=== PATIENT | female | born 1980 | race Caucasian/White ===

== ENCOUNTER 2020-06-26 | Outpatient (REF) | payer OTHER, SELFPAY ==
[2020-06-26 11:42] LABS: MANUAL DIFF FLAG NO
[2020-06-26 11:48] LABS: Basophils Absolute Auto 0.1 X10*3/uL (0.0-0.2); Basophils Percent Auto 0.9 % (0-2); Eosinophils Absolute Auto 0.2 X10*3/uL (0.0-0.4); Hematocrit 38.4 % (37-47); Hemoglobin 11.8 g/dl (12.0-16.0); Imm Gran Abs Auto 0.01 X10*3/uL (0.00-0.03); Imm Gran Pct Auto 0.1 % (0.0-0.4); Lymphocytes Absolute Auto 2.9 X10*3/uL (1.2-4.9); Lymphocytes Percent Auto 37.5 % (20-40); Mean Corpuscular HGB Conc 30.7 g/dl (31.0-35.0); Mean Corpuscular Hemoglobin 25.4 pg (27.0-33.0); Mean Corpuscular Volume 82.8 fL (80-98); Monocytes Absolute Auto 0.4 X10*3/uL (0.1-1.2); Monocytes Percent Auto 5.7 % (2-11); Neutrophils Absolute Auto 4.1 X10*3/uL (2.0-8.3); Neutrophils Percent Auto 52.8 % (45-73); Platelet Count 316 X10*3/uL (160-400); Red Blood Count 4.64 X10*6/uL (4.20-5.50); Red Cell Distribution Width 19.6 % (11.0-16.0); White Blood Count 7.8 X10*3/uL (4.8-10.8)
[2020-06-26 14:37] LABS: Ferritin 87 ng/mL (10-122)
== END 2020-06-26 00:01 | disposition home or self-care (01) ==
LOC: HO.MDS
PROVIDERS: PCP Internal Medicine; Visit Provider Internal Medicine Medical Oncology
DX: D50.9 Iron deficiency anemia, unspecified (principal)
CPT/HCPCS: 36415; 82728; 85025; J2916

== ENCOUNTER 2020-07-03 | Outpatient (REF) | payer OTHER, SELFPAY | END 2020-07-03 00:01 | disposition home or self-care (01) | LOC: HO.MDS | PROVIDERS: PCP Internal Medicine; Visit Provider Internal Medicine Medical Oncology | DX: D50.9 Iron deficiency anemia, unspecified (principal) | CPT/HCPCS: J2916 ==

== ENCOUNTER 2020-07-09 11:05 | Emergency (ER) | payer OTHER, SELFPAY ==
[2020-07-09 11:10] VITALS: BP 140/79; PULSE 92; RESP 16; TEMP 36.9; O2SAT 98; BMI 42.5
--- NOTE | 2020-07-09 11:12 | ED.FEMALEGU ---
HPI - Female Genitourinary General Chief complaint: Vaginal Bleeding Stated complaint: dizzy,vaginal bleeding Time Seen by Provider: 07/09/20 11:12 Source: patient Mode of arrival: ambulatory Limitations: no limitations History of Present Illness HPI Narrative: 39 y/o female with history of iron deficiency anemia with chronic PICC for IV iron infusions (last 6 days ago), history of dysfunctional uterine bleeding presenting with heavy vaginal bleeding associated with dizziness and lightheadedness. She was seen by [facility] in April and had PAP smear and biopsy per patient. She was told she needed to go on oral contraceptives but her doctor never called them in. In early May she was seen here for vaginal bleeding and cramping as well. She had a pelvic U/S showing a 1.9 cm right sided likely hemorrhagic ovarian cyst. She reports having 3 weeks of heavy bleeding starting Jun 14. It stopped for a few days last week but restarted again. She is now lightheaded and dizzy with mild lower abdominal cramping. She is sexually active but denies possibility of being due to active bleeding. Related Data Previous Rx's Medication Instructions Recorded medroxyprogesterone [Provera] 10 mg PO DAILY #10 tab 07/09/20 Allergies Allergy/AdvReac Type Severity Reaction Status Date / Time prednisone [PREDNISONE] Allergy Unknown HIVES Verified 07/09/20 11:18 Sulfa (Sulfonamide Allergy Unknown HIVES Verified 07/09/20 11:18 Antibiotics) [SULFA (SULFONAMIDE ANTIBIOTICS)] Review of Systems Review of Systems: Constitutional: No Fever, No Chills ENT/Mouth: No sore throat, No Rhinorrhea, No Swallowing Difficulty Eyes: No Eye Pain, No Swelling, No Redness Cardiovascular: No Chest Pain, No SOB, No Orthopnea, No Edema Respiratory: No Cough, No Sputum, No Wheezing, No dyspnea Gastrointestinal: No Nausea, No Vomiting, No Diarrhea, + lower abdominal Pain - cramping, No Hematochezia, No Melena Genitourinary: No Dysuria, No Urinary Frequency, No Hematuria, +vaginal bleeding, No vaginal discharge Musculoskeletal: No joint pain, No Myalgias Skin: No Skin Lesions, No rash Neuro: No Weakness, No Numbness, + Dizziness, No Headache Psych: + Anxiety, No Depression Heme/Lymph: No Bruising, No Lymphadenopathy Endocrine: No Polyuria, No Polydipsia PMFSH Past Medical History Attestation statement: The following information was validated with the patient. Medical History Anemia Asthma Gestational diabetes mellitus Preeclampsia Social History Social History Smoking Status: Never smoker Use of substances other than those prescribed or required for medical reasons: No Advance Directives: No Advance Directives Information Provided: Yes Physical Exam Vital Signs: Vital Signs: Vital Signs Temp Pulse Resp BP Pulse Ox 07/09/20 12:09 98.6 F 88 119/83 99 07/09/20 11:32 89 131/80 07/09/20 11:31 86 130/74 07/09/20 11:13 80 132/66 07/09/20 11:10 98.5 F 92 16 140/79 H 98 Body Mass Index 42.5 Appearance: Alert. Oriented X3. No acute distress. Eyes: Pupils equal, round and reactive to light. ENT: Pharynx normal. Neck: Normal inspection. Neck supple. CVS: Normal heart rate and rhythm. Pulses normal. Respiratory: No respiratory distress. Breath sounds normal. Abdomen: Obese, Soft with mild tenderness to deep palpation of suprapubic area. +BS x4 Skin: Skin warm and dry. Normal skin color. Normal skin turgor. No rashes. Extremities: No lower extremity edema. Neuro: Oriented X 3. No motor deficit. No sensory deficit. Course Course Course Narrative: 39 yo with DUB, anemia requiring IV iron and infusion in the past presenting with heavy vaginal bleeding and lightheadedness. She has had significant workup for the bleeding in the recent past. No need for further imaging at this time. HCG quant pending as well as H/H and type and screen - will transfuse if needed. Reevaluation(s) Reevaluation #1: H/H shows mild anemia, with hemoglobin of 11.2 from 11.8 about 2 weeks ago. No major bleeding while in the ER. Pelvic exam deferred per patient request. She is in the middle of changing her [facility] doctor but would like to get started on a OCP like her doctor previously discussed with her. Will give 1 month supply until she can f/u with a new [facility] provider. MDM - Female Genitourinary Lab Data Result diagrams: 07/09/20 11:39 07/09/20 11:39 Labs: Lab Results 07/09/20 07/09/20 07/09/20 Range/Units 11:39 11:39 11:58 WBC 7.8 (4.8-10.8) X10*3/uL RBC 4.33 (4.20-5.50) X10*6/uL Hgb 11.2 L (12.0-16.0) g/dl Hct 35.2 L (37-47) % MCV 81.3 (80-98) fL MCH 25.9 L (27.0-33.0) pg MCHC 31.8 (31.0-35.0) g/dl RDW 18.3 H (11.0-16.0) % Plt Count 334 (160-400) X10*3/uL MPV 10.8 (9.4-12.3) fL Immature Gran % (Auto) 0.5 H (0.0-0.4) % Neut % (Auto) 55.9 (45-73) % Lymph % (Auto) 35.2 (20-40) % Faulkner % (Auto) 5.0 (2-11) % Eos % (Auto) 2.6 (0-4) % Baso % (Auto) 0.8 (0-2) % Lymph # (Auto) 2.8 (1.2-4.9) X10*3/uL Faulkner # (Auto) 0.4 (0.1-1.2) X10*3/uL Eos # (Auto) 0.2 (0.0-0.4) X10*3/uL Baso # (Auto) 0.1 (0.0-0.2) X10*3/uL Abs Immat Gran (auto) 0.04 H (0.00-0.03) X10*3/uL Absolute Neuts (auto) 4.4 (2.0-8.3) X10*3/uL Absolute Nucleated RBC 0.000 (0.0-0.012) X10*3/uL Nucleated RBC % (auto) 0.0 (0.0-0.2) /100WBC Sodium 138 (135-145) mmol/L Potassium 4.2 (3.3-5.1) mmol/l Chloride 102 (96-108) mmol/L Carbon Dioxide 29 (22-29) mmol/L Anion Gap 11 L (12-20) BUN 9 (9-16) mg/dL Creatinine 0.63 (0.5-1.4) mg/dL Estim Creat Clear Calc 134.1 Estimated GFR > 60 Random Glucose 106 (60-115) mg/dL Calcium 9.4 (8.4-10.2) mg/dL Beta HCG, Quant < 2 mIU/mL Urine Color Urine Appearance Urine pH (5.0-8.0) Ur Specific [place] (1.005-1.025) Urine Protein (NEG-TRACE) MG/DL Urine Glucose (UA) (NEG) MG/DL Urine Ketones (NEG) MG/DL Urine Blood (NEG) Urine Nitrite (NEG) Ur Leukocyte Esterase (NEG) Urine RBC (0) /HPF Urine WBC (0-4) /HPF Ur Squamous Epith Cells /LPF Urine Bacteria /LPF Blood Type O Positive Antibody Screen NEGATIVE 07/09/20 Range/Units 13:18 WBC (4.8-10.8) X10*3/uL RBC (4.20-5.50) X10*6/uL Hgb (12.0-16.0) g/dl Hct (37-47) % MCV (80-98) fL MCH (27.0-33.0) pg MCHC (31.0-35.0) g/dl RDW (11.0-16.0) % Plt Count (160-400) X10*3/uL MPV (9.4-12.3) fL Immature Gran % (Auto) (0.0-0.4) % Neut % (Auto) (45-73) % Lymph % (Auto) (20-40) % Faulkner % (Auto) (2-11) % Eos % (Auto) (0-4) % Baso % (Auto) (0-2) % Lymph # (Auto) (1.2-4.9) X10*3/uL Faulkner # (Auto) (0.1-1.2) X10*3/uL Eos # (Auto) (0.0-0.4) X10*3/uL Baso # (Auto) (0.0-0.2) X10*3/uL Abs Immat Gran (auto) (0.00-0.03) X10*3/uL Absolute Neuts (auto) (2.0-8.3) X10*3/uL Absolute Nucleated RBC (0.0-0.012) X10*3/uL Nucleated RBC % (auto) (0.0-0.2) /100WBC Sodium (135-145) mmol/L Potassium (3.3-5.1) mmol/l Chloride (96-108) mmol/L Carbon Dioxide (22-29) mmol/L Anion Gap (12-20) BUN (9-16) mg/dL Creatinine (0.5-1.4) mg/dL Estim Creat Clear Calc Estimated GFR Random Glucose (60-115) mg/dL Calcium (8.4-10.2) mg/dL Beta HCG, Quant mIU/mL Urine Color RED Urine Appearance HAZY Urine pH 8.0 (5.0-8.0) Ur Specific [place] 1.025 (1.005-1.025) Urine Protein TRACE (NEG-TRACE) MG/DL Urine Glucose (UA) NEG (NEG) MG/DL Urine Ketones NEG (NEG) MG/DL Urine Blood 3+ H (NEG) Urine Nitrite NEG (NEG) Ur Leukocyte Esterase NEG (NEG) Urine RBC TNTC H (0) /HPF Urine WBC 0 (0-4) /HPF Ur Squamous Epith Cells TRACE /LPF Urine Bacteria NONE /LPF Blood Type Antibody Screen Discharge Plan Discharge Clinical Impression: Dysfunctional uterine bleeding Patient Disposition: Home, Self-Care Instructions: Dysfunctional Uterine Bleeding (ED) Additional Instructions: Follow up with your new [facility] as scheduled. If you have persistent lightheadness, dizziness or if you develop shortness of breath, chest pain or worsening bleeding come back to the ER for further evaluation. Prescriptions: New medroxyprogesterone [Provera] 10 mg tablet 10 mg PO DAILY Qty: 10 RF: 0
[2020-07-09 11:13] VITALS: BP 132/66; PULSE 80
[2020-07-09 11:31] VITALS: BP 130/74; PULSE 86
[2020-07-09 11:32] VITALS: BP 131/80; PULSE 89
[2020-07-09] MEDS: 0.9 % Sodium Chloride 1,000 ML 999 ML IVCONT (11:40)
[2020-07-09 12:07] LABS: MANUAL DIFF FLAG NO
[2020-07-09 12:09] VITALS: BP 119/83; PULSE 88; TEMP 37; O2SAT 99
[2020-07-09 12:11] LABS: Basophils Absolute Auto 0.1 X10*3/uL (0.0-0.2); Basophils Percent Auto 0.8 % (0-2); Eosinophils Absolute Auto 0.2 X10*3/uL (0.0-0.4); Eosinophils Percent Auto 2.6 % (0-4); Hematocrit 35.2 % (37-47); Hemoglobin 11.2 g/dl (12.0-16.0); Imm Gran Abs Auto 0.04 X10*3/uL (0.00-0.03); Imm Gran Pct Auto 0.5 % (0.0-0.4); Lymphocytes Absolute Auto 2.8 X10*3/uL (1.2-4.9); Lymphocytes Percent Auto 35.2 % (20-40); Mean Corpuscular HGB Conc 31.8 g/dl (31.0-35.0); Mean Corpuscular Hemoglobin 25.9 pg (27.0-33.0); Mean Corpuscular Volume 81.3 fL (80-98); Mean Platelet Volume 10.8 fL (9.4-12.3); Monocytes Absolute Auto 0.4 X10*3/uL (0.1-1.2); Neutrophils Absolute Auto 4.4 X10*3/uL (2.0-8.3); Neutrophils Percent Auto 55.9 % (45-73); Platelet Count 334 X10*3/uL (160-400); Red Blood Count 4.33 X10*6/uL (4.20-5.50); Red Cell Distribution Width 18.3 % (11.0-16.0); White Blood Count 7.8 X10*3/uL (4.8-10.8)
[2020-07-09 12:30] LABS: Anion Gap 11 (12-20); Blood Urea Nitrogen 9 mg/dL (9-16); Calcium 9.4 mg/dL (8.4-10.2); Carbon Dioxide 29 mmol/L (22-29); Chloride 102 mmol/L (96-108); Creatinine Clr Calc Pharmacy 134.1; Estimated Glomerular Filt Rate > 60; Glucose Random 106 mg/dL (60-115); Potassium 4.2 mmol/l (3.3-5.1); Sodium 138 mmol/L (135-145)
--- NOTE | 2020-07-09 12:36 | PC.NURSE ---
Pt has a Picc line to right antecub for iron infusions, last accessed Thursday. Flushed well, +blood return.
[2020-07-09 12:39] LABS: HCG Quantitative < 2 mIU/mL
[2020-07-09 13:34] LABS: Glucose Urine UA NEG (NEG); Leukocyte Esterase Urine NEG (NEG); Nitrite Urine NEG (NEG); Specific Gravity - Urine 1.025 (1.005-1.025); Urine Blood 3+ (NEG); Urine Ketones NEG (NEG); Urine Protein TRACE MG/DL (NEG-TRACE)
[2020-07-09 13:45] LABS: Appearance Urine HAZY; Color Urine RED
[2020-07-09 13:48] LABS: RBC Urine TNTC /HPF (0); Squamous Epithelial Cell Urine TRACE /LPF; WBC Urine 0 /HPF (0-4)
== END 2020-07-09 14:55 | disposition home or self-care (01) ==
PROVIDERS: Physician Assistant; Emergency Provider Emergency Medicine; PCP Internal Medicine
DX: N93.8 Other specified abnormal uterine and vaginal bleeding (principal); Z79.899 Other long term (current) drug therapy
CPT/HCPCS: 36415; 80048; 81001; 84702; 85025; 86850; 86900; 86901; 96360; 99284

== ENCOUNTER 2020-07-10 11:23 | Outpatient (REF) | payer OTHER, SELFPAY | END 2020-07-10 11:24 | disposition home or self-care (01) | LOC: HO.MDS 11:23 | PROVIDERS: PCP Internal Medicine; Visit Provider Internal Medicine Medical Oncology | DX: D50.9 Iron deficiency anemia, unspecified (principal) | CPT/HCPCS: 96365; J2916 ==

== ENCOUNTER 2020-07-17 11:28 | Outpatient (REF) | payer OTHER, SELFPAY | END 2020-07-17 11:29 | disposition home or self-care (01) | LOC: HO.MDS 11:28 | PROVIDERS: PCP Internal Medicine; Visit Provider Internal Medicine Medical Oncology | DX: D50.9 Iron deficiency anemia, unspecified (principal) | CPT/HCPCS: 96365; J2916 ==

== ENCOUNTER 2020-07-24 12:15 | Outpatient (REF) | payer OTHER, SELFPAY ==
[2020-07-24 12:38] LABS: MANUAL DIFF FLAG NO
[2020-07-24 12:46] LABS: Basophils Absolute Auto 0.1 X10*3/uL (0.0-0.2); Basophils Percent Auto 0.7 % (0-2); Eosinophils Absolute Auto 0.2 X10*3/uL (0.0-0.4); Eosinophils Percent Auto 2.2 % (0-4); Hematocrit 37.1 % (37-47); Hemoglobin 11.8 g/dl (12.0-16.0); Imm Gran Abs Auto 0.03 X10*3/uL (0.00-0.03); Imm Gran Pct Auto 0.4 % (0.0-0.4); Lymphocytes Absolute Auto 2.7 X10*3/uL (1.2-4.9); Lymphocytes Percent Auto 31.3 % (20-40); Mean Corpuscular HGB Conc 31.8 g/dl (31.0-35.0); Mean Corpuscular Hemoglobin 26.3 pg (27.0-33.0); Mean Corpuscular Volume 82.6 fL (80-98); Mean Platelet Volume 10.9 fL (9.4-12.3); Monocytes Absolute Auto 0.4 X10*3/uL (0.1-1.2); Monocytes Percent Auto 4.6 % (2-11); Neutrophils Absolute Auto 5.2 X10*3/uL (2.0-8.3); Neutrophils Percent Auto 60.8 % (45-73); Platelet Count 297 X10*3/uL (160-400); Red Blood Count 4.49 X10*6/uL (4.20-5.50); Red Cell Distribution Width 17.2 % (11.0-16.0); White Blood Count 8.5 X10*3/uL (4.8-10.8)
[2020-07-24 13:31] LABS: Ferritin 101 ng/mL (10-122)
== END 2020-07-24 12:16 | disposition home or self-care (01) ==
LOC: HO.MDS 12:15
PROVIDERS: PCP Internal Medicine; Visit Provider Internal Medicine Medical Oncology
DX: D50.9 Iron deficiency anemia, unspecified (principal)
CPT/HCPCS: 36415; 82728; 85025; 96365; J2916

== ENCOUNTER 2020-08-02 14:04 | Outpatient (REF) | payer OTHER, SELFPAY ==
--- NOTE | 2020-08-02 14:30 | HO.PICC ---
PICC Line Insertion REMOVAL OF PICC LINE 1. DATE: 08/02/2020 2. REASON REMOVED: PER REQUEST, NO LONGER NEEDED 3. INSERTED LENGTH: 47 CM SINGLE LUMEN PICC 4. REMOVED LENGTH: 47 CM INTACT SINGLE LUMEN PICC 5. A DRESSING WAS PLACED OVER THE SITE UPON REMOVAL. NO NOTED SKIN IRRITATION/SWELLING/BLEEDING NOTED. FULL ROM OF RUE INTACT. PT DENIES ANY CONCERNS. PICC FLUSHED EASILY AND BLOOD RETURN WAS VISUALIZED PRIOR TO REMOVING PICC.
== END 2020-08-02 14:05 | disposition home or self-care (01) ==
LOC: HO.RADIR 14:04
PROVIDERS: PCP Internal Medicine; Visit Provider Internal Medicine Medical Oncology
DX: Z13.89 Encounter for screening for other disorder (principal)

== ENCOUNTER → 2020-08-15 13:25 | Outpatient (REF) | payer OTHER, SELFPAY ==
--- NOTE | 2020-08-15 13:30 | ECG_ITS ---
Hook-up date: 2020-08-15 13:45:00 Duration: 47:59:00 Test Indications: PALPITATIONS, DIZZINESS Medications: [id number] QRS complexes 1 Ventricular ectopics which represent <1 % of total QRS comp. 3 Supraventricular ectopics which represent <1 % of total QRS comp. * Paced QRS complexs which represent % of total QRS comp. VENTRICULAR ECTOPY 1 Isolated 0 Bigeminal Cycles 0 Couplets 0 Runs 0 Beats in Runs * Beats LONGEST at * BPM at :: -- * Beats FASTEST at * BPM at :: -- SUPRAVENTRICULAR ECTOPY 3 Isolated 0 Couplets 0 Runs 0 Beats in Runs * Beats LONGEST at * BPM at :: -- * Beats FASTEST at * BPM at :: -- HEART RATES 53 MIN at 05:17:15 2020-08-16 80 AVG 118 MAX at 20:31:02 2020-08-15 LONGEST RR 1.2640 secs at 05:17:15 2020-08-16 S-T LEVELS Channel 1 - 128 mm at 13:45:00 2020-08-15 - 128 mm at 13:45:00 2020-08-15 Channel 2 - 128 mm at 13:45:00 2020-08-15 - 128 mm at 13:45:00 2020-08-15 Channel 3 - 128 mm at 03:30:41 -- - 128 mm at 03:30:41 Basic rhythm Normal sinus rhythm No long pause or profound bradycardia No dangerous dysrhythm periods Patient did not report any symptoms in the diary Referred By: Rama Cui Overread By: ALAN SMITH MD
== END ==
LOC: HO.CARD 13:25
PROVIDERS: PCP Internal Medicine; Visit Provider Internal Medicine
DX: R00.2 Palpitations (principal); R42 Dizziness and giddiness
CPT/HCPCS: 93225; 93226

== ENCOUNTER 2020-12-10 14:20 | Emergency (ER) | payer OTHER, SELFPAY ==
[2020-12-10 14:42] VITALS: BP 154/74; PULSE 91; RESP 16; TEMP 36.8; O2SAT 97; BMI 43.4
[2020-12-10 15:49] VITALS: BP 147/95; PULSE 79; RESP 16; TEMP 36.8; O2SAT 98
--- NOTE | 2020-12-10 16:10 | ED.ANXIETY ---
HPI - Anxiety General Chief Complaint: Anxiety Stated Complaint: anxiety attack Time Seen by Provider: 12/10/20 15:52 Source: patient Mode of arrival: ambulatory Limitations: no limitations History of Present Illness HPI narrative: 39-year-old female with a past history of anxiety, asthma, depression here after having an anxiety attack. Patient also she started a new job 3 weeks ago which has been causing her lot of stress. Today she started to have feelings of chest tightness and shortness of breath and palpitations which is very similar to her previous panic attacks. Symptoms lingered and she brought herself to the emergency department. On my assessment she is feeling much improved and all symptoms are resolved. She tells me that she has a therapist that she last saw 3 weeks ago. She is not currently taking any medications for anxiety or depression. She had been taking Celexa in the past and had been seen by psychiatrist at that time but that was more than 8 years ago. She denies SI or HI. No depression. Denies substance use. Related Data Home Medications Medication Instructions Recorded Confirmed ferrous sulfate 325 mg (65 mg mg PO 08/06/20 09/03/20 iron) tablet Previous Rx's Medication Instructions Recorded meclizine 25 mg tablet 25 mg PO TID #14 tab 08/06/20 lorazepam [Ativan] 0.5 mg PO BID PRN #5 tab 12/10/20 Allergies Allergy/AdvReac Type Severity Reaction Status Date / Time prednisone [PREDNISONE] Allergy Unknown HIVES Verified 12/10/20 14:42 Sulfa (Sulfonamide Allergy Unknown HIVES Verified 12/10/20 14:42 Antibiotics) [SULFA (SULFONAMIDE ANTIBIOTICS)] Review of Systems Review of Systems: Yes all other systems are reviewed and are negative Constitutional: Constitutional: Reports no additional constitutional complaints, Denies body ache(s), Denies chills, Denies fever(s), Denies headache(s) and Denies weakness Eyes: Eyes: Reports no additional eye complaints and Denies change in vision ENT: Reports system reviewed and no additional complaints, except as documented, Denies dizziness, Denies headache(s), Denies nasal congestion, Denies nasal discharge and Denies neck pain Cardiovascular: Cardiovascular: Reports no additional cardiovascular complaints, Denies chest pain, Denies leg edema and Denies dyspnea Respiratory: Respiratory: Reports no additional respiratory complaints, Denies cough and Denies dyspnea Gastrointestinal: Gastrointestinal: Reports no additional gastrointestinal complaints, Denies abdominal pain, Denies diarrhea, Denies nausea and Denies vomiting Genitourinary: Genitourinary: Reports no additional female genitourinary complaints and Denies urinary incontinence Musculoskeletal: Musculoskeletal: Reports no additional musculoskeletal complaints, Denies back pain, Denies arthralgias, Denies joint swelling, Denies neck pain, Denies numbness and Denies tingling Integumentary/Breasts: Skin/Breast: Reports system reviewed and no additional complaints, except as docu and Denies rash Neurologic: Reports system reviewed and no additional complaints, except as documented, Denies Abnormal speech present, Denies dizziness, Denies headache(s), Denies numbness, Denies tingling and Denies weakness Psychiatric: Psychiatric: Reports anxiety, Denies depression, Denies hallucinations, Denies tactile hallucinations, Denies homicidal ideation and Denies suicidal ideation PMFSH Past Medical History Attestation statement: The following information was validated with the patient. Source: old records reviewed and nursing notes reviewed Medical History Anemia Anxiety Asthma Gestational diabetes mellitus Menorrhagia Palpitations Preeclampsia Vertigo Family History Family History Father HTN (hypertension) Mother Bipolar disorder Ovarian cancer Maternal Grandfather Diabetes mellitus Maternal Grandmother HTN (hypertension) Breast cancer Paternal Grandfather No problems noted. Paternal Grandmother No problems noted. Social History Social History Smoking Status: Never smoker Advance Directives: No Advance Directives Information Provided: Yes Physical Exam Vital Signs: Vital Signs: Last Vital Signs Temp 98.2 F 12/10/20 15:49 Pulse 79 12/10/20 15:49 Resp 16 12/10/20 15:49 BP 147/95 H 12/10/20 15:49 Pulse Ox 98 12/10/20 15:49 Body Mass Index 43.4 Const: General: cooperative, healthy appearing, comfortable and no acute distress Orientation/consciousness: patient oriented x3 Limitations: no limitations HENMT: Head: Yes normal to inspection Ears: hearing grossly normal bilaterally General nose exam: Normal external nose present Face and sinus: Yes normal facial exam Mouth: Normal oral and palatal mucosa present Throat: Yes posterior oropharynx normal Eyes: General: appearance normal, both eyes and all related structures Pupils: Equal, round and reactive pupils present Neck: Neck: Yes normal visual inspection Chest: Chest palpation & inspection: normal inspection of the chest Resp: Effort & Inspection: normal respiratory effort Auscultation: clear to auscultation bilaterally Cardio: Rate: regular rate Rhythm: regular rhythm Peripheral pulses: Peripheral pulses 2+ throughout GI: Inspection: Yes normal to inspection Palpation (GI): Soft to palpation and nontender Auscultation: normal bowel sounds Back/Spine/Pelvis: Thoracic/Lumbar Spine: thoracic and lumbar spine normal to inspection Skin: General skin exam: no rashes or lesions noted Neuro: General: patient oriented x3, no focal motor deficits and normal sensation to monofilament Cranial nerves: Yes Equal, round and reactive pupils present Cognition (Neuro): normal cognition Speech: No Abnormal speech present Gait exam (Neuro): Normal gait present Motor exam (neuro): 5/5 motor strength present throughout Extrem: General: Yes normal to inspection Course Course Course Narrative: 39-year-old female here after having a panic attack at home. Feeling much improved on arrival. No SI or HI. Patient tells me she has had multiple stressors at home including starting a new job. Feeling much improved here. Does not want to speak to SW or crisis. Offered several tabs of ativan for prn. Recommend she follow up with her therapist for psychiatry appointment. Reviewed worrisome signs and symptoms and when to return to the emergency department. Comfortable discharge home. MDM - Anxiety Medical Records Attestation: I reviewed the patient's medical records. Lab Data Attestation: I reviewed the patient's lab results. Discharge Plan Discharge Clinical Impression: Anxiety Patient Disposition: Home, Self-Care Instructions: Anxiety (ED) Additional Instructions: Speak to your therapist about getting a psychiatrist Prescriptions: New lorazepam [Ativan] 0.5 mg tablet 0.5 mg PO BID PRN (Reason: anxiety) Qty: 5 RF: 0 No Action ferrous sulfate 325 mg (65 mg iron) tablet PO RF: 0 meclizine 25 mg tablet 25 mg PO TID Qty: 14 RF: 0 Stand Alone Forms: Work/School Release Interventions: ED Discharge Assessment Last Done: 12/10/20 16:58 Discharge Date/Time: 12/10/20 16:59
== END 2020-12-10 16:59 | disposition home or self-care (01) ==
PROVIDERS: Emergency Provider Emergency Medicine; PCP Internal Medicine
DX: F41.9 Anxiety disorder, unspecified (principal)
CPT/HCPCS: 99283

== ENCOUNTER 2021-02-05 | Outpatient (REF) | payer OTHER, SELFPAY | END 2021-02-05 00:01 | disposition home or self-care (01) | LOC: HO.LNP | PROVIDERS: Visit Provider Nurse Practitioner Family | DX: R10.9 Unspecified abdominal pain (principal); R31.0 Gross hematuria; M54.9 Dorsalgia, unspecified | CPT/HCPCS: 87086; 87088; 87186 ==

== ENCOUNTER 2021-02-05 11:50 | Emergency (ER) | payer OTHER, SELFPAY ==
[2021-02-05 12:41] VITALS: BP 140/88; PULSE 85; RESP 18; TEMP 36.3; O2SAT 96; BMI 43.4
[2021-02-05 13:55] LABS: MANUAL DIFF FLAG NO
[2021-02-05 13:59] LABS: Basophils Percent Auto 0.3 % (0-2); Eosinophils Absolute Auto 0.2 X10*3/uL (0.0-0.4); Hematocrit 34.8 % (37-47); Hemoglobin 11.2 g/dl (12.0-16.0); Imm Gran Abs Auto 0.05 X10*3/uL (0.00-0.03); Imm Gran Pct Auto 0.4 % (0.0-0.4); Lymphocytes Absolute Auto 2.3 X10*3/uL (1.2-4.9); Lymphocytes Percent Auto 19.9 % (20-40); Mean Corpuscular HGB Conc 32.2 g/dl (31.0-35.0); Mean Corpuscular Hemoglobin 25.5 pg (27.0-33.0); Mean Corpuscular Volume 79.3 fL (80-98); Mean Platelet Volume 10.7 fL (9.4-12.3); Monocytes Absolute Auto 0.5 X10*3/uL (0.1-1.2); Monocytes Percent Auto 4.1 % (2-11); Neutrophils Absolute Auto 8.5 X10*3/uL (2.0-8.3); Neutrophils Percent Auto 73.3 % (45-73); Platelet Count 313 X10*3/uL (160-400); Red Blood Count 4.39 X10*6/uL (4.20-5.50); Red Cell Distribution Width 16.2 % (11.0-16.0); White Blood Count 11.6 X10*3/uL (4.8-10.8)
[2021-02-05 14:01] LABS: Glucose Urine UA NEG (NEG); Leukocyte Esterase Urine 1+ (NEG); Nitrite Urine NEG (NEG); UACC Culture Trigger YES; Urine Blood 3+ (NEG); Urine Ketones NEG (NEG); Urine Protein 2+ MG/DL (NEG-TRACE)
[2021-02-05 14:03] LABS: UPreg QC Valid YES; Urine Pregnancy NEGATIVE (NEGATIVE)
[2021-02-05 14:04] LABS: Appearance Urine CLOUDY; Color Urine YELLOW
[2021-02-05 14:08] LABS: Bacteria Urine TRACE /LPF; Mucus Urine TRACE /LPF; RBC Urine TNTC /HPF (0); Squamous Epithelial Cell Urine TRACE /LPF
[2021-02-05 14:22] LABS: Alanine Aminotransferase 21 U/L (0-31); Albumin Level 3.9 g/dL (3.5-5.0); Alkaline Phosphatase 104 U/L (39-117); Anion Gap 13 (12-20); Aspartate Amino Transferase 25 U/L (5-31); Bilirubin Total 0.5 mg/dL (0.0-1.0); Blood Urea Nitrogen 8 mg/dL (9-16); Calcium 9.4 mg/dL (8.4-10.2); Carbon Dioxide 26 mmol/L (22-29); Chloride 103 mmol/L (96-108); Creatinine Clr Calc Pharmacy 134.6; Estimated Glomerular Filt Rate > 60; Glucose Random 98 mg/dL (60-115); Potassium 3.8 mmol/L (3.3-5.1); Sodium 138 mmol/L (135-145); Total Protein 7.1 g/dL (6.5-8.0)
[2021-02-05 16:00] VITALS: BP 138/84; PULSE 72; RESP 16; TEMP 36.9; O2SAT 99
--- NOTE | 2021-02-05 16:34 | ED_ITS ---
HPI - Abdominal Pain General Chief Complaint: Abdominal Pain Stated Complaint: LOWER BACK AND ABD PAIN Time Seen by Provider: 02/05/21 16:30 Source: patient Mode of arrival: ambulatory Limitations: no limitations History of Present Illness HPI narrative: 32-year-old female here with low back pain with suprapubic pre ssure and discomfort and hematuria x3 days. No flank pain, fevers, chills, nausea, vomiting. No vaginal discharge. Seen at Urgent Care and sent in for further evaluation Related Data Home Medications Medication Instructions Recorded Confirmed ferrous sulfate 325 mg (65 mg mg PO 08/06/20 09/03/20 iron) tablet Previous Rx's Medication Instructions Recorded meclizine 25 mg tablet 25 mg PO TID #14 tab 08/06/20 lorazepam [Ativan] 0.5 mg PO BID PRN #5 tab 12/10/20 nitrofurantoin monohyd/m-cryst 100 mg PO Q12H 7 Days #14 cap 02/05/21 [Macrobid] phenazopyridine [Pyridium] 100 mg PO TID PRN #6 tab 02/05/21 Allergies Allergy/AdvReac Type Severity Reaction Status Date / Time prednisone [PREDNISONE] Allergy Unknown HIVES Verified 02/05/21 12:41 Sulfa (Sulfonamide Allergy Unknown HIVES Verified 02/05/21 12:41 Antibiotics) [SULFA (SULFONAMIDE ANTIBIOTICS)] Review of Systems Review of Systems Yes all other systems are reviewed and are negative Constitutional: Reports no additional constitutional complaints, Denies body ache(s), Denies chills, Denies fever(s), Denies headache(s) and Denies weakness Eyes: Reports no additional eye complaints and Denies change in vision Reports system reviewed and no additional complaints, except as documented, Denies dizziness, Denies headache(s), Denies nasal congestion, Denies nasal discharge and Denies neck pain Cardiovascular: Reports no additional cardiovascular complaints, Denies chest pain, Denies leg edema and Denies dyspnea Respiratory: Reports no additional respiratory complaints, Denies cough and Denies dyspnea Gastrointestinal: Reports no additional gastrointestinal complaints, Denies abdominal pain, Denies diarrhea, Denies nausea and Denies vomiting Genitourinary: Reports no additional female genitourinary complaints, Reports hematuria and Denies urinary incontinence Musculoskeletal: Reports no additional musculoskeletal complaints, Reports back pain, Denies arthralgias, Denies joint swelling, Denies neck pain, Denies numbness and Denies tingling Skin/Breast: Reports system reviewed and no additional complaints, except as docu and Denies rash Reports system reviewed and no additional complaints, except as documented, Denies Abnormal speech present, Denies dizziness, Denies headache(s), Denies numbness, Denies tingling and Denies weakness Physical Exam Vital Signs: Vital Signs: Last Vital Signs Temp 97.3 F 02/05/21 12:41 Pulse 85 02/05/21 12:41 Resp 18 02/05/21 12:41 BP 140/88 H 02/05/21 12:41 Pulse Ox 96 02/05/21 12:41 Body Mass Index 43.4 Const: General: cooperative, healthy appearing, comfortable and no acute distress Orientation/consciousness: patient oriented x3 Limitations: no limitations HENMT: Head: Yes normal to inspection Ears: hearing grossly normal bilaterally General nose exam: Normal external nose present Face and sinus: Yes normal facial exam Mouth: Normal oral and palatal mucosa present Throat: Yes posterior oropharynx normal Eyes: General: appearance normal, both eyes and all related structures Pupils: Equal, round and reactive pupils present Neck: Neck: Yes normal visual inspection Chest: Chest palpation & inspection: normal inspection of the chest Resp: Effort & Inspection: normal respiratory effort Auscultation: clear to auscultation bilaterally Cardio: Rate: regular rate Rhythm: regular rhythm Peripheral pulses: Peripheral pulses 2+ throughout GI: Inspection: Yes normal to inspection Palpation (GI): Soft to palpation and Tenderness to palpation present (GI) suprapubicly (Mild. No rebound or guarding) Auscultation: normal bowel sounds : General: Yes no CVA tenderness Back/Spine/Pelvis: Back: no CVA tenderness Thoracic/Lumbar Spine: thoracic and lumbar spine normal to inspection Skin: General skin exam: no rashes or lesions noted Neuro: General: patient oriented x3, no focal motor deficits and normal sensation to monofilament Cranial nerves: Yes Equal, round and reactive pupils present Cognition (Neuro): normal cognition Speech: No Abnormal speech present Gait exam (Neuro): Normal gait present Motor exam (neuro): 5/5 motor strength present throughout Extrem: General: Yes normal to inspection Course Course Course Narrative: 40-year-old female here with lower back pain with suprapubic discomfort and pressure times several days with intermittent hematuria. No flank pain. UA is consistent with a UTI. Renal function normal. Very mild leukocytosis with no shift. Will treat with course of antibiotics and Pyridium for comfort. Reviewed worrisome signs and symptoms of when to return to the emergency department. Comfortable discharge home. MDM - Abdominal Pain Medical Records Attestation: I reviewed the patient's medical records. Lab Data Attestation: I reviewed the patient's lab results. Result diagrams: 02/05/21 13:49 02/05/21 13:49 Labs: Lab Results 02/05/21 02/05/21 02/05/21 Range/Units 13:38 13:49 13:49 WBC 11.6 H (4.8-10.8) X10*3/uL RBC 4.39 (4.20-5.50) X10*6/uL Hgb 11.2 L (12.0-16.0) g/dl Hct 34.8 L (37-47) % MCV 79.3 L (80-98) fL MCH 25.5 L (27.0-33.0) pg MCHC 32.2 (31.0-35.0) g/dl RDW 16.2 H (11.0-16.0) % Plt Count 313 (160-400) X10*3/uL MPV 10.7 (9.4-12.3) fL Immature Gran % (Auto) 0.4 (0.0-0.4) % Neut % (Auto) 73.3 H (45-73) % Lymph % (Auto) 19.9 L (20-40) % [place] % (Auto) 4.1 (2-11) % Eos % (Auto) 2.0 (0-4) % Baso % (Auto) 0.3 (0-2) % Lymph # (Auto) 2.3 (1.2-4.9) X10*3/uL [place] # (Auto) 0.5 (0.1-1.2) X10*3/uL Eos # (Auto) 0.2 (0.0-0.4) X10*3/uL Baso # (Auto) 0.0 (0.0-0.2) X10*3/uL Abs Immat Gran (auto) 0.05 H (0.00-0.03) X10*3/uL Absolute Neuts (auto) 8.5 H (2.0-8.3) X10*3/uL Absolute Nucleated RBC 0.000 (0.0-0.012) X10*3/uL Nucleated RBC % (auto) 0.0 (0.0-0.2) /100WBC Hold Blue Top Sodium (135-145) mmol/L Potassium (3.3-5.1) mmol/L Chloride (96-108) mmol/L Carbon Dioxide (22-29) mmol/L Anion Gap (12-20) BUN (9-16) mg/dL Creatinine (0.5-1.4) mg/dL Estim Creat Clear Calc Estimated GFR Random Glucose (60-115) mg/dL Calcium (8.4-10.2) mg/dL Total Bilirubin (0.0-1.0) mg/dL AST (5-31) U/L ALT (0-31) U/L Alkaline Phosphatase (39-117) U/L Total Protein (6.5-8.0) g/dL Albumin (3.5-5.0) g/dL Urine Color YELLOW Urine Appearance CLOUDY Urine pH 6.0 (5.0-8.0) Ur Specific [place] 1.020 (1.005-1.025) Urine Protein 2+ H (NEG-TRACE) MG/DL Urine Glucose (UA) NEG (NEG) MG/DL Urine Ketones NEG (NEG) MG/DL Urine Blood 3+ H (NEG) Urine Nitrite NEG (NEG) Ur Leukocyte Esterase 1+ H (NEG) Urine RBC TNTC H (0) /HPF Urine WBC 76-150 H (0-4) /HPF Ur Squamous Epith Cells TRACE /LPF Urine Bacteria TRACE /LPF Urine Mucus TRACE /LPF Urine Test NEGATIVE (NEGATIVE) 02/05/21 02/05/21 Range/Units 13:49 13:49 WBC (4.8-10.8) X10*3/uL RBC (4.20-5.50) X10*6/uL Hgb (12.0-16.0) g/dl Hct (37-47) % MCV (80-98) fL MCH (27.0-33.0) pg MCHC (31.0-35.0) g/dl RDW (11.0-16.0) % Plt Count (160-400) X10*3/uL MPV (9.4-12.3) fL Immature Gran % (Auto) (0.0-0.4) % Neut % (Auto) (45-73) % Lymph % (Auto) (20-40) % [place] % (Auto) (2-11) % Eos % (Auto) (0-4) % Baso % (Auto) (0-2) % Lymph # (Auto) (1.2-4.9) X10*3/uL [place] # (Auto) (0.1-1.2) X10*3/uL Eos # (Auto) (0.0-0.4) X10*3/uL Baso # (Auto) (0.0-0.2) X10*3/uL Abs Immat Gran (auto) (0.00-0.03) X10*3/uL Absolute Neuts (auto) (2.0-8.3) X10*3/uL Absolute Nucleated RBC (0.0-0.012) X10*3/uL Nucleated RBC % (auto) (0.0-0.2) /100WBC Hold Blue Top SEE NOTE Sodium 138 (135-145) mmol/L Potassium 3.8 (3.3-5.1) mmol/L Chloride 103 (96-108) mmol/L Carbon Dioxide 26 (22-29) mmol/L Anion Gap 13 (12-20) BUN 8 L (9-16) mg/dL Creatinine 0.63 (0.5-1.4) mg/dL Estim Creat Clear Calc 134.6 Estimated GFR > 60 Random Glucose 98 (60-115) mg/dL Calcium 9.4 (8.4-10.2) mg/dL Total Bilirubin 0.5 (0.0-1.0) mg/dL AST 25 (5-31) U/L ALT 21 (0-31) U/L Alkaline Phosphatase 104 (39-117) U/L Total Protein 7.1 (6.5-8.0) g/dL Albumin 3.9 (3.5-5.0) g/dL Urine Color Urine Appearance Urine pH (5.0-8.0) Ur Specific [place] (1.005-1.025) Urine Protein (NEG-TRACE) MG/DL Urine Glucose (UA) (NEG) MG/DL Urine Ketones (NEG) MG/DL Urine Blood (NEG) Urine Nitrite (NEG) Ur Leukocyte Esterase (NEG) Urine RBC (0) /HPF Urine WBC (0-4) /HPF Ur Squamous Epith Cells /LPF Urine Bacteria /LPF Urine Mucus /LPF Urine Test (NEGATIVE) Discharge Plan Discharge Clinical Impression: UTI (urinary tract infection) Qualifiers: Urinary tract infection type: acute cystitis Hematuria presence: with hematuria Qualified Code(s): N30.01 - Acute cystitis with hematuria Patient Disposition: Home, Self-Care Instructions: Urinary Tract Infection in Women (ED) Additional Instructions: Increase fluids, rest Prescriptions: New nitrofurantoin monohyd/m-cryst [Macrobid] 100 mg capsule 100 mg PO Q12H 7 Days Qty: 14 RF: 0 phenazopyridine [Pyridium] 100 mg tablet 100 mg PO TID PRN (Reason: pain) Qty: 6 RF: 0 No Action lorazepam [Ativan] 0.5 mg tablet 0.5 mg PO BID PRN (Reason: anxiety) Qty: 5 RF: 0 ferrous sulfate 325 mg (65 mg iron) tablet PO RF: 0 meclizine 25 mg tablet 25 mg PO TID Qty: 14 RF: 0 Referrals: Rama Cui MD [Primary Care Provider] - 2 days [facility] Past Medical History Medical History Anemia Anxiety Asthma Gestational diabetes mellitus Menorrhagia Palpitations Preeclampsia Vertigo Family History Family History Father HTN (hypertension) Mother Bipolar disorder Ovarian cancer Maternal Grandfather Diabetes mellitus Maternal Grandmother HTN (hypertension) Breast cancer Paternal Grandfather No problems noted. Paternal Grandmother No problems noted. Social History Social History Smoking Status: Never smoker Advance Directives: Yes Advance Directives Information Provided: Yes Advance Directives on File: No Patient : No
== END 2021-02-05 16:47 | disposition home or self-care (01) ==
PROVIDERS: Emergency Provider Emergency Medicine; PCP Internal Medicine
DX: N30.01 Acute cystitis with hematuria (principal); M54.5 Low back pain
CPT/HCPCS: 36415; 80053; 81001; 81003; 81025; 85025; 87086; 87088; 87186; 99283

== ENCOUNTER 2021-02-26 23:13 | Emergency (ER) | payer OTHER, SELFPAY ==
--- NOTE | ~2021-02-26 | CT_ITS ---
EXAMINATION: CT ABDOMEN AND PELVIS WITH CONTRAST CLINICAL INFORMATION: Right lower quadrant pain COMPARISON: 08/05/2018 TECHNIQUE: Multidetector volumetric images were obtained from the superior aspect of the liver through the pubic symphysis following administration 85 mL of Omnipaque 350 intravenous contrast. Sagittal and coronal reformatted images were obtained on the technologist's workstation. Oral contrast: No This CT examination was performed using dose optimization techniques as appropriate, variously including the following: *Automated exposure control *Adjustment of mA and/or kV according to patient size (this includes techniques or standardized protocols for targeted exams where dose is matched to indication/reason for exam; i.e. extremities or head) *Use of iterative reconstruction technique DLP: 875 mGy-cm FINDINGS: LUNG BASES: The visualized lung bases are unremarkable. LIVER, GALLBLADDER, AND BILIARY TREE: The liver is enlarged and demonstrates hypoattenuation suspicious for steatosis. No focal hepatic lesion or biliary ductal dilatation is present. The gallbladder is unremarkable with no evidence of radiopaque gallstones, gallbladder wall thickening, or obvious pericholecystic inflammatory changes. PANCREAS: Unremarkable. SPLEEN: Enlarged, measuring approximately 16 cm in the axial plane. ADRENAL GLANDS: Unremarkable. KIDNEYS AND URETERS: The kidneys are normal in size, shape, and attenuation. No hydronephrosis, hydroureter, or obstructing calculi seen. No perinephric stranding. BLADDER: Partially distended with mild diffuse mural prominence. GASTROINTESTINAL TRACT: Assessment for wall thickening in some segments of the colon is limited due to luminal collapse, though no significant pericolonic stranding is seen to strongly suggest acute colitis. There is prominent submucosal fat in the ascending colon, a finding which can be seen as sequelae of prior inflammation. Scattered diverticula are noted in the descending and sigmoid colon. The appendix is unremarkable. No free fluid or free air is seen. ABDOMINAL WALL: No significant hernia is appreciated. LYMPH NODES: Normal. VASCULAR: Unremarkable. PELVIC VISCERA: Unremarkable. OSSEOUS STRUCTURES: Unremarkable. CT/CT abdomen pelvis w con IMPRESSION: 1. Mild diffuse mural prominence of the urinary bladder, which could reflect cystitis in the proper clinical setting. 2. No acute bowel abnormality identified. Normal appendix. 3. Hepatomegaly with steatosis. 4. Splenomegaly.
--- NOTE | ~2021-02-26 | US_ITS ---
EXAMINATION: ULTRASOUND PELVIS CLINICAL INFORMATION: Pain, rule out ovarian torsion COMPARISON: 05/23/2020 TECHNIQUE: Sonographic evaluation of the pelvis was performed transabdominally and transvaginally. Color Doppler and spectral analysis was performed. FINDINGS: The uterus measures 13.9 cm in length and 5.9 x 7.6 cm in AP and transverse dimensions. The endometrial stripe measures 1.8 cm in thickness. Trace fluid is noted in the cervix. Nabothian cyst is noted. The right ovary is suboptimally seen due to bowel gas, measuring 4.9 x 3.2 x 3.5 cm. There is a 2.2 x 1.3 x 1.5 cm right ovarian cyst which may represent a dominant follicle. The left ovary measures 4.4 x 2.4 x 2.5 cm and appears unremarkable. Doppler evaluation demonstrates arterial and venous waveforms in the bilateral ovaries. Trace free fluid is identified. US/US pelvic and transvaginal IMPRESSION: 1. No findings to suggest ovarian torsion. 2. Trace nonspecific specific pelvic free fluid, which may be physiologic. 3. Trace fluid in the cervix.
--- NOTE | ~2021-02-26 | US_ITS ---
EXAMINATION: ULTRASOUND PELVIS CLINICAL INFORMATION: Pain, rule out ovarian torsion COMPARISON: 05/23/2020 TECHNIQUE: Sonographic evaluation of the pelvis was performed transabdominally and transvaginally. Color Doppler and spectral analysis was performed. FINDINGS: The uterus measures 13.9 cm in length and 5.9 x 7.6 cm in AP and transverse dimensions. The endometrial stripe measures 1.8 cm in thickness. Trace fluid is noted in the cervix. Nabothian cyst is noted. The right ovary is suboptimally seen due to bowel gas, measuring 4.9 x 3.2 x 3.5 cm. There is a 2.2 x 1.3 x 1.5 cm right ovarian cyst which may represent a dominant follicle. The left ovary measures 4.4 x 2.4 x 2.5 cm and appears unremarkable. Doppler evaluation demonstrates arterial and venous waveforms in the bilateral ovaries. Trace free fluid is identified. US/US pelvic ovarian doppler IMPRESSION: 1. No findings to suggest ovarian torsion. 2. Trace nonspecific specific pelvic free fluid, which may be physiologic. 3. Trace fluid in the cervix.
[2021-02-26 23:55] VITALS: PULSE 99; RESP 18; TEMP 37.1; O2SAT 98; BMI 43.4
[2021-02-27 00:06] LABS: MANUAL DIFF FLAG NO
[2021-02-27 00:08] LABS: Glucose Urine UA NEG (NEG); Leukocyte Esterase Urine NEG (NEG); Nitrite Urine NEG (NEG); Specific Gravity - Urine 1.025 (1.005-1.025); Urine Blood TRACE (NEG); Urine Ketones NEG (NEG); Urine Protein TRACE MG/DL (NEG-TRACE)
[2021-02-27 00:09] LABS: Appearance Urine CLEAR; Color Urine YELLOW
[2021-02-27 00:11] LABS: Basophils Percent Auto 0.2 % (0-2); Eosinophils Absolute Auto 0.1 X10*3/uL (0.0-0.4); Eosinophils Percent Auto 0.7 % (0-4); Hemoglobin 11.5 g/dl (12.0-16.0); Imm Gran Abs Auto 0.09 X10*3/uL (0.00-0.03); Imm Gran Pct Auto 0.5 % (0.0-0.4); Lymphocytes Absolute Auto 1.9 X10*3/uL (1.2-4.9); Lymphocytes Percent Auto 9.9 % (20-40); Mean Corpuscular HGB Conc 31.9 g/dl (31.0-35.0); Mean Corpuscular Hemoglobin 25.1 pg (27.0-33.0); Mean Corpuscular Volume 78.4 fL (80-98); Mean Platelet Volume 10.9 fL (9.4-12.3); Monocytes Absolute Auto 0.6 X10*3/uL (0.1-1.2); Neutrophils Absolute Auto 16.6 X10*3/uL (2.0-8.3); Neutrophils Percent Auto 85.7 % (45-73); Platelet Count 350 X10*3/uL (160-400); Red Blood Count 4.59 X10*6/uL (4.20-5.50); Red Cell Distribution Width 16.3 % (11.0-16.0); White Blood Count 19.4 X10*3/uL (4.8-10.8)
[2021-02-27 00:12] LABS: UPreg QC Valid YES; Urine Pregnancy NEGATIVE (NEGATIVE)
--- NOTE | 2021-02-27 00:34 | ED.ABDPAIN ---
HPI - Abdominal Pain General Chief Complaint: Abdominal Pain Stated Complaint: Abd pain Time Seen by Provider: 02/27/21 00:24 Source: patient Mode of arrival: ambulatory History of Present Illness HPI narrative: 40-year-old female presents with acute onset of right lower quadrant/epigastric pain this started approximately 5:00 p.m. associated with nausea but no vomiting, chills but no fever and denies any urinary pain/burning/frequency as well as denying any diarrhea. Related Data Home Medications Medication Instructions Recorded Confirmed ferrous sulfate 325 mg (65 mg mg PO 08/06/20 09/03/20 iron) tablet Previous Rx's Medication Instructions Recorded meclizine 25 mg tablet 25 mg PO TID #14 tab 08/06/20 lorazepam [Ativan] 0.5 mg PO BID PRN #5 tab 12/10/20 nitrofurantoin monohyd/m-cryst 100 mg PO Q12H 7 Days #14 cap 02/05/21 [Macrobid] phenazopyridine [Pyridium] 100 mg PO TID PRN #6 tab 02/05/21 Allergies Allergy/AdvReac Type Severity Reaction Status Date / Time prednisone [PREDNISONE] Allergy Unknown HIVES Verified 02/05/21 12:41 Sulfa (Sulfonamide Allergy Unknown HIVES Verified 02/05/21 12:41 Antibiotics) [SULFA (SULFONAMIDE ANTIBIOTICS)] Review of Systems Review of Systems Pertinent positives and negatives as stated in HPI 10 point review of systems is otherwise negative. Physical Exam Vital Signs: Vital Signs: Last Vital Signs Temp 98.8 F 02/26/21 23:55 Pulse 99 02/26/21 23:55 Resp 18 02/26/21 23:55 Pulse Ox 98 02/26/21 23:55 Body Mass Index 43.4 VITAL SIGNS: Reviewed. GENERAL: Well developed, well nourished, in no acute distress. HEAD: Normocephalic/atraumatic EYES: PERRLA, EOMI OROPHARYNX: no oral lesions noted, posterior pharynx clear NECK: Supple, no adenopathy LUNGS: Normal breath sounds. No adventitious sounds or accessory muscle use. SpO2<98> CARDIOVASCULAR: Regular rate and rhythm without noted murmurs, ABDOMEN: Soft, tenderness on palpation at the right lower quadrant and suprapubic area without rebound, non-distended with bowel sounds. NEUROLOGIC: Alert and oriented x 4. Course Course Course Narrative: This is a 40-year-old female with history and clinical presentation suggests of appendicitis, ovarian torsion, ectopic, UTI, renal colic. Review of all investigations without acute findings other than commencement of her menstrual period. Presumptively being treated for menstrual pain. All results and findings were discussed with the patient bedside and she was discharged in stable condition. MDM - Abdominal Pain Lab Data Result diagrams: 02/26/21 23:57 02/26/21 23:57 Labs: Lab Results 02/26/21 02/26/21 02/26/21 Range/Units 23:52 23:52 23:57 WBC 19.4 H (4.8-10.8) X10*3/uL RBC 4.59 (4.20-5.50) X10*6/uL Hgb 11.5 L (12.0-16.0) g/dl Hct 36.0 L (37-47) % MCV 78.4 L (80-98) fL MCH 25.1 L (27.0-33.0) pg MCHC 31.9 (31.0-35.0) g/dl RDW 16.3 H (11.0-16.0) % Plt Count 350 (160-400) X10*3/uL MPV 10.9 (9.4-12.3) fL Immature Gran % (Auto) 0.5 H (0.0-0.4) % Neut % (Auto) 85.7 H (45-73) % Lymph % (Auto) 9.9 L (20-40) % [place] % (Auto) 3.0 (2-11) % Eos % (Auto) 0.7 (0-4) % Baso % (Auto) 0.2 (0-2) % Lymph # (Auto) 1.9 (1.2-4.9) X10*3/uL [place] # (Auto) 0.6 (0.1-1.2) X10*3/uL Eos # (Auto) 0.1 (0.0-0.4) X10*3/uL Baso # (Auto) 0.0 (0.0-0.2) X10*3/uL Abs Immat Gran (auto) 0.09 H (0.00-0.03) X10*3/uL Absolute Neuts (auto) 16.6 H (2.0-8.3) X10*3/uL Absolute Nucleated RBC 0.000 (0.0-0.012) X10*3/uL Nucleated RBC % (auto) 0.0 (0.0-0.2) /100WBC Hold Blue Top Sodium (135-145) mmol/L Potassium (3.3-5.1) mmol/L Chloride (96-108) mmol/L Carbon Dioxide (22-29) mmol/L Anion Gap (12-20) BUN (9-16) mg/dL Creatinine (0.5-1.4) mg/dL Estim Creat Clear Calc Estimated GFR Random Glucose (60-115) mg/dL Calcium (8.4-10.2) mg/dL Total Bilirubin (0.0-1.0) mg/dL AST (5-31) U/L ALT (0-31) U/L Alkaline Phosphatase (39-117) U/L Total Protein (6.5-8.0) g/dL Albumin (3.5-5.0) g/dL Urine Color YELLOW Urine Appearance CLEAR Urine pH 6.0 (5.0-8.0) Ur Specific [place] 1.025 (1.005-1.025) Urine Protein TRACE (NEG-TRACE) MG/DL Urine Glucose (UA) NEG (NEG) MG/DL Urine Ketones NEG (NEG) MG/DL Urine Blood TRACE (NEG) Urine Nitrite NEG (NEG) Ur Leukocyte Esterase NEG (NEG) Urine RBC 5-9 H (0) /HPF Urine WBC 0-2 (0-4) /HPF Ur Squamous Epith Cells 2+ /LPF Urine Bacteria TRACE /LPF Urine Mucus TRACE /LPF Urine Test NEGATIVE (NEGATIVE) 02/26/21 02/27/21 Range/Units 23:57 01:00 WBC (4.8-10.8) X10*3/uL RBC (4.20-5.50) X10*6/uL Hgb (12.0-16.0) g/dl Hct (37-47) % MCV (80-98) fL MCH (27.0-33.0) pg MCHC (31.0-35.0) g/dl RDW (11.0-16.0) % Plt Count (160-400) X10*3/uL MPV (9.4-12.3) fL Immature Gran % (Auto) (0.0-0.4) % Neut % (Auto) (45-73) % Lymph % (Auto) (20-40) % [place] % (Auto) (2-11) % Eos % (Auto) (0-4) % Baso % (Auto) (0-2) % Lymph # (Auto) (1.2-4.9) X10*3/uL [place] # (Auto) (0.1-1.2) X10*3/uL Eos # (Auto) (0.0-0.4) X10*3/uL Baso # (Auto) (0.0-0.2) X10*3/uL Abs Immat Gran (auto) (0.00-0.03) X10*3/uL Absolute Neuts (auto) (2.0-8.3) X10*3/uL Absolute Nucleated RBC (0.0-0.012) X10*3/uL Nucleated RBC % (auto) (0.0-0.2) /100WBC Hold Blue Top SEE NOTE Sodium 135 (135-145) mmol/L Potassium 4.0 (3.3-5.1) mmol/L Chloride 101 (96-108) mmol/L Carbon Dioxide 25 (22-29) mmol/L Anion Gap 13 (12-20) BUN 10 (9-16) mg/dL Creatinine 0.78 (0.5-1.4) mg/dL Estim Creat Clear Calc 108.6 Estimated GFR > 60 Random Glucose 177 H D (60-115) mg/dL Calcium 9.6 (8.4-10.2) mg/dL Total Bilirubin 0.5 (0.0-1.0) mg/dL AST 13 D (5-31) U/L ALT 15 (0-31) U/L Alkaline Phosphatase 107 (39-117) U/L Total Protein 7.0 (6.5-8.0) g/dL Albumin 3.9 (3.5-5.0) g/dL Urine Color Urine Appearance Urine pH (5.0-8.0) Ur Specific [place] (1.005-1.025) Urine Protein (NEG-TRACE) MG/DL Urine Glucose (UA) (NEG) MG/DL Urine Ketones (NEG) MG/DL Urine Blood (NEG) Urine Nitrite (NEG) Ur Leukocyte Esterase (NEG) Urine RBC (0) /HPF Urine WBC (0-4) /HPF Ur Squamous Epith Cells /LPF Urine Bacteria /LPF Urine Mucus /LPF Urine Test (NEGATIVE) Discharge Plan Discharge Clinical Impression: Menstrual cramp Patient Disposition: Home, Self-Care Prescriptions: No Action lorazepam [Ativan] 0.5 mg tablet 0.5 mg PO BID PRN (Reason: anxiety) Qty: 5 RF: 0 nitrofurantoin monohyd/m-cryst [Macrobid] 100 mg capsule 100 mg PO Q12H 7 Days Qty: 14 RF: 0 phenazopyridine [Pyridium] 100 mg tablet 100 mg PO TID PRN (Reason: pain) Qty: 6 RF: 0 ferrous sulfate 325 mg (65 mg iron) tablet PO RF: 0 meclizine 25 mg tablet 25 mg PO TID Qty: 14 RF: 0 Interventions: ED Discharge Assessment Last Done: 02/27/21 07:01 Discharge Date/Time: 02/27/21 04:10 [facility] Past Medical History Source: nursing notes reviewed Medical History Anemia Anxiety Asthma Gestational diabetes mellitus Menorrhagia Palpitations Polycystic disease, ovaries Preeclampsia Vertigo Family History Family History Father HTN (hypertension) Mother Bipolar disorder Ovarian cancer Maternal Grandfather Diabetes mellitus Maternal Grandmother HTN (hypertension) Breast cancer Paternal Grandfather No problems noted. Paternal Grandmother No problems noted. Social History Social History Advance Directives: No Patient : No
[2021-02-27 00:35] LABS: Bacteria Urine TRACE /LPF; Mucus Urine TRACE /LPF; Squamous Epithelial Cell Urine 2+ /LPF; WBC Urine 0-2 /HPF (0-4)
[2021-02-27 00:47] LABS: Alanine Aminotransferase 15 U/L (0-31); Albumin Level 3.9 g/dL (3.5-5.0); Alkaline Phosphatase 107 U/L (39-117); Anion Gap 13 (12-20); Aspartate Amino Transferase 13 U/L (5-31); Bilirubin Total 0.5 mg/dL (0.0-1.0); Blood Urea Nitrogen 10 mg/dL (9-16); Calcium 9.6 mg/dL (8.4-10.2); Carbon Dioxide 25 mmol/L (22-29); Chloride 101 mmol/L (96-108); Creatinine Clr Calc Pharmacy 108.6; Estimated Glomerular Filt Rate > 60; Glucose Random 177 mg/dL (60-115); Sodium 135 mmol/L (135-145)
[2021-02-27] MEDS: Ketorolac Tromethamine 15 MG/ML VIAL 10 MG IVPUSH (02:15)
[2021-02-27] MEDS: iohexoL 350 MG/ML 100 ML INFUS..BTL 85 ML IV (05:47)
== END 2021-02-27 04:10 | disposition home or self-care (01) ==
PROVIDERS: Emergency Provider Student in an Organized Health Care Education/Training Program; PCP Internal Medicine
DX: N94.6 Dysmenorrhea, unspecified (principal); R11.0 Nausea
CPT/HCPCS: 36415; 74177; 76830; 76856; 80053; 81001; 81025; 85025; 93975; 96374; 99283; 99284; J1885; Q9967

== ENCOUNTER 2021-11-18 19:26 | Emergency (ER) | payer OTHER, SELFPAY ==
--- NOTE | 2021-11-18 | ECG_ITS ---
Test Reason : SOB Blood Pressure : / mmHG Vent. Rate : 083 BPM Atrial Rate : 083 BPM P-R Int : 128 ms QRS Dur : 076 ms QT Int : 378 ms P-R-T Axes : 031 064 041 degrees QTc Int : 444 ms Normal sinus rhythm with sinus arrhythmia Normal ECG When compared with ECG of 23-MAY-2020 14:55, No significant change was found Referred By: Generic ED Physician Electronically Signed By:Trell Solomon
--- NOTE | ~2021-11-18 | XR_ITS ---
EXAMINATION: XR CHEST CLINICAL INFORMATION: Shortness of breath. COMPARISON: Comparison is made to 11/22/2019 chest radiographs. TECHNIQUE: Frontal view of the chest was obtained. FINDINGS: No significant abnormality is noted involving the heart, lungs, mediastinum, bony thorax or soft tissues. XR/XR chest 1V IMPRESSION: No acute cardiopulmonary process.
[2021-11-18 19:34] VITALS: BP 160/86; PULSE 94; RESP 18; TEMP 36.7; O2SAT 98; BMI 41.5
[2021-11-18 20:31] LABS: Blood Urea Nitrogen 9 mg/dL (9-16); Calcium 9.3 mg/dL (8.4-10.2); Creatinine Clr Calc Pharmacy 116.3; Estimated Glomerular Filt Rate > 60; Glucose Random 258 mg/dL (60-115)
[2021-11-18 20:41] LABS: Anion Gap 16 (12-20); Carbon Dioxide 23 mmol/L (22-29); Chloride 100 mmol/L (96-108); Potassium 4.7 mmol/L (3.3-5.1); Sodium 134 mmol/L (135-145)
[2021-11-18 20:49] LABS: D Dimer High Sensitivity < 150 NG/ML
[2021-11-18 22:17] VITALS: BP 145/73; BP 145/79; PULSE 98; RESP 15; O2SAT 97
[2021-11-18 22:19] VITALS: BP 152/81; PULSE 97
[2021-11-18 22:20] VITALS: BP 143/87; PULSE 111
[2021-11-18 23:13] LABS: Basophils Absolute Auto 0.1 X10*3/uL (0.0-0.2); Basophils Percent Auto 0.6 % (0-2); Eosinophils Absolute Auto 0.3 X10*3/uL (0.0-0.4); Eosinophils Percent Auto 2.7 % (0-4); Hematocrit 37.4 % (37.0-47.0); Hemoglobin 12.1 g/dl (12.0-16.0); Imm Gran Abs Auto 0.06 X10*3/uL (0.00-0.03); Imm Gran Pct Auto 0.6 % (0.0-0.4); Lymphocytes Absolute Auto 3.7 X10*3/uL (1.2-4.9); Lymphocytes Percent Auto 34.3 % (20-40); Mean Corpuscular HGB Conc 32.4 g/dl (31.0-35.0); Mean Corpuscular Hemoglobin 25.5 pg (27.0-33.0); Mean Corpuscular Volume 78.9 fL (80.0-98.0); Monocytes Absolute Auto 0.5 X10*3/uL (0.1-1.2); Monocytes Percent Auto 4.2 % (2-11); Neutrophils Absolute Auto 6.3 x10*3/uL (2.0-8.3); Neutrophils Percent Auto 57.6 % (45-73); Platelet Count 348 X10*3/uL (160-400); Red Blood Count 4.74 X10*6/uL (4.20-5.50); Red Cell Distribution Width 15.9 % (11.0-16.0); White Blood Count 10.9 X10*3/uL (4.8-10.8)
[2021-11-18 23:19] LABS: MANUAL DIFF FLAG NO
--- NOTE | 2021-11-18 23:26 | ED_ITS ---
HPI - Dizziness General Chief Complaint: Dizziness Stated Complaint: sob, lightheaded Time Seen by Provider: 11/18/21 21:44 Source: patient Mode of arrival: ambulatory Limitations: no limitations History of Present Illness HPI Narrative: Patient comes to the emergency room complaining 2-3 days of intermittent light headedness, shortness of breath with exertion, rib pain, intermittent chest pain. Patient denies fever chills, no URI symptoms. At this time, no chest pain. Patient states that in the last few days she has had occasional episodes chest pain lasting a few minutes. Patient states that she has history of anemia, has had multiple blood transfusions in the past. Patient states it feels like his hemoglobin is low again. Patient denies heavy menstrual periods Related Data Home Medications Medication Instructions Recorded Confirmed ferrous sulfate 325 mg (65 mg mg PO 08/06/20 09/03/20 iron) tablet Previous Rx's Medication Instructions Recorded meclizine 25 mg tablet 25 mg PO TID #14 tab 08/06/20 lorazepam 0.5 mg tablet (Ativan) 0.5 mg PO BID PRN #5 tab 12/10/20 nitrofurantoin 100 mg PO Q12H 7 Days #14 cap 02/05/21 monohydrate/macrocrystals 100 mg capsule (Macrobid) phenazopyridine 100 mg tablet 100 mg PO TID PRN #6 tab 02/05/21 (Pyridium) Allergies Allergy/AdvReac Type Severity Reaction Status Date / Time oxytocin [From Pitocin] Allergy Intermediate Palpitation Verified 11/18/21 19:34 s prednisone [PREDNISONE] Allergy Unknown HIVES Verified 11/18/21 19:34 Sulfa (Sulfonamide Allergy Unknown HIVES Verified 11/18/21 19:34 Antibiotics) [SULFA (SULFONAMIDE ANTIBIOTICS)] Review of Systems Review of Systems: Constitutional : No Weight loss, No Fever, No Chills, No Night Sweats, No Fatigue, No Malaise ENT/Mouth : No Hearing loss, No Ear Pain, No Nasal Congestion, No Sinus Pain, No Hoarseness, No sore throat, No Rhinorrhea, No Swallowing Difficulty Eyes: No Eye Pain, No Swelling, No Redness, No Foreign Body, No Discharge, No Vision Changes Cardiovascular : Complaining of intermittent chest pain, shortness of breath with exertion, no orthopnea Respiratory : No Cough, No Sputum, No Wheezing, No Smoke Exposure, No Dyspnea Gastrointestinal : No Nausea, No Vomiting, No Diarrhea, No Constipation, No abdominal Pain, No Hematochezia, No Melena Genitourinary : no irregular bleeding, No Dysuria, No Urinary Frequency, No Hematuria, No Urinary Incontinence, No Urgency, No Flank Pain, No Urinary Flow Changes, No Hesitancy Musculoskeletal : No joint pain, No Myalgias, No Joint Swelling Skin : No Skin Lesions, No rash Neuro : No Weakness, No Numbness, No Paresthesias, no loss of consciousness, complaining of lightheadedness Psych : No Anxiety/Panic, No Depression, No SI/HI/AH/VH, No Social Issues, Heme/Lymph: No Bruising, No Bleeding,No Lymphadenopathy Endocrine : No Polyuria, No Polydipsia, No Temperature Intolerance [facility] Past Medical History Medical History Anemia Anxiety Asthma Gestational diabetes mellitus Menorrhagia Palpitations Polycystic disease, ovaries Preeclampsia Vertigo Family History Family History Father HTN (hypertension) Mother Bipolar disorder Ovarian cancer Maternal Grandfather Diabetes mellitus Maternal Grandmother HTN (hypertension) Breast cancer Paternal Grandfather No problems noted. Paternal Grandmother No problems noted. Social History Social History Advance Directives: No Advance Directives Information Provided: No Patient : No Physical Exam Vital Signs: Vital Signs: Last Vital Signs Temp 98.1 F 11/18/21 19:34 Pulse 93 11/19/21 00:23 Resp 17 11/19/21 00:23 BP 137/75 11/19/21 00:23 Pulse Ox 97 11/19/21 00:23 BMI result Body Mass Index 41.5 Const: Other: Appearance: Alert. Oriented X3. No acute distress. Well-appearing Eyes: Pupils equal, round and reactive to light. ENT: Pharynx normal. Neck: Normal inspection. Neck supple. No lymph nodes noted. No crepitus CVS: Normal heart rate and rhythm. Pulses normal. Normal S1 and S2 Respiratory: No respiratory distress. Breath sounds normal. No Wheezing. No rales Abdomen: Soft and nontender. No rigidity. No distention. Skin: Skin warm and dry. Normal skin color. Normal skin turgor. Extremities: No lower extremity edema. No Lacerations. No Rash Neuro: Oriented X 3. No motor deficit. No sensory deficit. Moving all extermities. No slurred speech. Course Course Course Narrative: Patient's cardiac enzymes within normal limits. EKG normal, labs at baseline, patient was ambulated, oxygen saturation 96% on room air, orthostatics negative. Chest x-ray negative. D-dimer negative Overall patient well-appearing, clear lung sounds. No shortness of breath/dizziness in the emergency room . Patient instructed to follow-up with her primary care physician [facility] - Dizziness Lab Data Result diagrams: 11/18/21 23:08 11/18/21 19:53 Labs: Lab Results 11/18/21 11/18/21 11/18/21 Range/Units 19:53 19:53 19:53 WBC (4.8-10.8) X10*3/uL RBC (4.20-5.50) X10*6/uL Hgb (12.0-16.0) g/dl Hct (37.0-47.0) % MCV (80.0-98.0) fL MCH (27.0-33.0) pg MCHC (31.0-35.0) g/dl RDW (11.0-16.0) % Plt Count (160-400) X10*3/uL MPV (9.4-12.3) fL Immature Gran % (Auto) (0.0-0.4) % Neut % (Auto) (45-73) % Lymph % (Auto) (20-40) % [place] % (Auto) (2-11) % Eos % (Auto) (0-4) % Baso % (Auto) (0-2) % Lymph # (Auto) (1.2-4.9) X10*3/uL [place] # (Auto) (0.1-1.2) X10*3/uL Eos # (Auto) (0.0-0.4) X10*3/uL Baso # (Auto) (0.0-0.2) X10*3/uL Abs Immat Gran (auto) (0.00-0.03) X10*3/uL Absolute Neuts (auto) (2.0-8.3) x10*3/uL Absolute Nucleated RBC (0.0-0.012) X10*3/uL Nucleated RBC % (auto) (0.0-0.2) /100WBC D-Dimer High Sensitivty < 150 NG/ML Sodium 134 L (135-145) mmol/L Potassium 4.7 (3.3-5.1) mmol/L Chloride 100 (96-108) mmol/L Carbon Dioxide 23 (22-29) mmol/L Anion Gap 16 (12-20) BUN 9 (9-16) mg/dL Creatinine 0.71 (0.5-1.4) mg/dL Estim Creat Clear Calc 116.3 Estimated GFR > 60 Random Glucose 258 H (60-115) mg/dL Calcium 9.3 (8.4-10.2) mg/dL Troponin I High Sens Cancelled B-Natriuretic Peptide (<100) pg/mL 11/18/21 11/18/21 11/19/21 Range/Units 23:08 23:08 01:00 WBC 10.9 H (4.8-10.8) X10*3/uL RBC 4.74 (4.20-5.50) X10*6/uL Hgb 12.1 (12.0-16.0) g/dl Hct 37.4 (37.0-47.0) % MCV 78.9 L (80.0-98.0) fL MCH 25.5 L (27.0-33.0) pg MCHC 32.4 (31.0-35.0) g/dl RDW 15.9 (11.0-16.0) % Plt Count 348 (160-400) X10*3/uL MPV 11.0 (9.4-12.3) fL Immature Gran % (Auto) 0.6 H (0.0-0.4) % Neut % (Auto) 57.6 (45-73) % Lymph % (Auto) 34.3 (20-40) % [place] % (Auto) 4.2 (2-11) % Eos % (Auto) 2.7 (0-4) % Baso % (Auto) 0.6 (0-2) % Lymph # (Auto) 3.7 (1.2-4.9) X10*3/uL [place] # (Auto) 0.5 (0.1-1.2) X10*3/uL Eos # (Auto) 0.3 (0.0-0.4) X10*3/uL Baso # (Auto) 0.1 (0.0-0.2) X10*3/uL Abs Immat Gran (auto) 0.06 H (0.00-0.03) X10*3/uL Absolute Neuts (auto) 6.3 (2.0-8.3) x10*3/uL Absolute Nucleated RBC 0.000 (0.0-0.012) X10*3/uL Nucleated RBC % (auto) 0.0 (0.0-0.2) /100WBC D-Dimer High Sensitivty NG/ML Sodium (135-145) mmol/L Potassium (3.3-5.1) mmol/L Chloride (96-108) mmol/L Carbon Dioxide (22-29) mmol/L Anion Gap (12-20) BUN (9-16) mg/dL Creatinine (0.5-1.4) mg/dL Estim Creat Clear Calc Estimated GFR Random Glucose (60-115) mg/dL Calcium (8.4-10.2) mg/dL Troponin I High Sens 11.0 11.4 B-Natriuretic Peptide < 10 (<100) pg/mL Discharge Plan Discharge Clinical Impression: Dizziness, Atypical chest pain Patient Disposition: Home, Self-Care Instructions: Dizziness (ED) Additional Instructions: Your hemoglobin is 12.1 which is within normal limits. Please follow-up with your primary care physician tomorrow. If you have any worsening or new symptoms, please return to the emergency room or call 911 Prescriptions: No Action lorazepam [Ativan] 0.5 mg tablet 0.5 mg PO BID PRN (Reason: anxiety) Qty: 5 0RF nitrofurantoin monohyd/m-cryst [Macrobid] 100 mg capsule 100 mg PO Q12H 7 Days Qty: 14 0RF Rx Instructions: must administer with a meal/food phenazopyridine [Pyridium] 100 mg tablet 100 mg PO TID PRN (Reason: pain) Qty: 6 0RF ferrous sulfate 325 mg (65 mg iron) tablet PO 0RF meclizine 25 mg tablet 25 mg PO TID Qty: 14 0RF
[2021-11-19 00:23] VITALS: BP 137/75; PULSE 93; RESP 17; O2SAT 97
[2021-11-19 01:25] LABS: B Type Natriuretic Peptide < 10 pg/mL (<100); Troponin-I High Sensitivity 11.4 ng/L (<3.5-17.0)
== END 2021-11-19 01:47 | disposition home or self-care (01) ==
PROVIDERS: Emergency Provider Emergency Medicine; PCP Internal Medicine
DX: R42 Dizziness and giddiness (principal); R07.89 Other chest pain; R06.02 Shortness of breath
CPT/HCPCS: 36415; 71045; 80048; 83880; 84484; 85025; 85379; 93005; 99283; 99285

== ENCOUNTER 2022-01-28 20:14 | Emergency (ER) | payer OTHER, SELFPAY ==
--- NOTE | 2022-01-28 | ECG_ITS ---
Test Reason : HEAVY BLEEDING Blood Pressure : / mmHG Vent. Rate : 090 BPM Atrial Rate : 090 BPM P-R Int : 144 ms QRS Dur : 080 ms QT Int : 368 ms P-R-T Axes : 022 056 024 degrees QTc Int : 450 ms Normal sinus rhythm Normal ECG When compared with ECG of 18-NOV-2021 19:39, No significant change was found Referred By: Generic ED Physician Electronically Signed By:ALAN SMITH MD
[2022-01-28 20:58] VITALS: BP 156/66; PULSE 92; RESP 18; TEMP 36.2; O2SAT 99; BMI 45.1
[2022-01-28 21:46] LABS: MANUAL DIFF FLAG NO
[2022-01-28 21:48] LABS: Basophils Percent Auto 0.4 % (0-2); Eosinophils Absolute Auto 0.3 X10*3/uL (0.0-0.4); Eosinophils Percent Auto 2.7 % (0-4); Hematocrit 36.5 % (37.0-47.0); Imm Gran Abs Auto 0.04 X10*3/uL (0.00-0.03); Imm Gran Pct Auto 0.4 % (0.0-0.4); Lymphocytes Absolute Auto 3.2 X10*3/uL (1.2-4.9); Lymphocytes Percent Auto 31.6 % (20-40); Mean Corpuscular HGB Conc 32.9 g/dl (31.0-35.0); Mean Corpuscular Hemoglobin 26.2 pg (27.0-33.0); Mean Corpuscular Volume 79.7 fL (80.0-98.0); Mean Platelet Volume 11.1 fL (9.4-12.3); Monocytes Absolute Auto 0.4 X10*3/uL (0.1-1.2); Monocytes Percent Auto 4.3 % (2-11); Neutrophils Absolute Auto 6.1 x10*3/uL (2.0-8.3); Neutrophils Percent Auto 60.6 % (45-73); Platelet Count 340 X10*3/uL (160-400); Red Blood Count 4.58 X10*6/uL (4.20-5.50); Red Cell Distribution Width 15.9 % (11.0-16.0); White Blood Count 10.1 X10*3/uL (4.8-10.8)
[2022-01-28 22:06] LABS: Alanine Aminotransferase 16 U/L (0-31); Albumin Level 3.7 g/dL (3.5-5.0); Alkaline Phosphatase 97 U/L (39-117); Anion Gap 13 (12-20); Aspartate Amino Transferase 25 U/L (5-31); Bilirubin Total 0.2 mg/dL (0.0-1.0); Blood Urea Nitrogen 6 mg/dL (9-16); Calcium 9.8 mg/dL (8.4-10.2); Carbon Dioxide 24 mmol/L (22-29); Chloride 104 mmol/L (96-108); Creatinine Clr Calc Pharmacy 136.3; Estimated Glomerular Filt Rate > 60; Glucose Random 149 mg/dL (60-115); Potassium 4.2 mmol/L (3.3-5.1); Sodium 137 mmol/L (135-145); Total Protein 7.3 g/dL (6.5-8.0)
[2022-01-28 22:13] LABS: HCG Quantitative < 2 mIU/mL
[2022-01-28 22:14] LABS: COVID-19 Test Negative (Negative); IDNOW Serial# 55D5AD1C
[2022-01-28 22:19] LABS: Influenza A Negative (Negative); Influenza B2 Negative (Negative)
[2022-01-28 22:28] LABS: Appearance Urine CLOUDY; Color Urine YELLOW; Glucose Urine UA NEG (NEG); Leukocyte Esterase Urine NEG (NEG); Nitrite Urine NEG (NEG); Specific Gravity - Urine 1.025 (1.005-1.025); UACC Culture Trigger NO; Urine Blood 3+ (NEG); Urine Ketones NEG (NEG); Urine Protein NEG (NEG-TRACE)
[2022-01-28 22:46] VITALS: BP 138/68; PULSE 87; RESP 18; TEMP 36.6; O2SAT 97
--- NOTE | 2022-01-28 22:54 | ED.FEMALEGU ---
HPI - Female Genitourinary General Chief complaint: Vaginal Bleeding Stated complaint: vaginal bleeding,back and abd pain,hurts to breath Time Seen by Provider: 01/28/22 22:52 Source: patient Mode of arrival: ambulatory Limitations: no limitations History of Present Illness HPI Narrative: Patient's history of dysfunctional uterine bleed off and on history of any men 2019 received blood transfusion 2 para 1 comes here for heavy menstrual bleeding started today morning changing 2-3 pads per hour with some time blood clot sometimes stops bleeding in between with suprapubic cramping mild dizziness no chest pain, no palpitation. The patient pelvic ultrasound in 02/2021 showed only ovarian cyst no uterine fibroid Related Data Home Medications Medication Instructions Recorded Confirmed ferrous sulfate 325 mg (65 mg mg PO 08/06/20 09/03/20 iron) tablet Previous Rx's Medication Instructions Recorded meclizine 25 mg tablet 25 mg PO TID #14 tab 08/06/20 lorazepam 0.5 mg tablet (Ativan) 0.5 mg PO BID PRN #5 tab 12/10/20 nitrofurantoin 100 mg PO Q12H 7 Days #14 cap 02/05/21 monohydrate/macrocrystals 100 mg capsule (Macrobid) phenazopyridine 100 mg tablet 100 mg PO TID PRN #6 tab 02/05/21 (Pyridium) desogestrel 0.15 mg-ethinyl 1 tab PO DAILY #84 tab 01/28/22 estradiol 0.03 mg tablet (Apri) Allergies Allergy/AdvReac Type Severity Reaction Status Date / Time oxytocin [From Pitocin] Allergy Intermediate Palpitation Verified 11/18/21 19:34 s prednisone [PREDNISONE] Allergy Unknown HIVES Verified 11/18/21 19:34 Sulfa (Sulfonamide Allergy Unknown HIVES Verified 11/18/21 19:34 Antibiotics) [SULFA (SULFONAMIDE ANTIBIOTICS)] Review of Systems Review of Systems: Yes all other systems are reviewed and are negative [facility] Past Medical History Medical History Anemia Anxiety Asthma Gestational diabetes mellitus Menorrhagia Palpitations Polycystic disease, ovaries Preeclampsia Vertigo Family History Family History Father HTN (hypertension) Mother Bipolar disorder Ovarian cancer Maternal Grandfather Diabetes mellitus Maternal Grandmother HTN (hypertension) Breast cancer Paternal Grandfather No problems noted. Paternal Grandmother No problems noted. Social History Social History Alcohol intake: never Patient Tobacco Use Status: Never used Tobacco Advance Directives: No Physical Exam Vital Signs: Vital Signs: Last Vital Signs Temp 98 F 01/28/22 22:46 Pulse 94 01/28/22 23:12 Resp 18 01/28/22 22:46 BP 147/91 H 01/28/22 23:12 Pulse Ox 97 01/28/22 22:46 BMI result Body Mass Index 45.1 Appearance: Alert. Oriented X3. No acute distress. Eyes: no pallor ENT: Pharynx normal. Oral Mucosa moist Neck: Normal inspection. Neck supple. CVS: Normal heart rate and rhythm. Pulses normal. Respiratory: No respiratory distress. Equal air entry bilateral, no wheezing/rales/rhonchi Abdomen: Soft and nontender. Bowel sounds are present, no mass palpable, no CVA tenderness Skin: Skin warm and dry. Normal skin color. Normal skin turgor. Extremities: No lower extremity edema. No calf tenderness Neuro: Oriented X 3. MDM - Female Genitourinary MDM Narrative Medical decision making narrative: Patient dysfunctional uterine bleed no orthostatic hypertension H&H stable patient advised to start taking a APRI control pills and follow-up with accounts executive Lab Data Result diagrams: 01/28/22 21:37 01/28/22 21:37 Labs: Lab Results 01/28/22 01/28/22 01/28/22 Range/Units 21:37 21:37 21:37 WBC 10.1 (4.8-10.8) X10*3/uL RBC 4.58 (4.20-5.50) X10*6/uL Hgb 12.0 (12.0-16.0) g/dl Hct 36.5 L (37.0-47.0) % MCV 79.7 L (80.0-98.0) fL MCH 26.2 L (27.0-33.0) pg MCHC 32.9 (31.0-35.0) g/dl RDW 15.9 (11.0-16.0) % Plt Count 340 (160-400) X10*3/uL MPV 11.1 (9.4-12.3) fL Immature Gran % (Auto) 0.4 (0.0-0.4) % Neut % (Auto) 60.6 (45-73) % Lymph % (Auto) 31.6 (20-40) % [place] % (Auto) 4.3 (2-11) % Eos % (Auto) 2.7 (0-4) % Baso % (Auto) 0.4 (0-2) % Lymph # (Auto) 3.2 (1.2-4.9) X10*3/uL [place] # (Auto) 0.4 (0.1-1.2) X10*3/uL Eos # (Auto) 0.3 (0.0-0.4) X10*3/uL Baso # (Auto) 0.0 (0.0-0.2) X10*3/uL Abs Immat Gran (auto) 0.04 H (0.00-0.03) X10*3/uL Absolute Neuts (auto) 6.1 (2.0-8.3) x10*3/uL Absolute Nucleated RBC 0.000 (0.0-0.012) X10*3/uL Nucleated RBC % (auto) 0.0 (0.0-0.2) /100WBC Sodium 137 (135-145) mmol/L Potassium 4.2 (3.3-5.1) mmol/L Chloride 104 (96-108) mmol/L Carbon Dioxide 24 (22-29) mmol/L Anion Gap 13 (12-20) BUN 6 L (9-16) mg/dL Creatinine 0.63 (0.5-1.4) mg/dL Estim Creat Clear Calc 136.3 Estimated GFR > 60 Random Glucose 149 H (60-115) mg/dL Calcium 9.8 (8.4-10.2) mg/dL Total Bilirubin 0.2 (0.0-1.0) mg/dL AST 25 D (5-31) U/L ALT 16 (0-31) U/L Alkaline Phosphatase 97 (39-117) U/L Total Protein 7.3 (6.5-8.0) g/dL Albumin 3.7 (3.5-5.0) g/dL Beta HCG, Quant < 2 mIU/mL Urine Color Urine Appearance Urine pH (5.0-8.0) Ur Specific [place] (1.005-1.025) Urine Protein (NEG-TRACE) MG/DL Urine Glucose (UA) (NEG) MG/DL Urine Ketones (NEG) MG/DL Urine Blood (NEG) Urine Nitrite (NEG) Ur Leukocyte Esterase (NEG) Urine RBC (0) /HPF Urine WBC (0-4) /HPF Ur Squamous Epith Cells /LPF Urine Bacteria /LPF Urine Mucus /LPF COVID-19 (LUIS) (Negative) COVID-19 Clin Com Influenza Type A (SRIRAM) Negative (Negative) Influenza Type B (SRIRAM) Negative (Negative) Influenza A & B Note See Note Blood Type 01/28/22 01/28/22 01/28/22 Range/Units 21:37 21:44 22:19 WBC (4.8-10.8) X10*3/uL RBC (4.20-5.50) X10*6/uL Hgb (12.0-16.0) g/dl Hct (37.0-47.0) % MCV (80.0-98.0) fL MCH (27.0-33.0) pg MCHC (31.0-35.0) g/dl RDW (11.0-16.0) % Plt Count (160-400) X10*3/uL MPV (9.4-12.3) fL Immature Gran % (Auto) (0.0-0.4) % Neut % (Auto) (45-73) % Lymph % (Auto) (20-40) % [place] % (Auto) (2-11) % Eos % (Auto) (0-4) % Baso % (Auto) (0-2) % Lymph # (Auto) (1.2-4.9) X10*3/uL [place] # (Auto) (0.1-1.2) X10*3/uL Eos # (Auto) (0.0-0.4) X10*3/uL Baso # (Auto) (0.0-0.2) X10*3/uL Abs Immat Gran (auto) (0.00-0.03) X10*3/uL Absolute Neuts (auto) (2.0-8.3) x10*3/uL Absolute Nucleated RBC (0.0-0.012) X10*3/uL Nucleated RBC % (auto) (0.0-0.2) /100WBC Sodium (135-145) mmol/L Potassium (3.3-5.1) mmol/L Chloride (96-108) mmol/L Carbon Dioxide (22-29) mmol/L Anion Gap (12-20) BUN (9-16) mg/dL Creatinine (0.5-1.4) mg/dL Estim Creat Clear Calc Estimated GFR Random Glucose (60-115) mg/dL Calcium (8.4-10.2) mg/dL Total Bilirubin (0.0-1.0) mg/dL AST (5-31) U/L ALT (0-31) U/L Alkaline Phosphatase (39-117) U/L Total Protein (6.5-8.0) g/dL Albumin (3.5-5.0) g/dL Beta HCG, Quant mIU/mL Urine Color YELLOW Urine Appearance CLOUDY Urine pH 6.0 (5.0-8.0) Ur Specific [place] 1.025 (1.005-1.025) Urine Protein NEG (NEG-TRACE) MG/DL Urine Glucose (UA) NEG (NEG) MG/DL Urine Ketones NEG (NEG) MG/DL Urine Blood 3+ H (NEG) Urine Nitrite NEG (NEG) Ur Leukocyte Esterase NEG (NEG) Urine RBC 76-150 H (0) /HPF Urine WBC 0 (0-4) /HPF Ur Squamous Epith Cells 1+ /LPF Urine Bacteria NONE /LPF Urine Mucus TRACE /LPF COVID-19 (LUIS) Negative (Negative) COVID-19 Clin Com See Note Influenza Type A (SRIRAM) (Negative) Influenza Type B (SRIRAM) (Negative) Influenza A & B Note Blood Type O Positive Discharge Plan Discharge Clinical Impression: Dysfunctional uterine bleeding Patient Disposition: Home, Self-Care Instructions: Dysfunctional Uterine Bleeding (ED) Additional Instructions: Take control pills as prescribed Follow-up with accounts executive Continue iron pill Report to ER if bleeding continues or gets worse Prescriptions: New desogestrel-ethinyl estradiol [Apri] 0.15-0.03 mg tablet 1 tab PO DAILY Qty: 84 0RF No Action lorazepam [Ativan] 0.5 mg tablet 0.5 mg PO BID PRN (Reason: anxiety) Qty: 5 0RF nitrofurantoin monohyd/m-cryst [Macrobid] 100 mg capsule 100 mg PO Q12H 7 Days Qty: 14 0RF Rx Instructions: must administer with a meal/food phenazopyridine [Pyridium] 100 mg tablet 100 mg PO TID PRN (Reason: pain) Qty: 6 0RF ferrous sulfate 325 mg (65 mg iron) tablet PO 0RF meclizine 25 mg tablet 25 mg PO TID Qty: 14 0RF Referrals: Maximiliano Bravo MD [Physician] - 1 week Stand Alone Forms: Work/School Release
[2022-01-28 23:08] LABS: Mucus Urine TRACE /LPF; Squamous Epithelial Cell Urine 1+ /LPF; WBC Urine 0 /HPF (0-4)
[2022-01-28 23:10] VITALS: BP 155/82; PULSE 89
[2022-01-28 23:11] VITALS: BP 158/71; PULSE 86
[2022-01-28 23:12] VITALS: BP 147/91; PULSE 94
--- NOTE | 2022-01-28 23:13 | PC.NURSE ---
pt states she had a little bit of dizzyness upon standing during otho bp
== END 2022-01-28 23:32 | disposition home or self-care (01) ==
PROVIDERS: Emergency Provider Internal Medicine; PCP Internal Medicine
DX: N93.8 Other specified abnormal uterine and vaginal bleeding (principal); M54.50 Low back pain, unspecified; Z20.822 Contact with and (suspected) exposure to COVID-19; Z79.899 Other long term (current) drug therapy
CPT/HCPCS: 80053; 81001; 84702; 85025; 86900; 86901; 87502; 87635; 93005; 99283; 99284

== ENCOUNTER 2022-02-23 14:08 | Emergency (ER) | payer OTHER, SELFPAY ==
[2022-02-23] VITALS (12 sets, daily range): BP systolic 124–158; BP diastolic 54–86; PULSE 84–98; RESP 8–21; TEMP 36.7–37.2; O2SAT 98; BMI 43.4
--- NOTE | 2022-02-23 | ECG_ITS ---
Test Reason : CP Blood Pressure : / mmHG Vent. Rate : 091 BPM Atrial Rate : 091 BPM P-R Int : 130 ms QRS Dur : 078 ms QT Int : 368 ms P-R-T Axes : 023 049 033 degrees QTc Int : 452 ms Normal sinus rhythm Normal ECG When compared with ECG of 28-JAN-2022 21:05, No significant change was found Referred By: Generic ED Physician Electronically Signed By:MARLEN LEAL
--- NOTE | ~2022-02-23 | XR_ITS ---
EXAMINATION: XR CHEST CLINICAL INFORMATION: Chest pain. COMPARISON: 11/10/2021 chest radiograph. TECHNIQUE: Frontal view of the chest was obtained. FINDINGS: No significant abnormality is noted involving the heart, lungs, mediastinum, bony thorax or soft tissues. XR/XR chest 1V IMPRESSION: No acute cardiopulmonary process.
--- NOTE | 2022-02-23 07:58 | ECG_ITS ---
Test Reason : CHEST BROWN Blood Pressure : / mmHG Vent. Rate : 094 BPM Atrial Rate : 094 BPM P-R Int : 134 ms QRS Dur : 076 ms QT Int : 370 ms P-R-T Axes : 023 053 016 degrees QTc Int : 462 ms Normal sinus rhythm Normal ECG When compared with ECG of 23-FEB-2022 14:18, No significant change was found Referred By: Milo Luna Electronically Signed By:MARLEN LEAL
--- NOTE | 2022-02-23 14:38 | ED.CHESTPAIN ---
HPI - Chest Pain General Chief Complaint: Chest Pain Stated Complaint: Chest pain/SOB/Dizzy Time Seen by Provider: 02/23/22 14:37 Source: patient Mode of arrival: ambulatory Limitations: no limitations History of Present Illness HPI narrative: 41-year-old female past medical history significant for dysfunctional uterine bleeding, vertigo, menorrhagia, anxiety, flank pain to the emergency department with complaints of dizziness, fatigue, chest discomfort, shortness of breath times few weeks. Patient tells me that she thinks this is all going on since she had a very heavy period, she tells me that this has happened to her before, last time this happened she tells me she was anemic requiring a blood transfusion. She does have a diagnosis of menorrhagia and dysfunctional uterine bleeding. Patient tells me that she was bleeding the entire month of January in to early February, until she was started on an OCP to stop the bleeding. Patient reports that the chest pain is substernal in nature, nonradiating she rates it a 6/10 on the scale, tells me it is constantly there, describes it as a pressure/discomfort. She also reports shortness of breath both at rest and on exertion. Patient does not smoke cigarettes. She was recently started on contraceptive pills to help stop her period. Patient tells me she does not think she is . Denies any fevers, chills, shortness of breath, nausea, vomiting, abdominal pain. Patient is not currently bleeding vaginally at this time. MD complaint: chest discomfort Prior episodes: Yes Pain radiation: none Exacerbating factors: nothing Risk Factors Thoracic aortic dissection risk factors: none Related Data Home Medications Medication Instructions Recorded Confirmed ferrous sulfate 325 mg (65 mg mg PO 08/06/20 09/03/20 iron) tablet Previous Rx's Medication Instructions Recorded meclizine 25 mg tablet 25 mg PO TID #14 tab 08/06/20 lorazepam 0.5 mg tablet (Ativan) 0.5 mg PO BID PRN #5 tab 12/10/20 nitrofurantoin 100 mg PO Q12H 7 Days #14 cap 02/05/21 monohydrate/macrocrystals 100 mg capsule (Macrobid) phenazopyridine 100 mg tablet 100 mg PO TID PRN #6 tab 02/05/21 (Pyridium) desogestrel 0.15 mg-ethinyl 1 tab PO DAILY #84 tab 01/28/22 estradiol 0.03 mg tablet (Apri) Allergies Allergy/AdvReac Type Severity Reaction Status Date / Time oxytocin [From Pitocin] Allergy Intermediate Palpitation Verified 02/23/22 14:19 s prednisone [PREDNISONE] Allergy Unknown HIVES Verified 02/23/22 14:19 Sulfa (Sulfonamide Allergy Unknown HIVES Verified 02/23/22 14:19 Antibiotics) [SULFA (SULFONAMIDE ANTIBIOTICS)] Review of Systems Review of Systems: Constitutional : No Weight loss, No Fever, No Chills, No Fatigue, No Malaise ENT/Mouth : No sore throat, No Rhinorrhea Eyes: No Eye Pain, No Swelling, No Redness Cardiovascular : No Chest Pain, No SOB, No Dyspnea on Exertion, No Orthopnea, No Edema, No Palpitations Respiratory : No Cough, No Sputum, No Wheezing Gastrointestinal : No Nausea, No Vomiting, No Diarrhea, No Constipation, No abdominal Pain, No Hematochezia, No Melena Genitourinary : No Dysuria, No Urinary Frequency, No Hematuria, Musculoskeletal : No joint pain, No Myalgias, No Joint Swelling Skin : No Skin Lesions, No rash, + palor Neuro : No Weakness, No Numbness, No Dizziness, No Headache Psych : No Anxiety/Panic, No Depression All other systems reviewed and are negative Yes all other systems are reviewed and are negative [facility] Past Medical History Attestation statement: The following information was validated with the patient. Source: old records reviewed and nursing notes reviewed Medical History Anemia Anxiety Asthma Gestational diabetes mellitus Menorrhagia Palpitations Polycystic disease, ovaries Preeclampsia Vertigo Family History Family History Father HTN (hypertension) Mother Bipolar disorder Ovarian cancer Maternal Grandfather Diabetes mellitus Maternal Grandmother HTN (hypertension) Breast cancer Paternal Grandfather No problems noted. Paternal Grandmother No problems noted. Social History Social History Alcohol intake: current Alcohol intake frequency: holidays/special occasions only Patient Tobacco Use Status: Never used Tobacco Use of substances other than those prescribed or required for medical reasons: No Advance Directives: No Advance Directives Information Provided: No Patient : No Physical Exam Vital Signs: Vital Signs: Last Vital Signs Temp 98.6 F 02/23/22 21:03 Pulse 98 02/23/22 21:03 Resp 20 02/23/22 21:03 BP 134/70 02/23/22 21:03 Pulse Ox 98 02/23/22 21:04 BMI result Body Mass Index 43.4 Vital signs stable Appearance: Alert.? Oriented X3.? No acute distress.? Head: Normocephalic, atraumatic, no step-offs or deformities Eyes: Pupils equal, round and reactive to light.? Pale conjunctiva. ENT: Pharynx normal.? Dry mucous membranes Neck: Normal inspection.? Neck supple.? CVS: Normal heart rate and rhythm.? Pulses normal.? Respiratory: No respiratory distress.? Breath sounds normal.? Abdomen: Soft and nontender.? Skin: Skin warm and dry.? + pale skin appreciated throughout.? Normal skin turgor.? Extremities: No lower extremity edema.? No calf ttp. 5/5 strength to bilateral upper and lower extremities Back: No midline tenderness, no C-spine tenderness, full range of motion, no CVA tenderness bilaterally Neuro: Oriented X 3.? No motor deficit.? No sensory deficit. CN 2-12 intact Course Reevaluation(s) Reevaluation #1: Patient's laboratory studies significant for a microcytic anemia likely secondary to acute blood loss from menorrhagia. Since patient is symptomatic and she has had a significant drop in her hemoglobin and hematocrit at this time 1 unit of packed red blood cells will be ordered as well as a type and screen. Verbal consent obtained from patient. I will also obtain written consent and it will be placed in patient's chart for medical records. Patient's chemistry with no acute electrolyte abnormalities requiring intervention. Patient's troponin slightly elevated, will obtain a 2nd troponin 3 hours after initial. EKG is nonischemic however. D-dimer pending. Chest x-ray with no acute cardiopulmonary processes. Time: 15:09 Reevaluation #2: Negative dimer unlikley PE. Time: 21:00 Reevaluation #3: Patient is still not feeling well, complaining of dizziness with movement likely orthostasis she tells me if she gets up she feels dizzy. At this time H&H has improved slightly however I feel as though patient will benefit from a 2nd unit of packed red blood cells. Time: 21:01 Additional Reevaluation(s): Sign out given to En BELLO disposition pending 2nd unit of packed red blood cells and improvement. MDM - Chest Pain MDM Narrative Medical decision making narrative: 1442 41-year-old female presents with pallor, fatigue, dizziness, weakness and chest discomfort and shortness of breath x2 weeks status post heavy menstrual bleeding. Patient reports she was recently started on OCPs. Denies rectal bleeding. Physical examination significant for pallor throughout, pale conjunctiva, regular rate and rhythm. Lungs clear. Abdomen soft nontender nondistended. Neuro exam nonfocal. Cerebellar function intact. History and physical examination not consistent with posterior infarct. Likely anemia secondary to blood loss.At this time very low suspicion for stroke, ICH. No focal neuro deficits on exam. NIH score of 0. Plan at this time is labs, EKG, troponin, urine. Medical Records Data Attestation: I reviewed the patient's medical records. Lab Data Attestation: I reviewed the patient's lab results. Result diagrams: 02/23/22 20:38 02/23/22 20:38 Labs: Lab Results 02/23/22 02/23/22 02/23/22 Range/Units 14:34 14:34 14:34 WBC 10.5 (4.8-10.8) X10*3/uL RBC 3.08 L D (4.20-5.50) X10*6/uL Hgb 7.8 L D (12.0-16.0) g/dl Hct 24.5 L D (37.0-47.0) % MCV 79.5 L (80.0-98.0) fL MCH 25.3 L (27.0-33.0) pg MCHC 31.8 (31.0-35.0) g/dl RDW 16.1 H (11.0-16.0) % Plt Count 371 (160-400) X10*3/uL MPV 10.8 (9.4-12.3) fL Immature Gran % (Auto) 1.1 H (0.0-0.4) % Neut % (Auto) 63.8 (45-73) % Lymph % (Auto) 27.9 (20-40) % [place] % (Auto) 4.4 (2-11) % Eos % (Auto) 2.1 (0-4) % Baso % (Auto) 0.7 (0-2) % Lymph # (Auto) 2.9 (1.2-4.9) X10*3/uL [place] # (Auto) 0.5 (0.1-1.2) X10*3/uL Eos # (Auto) 0.2 (0.0-0.4) X10*3/uL Baso # (Auto) 0.1 (0.0-0.2) X10*3/uL Abs Immat Gran (auto) 0.12 H (0.00-0.03) X10*3/uL Absolute Neuts (auto) 6.7 (2.0-8.3) x10*3/uL Absolute Nucleated RBC 0.020 H (0.0-0.012) X10*3/uL Nucleated RBC % (auto) 0.2 (0.0-0.2) /100WBC D-Dimer High Sensitivty NG/ML Sodium 134 L (135-145) mmol/L Potassium 4.1 (3.3-5.1) mmol/L Chloride 103 (96-108) mmol/L Carbon Dioxide 21 L (22-29) mmol/L Anion Gap 14 (12-20) BUN 9 (9-16) mg/dL Creatinine 0.76 (0.5-1.4) mg/dL Estim Creat Clear Calc 110.4 Estimated GFR > 60 Random Glucose 241 H (60-115) mg/dL Calcium 8.4 D (8.4-10.2) mg/dL Total Bilirubin (0.0-1.0) mg/dL AST (5-31) U/L ALT (0-31) U/L Alkaline Phosphatase (39-117) U/L Troponin I High Sens 11.5 (<3.5-17.0) ng/L Total Protein (6.5-8.0) g/dL Albumin (3.5-5.0) g/dL Beta HCG, Quant < 2 mIU/mL Blood Type Antibody Screen Crossmatch 02/23/22 02/23/22 02/23/22 Range/Units 14:59 16:11 20:38 WBC (4.8-10.8) X10*3/uL RBC (4.20-5.50) X10*6/uL Hgb (12.0-16.0) g/dl Hct (37.0-47.0) % MCV (80.0-98.0) fL MCH (27.0-33.0) pg MCHC (31.0-35.0) g/dl RDW (11.0-16.0) % Plt Count (160-400) X10*3/uL MPV (9.4-12.3) fL Immature Gran % (Auto) (0.0-0.4) % Neut % (Auto) (45-73) % Lymph % (Auto) (20-40) % [place] % (Auto) (2-11) % Eos % (Auto) (0-4) % Baso % (Auto) (0-2) % Lymph # (Auto) (1.2-4.9) X10*3/uL [place] # (Auto) (0.1-1.2) X10*3/uL Eos # (Auto) (0.0-0.4) X10*3/uL Baso # (Auto) (0.0-0.2) X10*3/uL Abs Immat Gran (auto) (0.00-0.03) X10*3/uL Absolute Neuts (auto) (2.0-8.3) x10*3/uL Absolute Nucleated RBC (0.0-0.012) X10*3/uL Nucleated RBC % (auto) (0.0-0.2) /100WBC D-Dimer High Sensitivty 157 NG/ML Sodium (135-145) mmol/L Potassium (3.3-5.1) mmol/L Chloride (96-108) mmol/L Carbon Dioxide (22-29) mmol/L Anion Gap (12-20) BUN (9-16) mg/dL Creatinine (0.5-1.4) mg/dL Estim Creat Clear Calc Estimated GFR Random Glucose (60-115) mg/dL Calcium (8.4-10.2) mg/dL Total Bilirubin (0.0-1.0) mg/dL AST (5-31) U/L ALT (0-31) U/L Alkaline Phosphatase (39-117) U/L Troponin I High Sens 8.3 (<3.5-17.0) ng/L Total Protein (6.5-8.0) g/dL Albumin (3.5-5.0) g/dL Beta HCG, Quant mIU/mL Blood Type O Positive Antibody Screen NEGATIVE Crossmatch See Detail 02/23/22 02/23/22 Range/Units 20:38 20:38 WBC 10.5 (4.8-10.8) X10*3/uL RBC 3.19 L (4.20-5.50) X10*6/uL Hgb 8.1 L (12.0-16.0) g/dl Hct 26.0 L (37.0-47.0) % MCV 81.5 (80.0-98.0) fL MCH 25.4 L (27.0-33.0) pg MCHC 31.2 (31.0-35.0) g/dl RDW 16.4 H (11.0-16.0) % Plt Count 323 (160-400) X10*3/uL MPV 11.0 (9.4-12.3) fL Immature Gran % (Auto) 1.4 H (0.0-0.4) % Neut % (Auto) 60.5 (45-73) % Lymph % (Auto) 30.6 (20-40) % [place] % (Auto) 4.0 (2-11) % Eos % (Auto) 2.8 (0-4) % Baso % (Auto) 0.7 (0-2) % Lymph # (Auto) 3.2 (1.2-4.9) X10*3/uL [place] # (Auto) 0.4 (0.1-1.2) X10*3/uL Eos # (Auto) 0.3 (0.0-0.4) X10*3/uL Baso # (Auto) 0.1 (0.0-0.2) X10*3/uL Abs Immat Gran (auto) 0.15 H (0.00-0.03) X10*3/uL Absolute Neuts (auto) 6.3 (2.0-8.3) x10*3/uL Absolute Nucleated RBC 0.030 H (0.0-0.012) X10*3/uL Nucleated RBC % (auto) 0.3 H (0.0-0.2) /100WBC D-Dimer High Sensitivty NG/ML Sodium 135 (135-145) mmol/L Potassium 4.1 (3.3-5.1) mmol/L Chloride 105 (96-108) mmol/L Carbon Dioxide 20 L (22-29) mmol/L Anion Gap 14 (12-20) BUN 7 L (9-16) mg/dL Creatinine 0.70 (0.5-1.4) mg/dL Estim Creat Clear Calc 119.9 Estimated GFR > 60 Random Glucose 257 H (60-115) mg/dL Calcium 8.3 L (8.4-10.2) mg/dL Total Bilirubin 1.5 H (0.0-1.0) mg/dL AST 13 D (5-31) U/L ALT 17 (0-31) U/L Alkaline Phosphatase 90 (39-117) U/L Troponin I High Sens (<3.5-17.0) ng/L Total Protein 6.3 L (6.5-8.0) g/dL Albumin 3.5 (3.5-5.0) g/dL Beta HCG, Quant mIU/mL Blood Type Antibody Screen Crossmatch ECG Data ECG #1: Attestation: I personally reviewed and interpreted this ECG as follows: ECG interpretation date: 02/23/22 ECG interpretation time: 15:09 Prior ECG tracings: available for review Interpretation: Ventricular rate of 91, PA normal, QRS normal, QT/QTC normal. EKG shows normal sinus rhythm no ST elevations or inversions concerning for ischemia. No significant changes when compared to EKG from January 2022 Critical Care Time Critical Care Time Critical Care Time: Yes Total Critical Care Time: 35 Attestation: I attest to this time spent taking care of the patient, obtaining history, physical, reviewing labs, imaging, speaking to my attending. Discharge Plan Discharge Clinical Impression: Anemia, Chest pain not due to acute coronary syndrome, Shortness of breath, Dizziness Patient Disposition: Still a Patient Instructions: Shortness of Breath (ED), Dizziness (ED), Chest Wall Pain (ED), Anemia (ED) Additional Instructions: Take your medications as prescribed. If you were prescribed antibiotics today, it is important that you take your medication to their entirety, do not skip any doses, do not finish them early. Follow-up with your primary care provider this week. Follow-up with a OBGYN Return to the emergency department with new or worsening symptoms. Such as fevers, chills, chest pain, shortness of breath, nausea, vomiting, dizziness, headache, vision changes, lethargy, leading to more than 2 pads an hour, heavy vaginal bleeding, rectal bleeding. In case of emergency call 911 Prescriptions: No Action lorazepam [Ativan] 0.5 mg tablet 0.5 mg PO BID PRN (Reason: anxiety) Qty: 5 0RF nitrofurantoin monohyd/m-cryst [Macrobid] 100 mg capsule 100 mg PO Q12H 7 Days Qty: 14 0RF Rx Instructions: must administer with a meal/food phenazopyridine [Pyridium] 100 mg tablet 100 mg PO TID PRN (Reason: pain) Qty: 6 0RF desogestrel-ethinyl estradiol [Apri] 0.15-0.03 mg tablet 1 tab PO DAILY Qty: 84 0RF ferrous sulfate 325 mg (65 mg iron) tablet PO 0RF meclizine 25 mg tablet 25 mg PO TID Qty: 14 0RF Referrals: Rama Cui MD [Primary Care Provider] - 2 days Maximiliano Bravo MD [Physician] - 2 days Stand Alone Forms: Work/School Release
[2022-02-23 14:40] LABS: MANUAL DIFF FLAG NO
[2022-02-23 14:51] LABS: Basophils Absolute Auto 0.1 X10*3/uL (0.0-0.2); Basophils Percent Auto 0.7 % (0-2); Eosinophils Absolute Auto 0.2 X10*3/uL (0.0-0.4); Eosinophils Percent Auto 2.1 % (0-4); Hematocrit 24.5 % (37.0-47.0); Hemoglobin 7.8 g/dl (12.0-16.0); Imm Gran Abs Auto 0.12 X10*3/uL (0.00-0.03); Imm Gran Pct Auto 1.1 % (0.0-0.4); Lymphocytes Absolute Auto 2.9 X10*3/uL (1.2-4.9); Lymphocytes Percent Auto 27.9 % (20-40); Mean Corpuscular HGB Conc 31.8 g/dl (31.0-35.0); Mean Corpuscular Hemoglobin 25.3 pg (27.0-33.0); Mean Corpuscular Volume 79.5 fL (80.0-98.0); Mean Platelet Volume 10.8 fL (9.4-12.3); Monocytes Absolute Auto 0.5 X10*3/uL (0.1-1.2); Monocytes Percent Auto 4.4 % (2-11); NRBC Pct Auto 0.2 /100WBC (0.0-0.2); Neutrophils Absolute Auto 6.7 x10*3/uL (2.0-8.3); Neutrophils Percent Auto 63.8 % (45-73); Platelet Count 371 X10*3/uL (160-400); Red Blood Count 3.08 X10*6/uL (4.20-5.50); Red Cell Distribution Width 16.1 % (11.0-16.0); White Blood Count 10.5 X10*3/uL (4.8-10.8)
[2022-02-23 14:54] LABS: Anion Gap 14 (12-20); Blood Urea Nitrogen 9 mg/dL (9-16); Calcium 8.4 mg/dL (8.4-10.2); Carbon Dioxide 21 mmol/L (22-29); Chloride 103 mmol/L (96-108); Creatinine Clr Calc Pharmacy 110.4; Estimated Glomerular Filt Rate > 60; Glucose Random 241 mg/dL (60-115); Potassium 4.1 mmol/L (3.3-5.1); Sodium 134 mmol/L (135-145)
[2022-02-23 15:01] LABS: Troponin-I High Sensitivity 11.5 ng/L (<3.5-17.0)
[2022-02-23 15:12] LABS: D Dimer High Sensitivity 157 NG/ML
--- NOTE | 2022-02-23 15:33 | PC.NURSE ---
pt a&ox3, vss - hypertensive, pt c/o 7/10 headache starting ~10 mins ago, pt endorsing dizziness. Type and screen pending.
[2022-02-23] MEDS: 0.9 % Sodium Chloride 1,000 ML 999 ML IV (15:35)
[2022-02-23 15:39] LABS: HCG Quantitative < 2 mIU/mL
--- NOTE | 2022-02-23 16:05 | PC.NURSE ---
phlebotomy called for type and screen.
[2022-02-23] MEDS: Ketorolac Tromethamine 15 MG/ML VIAL IVPUSH (17:40)
--- NOTE | 2022-02-23 17:44 | PC.NURSE ---
medicated per provider order. blood bank paperwork completed.
[2022-02-23 20:44] LABS: MANUAL DIFF FLAG NO
[2022-02-23 20:49] LABS: Basophils Absolute Auto 0.1 X10*3/uL (0.0-0.2); Basophils Percent Auto 0.7 % (0-2); Eosinophils Absolute Auto 0.3 X10*3/uL (0.0-0.4); Eosinophils Percent Auto 2.8 % (0-4); Hemoglobin 8.1 g/dl (12.0-16.0); Imm Gran Abs Auto 0.15 X10*3/uL (0.00-0.03); Imm Gran Pct Auto 1.4 % (0.0-0.4); Lymphocytes Absolute Auto 3.2 X10*3/uL (1.2-4.9); Lymphocytes Percent Auto 30.6 % (20-40); Mean Corpuscular HGB Conc 31.2 g/dl (31.0-35.0); Mean Corpuscular Hemoglobin 25.4 pg (27.0-33.0); Mean Corpuscular Volume 81.5 fL (80.0-98.0); Monocytes Absolute Auto 0.4 X10*3/uL (0.1-1.2); NRBC Pct Auto 0.3 /100WBC (0.0-0.2); Neutrophils Absolute Auto 6.3 x10*3/uL (2.0-8.3); Neutrophils Percent Auto 60.5 % (45-73); Platelet Count 323 X10*3/uL (160-400); Red Blood Count 3.19 X10*6/uL (4.20-5.50); Red Cell Distribution Width 16.4 % (11.0-16.0); White Blood Count 10.5 X10*3/uL (4.8-10.8)
[2022-02-23 21:07] LABS: Alanine Aminotransferase 17 U/L (0-31); Albumin Level 3.5 g/dL (3.5-5.0); Alkaline Phosphatase 90 U/L (39-117); Anion Gap 14 (12-20); Aspartate Amino Transferase 13 U/L (5-31); Bilirubin Total 1.5 mg/dL (0.0-1.0); Blood Urea Nitrogen 7 mg/dL (9-16); Calcium 8.3 mg/dL (8.4-10.2); Carbon Dioxide 20 mmol/L (22-29); Chloride 105 mmol/L (96-108); Creatinine Clr Calc Pharmacy 119.9; Estimated Glomerular Filt Rate > 60; Glucose Random 257 mg/dL (60-115); Potassium 4.1 mmol/L (3.3-5.1); Sodium 135 mmol/L (135-145); Total Protein 6.3 g/dL (6.5-8.0)
[2022-02-23 21:14] LABS: Troponin-I High Sensitivity 8.3 ng/L (<3.5-17.0)
--- NOTE | 2022-02-23 23:19 | PC.NURSE ---
1st unit of RBCs transfused, 2nd unit transfusing. pt tolerating well, vss. pt continues to report dizziness and pressure in chest, provider aware.
[2022-02-24 01:10] VITALS: BP 151/91; PULSE 86; RESP 20; TEMP 36.8; O2SAT 98
[2022-02-24 01:46] VITALS: BP 143/66; PULSE 90; RESP 22; TEMP 36.9
== END 2022-02-24 02:29 | disposition home or self-care (01) ==
PROVIDERS: Physician Assistant; Emergency Provider Internal Medicine; PCP Internal Medicine
DX: D64.9 Anemia, unspecified (principal); R07.89 Other chest pain; R06.02 Shortness of breath; R42 Dizziness and giddiness; N92.0 Excessive and frequent menstruation with regular cycle
CPT/HCPCS: 36415; 36430; 71045; 80048; 80053; 84484; 84702; 85025; 85379; 86850; 86900; 86901; 86923; 93005; 96361; 96374; 99285; 99291; J1885; P9016

== ENCOUNTER → 2022-02-25 15:34 | Outpatient (BNV) | payer OTHER, SELFPAY | PROVIDERS: Visit Provider Internal Medicine Medical Oncology | DX: D64.9 Anemia, unspecified (principal); N92.0 Excessive and frequent menstruation with regular cycle; I82.611 Acute embolism and thrombosis of superficial veins of right upper extremity; Z80.9 Family history of malignant neoplasm, unspecified | CPT/HCPCS: 99213; 99214 ==

== ENCOUNTER 2022-03-05 11:44 | Outpatient (REF) | payer OTHER, SELFPAY | END 2022-03-05 11:45 | disposition home or self-care (01) | LOC: HO.MDS 11:44 | PROVIDERS: Visit Provider Internal Medicine Medical Oncology | DX: D50.9 Iron deficiency anemia, unspecified (principal) | CPT/HCPCS: J2916 ==

== ENCOUNTER 2022-03-06 21:49 | Emergency (ER) | payer OTHER, SELFPAY ==
--- NOTE | ~2022-03-06 | XR_ITS ---
EXAMINATION: XR CHEST CLINICAL INFORMATION: Shortness of breath COMPARISON: Chest x-ray 02/23/2022 TECHNIQUE: 2 views of the chest were obtained. FINDINGS: The lungs are clear. No airspace consolidation, pleural effusion, or pneumothorax. The cardiomediastinal silhouette is within normal limits. No acute osseous injury. XR/XR chest 2V IMPRESSION: No acute pulmonary process.
[2022-03-06 21:52] VITALS: BP 144/65; PULSE 103; RESP 22; TEMP 37; O2SAT 99; BMI 43.4
--- NOTE | 2022-03-06 21:55 | ECG_ITS ---
Test Reason : sob Blood Pressure : / mmHG Vent. Rate : 102 BPM Atrial Rate : 102 BPM P-R Int : 124 ms QRS Dur : 076 ms QT Int : 368 ms P-R-T Axes : 017 047 034 degrees QTc Int : 479 ms Sinus tachycardia Otherwise normal ECG When compared with ECG of 23-FEB-2022 20:24, No significant change was found Referred By: Generic ED Physician Electronically Signed By:Trell Solomon
--- NOTE | 2022-03-06 22:23 | ED_ITS ---
HPI - General Adult General Chief complaint: Dyspnea Stated complaint: chest pain,sob and dizziness Time Seen by Provider: 03/06/22 22:02 Source: patient Mode of arrival: ambulatory Limitations: no limitations History of Present Illness HPI narrative: 41 years old female history of dysfunctional uterine bleed with menorrhagia, patient was bleeding the entire month of January then she stopped for a week patient started to rebleed again and stopped yesterday, patient with history of anemia and blood transfusion as a result of heavy menses, patient presented today with chest pain, exertional shortness of breath, and lightheadedness. Patient scheduled to see OBGYN at [facility] and pelvic ultrasound scheduled for next week. Patient declined chance of being . Related Data Previous Rx's Medication Instructions Recorded desogestrel 0.15 mg-ethinyl 1 tab PO DAILY #84 tabs 01/28/22 estradiol 0.03 mg tablet (Apri) Allergies Allergy/AdvReac Type Severity Reaction Status Date / Time oxytocin [From Pitocin] Allergy Intermediate Palpitation Verified 03/06/22 21:52 s prednisone [PREDNISONE] Allergy Unknown HIVES Verified 03/06/22 21:52 Sulfa (Sulfonamide Allergy Unknown HIVES Verified 03/06/22 21:52 Antibiotics) [SULFA (SULFONAMIDE ANTIBIOTICS)] Review of Systems Review of Systems: All other systems are reviewed and are negative Constitutional: Reports as per HPI and Reports no additional constitutional complaints Eyes: Reports as per HPI and Reports no additional eye complaints Reports system reviewed and no additional complaints, except as documented Cardiovascular: Reports as per HPI and Reports no additional cardiovascular complaints Respiratory: Reports as per HPI and Reports no additional respiratory complaints Gastrointestinal: Reports as per HPI and Reports no additional gastrointestinal complaints Genitourinary: Reports no additional female genitourinary complaints Musculoskeletal: Reports no additional musculoskeletal complaints Skin/Breast: Reports system reviewed and no additional complaints, except as docu Psychiatric: Reports no additional psychiatric complaints Endocrine: Reports no additional endocrine complaints Hematologic/Lymphatic: Reports no additional hematologic/lymphatic complaints Allergic/Immunologic: Reports no additional allergic/immunologic complaints Reports system reviewed and no additional complaints, except as documented and Reports Abnormal speech present [facility] Past Medical History Medical History Asthma Gestational diabetes mellitus Polycystic disease, ovaries Preeclampsia Family History Family History Father HTN (hypertension) Mother Ovarian cancer Bipolar disorder Maternal Grandfather Diabetes mellitus Maternal Grandmother Breast cancer HTN (hypertension) Paternal Grandfather No problems noted. Paternal Grandmother No problems noted. Family/Other Leukemia Social History Social History Household Members: Spouse and Children Housing: Apartment Are you a primary youth career specialist to a significant other at home: No Do you presently have visiting nurse or other home services: No Alcohol intake: current Alcohol intake frequency: holidays/special occasions only Patient Tobacco Use Status: Never used Tobacco Advance Directives: No service: No Current occupational status: unemployed Physical Exam ED Vital Signs: Vital Signs - 24 hr 03/06/22 21:52 Temperature 98.6 F Pulse Rate 103 H Respiratory Rate 22 H Blood Pressure 144/65 H Pulse Oximetry 99 Oxygen Delivery Method Room Air BMI result Body Mass Index 43.4 vital signs have been reviewed as appeared to be correct. Blood pressure normal. Heart rate elevated. Respiration rate normal. Temperature normal. Oxygen saturation normal. Appearance: Alert. Oriented X3. No acute distress. Head: Normal external exam. Normocephalic. Atraumatic. No Gonzalez signs noted. No raccoon eyes noted Eyes: PERRLA. EOMI. Conjunctiva and sclera normal. Eyelids normal. ENT: TM's Normal. Pharynx normal. Uvula midline. Moist mucous membranes. No trismus noted. No drooling noted. No muffled voice noted. Neck: Normal inspection. Neck supple. FROM. No adenopathy. Thyroid Normal. No meningeal signs. No neck mass noted. CVS: Normal heart rate and rhythm. Heart sound normal. No murmurs noted. Pulses normal throughout. Respiratory: No respiratory distress. Painless inspiration. Breath sounds normal. No wheezes/rales/rhonchi noted. Chest nontender. No accessory muscle usage noted or decreased air movement noted. Abdomen: Soft and nontender. Bowel sounds normal in all 4 quadrants. No distention noted. No organomegaly noted. No visible injury noted. Back: No CVA tenderness. Full range of motion noted. Skin: Skin warm and dry. pale skin color. Normal skin turgor. No rashes/lesions/lacerations noted. Extremities: No lower extremity edema. Extremities exhibit normal range of motion. Extremities nontender. Neuro: Oriented X 3. Cranial nerve exam: II-XII are grossly intact No motor deficit. No sensory deficit. Reflexes normal. Course Course Course Narrative: assessment and plan. [age] year female with dysfunctional uterine bleeding and menorrhagia causing symptomatic anemia, patient currently not bleeding and has an appointment with her OBGYN /pelvic ultrasound next week, we will transfuse 2 units of blood in the emergency department and discharged. Medical Decision Making Lab Data Lab results reviewed: Yes I reviewed the patient's lab results. Result diagrams: 03/06/22 22:26 03/06/22 22:26 Labs: Lab Results 03/06/22 03/06/22 03/06/22 Range/Units 22:26 22:26 22:26 WBC 9.3 (4.8-10.8) X10*3/uL RBC 3.02 L D (4.20-5.50) X10*6/uL Hgb 7.2 L D (12.0-16.0) g/dl Hct 23.9 L D (37.0-47.0) % MCV 79.1 L (80.0-98.0) fL MCH 23.8 L (27.0-33.0) pg MCHC 30.1 L (31.0-35.0) g/dl RDW 16.8 H (11.0-16.0) % Plt Count 341 (160-400) X10*3/uL MPV 10.8 (9.4-12.3) fL Immature Gran % (Auto) 1.3 H (0.0-0.4) % Neut % (Auto) 56.9 (45-73) % Lymph % (Auto) 34.2 (20-40) % Carolina % (Auto) 4.7 (2-11) % Eos % (Auto) 2.5 (0-4) % Baso % (Auto) 0.4 (0-2) % Lymph # (Auto) 3.2 (1.2-4.9) X10*3/uL Carolina # (Auto) 0.4 (0.1-1.2) X10*3/uL Eos # (Auto) 0.2 (0.0-0.4) X10*3/uL Baso # (Auto) 0.0 (0.0-0.2) X10*3/uL Abs Immat Gran (auto) 0.12 H (0.00-0.03) X10*3/uL Absolute Neuts (auto) 5.3 (2.0-8.3) x10*3/uL Absolute Nucleated RBC 0.030 H (0.0-0.012) X10*3/uL Nucleated RBC % (auto) 0.3 H (0.0-0.2) /100WBC Sodium 137 (135-145) mmol/L Potassium 4.5 (3.3-5.1) mmol/L Chloride 105 (96-108) mmol/L Carbon Dioxide 24 (22-29) mmol/L Anion Gap 13 (12-20) BUN 7 L (9-16) mg/dL Creatinine 0.73 (0.5-1.4) mg/dL Estim Creat Clear Calc 115.0 Estimated GFR > 60 Random Glucose 287 H (60-115) mg/dL Calcium 8.9 (8.4-10.2) mg/dL Total Bilirubin 0.4 (0.0-1.0) mg/dL AST 8 D (5-31) U/L ALT 10 (0-31) U/L Alkaline Phosphatase 90 (39-117) U/L Troponin I High Sens 10.1 (<3.5-17.0) ng/L Total Protein 6.5 (6.5-8.0) g/dL Albumin 3.5 (3.5-5.0) g/dL COVID-19 (LUIS) (Negative) COVID-19 Clin Com Influenza Type A (SRIRAM) (Negative) Influenza Type B (SRIRAM) (Negative) Influenza A & B Note Blood Type Antibody Screen Crossmatch 03/06/22 03/06/22 03/06/22 Range/Units 22:26 22:26 23:07 WBC (4.8-10.8) X10*3/uL RBC (4.20-5.50) X10*6/uL Hgb (12.0-16.0) g/dl Hct (37.0-47.0) % MCV (80.0-98.0) fL MCH (27.0-33.0) pg MCHC (31.0-35.0) g/dl RDW (11.0-16.0) % Plt Count (160-400) X10*3/uL MPV (9.4-12.3) fL Immature Gran % (Auto) (0.0-0.4) % Neut % (Auto) (45-73) % Lymph % (Auto) (20-40) % Carolina % (Auto) (2-11) % Eos % (Auto) (0-4) % Baso % (Auto) (0-2) % Lymph # (Auto) (1.2-4.9) X10*3/uL Carolina # (Auto) (0.1-1.2) X10*3/uL Eos # (Auto) (0.0-0.4) X10*3/uL Baso # (Auto) (0.0-0.2) X10*3/uL Abs Immat Gran (auto) (0.00-0.03) X10*3/uL Absolute Neuts (auto) (2.0-8.3) x10*3/uL Absolute Nucleated RBC (0.0-0.012) X10*3/uL Nucleated RBC % (auto) (0.0-0.2) /100WBC Sodium (135-145) mmol/L Potassium (3.3-5.1) mmol/L Chloride (96-108) mmol/L Carbon Dioxide (22-29) mmol/L Anion Gap (12-20) BUN (9-16) mg/dL Creatinine (0.5-1.4) mg/dL Estim Creat Clear Calc Estimated GFR Random Glucose (60-115) mg/dL Calcium (8.4-10.2) mg/dL Total Bilirubin (0.0-1.0) mg/dL AST (5-31) U/L ALT (0-31) U/L Alkaline Phosphatase (39-117) U/L Troponin I High Sens (<3.5-17.0) ng/L Total Protein (6.5-8.0) g/dL Albumin (3.5-5.0) g/dL COVID-19 (LUIS) Negative (Negative) COVID-19 Clin Com See Note Influenza Type A (SRIRAM) Negative (Negative) Influenza Type B (SRIRAM) Negative (Negative) Influenza A & B Note See Note Blood Type O Positive Antibody Screen NEGATIVE Crossmatch See Detail Imaging Data Chest x-ray: Attestation: I personally reviewed and interpreted this imaging study as follows: Radiologist's impression: No acute intrathoracic pathology. ECG Data Attestation: I personally reviewed and interpreted this ECG as follows: Interpretation: Sinus tachycardia at 102 beats per minutes, normal axis deviation, normal intervals, no ST-T changes, no change from previous EKG. Discharge Plan Discharge Clinical Impression: Iron deficiency anemia, Menorrhagia Patient Disposition: Still a Patient Instructions: Anemia (ED) Additional Instructions: Follow-up with your OBGYN doctor. Prescriptions: No Action desogestrel-ethinyl estradiol [Apri] 0.15-0.03 mg tablet 1 tab PO DAILY Qty: 84 0RF Referrals: Rama Cui MD [Primary Care Provider] -
[2022-03-06 22:37] LABS: MANUAL DIFF FLAG NO
[2022-03-06 22:40] LABS: Basophils Percent Auto 0.4 % (0-2); Eosinophils Absolute Auto 0.2 X10*3/uL (0.0-0.4); Eosinophils Percent Auto 2.5 % (0-4); Hematocrit 23.9 % (37.0-47.0); Hemoglobin 7.2 g/dl (12.0-16.0); Imm Gran Abs Auto 0.12 X10*3/uL (0.00-0.03); Imm Gran Pct Auto 1.3 % (0.0-0.4); Lymphocytes Absolute Auto 3.2 X10*3/uL (1.2-4.9); Lymphocytes Percent Auto 34.2 % (20-40); Mean Corpuscular HGB Conc 30.1 g/dl (31.0-35.0); Mean Corpuscular Hemoglobin 23.8 pg (27.0-33.0); Mean Corpuscular Volume 79.1 fL (80.0-98.0); Mean Platelet Volume 10.8 fL (9.4-12.3); Monocytes Absolute Auto 0.4 X10*3/uL (0.1-1.2); Monocytes Percent Auto 4.7 % (2-11); NRBC Pct Auto 0.3 /100WBC (0.0-0.2); Neutrophils Absolute Auto 5.3 x10*3/uL (2.0-8.3); Neutrophils Percent Auto 56.9 % (45-73); Platelet Count 341 X10*3/uL (160-400); Red Blood Count 3.02 X10*6/uL (4.20-5.50); Red Cell Distribution Width 16.8 % (11.0-16.0); White Blood Count 9.3 X10*3/uL (4.8-10.8)
[2022-03-06 23:02] LABS: Alanine Aminotransferase 10 U/L (0-31); Albumin Level 3.5 g/dL (3.5-5.0); Alkaline Phosphatase 90 U/L (39-117); Anion Gap 13 (12-20); Aspartate Amino Transferase 8 U/L (5-31); Bilirubin Total 0.4 mg/dL (0.0-1.0); Blood Urea Nitrogen 7 mg/dL (9-16); Calcium 8.9 mg/dL (8.4-10.2); Carbon Dioxide 24 mmol/L (22-29); Chloride 105 mmol/L (96-108); Estimated Glomerular Filt Rate > 60; Glucose Random 287 mg/dL (60-115); IDNOW Serial# 16C4AD1C; Influenza A Negative (Negative); Influenza B2 Negative (Negative); Potassium 4.5 mmol/L (3.3-5.1); Sodium 137 mmol/L (135-145); Total Protein 6.5 g/dL (6.5-8.0)
[2022-03-06 23:03] LABS: COVID-19 Test Negative (Negative); IDNOW Serial# 9DB6401D
[2022-03-06 23:08] LABS: Troponin-I High Sensitivity 10.1 ng/L (<3.5-17.0)
--- NOTE | 2022-03-06 23:18 | PC.NURSE ---
This RN attempt to place second IV line in preparation for blood transfusion. This RN provided pt education on the importance of two IV sites for blood transfusion, pt states, they never put two IVs in to give me transfusions in the past pt declined and states she does not want another IV placed.
--- NOTE | 2022-03-06 23:55 | PC.NURSE ---
MD aware pt refusing secondary IV placement, per MD okay to continue with transfusion.
[2022-03-07] VITALS (10 sets, daily range): BP systolic 124–150; BP diastolic 54–81; PULSE 88–102; RESP 12–20; TEMP 36.8–37.2; O2SAT 99
--- NOTE | 2022-03-07 02:19 | PC.NURSE ---
first unit of blood complete, EDT to blood bank to retrieve second unit.
--- NOTE | 2022-03-07 03:38 | PC.NURSE ---
second unit complete, per MD bush to d.c at [phone]
== END 2022-03-07 04:18 | disposition home or self-care (01) ==
PROVIDERS: Emergency Provider Emergency Medicine; PCP Internal Medicine
DX: D50.9 Iron deficiency anemia, unspecified (principal); N92.0 Excessive and frequent menstruation with regular cycle; R07.9 Chest pain, unspecified; R00.0 Tachycardia, unspecified; Z20.822 Contact with and (suspected) exposure to COVID-19
CPT/HCPCS: 36430; 71046; 80053; 84484; 85025; 86850; 86900; 86901; 86923; 87502; 87635; 93005; 99284; 99285; P9016

== ENCOUNTER 2022-03-20 07:59 | Outpatient (REF) | payer OTHER, SELFPAY | END 2022-03-20 08:00 | disposition home or self-care (01) | LOC: HO.MDS 07:59 | PROVIDERS: Visit Provider Internal Medicine Medical Oncology | DX: D50.9 Iron deficiency anemia, unspecified (principal) | CPT/HCPCS: 96365; 96366; J1200; J1750; Q0163 ==

== ENCOUNTER 2022-11-30 13:03 | Emergency (ER) | payer OTHER, SELFPAY ==
--- NOTE | ~2022-11-30 | CT_ITS ---
EXAMINATION: CT ABDOMEN AND PELVIS WITHOUT CONTRAST CLINICAL INFORMATION: Right lower quadrant pain. COMPARISON: CT scan of the abdomen and pelvis dated 03/29/2021. TECHNIQUE: Multidetector volumetric imaging was performed from the superior aspect of the liver through the pubic symphysis. Sagittal and coronal reformatted images were obtained on the technologist's workstation. Lack of intravenous and oral contrast limits visceral evaluation. This CT examination was performed using dose optimization techniques as appropriate, variously including the following: *Automated exposure control *Adjustment of mA and/or kV according to patient size (this includes techniques or standardized protocols for targeted exams where dose is matched to indication/reason for exam; i.e. extremities or head) *Use of iterative reconstruction technique DLP: 863 mGy-cm FINDINGS: LUNG BASES: Small thin-walled cyst in the left lower lobe base without interval change. No pleural or pericardial effusions. LIVER, GALLBLADDER, AND BILIARY TREE: Diffuse decreased hepatic attenuation without focal abnormality. No gallbladder/biliary abnormality. PANCREAS: Unremarkable. SPLEEN: Unremarkable. ADRENAL GLANDS: Unremarkable. KIDNEYS AND URETERS: The kidneys are normal in size, shape, and attenuation. No hydronephrosis, hydroureter, or calculi seen. No perinephric stranding. BLADDER: Unremarkable. GASTROINTESTINAL TRACT: The stomach is unremarkable. Very small second segment duodenal diverticulum medially without abnormality. The remainder the small bowel is unremarkable. The appendix is unremarkable. The colon shows mild diverticulosis in the descending and sigmoid colon without surrounding abnormality. The rectum is unremarkable. ABDOMINAL WALL: No significant hernia is appreciated. LYMPH NODES: No lymphadenopathy. VASCULAR: Unremarkable. PELVIC VISCERA: Unremarkable. OSSEOUS STRUCTURES: Unremarkable. CT/CT abdomen pelvis wo IV con IMPRESSION: 1. No acute intra-abdominal/pelvic abnormality to explain the patient's pain. 2. Hepatic steatosis. 3. Mild descending/sigmoid diverticulosis without evidence for acute diverticulitis.
[2022-11-30 13:05] VITALS: BP 153/97; PULSE 89; RESP 15; TEMP 36.6; O2SAT 97; BMI 41.6
[2022-11-30 13:34] LABS: MANUAL DIFF FLAG NO
[2022-11-30 13:36] LABS: Basophils Absolute Auto 0.1 X10*3/uL (0.0-0.2); Basophils Percent Auto 0.5 % (0-2); Eosinophils Absolute Auto 0.2 X10*3/uL (0.0-0.4); Eosinophils Percent Auto 2.1 % (0-4); Hematocrit 41.6 % (37.0-47.0); Hemoglobin 13.9 g/dl (12.0-16.0); Imm Gran Abs Auto 0.06 X10*3/uL (0.00-0.03); Imm Gran Pct Auto 0.5 % (0.0-0.4); Lymphocytes Absolute Auto 3.4 X10*3/uL (1.2-4.9); Lymphocytes Percent Auto 30.9 % (20-40); Mean Corpuscular HGB Conc 33.4 g/dl (31.0-35.0); Mean Corpuscular Hemoglobin 27.6 pg (27.0-33.0); Mean Corpuscular Volume 82.7 fL (80.0-98.0); Monocytes Absolute Auto 0.5 X10*3/uL (0.1-1.2); Monocytes Percent Auto 4.1 % (2-11); Neutrophils Absolute Auto 6.8 x10*3/uL (2.0-8.3); Neutrophils Percent Auto 61.9 % (45-73); Platelet Count 322 X10*3/uL (160-400); Red Blood Count 5.03 X10*6/uL (4.20-5.50); Red Cell Distribution Width 14.6 % (11.0-16.0)
[2022-11-30 13:37] LABS: Appearance Urine Clear; Color Urine Yellow; Glucose Urine UA Negative (Negative); Leukocyte Esterase Urine Negative (Negative); Nitrite Urine Negative (Negative); PH 6.5 (5.0-9.0); Specific Gravity - Urine 1.015 (1.005-1.025); UMIC TRIGGER UACC YES; Urine Blood Small (1+) (Negative); Urine Ketones Negative (Negative); Urine Protein Negative (Neg-Trace)
[2022-11-30 13:39] LABS: UPreg QC Valid YES; Urine Pregnancy NEGATIVE (NEGATIVE)
--- OUTSIDE RECORDS SUMMARY | 2022-11-30 13:46 | XMS_ITS | Continuity of Care Document ---
:1980 Author Organization [facility] Address [address] [place] [phone]- Care Team Providers Name Role Phone Rama Cui MD Primary Care Physician Encounter [facility] [place] Date(s): 02/26/21 - 05/09/[address] [address]- Attending Physician: Charu Steward MD Admitting Physician: Charu Steward MD Referring Physician: Kian Lux DO Allergies, Adverse Reactions, Alerts Substance Reaction Severity Status sulfADIAZINE hives Active predniSONE hives Active Medications Iron 100 Plus By Mouth, Daily, 0 Refills, Maintenance, 07/24/20 11:42:00 EST Start Date: 07/24/20 Status: OrderedmetFORMIN 500 mg oral tablet 1 tablet = 500 mg, By Mouth, 2 times a day, with meals Start with 1 time per day for a week and increase to 2 times per day as tolerated, # 60 tablet, 1 Refills, Maintenance, 02/14/21 19:01:00 EDT, Tablet, [id number], Partial fill upon michelle... Start Date: 02/14/21 Status: Ordered Problem List Condition Effective Dates Status Health Status Informant Abnormal uterine bleeding(Confirmed) Active cardiac anomaly complicating Active , antepartum(Confirmed) Social History Social History Type Response Smoking Status Never (less than 100 in life time) entered on: 07/24/20 Sex Female
--- OUTSIDE RECORDS SUMMARY | 2022-11-30 13:46 | XMS_ITS | Continuity of Care Document ---
:1980 Author Organization [facility] Address [address] [place] [phone]- Care Team Providers Name Role Phone Rama Cui MD Primary Care Physician [place] [facility] [place] Date(s): 07/17/22 - 07/17/[address] [address] Discharge Disposition: A-D/C Home Attending Physician: Lakisha Goncalves MD Admitting Physician: Lakisha Goncalves MD Referring Physician: Lakisha Goncalves MD Allergies, Adverse Reactions, Alerts Substance Reaction Severity Status sulfADIAZINE hives Active predniSONE hives Active Medications acetaminophen 325 mg oral capsule 2 capsule = 650 mg, By Mouth, Every 4 hours, PRN as needed for pain, # 20 capsule, 0 Refills, Maintenance, 07/17/22 10:24:00 EDT, Capsule, [facility]pharmacy #[id number], Partial fill upon patient request if the prescription is for a schedule II opioid drug., 154... Start Date: 07/17/22 Status: Orderedibuprofen 800 mg oral tablet 800 mg, 1, tablet, By Mouth, Every 8 hours, # 30 tablet, Refills 0, Tot. Refills 0, Maintenance, 07/17/22 10:24:00 EDT, Route to Pharmacy Electronically, [id number], Partial fill upon patient request if the prescription is for a schedule II op... Start Date: 07/17/22 Status: OrderedPercocet-5 Tablet 1 tablet, Tablet, By Mouth, Every 4 hours, PRN for Pain , Moderate, Routine, 07/17/22 9:47:00 EDT Start Date: 07/17/22 Stop Date: 07/17/22 Status: Discontinued Problem List Condition Confirmation Course Effective Dates Status Health Stat us Informant Abnormal uterine Confirmed Active bleeding PCOS (polycystic Confirmed Active ovarian syndrome) Severe obesity Confirmed Active Vital Signs Most recent to oldest 1 2 3 [Reference Range]: Weight 107 kg (07/17/22 8:06 AM) Oxygen Saturation [94-100 93 % 95 % 92 % %] *L* (07/17/22 10:45 AM) *L* (07/17/22 11:15 AM) (07/17/22 10 :30 AM) Pulse Rate [55-90 bpm] 86 bpm (07/17/22 8:06 AM) Blood Pressure 133/78 mm Hg 136/78 mm Hg 136/86 mm Hg [90-138/55-84 mm Hg] (07/17/22 10:45 AM) (07/17/22 10:30 AM) ( 10:15 AM) Respiratory Rate [16-30 12 br/min 15 br/min 13 br/mi n br/min] *L* *L* *L* (07/17/22 10:59 AM) (07/17/22 10:45 AM) ( 2 10:30 AM) Temperature [96.8-100.4 98.4 DegF 98.0 DegF DegF] (07/17/22 10:15 AM) (07/17/22 8:06 AM) Liters per Minute 6 L/min (07/17/22 10:15 AM) Mode of Delivery (Oxygen) Room air Simple face mask Room air (07/17/22 10:30 AM) (07/17/22 10:15 AM) ( 8:06 AM) Blood pressure sites Arm, left (07/17/22 8:06 AM) Temperature Route Temporal Temporal (07/17/22 10:15 AM) (07/17/22 8:06 AM) Dry Weight 107 kg (07/17/22 8:06 AM) Weight Obtained Via Standing scale (07/17/22 8:06 AM) Dry Weight Obtained Via Standing scale (07/17/22 8:06 AM) Social History Social History Type Response Smoking Status Never (less than 100 in life time) entered on: 07/24/20 Sex Female Patient Care team information PersonnelName: Rama Cui MD Address: Address: [address] [place] [address]- [place]
--- OUTSIDE RECORDS SUMMARY | 2022-11-30 13:46 | XMS_ITS | Continuity of Care Document ---
:1980 Author Organization [facility] Address [address] [place] [id number]- Care Team Providers Name Role Phone Rama Cui MD Primary Care Physician [place] [facility] [place]09[place] - 10/09/[address] [address]- Encounter Diagnosis COVID-19 virus detected (Final) - 10/09/20 Discharge Disposition: A-D/C Home Attending Physician: Chastity Griffith MD Admitting Physician: Chastity Griffith MD Referring Physician: Not on Staff, Referring MD Allergies, Adverse Reactions, Alerts Substance Reaction Severity Status sulfADIAZINE hives Active predniSONE hives Active Medications Apri 0.15 mg-0.03 mg oral tablet 1 tablet, By Mouth, Daily, Take 3 pills daily for 3 days, then 2 pills daily for 2 days then 1 pill daily for remainder of pack., # 28 tablet, 3 Refills, Maintenance, 09/07/20 10:10:00 EST, Tablet, [id number], Partial fill upon patient request... Start Date: 09/07/20 Status: OrderedIron 100 Plus By Mouth, Daily, 0 Refills, Maintenance, 07/24/20 11:42:00 EST Start Date: 07/24/20 Status: Ordered Problem List Condition Effective Dates Status Health Status Informant Abnormal uterine bleeding(Confirmed) Active cardiac anomaly complicating Active , antepartum(Confirmed) Results Radiology Reports Exam Date Time Procedure Performing Provider Status 10/09/20 12:51 PM Chest Portable Evelyn Wood; Dexter (Veri ed) Notes:(Chest Portable) Reason For Exam: Shortness of BreathRESULT: Chest Portable Chest Portable Hx of Present Illness: from home, dx with Covid on weds and now with increased shortness of breath. Worse when she walking around, denies associates symptoms at this time. COMPARISON: 01/17/2018. FINDINGS: LINES AND TUBES: None. LUNGS AND PLEURA: Clear lungs. Normal pulmonary vascularity. No pleural effusion. No pneumothorax. HEART, MEDIASTINUM AND CAROL: Heart is normal in size. Normal upper mediastinal and hilar contour. BONES AND SOFT TISSUES: No acute abnormality. IMPRESSION: No acute abnormality. WSN: [id number] Ordering Physician: Chastity Griffith Dictated By: Alba Chase MD Dictated Date/Time: 10/09/20 12:55 p Reviewed By: Alba Chase MD Signed By: Alba Chase MD Signed Date/Time: 10/09/20 12:55 pm Transcribed By: STANISLAV Transcribed Date/Time: 10/09/20 12:55 pm Vital Signs Most recent to oldest 1 2 3 [Reference Range]: Oxygen Saturation [94-100 %] 96 % 1 99 % 2 100 % (10/09/20 2:48 PM) (10/09/20 2:46 PM) (10/09/20 12: 27 PM) Pulse Rate [55-90 bpm] 96 bpm 113 bpm *H* *H* (10/09/20 12:27 PM) (10/09/20 12:16 PM) Blood Pressure [90-138/55-84 145/90 mm Hg mm Hg] *H* (10/09/20 12:27 PM) Respiratory Rate [16-30 20 br/min 20 br/min br/min] (10/09/20 12:27 PM) (10/09/20 12:16 PM) Temperature [96.8-100.4 98.0 DegF DegF] (10/09/20 12:27 PM) Liters per Minute 0 L/min 0 L/min (10/09/20 2:48 PM) (10/09/20 2:46 PM) Mode of Delivery (Oxygen) Room air Room air Room a ir (10/09/20 2:48 PM) (10/09/20 2:46 PM) (10/09/20 12: 27 PM) Blood pressure sites Arm, right (10/09/20 12:27 PM) Temperature Route Oral (10/09/20 12:27 PM) 1Result Comment: After ambulating.2Result Comment: Before ambulating. Social History Social History Type Response Smoking Status Never (less than 100 in life time) entered on: 07/24/20 Sex Female
--- OUTSIDE RECORDS SUMMARY | 2022-11-30 13:46 | XMS_ITS | Continuity of Care Document ---
:1980 Author Organization [facility] Address [address] [place] [phone]- Care Team Providers Name Role Phone Rama Cui MD Primary Care Physician Encounter [facility] [place] Date(s): 02/25/21 - 05/15/[address] [address]- Attending Physician: Rama Cui MD Admitting Physician: Yenni Chawla MD Referring Physician: Yoan POOL, Nikole Barahona Allergies, Adverse Reactions, Alerts Substance Reaction Severity [...] Refills, Maintenance, 02/14/21 19:01:00 EDT, Tablet, [id number], Partial fill upon michelle... Start Date: 02/14/21 Status: Ordered Problem List Condition Effective Dates Status Health Status Informant Abnormal uterine bleeding(Confirmed) Active cardiac anomaly complicating Active , antepartum(Confirmed) Social History Social History Type Response Smoking Status Never (less than 100 in life time) entered on: 07/24/20 Sex Female
--- OUTSIDE RECORDS SUMMARY | 2022-11-30 13:46 | XMS_ITS | Continuity of Care Document ---
:1980 Author Organization [facility] Address [address] [place] [address]- Care Team Providers Name Role Phone See POOL, Rama Primary Care Physician [place] [facility] [place] Date(s): 03/23/22 - 04/22/[address] [address]- Allergies, Adverse Reactions, Alerts Substance Reaction Severity [...] tolerated, # 60 tablet, 1 Refills, Maintenance, 08/09/21 16:43:00 EST, Tablet, [facility]/pharmacy #[id number], Partial fill upon michelle... Start Date: 08/09/21 Status: OrderedProvera 10 mg oral tablet 10 mg, 1, tablet, By Mouth, Daily, # 10 tablet, Refills 0, Tot. Refills 0, Maintenance, 02/04/22 22:59:00 EDT, Route to Pharmacy Electronically, [facility]/pharmacy #[id number], Partial fill upon patient request ifthe prescription is for a schedule II opioid drug... Start Date: 02/04/22 Stop Date: 02/14/22 Status: OrderedSprintec 0.25 mg-35 mcg oral tablet 1 tablet, By Mouth, Daily, take 3 tabs x 3 days, then 2 tabs x2 then daily. skip placebo, # 84 tablet, 3 Refills, Maintenance, 02/20/22 14:25:00 EDT, Tablet, [facility]/pharmacy #[id number], Partial fill upon patient request if the prescription is for a schedule I... Start Date: 02/20/22 Status: OrderedZofran 4 mg oral tablet 1 tablet = 4 mg, By Mouth, 3 times a day, PRN Nausea, # 12 tablet, 0 Refills, Maintenance, 02/20/22 14:26:00 EDT, [facility]/pharmacy #[id number], Partial fill upon patient request if the prescription is for a schedule II opioid drug., 162, cm, 02/20/22 13:13:00 E... Start Date: 02/20/22 Status: Ordered Problem List Condition Effective Dates Status Health Status Informant Abnormal uterine bleeding(Confirmed) Active cardiac anomaly complicating Active , antepartum(Confirmed) PCOS (polycystic ovarian Active syndrome)(Confirmed) Severe obesity(Confirmed) Active Social History Social History Type Response Smoking Status Never (less than 100 in life time) entered on: 07/24/20 Sex Female
--- OUTSIDE RECORDS SUMMARY | 2022-11-30 13:46 | XMS_ITS | Continuity of Care Document ---
:1980 Author Organization [facility] Address [address] [place] [phone]- Care Team Providers Name Role Phone Rama Cui MD Primary Care Physician Encounter [facility] [place] Date(s): 02/26/21 - 05/26/[address] [address] Attending Physician: Not on Staff, Attending MD Allergies, Adverse Reactions, Alerts Substance Reaction [...] Refills, Maintenance, 02/14/21 19:01:00 EDT, Tablet, [id number], Partial fill upon michelle... Start Date: 02/14/21 Status: Ordered Problem List Condition Effective Dates Status Health Status Informant Abnormal uterine bleeding(Confirmed) Active cardiac anomaly complicating Active , antepartum(Confirmed) Social History Social History Type Response Smoking Status Never (less than 100 in life time) entered on: 07/24/20 Sex Female
--- OUTSIDE RECORDS SUMMARY | 2022-11-30 13:46 | XMS_ITS | Continuity of Care Document ---
:1980 Author Organization [facility] ic Address [address] [place] [phone]- Care Team Providers Name Role Phone Rama Cui MD Primary Care Physician Encounter [facility] [place] Date(s): 03/25/22 - 05/08/[address] [address]- Attending Physician: Not on Staff, Attending MD [...] 1 Refills, Maintenance, 08/09/21 16:43:00 EST, Tablet, [facility]/pharmacy #[id number], Partial fill upon michelle... Start Date: 08/09/21 Status: OrderedProvera 10 mg oral tablet 10 mg, 1, tablet, By Mouth, Daily, # 10 tablet, Refills 0, Tot. Refills 0, Maintenance, 02/04/22 22:59:00 EDT, Route to Pharmacy Electronically, [facility]/pharmacy #[id number], Partial fill upon patient request ifthe prescription is for a schedule II opioid drug... Start Date: 02/04/22 Stop Date: 02/14/22 Status: OrderedSprintec 0.25 mg-35 mcg oral tablet 1 tablet, By Mouth, Daily, take 3 tabs x 3 days, then 2 tabs x2 then daily. skip placebo, # 84 tablet, 3 Refills, Maintenance, 02/20/22 14:25:00 EDT, Tablet, [facility]/pharmacy #[id number], Partial fill upon patient request if the prescription is for a schedule I... Start Date: 02/20/22 Status: OrderedZofran 4 mg oral tablet 1 tablet = 4 mg, By Mouth, 3 times a day, PRN Nausea, # 12 tablet, 0 Refills, Maintenance, 02/20/22 14:26:00 EDT, [facility]/pharmacy #[id number], Partial fill upon patient request if [...]
--- OUTSIDE RECORDS SUMMARY | 2022-11-30 13:46 | XMS_ITS | Continuity of Care Document ---
:1980 Author Organization [facility] ic Address [address] [place] [address]- Care Team Providers Name Role Phone See POOL, Rama Primary Care Physician Encounter [facility] Date(s): 10/03/20 - 11/16/[address] [address]- Attending Physician: Not on Staff, Attending MD [...] Refills, Maintenance, 09/07/20 10:10:00 EST, Tablet, [id number], Partial fill upon patient request... Start Date: [...]
--- OUTSIDE RECORDS SUMMARY | 2022-11-30 13:46 | XMS_ITS | Continuity of Care Document ---
:1980 Author Organization [facility] ic Address [address] [place] [address]- Care Team Providers Name Role Phone See POOL, Rama Primary Care Physician Encounter [facility] [place] Date(s): 03/23/22 - 04/22/[address] [address]- Allergies, Adverse Reactions, Alerts Substance Reaction Severity [...] 1 Refills, Maintenance, 08/09/21 16:43:00 EST, Tablet, [facility]/pharmacy #[id number], Partial fill upon michelle... Start Date: 08/09/21 Status: OrderedProvera 10 mg oral tablet 10 mg, 1, tablet, By Mouth, Daily, # 10 tablet, Refills 0, Tot. Refills 0, Maintenance, 02/04/22 22:59:00 EDT, Route to Pharmacy Electronically, [facility]/pharmacy #[id number], Partial fill upon patient request ifthe prescription is for a schedule II opioid drug... Start Date: 02/04/22 Stop Date: 02/14/22 Status: OrderedSprintec 0.25 mg-35 mcg oral tablet 1 tablet, By Mouth, Daily, take 3 tabs x 3 days, then 2 tabs x2 then daily. skip placebo, # 84 tablet, 3 Refills, Maintenance, 02/20/22 14:25:00 EDT, Tablet, [facility]/pharmacy #[id number], Partial fill upon patient request if the prescription is for a schedule I... Start Date: 02/20/22 Status: OrderedZofran 4 mg oral tablet 1 tablet = 4 mg, By Mouth, 3 times a day, PRN Nausea, # 12 tablet, 0 Refills, Maintenance, 02/20/22 14:26:00 EDT, [facility]/pharmacy #[id number], Partial fill upon patient request [...]
--- OUTSIDE RECORDS SUMMARY | 2022-11-30 13:46 | XMS_ITS | Continuity of Care Document ---
:1980 Author Organization [facility] ic Address [address] [place] [address]- Care Team Providers Name Role Phone See POOL, Rama Primary Care Physician Encounter [facility] Date(s): 10/02/20 - 11/01/[address] [address] Allergies, Adverse Reactions, Alerts Substance Reaction Severity Status sulfADIAZINE hives Active predniSONE hives Active Medications Apri 0.15 mg-0.03 mg oral tablet 1 tablet, By Mouth, Daily, Take 3 pills daily for 3 days, then 2 pills daily for 2 days then 1 pill daily for remainder of pack., # 28 tablet, 3 Refills, Maintenance, 09/07/20 10:10:00 EST, Tablet, [id number], Partial fill upon patient request... Start Date: [...]
--- OUTSIDE RECORDS SUMMARY | 2022-11-30 13:46 | XMS_ITS | Continuity of Care Document ---
:1980 Author Organization [facility] ic Address [address] [place] [address]- Care Team Providers Name Role Phone Rama Cui MD Primary Care Physician Encounter [facility] Date(s): 11/11/21 - 02/23/[address] [address] Attending Physician: Not on Staff, Attending MD [...] 1 Refills, Maintenance, 08/09/21 16:43:00 EST, Tablet, [facility]/pharmacy #[id number], Partial fill upon michelle... Start Date: 08/09/21 Status: OrderedProvera 10 mg oral tablet 10 mg, 1, tablet, By Mouth, Daily, # 10 tablet, Refills 0, Tot. Refills 0, Maintenance, 02/04/22 22:59:00 EDT, Route to Pharmacy Electronically, [facility]/pharmacy #[id number], Partial fill upon patient request ifthe prescription is for a schedule II opioid drug... Start Date: 02/04/22 Stop Date: 02/14/22 Status: OrderedSprintec 0.25 mg-35 mcg oral tablet 1 tablet, By Mouth, Daily, take 3 tabs x 3 days, then 2 tabs x2 then daily. skip placebo, # 84 tablet, 3 Refills, Maintenance, 02/20/22 14:25:00 EDT, Tablet, [id number], Partial fill upon patient request if the prescription is for a schedule I... Start Date: 02/20/22 Status: OrderedZofran 4 mg oral tablet 1 tablet = 4 mg, By Mouth, 3 times a day, PRN Nausea, # 12 tablet, 0 Refills, Maintenance, 02/20/22 14:26:00 EDT, [facility]/pharmacy #[id number], Partial fill upon patient request [...]
--- OUTSIDE RECORDS SUMMARY | 2022-11-30 13:46 | XMS_ITS | Continuity of Care Document ---
:1980 Author Organization [facility] ic Address [address] [place] [address]- Care Team Providers Name Role Phone See POOL, Rama Primary Care Physician Encounter [facility] Date(s): 09/07/20 - 10/07/[address] [address] Allergies, Adverse Reactions, Alerts Substance Reaction Severity Status sulfADIAZINE hives Active predniSONE hives Active Medications Apri 0.15 mg-0.03 mg oral tablet 1 tablet, By Mouth, Daily, Take 3 pills daily for 3 days, then 2 pills daily for 2 days then 1 pill daily for remainder of pack., # 28 tablet, 3 Refills, Maintenance, 09/07/20 10:10:00 EST, Tablet, [id number], Partial fill upon patient request... Start Date: [...]
--- OUTSIDE RECORDS SUMMARY | 2022-11-30 13:46 | XMS_ITS | Continuity of Care Document ---
:1980 Author Organization [facility] ic Address [address] [place] [address]- Care Team Providers Name Role Phone See POOL, Rama Primary Care Physician Encounter [facility] [place] Date(s): 03/23/22 - 04/22/[address] [address]- Allergies, Adverse Reactions, Alerts Substance Reaction Severity [...] 1 Refills, Maintenance, 08/09/21 16:43:00 EST, Tablet, [facility]/pharmacy #[id number], Partial fill upon michelle... Start Date: 08/09/21 Status: OrderedProvera 10 mg oral tablet 10 mg, 1, tablet, By Mouth, Daily, # 10 tablet, Refills 0, Tot. Refills 0, Maintenance, 02/04/22 22:59:00 EDT, Route to Pharmacy Electronically, [facility]/pharmacy #[id number], Partial fill upon patient request ifthe prescription is for a schedule II opioid drug... Start Date: 02/04/22 Stop Date: 02/14/22 Status: OrderedSprintec 0.25 mg-35 mcg oral tablet 1 tablet, By Mouth, Daily, take 3 tabs x 3 days, then 2 tabs x2 then daily. skip placebo, # 84 tablet, 3 Refills, Maintenance, 02/20/22 14:25:00 EDT, Tablet, [facility]/pharmacy #[id number], Partial fill upon patient request if the prescription is for a schedule I... Start Date: 02/20/22 Status: OrderedZofran 4 mg oral tablet 1 tablet = 4 mg, By Mouth, 3 times a day, PRN Nausea, # 12 tablet, 0 Refills, Maintenance, 02/20/22 14:26:00 EDT, [facility]/pharmacy #[id number], Partial fill upon patient request [...]
--- OUTSIDE RECORDS SUMMARY | 2022-11-30 13:46 | XMS_ITS | Continuity of Care Document ---
:1980 Author Organization [facility] ic Address [address] [place] [address]- Care Team Providers Name Role Phone See POOL, Rama Primary Care Physician Encounter [facility] Date(s): 11/11/21 - 12/25/[address] [address] Attending Physician: Not on Staff, Attending MD [...] 1 Refills, Maintenance, 08/09/21 16:43:00 EST, Tablet, [id number], Partial fill upon michelle... Start Date: 08/09/21 Status: Ordered Problem List Condition Effective Dates Status Health Status Informant Abnormal uterine bleeding(Confirmed) Active cardiac anomaly complicating Active , antepartum(Confirmed) PCOS (polycystic ovarian Active syndrome)(Confirmed) Severe obesity(Confirmed) Active Social History Social History Type Response Smoking Status Never (less than 100 in life time) entered on: 07/24/20 Sex Female
--- OUTSIDE RECORDS SUMMARY | 2022-11-30 13:46 | XMS_ITS | Continuity of Care Document ---
:1980 Author Organization [facility] ic Address [address] [place] [address]- Care Team Providers Name Role Phone Rama Cui MD Primary Care Physician Encounter [facility] Date(s): 02/04/22 - 03/06/[address] [address] Allergies, Adverse Reactions, Alerts Substance Reaction [...] 1 Refills, Maintenance, 08/09/21 16:43:00 EST, Tablet, [facility]/pharmacy #[id number], Partial fill upon michelle... Start Date: 08/09/21 Status: OrderedProvera 10 mg oral tablet 10 mg, 1, tablet, By Mouth, Daily, # 10 tablet, Refills 0, Tot. Refills 0, Maintenance, 02/04/22 22:59:00 EDT, Route to Pharmacy Electronically, [facility]/pharmacy #[id number], Partial fill upon patient request ifthe prescription is for a schedule II opioid drug... Start Date: 02/04/22 Stop Date: 02/14/22 Status: OrderedSprintec 0.25 mg-35 mcg oral tablet 1 tablet, By Mouth, Daily, take 3 tabs x 3 days, then 2 tabs x2 then daily. skip placebo, # 84 tablet, 3 Refills, Maintenance, 02/20/22 14:25:00 EDT, Tablet, [facility]/pharmacy #[id number], Partial fill upon patient request if the prescription is for a schedule I... Start Date: 02/20/22 Status: OrderedZofran 4 mg oral tablet 1 tablet = 4 mg, By Mouth, 3 times a day, PRN Nausea, # 12 tablet, 0 Refills, Maintenance, 02/20/22 14:26:00 EDT, [facility]/pharmacy #[id number], Partial fill upon patient [...]
--- OUTSIDE RECORDS SUMMARY | 2022-11-30 13:46 | XMS_ITS | Continuity of Care Document ---
:1980 Author [facility] Address [address] [place] [address]- Care Team Providers Name Role Phone See POOL, Rama Primary Care Physician Encounter [facility] Date(s): 08/24/20 - 09/23/20 [facility] [address] [place] [address] Allergies, Adverse Reactions, Alerts Substance Reaction Severity Status sulfADIAZINE hives Active predniSONE hives Active Medications Apri 0.15 mg-0.03 mg oral tablet 1 tablet, By Mouth, Daily, Take 3 pills daily for 3 days, then 2 pills daily for 2 days then 1 pill daily for remainder of pack., # 28 tablet, 3 Refills, Maintenance, 09/07/20 10:10:00 EST, Tablet, [facility]/pharmacy #[id number], Partial fill upon patient request... Start Date: 09/07/20 Status: Orderedibuprofen 800 mg oral tablet 800 mg, 1, tablet, By Mouth, 3 times a day, # 60 tablet, Refills 0, Tot. Refills 0, Acute 10/13/20 0:00:00 EST, 09/07/20 10:10:00 EST, Route to Pharmacy Electronically, [facility]/pharmacy #[id number], Partial fillupon patient request if the prescription is for a... Start Date: 09/07/20 Stop Date: 10/13/20 Status: OrderedIron 100 Plus By Mouth, Daily, 0 Refills, Maintenance, 07/24/20 11:42:00 EST Start Date: 07/24/20 Status: Orderedlabetalol 200 mg oral tablet 4 tablet = 800 mg, By Mouth, 3 times a day, # 360 tablet, 0 Refills, Maintenance, Tablet Start Date: 04/24/12 Stop Date: 05/24/12 Status: Orderednifedipine 90 mg oral tablet, extended release 1 tablet = 90 mg, By Mouth, Daily, # 30 tablet, 0 Refills, Maintenance, ER Tablet Start Date: 04/24/12 Stop Date: 05/24/12 Status: OrderedProvera 10 mg oral tablet 10 mg, 1, tablet, By Mouth, Daily, # 10 tablet, Refills 6, Tot. Refills 6, Maintenance, 08/31/20 9:49:00 EST, Route to Pharmacy Electronically, [facility]/pharmacy #[id number], Partial fill upon patient request if the prescription is for a schedule II opioid drug.... Start Date: 08/31/20 Status: Ordered Problem List Condition Effective Dates Status Health Status Informant Abnormal uterine bleeding(Confirmed) Active cardiac anomaly complicating Active , antepartum(Confirmed) Social History Social History Type Response Smoking Status Never (less than 100 in life time) entered on: 07/24/20 Sex
--- OUTSIDE RECORDS SUMMARY | 2022-11-30 13:46 | XMS_ITS | Continuity of Care Document ---
:1980 Author Organization [facility] ic Address [address] [place] [address]- Care Team Providers Name Role Phone Rama Cui MD Primary Care Physician Encounter [facility] Date(s): 02/07/22 - 03/28/[address] [address]- Attending Physician: Not on Staff, Attending MD [...] 1 Refills, Maintenance, 08/09/21 16:43:00 EST, Tablet, [facility]/pharmacy #[id number], Partial fill upon michelle... Start Date: 08/09/21 Status: OrderedProvera 10 mg oral tablet 10 mg, 1, tablet, By Mouth, Daily, # 10 tablet, Refills 0, Tot. Refills 0, Maintenance, 02/04/22 22:59:00 EDT, Route to Pharmacy Electronically, [facility]/pharmacy #[id number], Partial fill upon patient request ifthe prescription is for a schedule II opioid drug... Start Date: 02/04/22 Stop Date: 02/14/22 Status: OrderedSprintec 0.25 mg-35 mcg oral tablet 1 tablet, By Mouth, Daily, take 3 tabs x 3 days, then 2 tabs x2 then daily. skip placebo, # 84 tablet, 3 Refills, Maintenance, 02/20/22 14:25:00 EDT, Tablet, [facility]/pharmacy #[id number], Partial fill upon patient request if the prescription is for a schedule I... Start Date: 02/20/22 Status: OrderedZofran 4 mg oral tablet 1 tablet = 4 mg, By Mouth, 3 times a day, PRN Nausea, # 12 tablet, 0 Refills, Maintenance, 02/20/22 14:26:00 EDT, [facility]/pharmacy #[id number], Partial fill upon patient request [...]
--- OUTSIDE RECORDS SUMMARY | 2022-11-30 13:46 | XMS_ITS | Continuity of Care Document ---
:1980 Author Organization [facility] Address [address] [place] [address]- Care Team Providers Name Role Phone See POOL, Rama Primary Care Physician Encounter [facility] Date(s): 11/25/21 - 12/25/[address] [address] Attending Physician: Mecca Monryo Admitting Physician: Mecca Monroy Referring Physician: Mecca Monroy Allergies, Adverse Reactions, Alerts Substance Reaction Severity [...] Refills, Maintenance, 08/09/21 16:43:00 EST, Tablet, [id number], Partial fill upon michelle... Start Date: 08/09/21 Status: Ordered Problem List Condition Effective Dates Status Health Status Informant Abnormal uterine bleeding(Confirmed) Active cardiac anomaly complicating Active , antepartum(Confirmed) PCOS (polycystic ovarian Active syndrome)(Confirmed) Severe obesity(Confirmed) Active Social History Social History Type Response Smoking Status Never (less than 100 in life time) entered on: 07/24/20 Sex Female
--- OUTSIDE RECORDS SUMMARY | 2022-11-30 13:46 | XMS_ITS | Continuity of Care Document ---
:1980 Author Organization [facility] ic Address [address] [place] [address]- Care Team Providers Name Role Phone Rama Cui MD Primary Care Physician Encounter [facility] Date(s): 02/19/22 - 03/21/[address] [address] Allergies, Adverse Reactions, Alerts Substance Reaction [...] Refills, Maintenance, 08/09/21 16:43:00 EST, Tablet, [id number], Partial fill upon michelle... Start Date: 08/09/21 Status: OrderedProvera 10 mg oral tablet 10 mg, 1, tablet, By Mouth, Daily, # 10 tablet, Refills 0, Tot. Refills 0, Maintenance, 02/04/22 22:59:00 EDT, Route to [facility], [id number], Partial fill upon patient request ifthe prescription is for a schedule II opioid drug... Start Date: 02/04/22 Stop Date: 02/14/22 Status: OrderedSprintec 0.25 mg-35 mcg oral tablet 1 tablet, By Mouth, Daily, take 3 tabs x 3 days, then 2 tabs x2 then daily. skip placebo, # 84 tablet, 3 Refills, Maintenance, 02/20/22 14:25:00 EDT, Tablet, [facility]/pharmacy #[id number], Partial fill upon patient request if the prescription is for a schedule I... Start Date: 02/20/22 Status: OrderedZofran 4 mg oral tablet 1 tablet = 4 mg, By Mouth, 3 times a day, PRN Nausea, # 12 tablet, 0 Refills, Maintenance, 02/20/22 14:26:00 EDT, [facility]/pharmacy #[id number], Partial fill upon patient request [...]
--- OUTSIDE RECORDS SUMMARY | 2022-11-30 13:46 | XMS_ITS | Continuity of Care Document ---
:1980 Author Organization [facility] Address [address] [place] [address]- Care Team Providers Name Role Phone Rama Cui MD Primary Care Physician Encounter [facility] Date(s): 10/02/20 - 10/03/[address] [address]- Encounter Diagnosis Vaginal bleeding (Final) - 10/03/20 Discharge Disposition: A-D/C Home Attending Physician: Lakisha Cuello MD Admitting Physician: Lakisha Cuello MD Referring Physician: Not on Staff, Referring [...] Refills, Maintenance, 09/07/20 10:10:00 EST, Tablet, [id number], Partial fill upon patient request... Start Date: 09/07/20 Status: OrderedIron 100 Plus By Mouth, Daily, 0 Refills, Maintenance, 07/24/20 11:42:00 EST Start Date: 07/24/20 Status: Ordered Problem List Condition Effective Dates Status Health Status Informant Abnormal uterine bleeding(Confirmed) Active cardiac anomaly complicating Active , antepartum(Confirmed) Vital Signs Most recent to oldest 1 2 3 [Reference Range]: Height 162 cm 162 cm 162 cm (10/03/20 1:41 AM) (10/02/20 10:27 PM) (10/02/20 2: 31 PM) Weight 106.2 kg 106.2 kg 106.2 kg (10/03/20 1:41 AM) (10/02/20 10:27 PM) (10/02/20 2: 31 PM) Oxygen Saturation [94-100 %] 100 % 18 % 99 % (10/03/20 1:41 AM) *L* (10/02/20 2:31 PM) (10/02/20 10:27 PM) Pulse Rate [55-90 bpm] 94 bpm 101 bpm 100 bpm *H* *H* *H* (10/03/20 1:41 AM) (10/02/20 10:27 PM) (10/02/20 2: 31 PM) Body Mass Index [18.5-24.99] 40.47 40.47 *>HHI* *>HHI* (10/03/20 1:41 AM) (10/02/20 1:55 PM) Blood Pressure [90-138/55-84 131/69 mm Hg 152/88 mm Hg 146 /75 mm Hg mm Hg] (10/03/20 1:41 AM) *H* *H* (10/02/20 10:27 PM) (10/02/20 2:31 PM) Respiratory Rate [16-30 18 br/min 18 br/min 18 br/mi n br/min] (10/03/20 1:41 AM) (10/02/20 10:27 PM) (10/02/20 2: 31 PM) Temperature [96.8-100.4 DegF] 98.8 DegF 98.5 DegF 99 .1 DegF (10/02/20 10:27 PM) (10/02/20 2:31 PM) (10/02/20 1: 55 PM) Mode of Delivery (Oxygen) Room air Room air Room a ir (10/03/20 1:41 AM) (10/02/20 10:27 PM) (10/02/20 2: 31 PM) Blood pressure sites Arm, left Arm, left Arm, left (10/03/20 1:41 AM) (10/02/20 10:27 PM) (10/02/20 2: 31 PM) Temperature Route Oral Oral Oral (10/02/20 10:27 PM) (10/02/20 2:31 PM) (10/02/20 1: 55 PM) Dry Weight 106.2 kg 106.2 kg 106.2 kg (10/03/20 1:41 AM) (10/02/20 10:27 PM) (10/02/20 2: 31 PM) Social History Social History Type Response Smoking Status Never (less than 100 in life time) entered on: 07/24/20 Sex Female
--- OUTSIDE RECORDS SUMMARY | 2022-11-30 13:46 | XMS_ITS | Continuity of Care Document ---
:1980 Author Organization [facility] ic Address [address] [place] [address]- Care Team Providers Name Role Phone See POOL, Rama Primary Care Physician Encounter [facility] Date(s): 04/08/22 - 05/08/[address] [address] Attending Physician: Mecca Monroy Admitting Physician: Mecca Monroy Referring Physician: Mecca [...] 1 Refills, Maintenance, 08/09/21 16:43:00 EST, Tablet, [facility]/pharmacy #[id number], Partial fill upon michelle... Start Date: 08/09/21 Status: OrderedProvera 10 mg oral tablet 10 mg, 1, tablet, By Mouth, Daily, # 10 tablet, Refills 0, Tot. Refills 0, Maintenance, 02/04/22 22:59:00 EDT, Route to Pharmacy Electronically, [facility]/pharmacy #[id number], Partial fill upon patient request ifthe prescription is for a schedule II opioid drug... Start Date: 02/04/22 Stop Date: 02/14/22 Status: OrderedSprintec 0.25 mg-35 mcg oral tablet 1 tablet, By Mouth, Daily, take 3 tabs x 3 days, then 2 tabs x2 then daily. skip placebo, # 84 tablet, 3 Refills, Maintenance, 02/20/22 14:25:00 EDT, Tablet, [facility]/pharmacy #[id number], Partial fill upon patient request if the prescription is for a schedule I... Start Date: 02/20/22 Status: OrderedZofran 4 mg oral tablet 1 tablet = 4 mg, By Mouth, 3 times a day, PRN Nausea, # 12 tablet, 0 Refills, Maintenance, 02/20/22 14:26:00 EDT, [id number], Partial fill upon patient request [...]
--- OUTSIDE RECORDS SUMMARY | 2022-11-30 13:46 | XMS_ITS | Continuity of Care Document ---
:1980 Author Organization [facility] ic Address [address] [place] [address]- Care Team Providers Name Role Phone Rama Cui MD Primary Care Physician [place] [facility] [place] Date(s): 02/25/21 - 05/05/[address] [address] Attending Physician: Not on Staff, Attending MD [...] Refills, Maintenance, 02/14/21 19:01:00 EDT, Tablet, [id number], Partial fill upon michelle... Start Date: 02/14/21 Status: Ordered Problem List Condition Effective Dates Status Health Status Informant Abnormal uterine bleeding(Confirmed) Active cardiac anomaly complicating Active , antepartum(Confirmed) Social History Social History Type Response Smoking Status Never (less than 100 in life time) entered on: 07/24/20 Sex Female
--- OUTSIDE RECORDS SUMMARY | 2022-11-30 13:46 | XMS_ITS | Continuity of Care Document ---
:1980 Author Organization [facility] ic Address [address] [place] [address]- Care Team Providers Name Role Phone See POOL, Rama Primary Care Physician Encounter [facility] Date(s): 04/08/22 - 05/08/[address] [address]- Allergies, Adverse Reactions, Alerts Substance Reaction Severity [...] Refills, Maintenance, 08/09/21 16:43:00 EST, Tablet, [facility]/pharmacy #[id number], Partial fill upon michelle... Start Date: 08/09/21 Status: OrderedProvera 10 mg oral tablet 10 mg, 1, tablet, By Mouth, Daily, # 10 tablet, Refills 0, Tot. Refills 0, Maintenance, 02/04/22 22:59:00 EDT, Route to Pharmacy Electronically, [facility]/pharmacy #[id number], Partial fill upon patient request ifthe prescription is for a schedule II opioid drug... Start Date: 02/04/22 Stop Date: 02/14/22 Status: OrderedSprintec 0.25 mg-35 mcg oral tablet 1 tablet, By Mouth, Daily, take 3 tabs x 3 days, then 2 tabs x2 then daily. skip placebo, # 84 tablet, 3 Refills, Maintenance, 02/20/22 14:25:00 EDT, Tablet, [facility]/pharmacy #[id number], Partial fill upon patient request if the prescription is for a schedule I... Start Date: 02/20/22 Status: OrderedZofran 4 mg oral tablet 1 tablet = 4 mg, By Mouth, 3 times a day, PRN Nausea, # 12 tablet, 0 Refills, Maintenance, 02/20/22 14:26:00 EDT, [facility]/pharmacy #[id number], Partial fill upon patient request [...]
--- OUTSIDE RECORDS SUMMARY | 2022-11-30 13:46 | XMS_ITS | Continuity of Care Document ---
:1980 Author Organization [facility] ic Address [address] [place] [address]- Care Team Providers Name Role Phone Rama Cui MD Primary Care Physician En[place] [facility] Date(s): 02/14/21 - 03/16/[address] [address] Allergies, Adverse Reactions, Alerts Substance Reaction Severity [...] Refills, Maintenance, 02/14/21 19:01:00 EDT, Tablet, [id number], Partial fill upon michelle... Start Date: 02/14/21 Status: Ordered Problem List Condition Effective Dates Status Health Status Informant Abnormal uterine bleeding(Confirmed) Active cardiac anomaly complicating Active , antepartum(Confirmed) Social History Social History Type Response Smoking Status Never (less than 100 in life time) entered on: 07/24/20 Sex Female
[2022-11-30 13:47] LABS: COVID-19 Test Negative (Negative); IDNOW Serial# BCCEAD1C
[2022-11-30 13:49] LABS: Bacteria Urine None Seen (None Seen); Hyaline Casts Urine 0-2 /LPF (0-2); RBC Urine 0-2 /HPF (0-2); Squamous Epithelial Cell Urine 0-2 /HPF (0-2); WBC Urine 0-5 /HPF (0-5)
[2022-11-30 13:52] LABS: Alanine Aminotransferase 31 U/L (0-31); Albumin Level 4.1 g/dL (3.5-5.0); Alkaline Phosphatase 112 U/L (39-117); Anion Gap 16 (12-20); Aspartate Amino Transferase 21 U/L (5-31); Bilirubin Direct 0.2 mg/dL (0.0-0.5); Bilirubin Total 0.8 mg/dL (0.0-1.0); Blood Urea Nitrogen 9 mg/dL (9-16); Calcium 9.2 mg/dL (8.4-10.2); Carbon Dioxide 23 mmol/L (22-29); Chloride 100 mmol/L (96-108); Creatinine Clr Calc Pharmacy 118.7; Estimated Glomerular Filt Rate > 60; Glucose Random 164 mg/dL (60-115); Lipase 12 U/L (8-78); Potassium 3.9 mmol/L (3.3-5.1); Sodium 135 mmol/L (135-145); Total Protein 7.6 g/dL (6.5-8.0)
--- NOTE | 2022-11-30 14:02 | ED_ITS ---
HPI - Abdominal Pain General Chief Complaint: Abdominal Pain Stated Complaint: Abd pain Time Seen by Provider: 11/30/22 13:21 Source: patient Mode of arrival: ambulatory History of Present Illness HPI narrative: 41-year-old female, past surgical history , presents with onset of right lower quadrant pain that she describes as sharp and the worst menstrual cramps ever . Patient reports some nausea but no vomiting denies any history of renal colic, denies dysuria, did have some scant vaginal bleeding today, and reports chills, last meal 0900. Related Data Previous Rx's Medication Instructions Recorded blood sugar diagnostic (OneTouch #100 ea 03/10/22 Ultra Test strips) blood-glucose meter (OneTouch #1 ea 03/10/22 Ultra2 Meter) fluoxetine 20 mg tablet 20 mg PO DAILY #30 tabs 03/10/22 Allergies Allergy/AdvReac Type Severity Reaction Status Date / Time oxytocin [From Pitocin] Allergy Intermediate Palpitation Verified 05/30/22 13:12 s prednisone [PREDNISONE] Allergy Unknown HIVES Verified 05/30/22 13:12 Sulfa (Sulfonamide Allergy Unknown HIVES Verified 05/30/22 13:12 Antibiotics) [SULFA (SULFONAMIDE ANTIBIOTICS)] Review of Systems Review of Systems Pertinent positives and negatives as stated in HPI PMFSH Past Medical History Source: nursing notes reviewed Medical History Anemia Anxiety Asthma Gestational diabetes mellitus Menorrhagia Palpitations Preeclampsia Vertigo Surgical History H/O tooth extraction History of Family History Family History Father HTN (hypertension) Mother Ovarian cancer Bipolar disorder Maternal Grandfather Diabetes mellitus Maternal Grandmother Breast cancer HTN (hypertension) Paternal Grandfather No problems noted. Paternal Grandmother No problems noted. Family/Other Leukemia Colon cancer Maternal Aunt Colon cancer Social History Social History Household Members: Spouse and Children Housing: Apartment Are you a primary health care law specialist to a significant other at home: No Do you presently have visiting nurse or other home services: No Alcohol intake: current Alcohol intake frequency: holidays/special occasions only Patient Tobacco Use Status: Never used Tobacco Smoked in Last 30 Days: No e-Cigarette/Vaping Use: Never Used Use of substances other than those prescribed or required for medical reasons: No Advance Directives: No Advance Directives Information Provided: Yes Patient : No service: No Current occupational status: unemployed Cognitive needs: No Hearing needs: No Vision needs: Yes Physical Exam ED Vital Signs: Vital Signs - 24 hr 11/30/22 13:05 11/30/22 14:19 Temperature 98 F 98 F Pulse Rate 89 83 Respiratory Rate 15 20 Blood Pressure 153/97 H 147/87 H Pulse Oximetry 97 96 Oxygen Delivery Method Room Air BMI result Body Mass Index 41.6 VITAL SIGNS: Reviewed. GENERAL: elevated BMI,Well developed, well nourished, in no acute distress. HEAD: Normocephalic/atraumatic EYES: PERRLA, EOMI LUNGS: Normal breath sounds. No adventitious sounds or accessory muscle use. SpO2<97> CARDIOVASCULAR: Regular rate and rhythm without noted murmurs ABDOMEN: Soft, tender in the right lower quadrant, non-distended with bowel sounds. MUSCULOSKELETAL: No tenderness, deformities, or effusions noted on gross inspection. EXTREMITIES: No cyanosis, clubbing or edema. SKIN: Inspection of the skin reveals no rashes NEUROLOGIC: Alert and oriented x 4. Strength and sensation to light touch were grossly intact x 4. Medical Decision Making Medical Decision Making [facility] Narrative: 1405: 41F with possible renal colic, appendicitis doubt obstruction for UTI. I reviewed all investigations and my interpretation is that patient may have experienced some menstrual related pain is there are no findings to suggest acute UTI, renal colic, appendicitis, enteritis. All results discussed with her at bedside and she is dischar Differential Diagnosis please see the discussion above Lab Data please see the discussion above 11/30/22 13:28 11/30/22 13:28 Labs: Lab Results 11/30/22 11/30/22 11/30/22 Range/Units 13:20 13:20 13:21 WBC (4.8-10.8) X10*3/uL RBC (4.20-5.50) X10*6/uL Hgb (12.0-16.0) g/dl Hct (37.0-47.0) % MCV (80.0-98.0) fL MCH (27.0-33.0) pg MCHC (31.0-35.0) g/dl RDW (11.0-16.0) % Plt Count (160-400) X10*3/uL MPV (9.4-12.3) fL Immature Gran % (Auto) (0.0-0.4) % Neut % (Auto) (45-73) % Lymph % (Auto) (20-40) % Ray % (Auto) (2-11) % Eos % (Auto) (0-4) % Baso % (Auto) (0-2) % Lymph # (Auto) (1.2-4.9) X10*3/uL Ray # (Auto) (0.1-1.2) X10*3/uL Eos # (Auto) (0.0-0.4) X10*3/uL Baso # (Auto) (0.0-0.2) X10*3/uL Abs Immat Gran (auto) (0.00-0.03) X10*3/uL Absolute Neuts (auto) (2.0-8.3) x10*3/uL Absolute Nucleated RBC (0.0-0.012) X10*3/uL Nucleated RBC % (auto) (0.0-0.2) /100WBC Sodium (135-145) mmol/L Potassium (3.3-5.1) mmol/L Chloride (96-108) mmol/L Carbon Dioxide (22-29) mmol/L Anion Gap (12-20) BUN (9-16) mg/dL Creatinine (0.5-1.4) mg/dL Estim Creat Clear Calc Estimated GFR Random Glucose (60-115) mg/dL Calcium (8.4-10.2) mg/dL Total Bilirubin (0.0-1.0) mg/dL Direct Bilirubin (0.0-0.5) mg/dL AST (5-31) U/L ALT (0-31) U/L Alkaline Phosphatase (39-117) U/L Total Protein (6.5-8.0) g/dL Albumin (3.5-5.0) g/dL Lipase (8-78) U/L Urine Color Yellow Urine Appearance Clear Urine pH 6.5 (5.0-9.0) Ur Specific [place] 1.015 (1.005-1.025) Urine Protein Negative (Neg-Trace) mg/dL Urine Glucose (UA) Negative (Negative) mg/dL Urine Ketones Negative (Negative) mg/dL Urine Blood Small (1+) H (Negative) Urine Nitrite Negative (Negative) Ur Leukocyte Esterase Negative (Negative) Urine RBC 0-2 (0-2) /HPF Urine WBC 0-5 (0-5) /HPF Ur Squamous Epith Cells 0-2 (0-2) /HPF Urine Bacteria None Seen (None Seen) Hyaline Casts 0-2 (0-2) /LPF Urine Test NEGATIVE (NEGATIVE) COVID-19 (LUIS) Negative (Negative) COVID-19 Clin Com See Note 11/30/22 11/30/22 Range/Units 13:28 13:28 WBC 11.0 H (4.8-10.8) X10*3/uL RBC 5.03 (4.20-5.50) X10*6/uL Hgb 13.9 (12.0-16.0) g/dl Hct 41.6 (37.0-47.0) % MCV 82.7 (80.0-98.0) fL MCH 27.6 (27.0-33.0) pg MCHC 33.4 (31.0-35.0) g/dl RDW 14.6 (11.0-16.0) % Plt Count 322 (160-400) X10*3/uL MPV 11.0 (9.4-12.3) fL Immature Gran % (Auto) 0.5 H (0.0-0.4) % Neut % (Auto) 61.9 (45-73) % Lymph % (Auto) 30.9 (20-40) % Ray % (Auto) 4.1 (2-11) % Eos % (Auto) 2.1 (0-4) % Baso % (Auto) 0.5 (0-2) % Lymph # (Auto) 3.4 (1.2-4.9) X10*3/uL Ray # (Auto) 0.5 (0.1-1.2) X10*3/uL Eos # (Auto) 0.2 (0.0-0.4) X10*3/uL Baso # (Auto) 0.1 (0.0-0.2) X10*3/uL Abs Immat Gran (auto) 0.06 H (0.00-0.03) X10*3/uL Absolute Neuts (auto) 6.8 (2.0-8.3) x10*3/uL Absolute Nucleated RBC 0.000 (0.0-0.012) X10*3/uL Nucleated RBC % (auto) 0.0 (0.0-0.2) /100WBC Sodium 135 (135-145) mmol/L Potassium 3.9 (3.3-5.1) mmol/L Chloride 100 (96-108) mmol/L Carbon Dioxide 23 (22-29) mmol/L Anion Gap 16 (12-20) BUN 9 (9-16) mg/dL Creatinine 0.69 (0.5-1.4) mg/dL Estim Creat Clear Calc 118.7 Estimated GFR > 60 Random Glucose 164 H (60-115) mg/dL Calcium 9.2 (8.4-10.2) mg/dL Total Bilirubin 0.8 (0.0-1.0) mg/dL Direct Bilirubin 0.2 (0.0-0.5) mg/dL AST 21 (5-31) U/L ALT 31 (0-31) U/L Alkaline Phosphatase 112 (39-117) U/L Total Protein 7.6 (6.5-8.0) g/dL Albumin 4.1 (3.5-5.0) g/dL Lipase 12 (8-78) U/L Urine Color Urine Appearance Urine pH (5.0-9.0) Ur Specific [place] (1.005-1.025) Urine Protein (Neg-Trace) mg/dL Urine Glucose (UA) (Negative) mg/dL Urine Ketones (Negative) mg/dL Urine Blood (Negative) Urine Nitrite (Negative) Ur Leukocyte Esterase (Negative) Urine RBC (0-2) /HPF Urine WBC (0-5) /HPF Ur Squamous Epith Cells (0-2) /HPF Urine Bacteria (None Seen) Hyaline Casts (0-2) /LPF Urine Test (NEGATIVE) COVID-19 (LUIS) (Negative) COVID-19 Clin Com Radiology Impression Radiologist Impression: my interpretation is in agreement with radiology's impression of the imaging studies. External Record Review External record reviewed: Outpatient record and Prior outpatient labs Medications Administered Generic Name Dose Route Start Last Admin Trade Name Freq PRN Reason Stop Dose Admin Sodium Chloride 1,000 mls @ 999 mls/hr 11/30/22 14:15 11/30/22 14:07 Ns IV 11/30/22 15:15 999 mls/hr .[id number] NURIA Administration Discontinued Medications Generic Name Dose Route Start Last Admin Trade Name Freq PRN Reason Stop Dose Admin Ketorolac Tromethamine 15 mg 11/30/22 14:01 11/30/22 14:07 Ketorolac Tromethamine 30 Mg/Ml Vial IVPUSH 11/30/22 14:02 15 mg ONCE ONE Administration Discharge Plan Discharge Clinical Impression: Abdominal pain Patient Disposition: Home, Self-Care Instructions: Abdominal Pain (ED) Additional Instructions: 1. Tylenol 1000 mg, orally, every 6 hours as needed for pain control. Do not exceed 4000 mg within 24 hours. 2. Ibuprofen 400 mg, orally with milk or food, every 6 hours as needed for pain control. I recommend that you take this with Tylenol to help improve symptom relief. 3. Follow-up with your primary care provider next 2-3 days for re-evaluation. Return to the ER for any worsening symptoms. Prescriptions: No Action (DME) blood-glucose meter [OneTouch Ultra2 Meter] [facility] [place] See Rx Instructions .Route Qty: 1 0RF Rx Instructions: As directed (DME) OneTouch Ultra Test Strip See Rx Instructions .Route Qty: 100 3RF Rx Instructions: once a day fluoxetine 20 mg tablet 20 mg PO DAILY Qty: 30 3RF Referrals: Rama Cui MD [Primary Care Provider] -
[2022-11-30] MEDS: 0.9 % Sodium Chloride 1,000 ML 999 ML IV (14:07)
[2022-11-30] MEDS: Ketorolac Tromethamine 30 MG/ML VIAL 15 MG IVPUSH (14:07)
[2022-11-30 14:19] VITALS: BP 147/87; PULSE 83; RESP 20; TEMP 36.6; O2SAT 96
== END 2022-11-30 15:40 | disposition home or self-care (01) ==
PROVIDERS: Emergency Provider Student in an Organized Health Care Education/Training Program; PCP Internal Medicine
DX: R10.31 Right lower quadrant pain (principal); Z20.822 Contact with and (suspected) exposure to COVID-19; Z20.828 Contact with and (suspected) exposure to other viral communicable diseases; Z79.899 Other long term (current) drug therapy
CPT/HCPCS: 74176; 80048; 80076; 81001; 81025; 83690; 85025; 87635; 96361; 96374; 99284; J1885

== ENCOUNTER 2022-12-29 09:32 | Emergency (ER) | payer OTHER, SELFPAY ==
--- NOTE | ~2022-12-29 | US_ITS ---
EXAMINATION: US PELVIS CLINICAL INFORMATION: Vaginal bleeding and pelvic pain COMPARISON: Previous CT of the abdomen and pelvis November 2022 and pelvic ultrasound February 2021 TECHNIQUE: Ultrasound of the pelvis is performed using both transabdominal and transvaginal transducers along with Doppler. Transvaginal imaging is performed due to inadequate visualization transabdominally. Transvaginal imaging of the uterus and ovaries is limited. FINDINGS: The uterus is anteverted and retroflexed and measures 13 x 6 x 7.6 cm in dimension. There is a contour abnormality of the anterior lower uterine segment, question corresponding to a scar versus fibroid. This measures 2.3 x 1.5 x 1.8 cm.. No other focal uterine lesion is seen. Endometrial thickness is normal measuring 0.8 cm. There is a small amount of fluid seen in the endocervical canal. There is a small complex cyst with internal echoes in the cervix measuring 1.2 x 0.5 x 0.8 cm. The right ovary is slightly enlarged measuring 4.6 x 3.3 x 4.5 cm. There is a 3.5 x 2.9 x 3.2 cm right ovarian cyst. The left ovary measures 3.3 x 2.2 x 2.5 cm and is normal-appearing. There is a small amount of fluid in the pelvis. US/US pelvic and transvaginal IMPRESSION: Limited exam. Enlarged right ovary and 3.5 x 2.9 x 3.2 cm cyst. According to best practice criteria, given cyst size and patient age, no ultrasound imaging follow-up recommended. Question scar in the left anterior lower uterine segment versus a small fibroid. Small amount of fluid in the endocervical canal. Small complex cyst in the cervix.
[2022-12-29 09:41] VITALS: BP 157/71; PULSE 83; RESP 16; TEMP 36.8; O2SAT 99; BMI 41.5
--- NOTE | 2022-12-29 10:15 | ED_ITS ---
HPI - Female Genitourinary General Chief complaint: Vaginal Bleeding Stated complaint: abd pain Time Seen by Provider: 12/29/22 09:59 Source: patient and family Mode of arrival: ambulatory Limitations: no limitations History of Present Illness HPI Narrative: 42-year-old female with a history of PCOS, iron deficiency anemia currently on iron tablets presents the ER with complaints of heavy vaginal bleeding since with lower abdominal cramping. Patient reports she is using multiple pads a day and has had to use up to 2-3 pads per hour since Thursday. She is having clotting and associated cramping. She is a heavy of irregular and heavy bleeding. She did have a D&C for this last June at [facility] and since then has been doing well. She has been getting her menses monthly and feels that the bleeding is less heavy and she is having less pain. She did have her last menstrual cycle on December 12. Thursday she started having vaginal bleeding. She is followed by [facility]. She had a Pap smear 1 year ago which reportedly was normal. She has not contacted them to inform them of her current symptoms Related Data Previous Rx's Medication Instructions Recorded blood sugar diagnostic (OneTouch #100 ea 03/10/22 Ultra Test strips) blood-glucose meter (OneTouch #1 ea 03/10/22 Ultra2 Meter) oxycodone 5 mg tablet 5 mg PO Q6H PRN pain #8 tabs 12/29/22 Allergies Allergy/AdvReac Type Severity Reaction Status Date / Time oxytocin [From Pitocin] Allergy Intermediate Palpitation Verified 12/12/22 14:33 s prednisone [PREDNISONE] Allergy Unknown HIVES Verified 12/12/22 14:33 Sulfa (Sulfonamide Allergy Unknown HIVES Verified 12/12/22 14:33 Antibiotics) [SULFA (SULFONAMIDE ANTIBIOTICS)] Review of Systems Review of Systems: Yes all other systems are reviewed and are negative Constitutional: Constitutional: Reports no additional constitutional complaints, Denies body ache(s), Denies chills, Denies fever(s), Denies headache(s) and Denies weakness Eyes: Eyes: Reports no additional eye complaints and Denies change in vision ENT: Reports system reviewed and no additional complaints, except as documented, Denies dizziness, Denies headache(s), Denies nasal congestion, Denies nasal discharge and Denies neck pain Cardiovascular: Cardiovascular: Reports no additional cardiovascular complaints, Denies chest pain, Denies leg edema and Denies dyspnea Respiratory: Respiratory: Reports no additional respiratory complaints, Denies cough and Denies dyspnea Gastrointestinal: Gastrointestinal: Reports no additional gastrointestinal complaints, Reports abdominal pain, Denies diarrhea, Denies nausea and Denies vomiting Genitourinary: Genitourinary: Reports no additional female genitourinary complaints, Reports abnormal vaginal bleeding and Denies urinary incontinence Musculoskeletal: Musculoskeletal: Reports no additional musculoskeletal complaints, Denies back pain, Denies arthralgias, Denies joint swelling, Denies neck pain, Denies numbness and Denies tingling Integumentary/Breasts: Skin/Breast: Reports system reviewed and no additional complaints, except as docu and Denies rash Neurologic: Reports system reviewed and no additional complaints, except as documented, Denies Abnormal speech present, Denies dizziness, Denies headache(s), Denies numbness, Denies tingling and Denies weakness PMFSH Past Medical History Attestation statement: The following information was validated with the patient. Source: old records reviewed and nursing notes reviewed Medical History Anemia Anxiety Asthma Gestational diabetes mellitus Menorrhagia Palpitations Preeclampsia Vertigo Surgical History H/O tooth extraction History of Family History Family History Father HTN (hypertension) Mother Ovarian cancer Bipolar disorder Maternal Grandfather Diabetes mellitus Maternal Grandmother Breast cancer HTN (hypertension) Paternal Grandfather No problems noted. Paternal Grandmother No problems noted. Family/Other Leukemia Colon cancer Maternal Aunt Colon cancer Social History Social History Household Members: Spouse and Children Housing: Apartment Are you a primary patient care provider to a significant other at home: No Do you presently have visiting nurse or other home services: No Alcohol intake: current Alcohol intake frequency: holidays/special occasions only Patient Tobacco Use Status: Never used Tobacco e-Cigarette/Vaping Use: Never Used Advance Directives: No Advance Directives Information Provided: Yes service: No Current occupational status: unemployed Cognitive needs: No Hearing needs: No Vision needs: Yes Physical Exam Vital Signs: Vital Signs: Last Vital Signs Temp 98.3 F 12/29/22 11:11 Pulse 80 12/29/22 15:15 Resp 20 12/29/22 15:15 BP 123/71 12/29/22 15:15 Pulse Ox 96 12/29/22 15:15 O2 Del Method Room Air 12/29/22 13:14 BMI result Body Mass Index 41.5 Const: General: cooperative, healthy appearing, comfortable and no acute distress Orientation/consciousness: patient oriented x3 Limitations: no limitations HEENT: Head: Yes normal to inspection Ears: hearing grossly normal bilaterally General nose exam: Normal external nose present Face and sinus: Yes normal facial exam Mouth: Normal oral and palatal mucosa present Throat: Yes posterior oropharynx normal Eyes: General: appearance normal, both eyes and all related structures Pupils: Equal, round and reactive pupils present Neck: Neck: Yes normal visual inspection Chest: Chest palpation & inspection: normal inspection of the chest Resp: Effort & Inspection: normal respiratory effort Auscultation: clear to auscultation bilaterally Cardio: Rate: regular rate Rhythm: regular rhythm Peripheral pulses: Peripheral pulses 2+ throughout GI: Inspection: Yes normal to inspection Palpation (GI): Soft to palpation, Tenderness to palpation present (GI) in the LLQ and in the RLQ; with no rebound tenderness and no guarding Auscultation: normal bowel sounds : 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 - Vagina: vaginal bleeding (Small to moderate with clot) Speculum Exam - Cervix: normal appearance of the cervix Bimanual exam- vagina & uterus: normal bimanual exam Bimanual Exam- Adnexa, other: normal adnexae OB/external & speculum: vaginal bleeding (Small to moderate with clot) Back/Spine/Pelvis: Thoracic/Lumbar Spine: thoracic and lumbar spine normal to inspection Skin: General skin exam: no rashes or lesions noted Neuro: General: patient oriented x3, no focal motor deficits and normal sensation to monofilament Cranial nerves: Yes Equal, round and reactive pupils present Cognition (Neuro): normal cognition Speech: No Abnormal speech present Gait exam (Neuro): Normal gait present Motor exam (neuro): 5/5 motor strength present throughout Extrem: General: Yes normal to inspection Course Course Course Narrative: 1700-Pelvic US IMPRESSION: Limited exam. Enlarged right ovary and 3.5 x 2.9 x 3.2 cm cyst. According to best practice criteria, given cyst size and patient age, no ultrasound imaging follow-up recommended. Question scar in the left anterior lower uterine segment versus a small fibroid. Small amount of fluid in the endocervical canal. Small complex cyst in the cervix. Patient reports she has changed her pad several times since being here in the emergency room. On pelvic exam she had small to moderate amount of bleeding. Her hemoglobin is stable. She does have a urinary tract infection I will treat her with antibiotics. She is overall nontoxic appearing she does have an OBGYN at [facility]. I recommended she follow-up with them in the next few days. She can also utilize [facility]'s walk-in services if she needs to be seen sooner. Reviewed worrisome signs and symptoms of when to return to the emergency. Comfortable plan for discharge home. Medications Administered Discontinued Medications Generic Name Dose Route Start Last Admin Trade Name Lindsay PRN Reason Stop Dose Admin Acetaminophen 975 mg 12/29/22 14:38 12/29/22 15:06 Acetaminophen 325 Mg Tablet PO 12/29/22 14:39 975 mg ONCE ONE Administration Ketorolac Tromethamine 30 mg 12/29/22 11:50 12/29/22 12:00 Ketorolac Tromethamine 30 Mg/Ml Vial IM 12/29/22 11:51 30 mg ONCE ONE Administration Oxycodone HCl 5 mg 12/29/22 14:38 12/29/22 15:06 Oxycodone Hcl Immed Release 5 Mg Tablet PO 12/29/22 14:39 5 mg ONCE ONE Administration Medical Decision Making Medical Decision Making [facility] Narrative: This is a 42-year-old female with a history of PCOS and dysfunctional uterine bleeding as well as iron deficiency anemia who presents the ER with 3 days of heavy vaginal bleeding and abdominal cramping. On arrival vitals are stable. Patient with tenderness the lower abdomen with no rebound or guarding. Will obtain labs, UA, urine . Patient will need pelvic exam. Differential Diagnosis Differential Diagnoses: The differential diagnosis associated with the presentation includes Dysfunctional uterine bleeding, menorrhagia, less likely ectopic Lab Data [facility] Lab Attestation statement: I reviewed the patient's lab results. 12/29/22 11:13 12/29/22 11:13 Labs: Lab Results 12/29/22 12/29/22 12/29/22 Range/Units 11:13 11:13 11:13 WBC 9.0 (4.8-10.8) X10*3/uL RBC 4.66 (4.20-5.50) X10*6/uL Hgb 13.1 (12.0-16.0) g/dl Hct 38.2 (37.0-47.0) % MCV 82.0 (80.0-98.0) fL MCH 28.1 (27.0-33.0) pg MCHC 34.3 (31.0-35.0) g/dl RDW 14.7 (11.0-16.0) % Plt Count 280 (160-400) X10*3/uL MPV 10.7 (9.4-12.3) fL Immature Gran % (Auto) 0.3 (0.0-0.4) % Neut % (Auto) 58.6 (45-73) % Lymph % (Auto) 33.6 (20-40) % Riley % (Auto) 4.0 (2-11) % Eos % (Auto) 2.9 (0-4) % Baso % (Auto) 0.6 (0-2) % Lymph # (Auto) 3.0 (1.2-4.9) X10*3/uL Riley # (Auto) 0.4 (0.1-1.2) X10*3/uL Eos # (Auto) 0.3 (0.0-0.4) X10*3/uL Baso # (Auto) 0.1 (0.0-0.2) X10*3/uL Abs Immat Gran (auto) 0.03 (0.00-0.03) X10*3/uL Absolute Neuts (auto) 5.2 (2.0-8.3) x10*3/uL Absolute Nucleated RBC 0.000 (0.0-0.012) X10*3/uL Nucleated RBC % (auto) 0.0 (0.0-0.2) /100WBC PT 10.8 (10.0-13.1) SEC INR 0.9 (0.9-1.1) Sodium 137 (135-145) mmol/L Potassium 4.1 (3.3-5.1) mmol/L Chloride 102 (96-108) mmol/L Carbon Dioxide 27 (22-29) mmol/L Anion Gap 12 (12-20) BUN 6 L (9-16) mg/dL Creatinine 0.64 (0.5-1.4) mg/dL Estim Creat Clear Calc 126.5 Estimated GFR > 60 Random Glucose 147 H (60-115) mg/dL Calcium 9.2 (8.4-10.2) mg/dL Total Bilirubin 0.4 (0.0-1.0) mg/dL Direct Bilirubin < 0.2 (0.0-0.5) mg/dL AST 32 H (5-31) U/L ALT 28 (0-31) U/L Alkaline Phosphatase 102 (39-117) U/L Total Protein 6.9 (6.5-8.0) g/dL Albumin 3.8 (3.5-5.0) g/dL Urine Color Urine Appearance Urine pH (5.0-9.0) Ur Specific Woodland (1.005-1.025) Urine Protein (Neg-Trace) mg/dL Urine Glucose (UA) (Negative) mg/dL Urine Ketones (Negative) mg/dL Urine Blood (Negative) Urine Nitrite (Negative) Ur Leukocyte Esterase (Negative) Urine RBC (0-2) /HPF Urine WBC (0-5) /HPF Ur Squamous Epith Cells (0-2) /HPF Urine Bacteria (None Seen) Hyaline Casts (0-2) /LPF Urine Test (NEGATIVE) Carmen species DNA (Negative) Chlam trachomat DNA PCR (Not Detect.) Gardnerella DNA Probe (Negative) N.gonorrhoeae DNA (PCR) (Not Detect.) Trichomonas DNA Probe (Negative) 12/29/22 12/29/22 12/29/22 Range/Units 11:34 11:34 15:14 WBC (4.8-10.8) X10*3/uL RBC (4.20-5.50) X10*6/uL Hgb (12.0-16.0) g/dl Hct (37.0-47.0) % MCV (80.0-98.0) fL MCH (27.0-33.0) pg MCHC (31.0-35.0) g/dl RDW (11.0-16.0) % Plt Count (160-400) X10*3/uL MPV (9.4-12.3) fL Immature Gran % (Auto) (0.0-0.4) % Neut % (Auto) (45-73) % Lymph % (Auto) (20-40) % Riley % (Auto) (2-11) % Eos % (Auto) (0-4) % Baso % (Auto) (0-2) % Lymph # (Auto) (1.2-4.9) X10*3/uL Riley # (Auto) (0.1-1.2) X10*3/uL Eos # (Auto) (0.0-0.4) X10*3/uL Baso # (Auto) (0.0-0.2) X10*3/uL Abs Immat Gran (auto) (0.00-0.03) X10*3/uL Absolute Neuts (auto) (2.0-8.3) x10*3/uL Absolute Nucleated RBC (0.0-0.012) X10*3/uL Nucleated RBC % (auto) (0.0-0.2) /100WBC PT (10.0-13.1) SEC INR (0.9-1.1) Sodium (135-145) mmol/L Potassium (3.3-5.1) mmol/L Chloride (96-108) mmol/L Carbon Dioxide (22-29) mmol/L Anion Gap (12-20) BUN (9-16) mg/dL Creatinine (0.5-1.4) mg/dL Estim Creat Clear Calc Estimated GFR Random Glucose (60-115) mg/dL Calcium (8.4-10.2) mg/dL Total Bilirubin (0.0-1.0) mg/dL Direct Bilirubin (0.0-0.5) mg/dL AST (5-31) U/L ALT (0-31) U/L Alkaline Phosphatase (39-117) U/L Total Protein (6.5-8.0) g/dL Albumin (3.5-5.0) g/dL Urine Color Urine Appearance Urine pH (5.0-9.0) Ur Specific Woodland (1.005-1.025) Urine Protein (Neg-Trace) mg/dL Urine Glucose (UA) (Negative) mg/dL Urine Ketones (Negative) mg/dL Urine Blood (Negative) Urine Nitrite (Negative) Ur Leukocyte Esterase (Negative) Urine RBC (0-2) /HPF Urine WBC (0-5) /HPF Ur Squamous Epith Cells (0-2) /HPF Urine Bacteria (None Seen) Hyaline Casts (0-2) /LPF Urine Test NEGATIVE (NEGATIVE) Carmen species DNA Negative (Negative) Chlam trachomat DNA PCR NOT DETECTED (Not Detect.) Gardnerella DNA Probe Negative (Negative) N.gonorrhoeae DNA (PCR) NOT DETECTED (Not Detect.) Trichomonas DNA Probe Negative (Negative) 12/29/22 Range/Units 15:15 WBC (4.8-10.8) X10*3/uL RBC (4.20-5.50) X10*6/uL Hgb (12.0-16.0) g/dl Hct (37.0-47.0) % MCV (80.0-98.0) fL MCH (27.0-33.0) pg MCHC (31.0-35.0) g/dl RDW (11.0-16.0) % Plt Count (160-400) X10*3/uL MPV (9.4-12.3) fL Immature Gran % (Auto) (0.0-0.4) % Neut % (Auto) (45-73) % Lymph % (Auto) (20-40) % Riley % (Auto) (2-11) % Eos % (Auto) (0-4) % Baso % (Auto) (0-2) % Lymph # (Auto) (1.2-4.9) X10*3/uL Riley # (Auto) (0.1-1.2) X10*3/uL Eos # (Auto) (0.0-0.4) X10*3/uL Baso # (Auto) (0.0-0.2) X10*3/uL Abs Immat Gran (auto) (0.00-0.03) X10*3/uL Absolute Neuts (auto) (2.0-8.3) x10*3/uL Absolute Nucleated RBC (0.0-0.012) X10*3/uL Nucleated RBC % (auto) (0.0-0.2) /100WBC PT (10.0-13.1) SEC INR (0.9-1.1) Sodium (135-145) mmol/L Potassium (3.3-5.1) mmol/L Chloride (96-108) mmol/L Carbon Dioxide (22-29) mmol/L Anion Gap (12-20) BUN (9-16) mg/dL Creatinine (0.5-1.4) mg/dL Estim Creat Clear Calc Estimated GFR Random Glucose (60-115) mg/dL Calcium (8.4-10.2) mg/dL Total Bilirubin (0.0-1.0) mg/dL Direct Bilirubin (0.0-0.5) mg/dL AST (5-31) U/L ALT (0-31) U/L Alkaline Phosphatase (39-117) U/L Total Protein (6.5-8.0) g/dL Albumin (3.5-5.0) g/dL Urine Color Other A Urine Appearance Turbid Urine pH 5.5 (5.0-9.0) Ur Specific Woodland >= 1.030 H (1.005-1.025) Urine Protein 100 (2+) H (Neg-Trace) mg/dL Urine Glucose (UA) Negative (Negative) mg/dL Urine Ketones Trace (Negative) mg/dL Urine Blood Large (3+) H (Negative) Urine Nitrite Positive H (Negative) Ur Leukocyte Esterase Trace H (Negative) Urine RBC >20 H (0-2) /HPF Urine WBC 0-5 (0-5) /HPF Ur Squamous Epith Cells 0-2 (0-2) /HPF Urine Bacteria None Seen (None Seen) Hyaline Casts 0-2 (0-2) /LPF Urine Test (NEGATIVE) Carmen species DNA (Negative) Chlam trachomat DNA PCR (Not Detect.) Gardnerella DNA Probe (Negative) N.gonorrhoeae DNA (PCR) (Not Detect.) Trichomonas DNA Probe (Negative) Discharge Plan Discharge Clinical Impression: Dysfunctional uterine bleeding, Ovarian cyst, UTI (urinary tract infection) Patient Disposition: Home, Self-Care Instructions: Dysfunctional Uterine Bleeding (ED), Ovarian Cyst (ED), Urinary Tract Infection in Women (DC) Additional Instructions: Your hemoglobin is 13.1. Hematocrit is 38.2. Your additional labs are normal. You do have a urinary tract infection. Your testing for bacterial vaginosis, yeast, Trichomonas, gonorrhea and chlamydia are all negative Your ultrasound shows Enlarged right ovary and 3.5 x 2.9 x 3.2 cm cyst. According to best practice criteria, given cyst size and patient age, no ultrasound imaging follow-up recommended. Question scar in the left anterior lower uterine segment versus a small fibroid. Small amount of fluid in the endocervical canal. 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 IF YOU HAVE CONTINUED BLEEDING IT YOU CAN CALL YOUR OB YOUR GO TO [facility] TO BE SEEN. WE ARE HAPPY TO SEE YOU HERE BUT WE DO NOT CURRENTLY HAVE BI CONSULTANT AVAILABLE Prescriptions: New oxycodone 5 mg tablet 5 mg PO Q6H PRN (Reason: pain) Qty: 8 0RF Rx Instructions: Partial Fill upon patient request. No Action (DME) blood-glucose meter [[facility]Touch Ultra2 Meter[facility] See Rx Instructions .Route Qty: 1 0RF Rx Instructions: As directed (DME) OneTouch Ultra Test Strip See Rx Instructions .Route Qty: 100 3RF Rx Instructions: once a day Referrals: Rama Cui MD [Primary Care Provider] - 1 week ( NEEDED) Stand Alone Forms: Work/School Release
--- NOTE | 2022-12-29 10:59 | PC.NURSE ---
several attempts to get labs will call phlebotomy
[2022-12-29 11:11] VITALS: BP 155/89; PULSE 88; RESP 18; TEMP 36.8; O2SAT 99
--- NOTE | 2022-12-29 11:12 | PC.NURSE ---
PT INSTRUCTED TO SAVE PADS FOR QUANT BLOOD LOSS
[2022-12-29 11:19] LABS: MANUAL DIFF FLAG NO
[2022-12-29 11:22] LABS: Basophils Absolute Auto 0.1 X10*3/uL (0.0-0.2); Basophils Percent Auto 0.6 % (0-2); Eosinophils Absolute Auto 0.3 X10*3/uL (0.0-0.4); Eosinophils Percent Auto 2.9 % (0-4); Hematocrit 38.2 % (37.0-47.0); Hemoglobin 13.1 g/dl (12.0-16.0); Imm Gran Abs Auto 0.03 X10*3/uL (0.00-0.03); Imm Gran Pct Auto 0.3 % (0.0-0.4); Lymphocytes Percent Auto 33.6 % (20-40); Mean Corpuscular HGB Conc 34.3 g/dl (31.0-35.0); Mean Corpuscular Hemoglobin 28.1 pg (27.0-33.0); Mean Platelet Volume 10.7 fL (9.4-12.3); Monocytes Absolute Auto 0.4 X10*3/uL (0.1-1.2); Neutrophils Absolute Auto 5.2 x10*3/uL (2.0-8.3); Neutrophils Percent Auto 58.6 % (45-73); Platelet Count 280 X10*3/uL (160-400); Red Blood Count 4.66 X10*6/uL (4.20-5.50); Red Cell Distribution Width 14.7 % (11.0-16.0)
[2022-12-29 11:27] LABS: INTERNATIONAL NORM RATIO 0.9 (0.9-1.1); Prothrombin Time 10.8 SEC (10.0-13.1)
[2022-12-29 11:39] VITALS: BP 153/72; PULSE 81; RESP 16; O2SAT 96
[2022-12-29 11:39] LABS: Alanine Aminotransferase 28 U/L (0-31); Albumin Level 3.8 g/dL (3.5-5.0); Alkaline Phosphatase 102 U/L (39-117); Anion Gap 12 (12-20); Aspartate Amino Transferase 32 U/L (5-31); Bilirubin Direct < 0.2 mg/dL (0.0-0.5); Bilirubin Total 0.4 mg/dL (0.0-1.0); Blood Urea Nitrogen 6 mg/dL (9-16); Calcium 9.2 mg/dL (8.4-10.2); Carbon Dioxide 27 mmol/L (22-29); Chloride 102 mmol/L (96-108); Creatinine Clr Calc Pharmacy 126.5; Estimated Glomerular Filt Rate > 60; Glucose Random 147 mg/dL (60-115); Potassium 4.1 mmol/L (3.3-5.1); Sodium 137 mmol/L (135-145); Total Protein 6.9 g/dL (6.5-8.0)
[2022-12-29] MEDS: Ketorolac Tromethamine 30 MG/ML VIAL IM (12:00)
[2022-12-29 13:06] LABS: BV Int Neg Control Negative (Negative); BV Int Pos Control Positive (Positive)
[2022-12-29 13:14] VITALS: BP 131/74; PULSE 76; RESP 16; O2SAT 97
[2022-12-29 13:40] LABS: CT PCR NOT DETECTED (Not Detect.); NG PCR NOT DETECTED (Not Detect.)
--- NOTE | 2022-12-29 14:50 | PC.NURSE ---
call made out to ultrasound to ask about pending results since 11am.
[2022-12-29] MEDS: Acetaminophen 325 MG TABLET 975 MG PO (15:06)
[2022-12-29] MEDS: oxyCODONE HCl Immed Release 5 MG TABLET PO (15:06)
[2022-12-29 15:15] VITALS: BP 123/71; PULSE 80; RESP 20; O2SAT 96
[2022-12-29 15:27] LABS: Appearance Urine Turbid; Color Urine Other; Glucose Urine UA Negative (Negative); Leukocyte Esterase Urine Trace (Negative); Nitrite Urine Positive (Negative); PH 5.5 (5.0-9.0); Specific Gravity - Urine >= 1.030 (1.005-1.025); UMIC TRIGGER UACC YES; Urine Blood Large (3+) (Negative); Urine Ketones Trace mg/dL (Negative); Urine Protein 100 (2+) mg/dL (Neg-Trace)
[2022-12-29 15:29] LABS: UPreg QC Valid YES; Urine Pregnancy NEGATIVE (NEGATIVE)
[2022-12-29 15:35] LABS: Bacteria Urine None Seen (None Seen); Hyaline Casts Urine 0-2 /LPF (0-2); RBC Urine >20 /HPF (0-2); Squamous Epithelial Cell Urine 0-2 /HPF (0-2); UACC Culture Trigger YES; WBC Urine 0-5 /HPF (0-5)
== END 2022-12-29 17:37 | disposition home or self-care (01) ==
PROVIDERS: Nurse Practitioner Family; Emergency Provider Emergency Medicine; PCP Internal Medicine
DX: N93.8 Other specified abnormal uterine and vaginal bleeding (principal); N39.0 Urinary tract infection, site not specified; N83.209 Unspecified ovarian cyst, unspecified side; R25.2 Cramp and spasm; Z79.899 Other long term (current) drug therapy
CPT/HCPCS: 0353U; 36415; 76830; 76856; 80048; 80076; 81001; 81025; 85025; 85610; 87086; 87480; 87510; 87660; 96372; 99284; J1885

== ENCOUNTER 2023-02-01 18:16 | Emergency (ER) | payer OTHER, SELFPAY ==
--- NOTE | ~2023-02-01 | CT_ITS ---
EXAMINATION: CT ABDOMEN AND PELVIS WITH CONTRAST CLINICAL INFORMATION: Right lower quadrant pain COMPARISON: 11/30/2022 and 02/27/2021 TECHNIQUE: Multidetector volumetric images were obtained from the superior aspect of the liver through the pubic symphysis following administration 85 mL of Omnipaque 350 intravenous contrast. Sagittal and coronal reformatted images were obtained on the technologist's workstation. Oral contrast: No This CT examination was performed using dose optimization techniques as appropriate, variously including the following: *Automated exposure control *Adjustment of mA and/or kV according to patient size (this includes techniques or standardized protocols for targeted exams where dose is matched to indication/reason for exam; i.e. extremities or head) *Use of iterative reconstruction technique DLP: 851 mGy-cm FINDINGS: LUNG BASES: The visualized lung bases are unremarkable. LIVER, GALLBLADDER, AND BILIARY TREE: Diffuse hepatic steatosis. No focal liver lesions. No biliary dilatation. Gallbladder unremarkable. PANCREAS: Unremarkable. SPLEEN: Stable mild splenomegaly measuring up to 16 cm long axis. No focal lesions. ADRENAL GLANDS: Unremarkable. KIDNEYS AND URETERS: The kidneys are normal in size, shape, and attenuation. No hydronephrosis, hydroureter, or calculi seen. No perinephric stranding. BLADDER: Unremarkable. GASTROINTESTINAL TRACT: The small and large bowel are unremarkable. The appendix is unremarkable. ABDOMINAL WALL: No significant hernia is appreciated. LYMPH NODES: Normal. VASCULAR: Unremarkable. PELVIC VISCERA: Uterus unremarkable. The section scar evident along the anterior lower uterine segment. Physiologic follicles present within each ovary. OSSEOUS STRUCTURES: Unremarkable. CT/CT abdomen pelvis w IV con IMPRESSION: * No acute findings within the abdomen or pelvis to explain the patient's symptomatology. * Diffuse hepatic steatosis. * Stable mild splenomegaly.
--- NOTE | ~2023-02-01 | US_ITS ---
EXAMINATION: US PELVIS CLINICAL INFORMATION: Lower abdominal pain and vaginal bleeding COMPARISON: 12/29/2022 TECHNIQUE: Ultrasound of the pelvis is performed using both transabdominal and transvaginal transducers along with Doppler. Transvaginal imaging is performed due to inadequate visualization transabdominally. FINDINGS: Uterus: The uterus is anteverted and measures 12.7 x 6.3 x 8.1 cm. The double wall endometrial thickness is 11 mm. The uterus is smooth in contour and has normal myometrial echogenicity. No visible fibroid. Adnexa: Both ovaries are visualized. There is normal color flow to the adnexa. There is no ovarian torsion. There is no pelvic ascites or fluid collection. Right ovary measures 3.1 x 2.6 x 3.7 cm. Left ovary measures 4.8 x 2.7 x 3.6 cm. Physiologic follicle in the left ovary measuring 2.8 cm. US/US pelvic and transvaginal IMPRESSION: Unremarkable pelvic ultrasound.
--- NOTE | ~2023-02-01 | US_ITS ---
EXAMINATION: US PELVIS CLINICAL INFORMATION: Lower abdominal pain and vaginal bleeding COMPARISON: 12/29/2022 TECHNIQUE: Ultrasound of the pelvis is performed using both transabdominal and transvaginal transducers along with Doppler. Transvaginal imaging is performed due to inadequate visualization transabdominally. FINDINGS: Uterus: The uterus is anteverted and measures 12.7 x 6.3 x 8.1 cm. The double wall endometrial thickness is 11 mm. The uterus is smooth in contour and has normal myometrial echogenicity. No visible fibroid. Adnexa: Both ovaries are visualized. There is normal color flow to the adnexa. There is no ovarian torsion. There is no pelvic ascites or fluid collection. Right ovary measures 3.1 x 2.6 x 3.7 cm. Left ovary measures 4.8 x 2.7 x 3.6 cm. Physiologic follicle in the left ovary measuring 2.8 cm. US/US pelvic ovarian doppler IMPRESSION: Unremarkable pelvic ultrasound.
--- NOTE | 2023-02-01 18:23 | ED_ITS ---
HPI - General Adult General Chief complaint: Abdominal Pain Stated complaint: Abd cramping Time Seen by Provider: 02/01/23 18:26 Source: patient Mode of arrival: ambulatory Limitations: no limitations History of Present Illness HPI narrative: This is a 42-year-old female history of diabetes, menorrhagia, vertigo, iron deficiency anemia currently on iron tablets, polycystic disease of the ovaries presenting to the emergency department for evaluation of nausea, vomiting, lower abdominal pain R>L side and vaginal bleeding that started yesterday had vaginal bleeding a few weeks ago also. She reports using multiple pads a day and has to use 2-3 pads per hour. Patient reports she is passing some bloody discharge. She reports her last normal period was at the end of November. Patient has an OBGYN doctor added [facility]. Patient reports last Pap smear was within normal limits. She was seen by [facility] for this and they said there was nothing to do about it per patient. Her abd pain is lower and diffuse but worse in the RLQ. Difficulty passing gas but having normal bowel movements. Patient denies fevers, chills, chest pain, shortness of breath, lightheadedness, headache, vision changes, weakness. Related Data Previous Rx's Medication Instructions Recorded blood sugar diagnostic (OneTouch #100 ea 03/10/22 Ultra Test strips) blood-glucose meter (OneTouch #1 ea 03/10/22 Ultra2 Meter) oxycodone 5 mg tablet 5 mg PO Q6H PRN pain #8 tabs 12/29/22 cefuroxime axetil 250 mg tablet 250 mg PO BID 7 days #14 tabs 02/01/23 ketorolac 10 mg tablet 10 mg PO TID PRN pain 5 days #15 02/01/23 tabs ondansetron 4 mg disintegrating 4 mg PO Q6H PRN nausea and 02/01/23 tablet vomiting #14 tabs Allergies Allergy/AdvReac Type Severity Reaction Status Date / Time oxytocin [From Pitocin] Allergy Intermediate Palpitation Verified 12/12/22 14:33 s prednisone [PREDNISONE] Allergy Unknown HIVES Verified 12/12/22 14:33 Sulfa (Sulfonamide Allergy Unknown HIVES Verified 12/12/22 14:33 Antibiotics) [SULFA (SULFONAMIDE ANTIBIOTICS)] Review of Systems Review of Systems: Constitutional : No Weight loss, No Fever, No Chills, No Fatigue, No Malaise ENT/Mouth : No sore throat, No Rhinorrhea Eyes: No Eye Pain, No Swelling, No Redness Cardiovascular : No Chest Pain, No SOB, No Dyspnea on Exertion, No Orthopnea, No Edema, No Palpitations Respiratory : No Cough, No Sputum, No Wheezing Gastrointestinal : No Nausea, No Vomiting, No Diarrhea, No Constipation, + abdominal Pain, No Hematochezia, No Melena Genitourinary : No Dysuria, No Urinary Frequency, No Hematuria, + vaginal bleeding Musculoskeletal : No joint pain, No Myalgias, No Joint Swelling Skin : No Skin Lesions, No rash Neuro : No Weakness, No Numbness, No Dizziness, No Headache Psych : No Anxiety/Panic, No Depression All other systems reviewed and are negative Yes all other systems are reviewed and are negative [facility] Past Medical History Attestation statement: The following information was validated with the patient. Source: old records reviewed and nursing notes reviewed Medical History Anemia Anxiety Asthma Gestational diabetes mellitus Menorrhagia Palpitations Preeclampsia Vertigo Surgical History H/O tooth extraction History of Family History Family History Father HTN (hypertension) Mother Ovarian cancer Bipolar disorder Maternal Grandfather Diabetes mellitus Maternal Grandmother Breast cancer HTN (hypertension) Paternal Grandfather No problems noted. Paternal Grandmother No problems noted. Family/Other Leukemia Colon cancer Maternal Aunt Colon cancer Social History Social History Household Members: Spouse and Children Housing: Apartment Are you a primary medicare specialist to a significant other at home: No Do you presently have visiting nurse or other home services: No Alcohol intake: current Alcohol intake frequency: does not drink Patient Tobacco Use Status: Never used Tobacco Smoked in Last 30 Days: No e-Cigarette/Vaping Use: Never Used Use of substances other than those prescribed or required for medical reasons: No Advance Directives: No Advance Directives Information Provided: No Patient : No service: No Current occupational status: unemployed Cognitive needs: No Hearing needs: No Vision needs: Yes Physical Exam ED Vital Signs: Vital Signs - 24 hr 02/01/23 18:24 02/01/23 20:04 Temperature 97.5 F 98.7 F Pulse Rate 93 92 Respiratory Rate 16 14 Blood Pressure 156/86 H 140/79 H Pulse Oximetry 97 97 Oxygen Delivery Method Room Air Room Air BMI result Body Mass Index 39.5 Vital signs stable Appearance: Alert.? Oriented X3.? No acute distress.? Head: Normocephalic, atraumatic, no step-offs or deformities Eyes: Pupils equal, round and reactive to light.? ENT: Pharynx normal.? Neck: Normal inspection.? Neck supple.? CVS: Normal heart rate and rhythm.? Pulses normal.? Respiratory: No respiratory distress.? Breath sounds normal.? Abdomen: Soft and diffusely tender worse to the right lower quadrant..? Skin: Skin warm and dry.? Normal skin color.? Normal skin turgor.? Extremities: No lower extremity edema.? No calf ttp. 5/5 strength to bilateral upper and lower extremities Sensative: No active bleeding noted within cervical canal, cervical os closed, normal appearance, normal bimanual exam and adnexa. External exam within normal limits no lesions, lumps or masses. Neuro: Oriented X 3.? No motor deficit.? No sensory deficit. CN 2-12 intact Course Course Course Narrative: RME performed by Coby Starks PA-C. Patient is a 42 year old assigned female at presenting to the emergency department with vaginal bleeding, nausea, vomiting, and abdominal pain. Labs ordered. Patient placed back in the waiting room pending room availability and results. Reevaluation(s) Reevaluation #1: CBC with slight leukocytosis 12.8, stable H&H, chemistry unremarkable. Beta hCG negative. UA with infection and bacteria noted. Pelvic and transvaginal ultrasound unremarkable. No ovarian torsion. CT of the abdomen and pelvis pending. Time: 21:37 Reevaluation #2: CT of the abdomen pelvis with no acute findings within the abdomen or pelvis to explain patient's symptoms. Normal appendix. Diffuse hepatic steatosis. Stable mild splenomegaly. Patient will be discharged home with Ceftin for UTI. Advised to follow-up with OBGYN, PCP. Educated patient on diagnosis and treatment plan, answered all question, patient verbalizes understanding. At this time patient will be discharged home, advised to return with new or worsening symptoms. Educated on worrisome signs and symptoms and when to return. At this time I feel comfortable discharge home. Time: 22:28 Medications Administered Discontinued Medications Generic Name Dose Route Start Last Admin Trade Name Lindsay PRN Reason Stop Dose Admin Iohexol 100 ml 02/01/23 19:39 02/01/23 19:39 Iohexol 350 Mg/Ml 100 Ml Infus..Btl IV 02/01/23 19:40 85 ml ONCE ONE Administration Morphine Sulfate 4 mg 02/01/23 21:03 02/01/23 21:18 Morphine Sulfate 4 Mg/Ml Cartridge IVPUSH 02/01/23 21:04 4 mg ONCE ONE Administration Protocol Medical Decision Making Medical Decision Making [facility] Narrative: 1833 42-year-old female presents with nausea, vomiting, abdominal pain and vaginal bleeding Physical exam significant diffuse abd tendernes worse in RLQ. Sensative: No active bleeding noted within cervical canal, cervical os closed, normal ap pearance, normal bimanual exam and adnexa. External exam within normal limits no lesions, lumps or masses. This is likely dysfunctional uterine bleeding, menorrhagia, menopause, unlikely ectopic , miscarriage, acute abdomen. Abdominal pain concerning for possible bowel obstruction. Unlikely diverticulitis, cholecystitis or pancreatitis, acute abdomen Plan at this time labs, imaging, urine. Differential Diagnosis Differential Diagnoses: The differential diagnosis associated with the presentation includes This is likely dysfunctional uterine bleeding, menorrhagia, menopause, unlikely ectopic , miscarriage, acute abdomen. Abdominal pain concerning for possible bowel obstruction. Unlikely diverticulitis, cholecystitis or pancreatitis, acute abdomen Admission/Observation Consideration of admission/observation: Escalation of care including admission/observation considered Unlikely Lab Data 02/01/23 18:40 02/01/23 18:40 Labs: Lab Results 02/01/23 02/01/23 02/01/23 Range/Units 18:40 18:40 20:08 WBC 12.8 H (4.8-10.8) X10*3/uL RBC 4.72 (4.20-5.50) X10*6/uL Hgb 13.0 (12.0-16.0) g/dl Hct 38.6 (37.0-47.0) % MCV 81.8 (80.0-98.0) fL MCH 27.5 (27.0-33.0) pg MCHC 33.7 (31.0-35.0) g/dl RDW 15.4 (11.0-16.0) % Plt Count 361 D (160-400) X10*3/uL MPV 10.8 (9.4-12.3) fL Immature Gran % (Auto) 0.5 H (0.0-0.4) % Neut % (Auto) 71.9 (45-73) % Lymph % (Auto) 22.1 (20-40) % [place] % (Auto) 3.9 (2-11) % Eos % (Auto) 1.3 (0-4) % Baso % (Auto) 0.3 (0-2) % Lymph # (Auto) 2.8 (1.2-4.9) X10*3/uL [place] # (Auto) 0.5 (0.1-1.2) X10*3/uL Eos # (Auto) 0.2 (0.0-0.4) X10*3/uL Baso # (Auto) 0.0 (0.0-0.2) X10*3/uL Abs Immat Gran (auto) 0.07 H (0.00-0.03) X10*3/uL Absolute Neuts (auto) 9.2 H (2.0-8.3) x10*3/uL Absolute Nucleated RBC 0.000 (0.0-0.012) X10*3/uL Nucleated RBC % (auto) 0.0 (0.0-0.2) /100WBC Sodium 138 (135-145) mmol/L Potassium 3.8 (3.3-5.1) mmol/L Chloride 102 (96-108) mmol/L Carbon Dioxide 26 (22-29) mmol/L Anion Gap 14 (12-20) BUN 11 (9-16) mg/dL Creatinine 0.77 (0.5-1.4) mg/dL Estim Creat Clear Calc 114.2 Estimated GFR > 60 Random Glucose 157 H (60-115) mg/dL Calcium 9.9 D (8.4-10.2) mg/dL Magnesium 1.9 (1.6-2.6) mg/dL Total Bilirubin 0.8 (0.0-1.0) mg/dL AST 16 (5-31) U/L ALT 18 (0-31) U/L Alkaline Phosphatase 114 (39-117) U/L Total Protein 7.9 (6.5-8.0) g/dL Albumin 4.2 (3.5-5.0) g/dL Beta HCG, Quant < 2 mIU/mL Urine Color Dark Yellow Urine Appearance Clear Urine pH 6.0 (5.0-9.0) Ur Specific [place] 1.025 (1.005-1.025) Urine Protein Trace (Neg-Trace) mg/dL Urine Glucose (UA) Negative (Negative) mg/dL Urine Ketones Trace (Negative) mg/dL Urine Blood Large (3+) H (Negative) Urine Nitrite Negative (Negative) Ur Leukocyte Esterase Moderate (2+) H (Negative) Urine RBC 0-2 (0-2) /HPF Urine WBC 11-20 H (0-5) /HPF Ur Squamous Epith Cells 3-5 (0-2) /HPF Calcium Oxalate Crystal Present Urine Bacteria 1+ (None Seen) Hyaline Casts 0-2 (0-2) /LPF Critical Care Time Critical Care Time Critical Care Time: No Discharge Plan Discharge Clinical Impression: UTI (urinary tract infection), Abdominal pain, Dysfunctional uterine bleeding, Nausea & vomiting Patient Disposition: Home, Self-Care Instructions: Urinary Tract Infection in Women (DC) Additional Instructions: Take your medications as prescribed. If you were prescribed antibiotics today, it is important that you take your medication to their entirety, do not skip any doses, do not finish them early. Follow-up with your primary care provider this week. Follow-up with OBGYN. Return to the emergency department with new or worsening symptoms. Such as fevers, chills, chest pain, shortness of breath, nausea, vomiting, dizziness, headache, vision changes, lethargy In case of emergency call 911 Toradol has been sent to your pharmacy, you tolerated this well in the department. Please take this as prescribed do not take this with ibuprofen, or other NSAIDs, do not mix this with alcohol. Side effects of this medication including increased risk for bleeding and possible kidney injury. CT/CT abdomen pelvis w IV con IMPRESSION: * No acute findings within the abdomen or pelvis to explain the patient's symptomatology. * Diffuse hepatic steatosis. * Stable mild splenomegaly. US/US pelvic and transvaginal IMPRESSION: Unremarkable pelvic ultrasound. ? Prescriptions: New cefuroxime axetil 250 mg tablet 250 mg PO BID 7 Days Qty: 14 0RF ketorolac 10 mg tablet 10 mg PO TID PRN (Reason: pain) 5 Days Qty: 15 0RF ondansetron 4 mg tablet,disintegrating 4 mg PO Q6H PRN (Reason: nausea and vomiting) Qty: 14 0RF No Action oxycodone 5 mg tablet 5 mg PO Q6H PRN (Reason: pain) Qty: 8 0RF Rx Instructions: Partial Fill upon patient request. (DME) blood-glucose meter [OneTouch Ultra2 Meter] Misc See Rx Instructions .Route Qty: 1 0RF Rx Instructions: As directed (DME) OneTouch Ultra Test Strip See Rx Instructions .Route Qty: 100 3RF Rx Instructions: once a day Referrals: Rama Cui MD [Primary Care Provider] - 2 days Stand Alone Forms: Work/School Release
[2023-02-01 18:24] VITALS: BP 156/86; PULSE 93; RESP 16; TEMP 36.4; O2SAT 97; BMI 39.5
[2023-02-01 18:47] LABS: MANUAL DIFF FLAG NO
[2023-02-01 18:48] LABS: Basophils Percent Auto 0.3 % (0-2); Eosinophils Absolute Auto 0.2 X10*3/uL (0.0-0.4); Eosinophils Percent Auto 1.3 % (0-4); Hematocrit 38.6 % (37.0-47.0); Imm Gran Abs Auto 0.07 X10*3/uL (0.00-0.03); Imm Gran Pct Auto 0.5 % (0.0-0.4); Lymphocytes Absolute Auto 2.8 X10*3/uL (1.2-4.9); Lymphocytes Percent Auto 22.1 % (20-40); Mean Corpuscular HGB Conc 33.7 g/dl (31.0-35.0); Mean Corpuscular Hemoglobin 27.5 pg (27.0-33.0); Mean Corpuscular Volume 81.8 fL (80.0-98.0); Mean Platelet Volume 10.8 fL (9.4-12.3); Monocytes Absolute Auto 0.5 X10*3/uL (0.1-1.2); Monocytes Percent Auto 3.9 % (2-11); Neutrophils Absolute Auto 9.2 x10*3/uL (2.0-8.3); Neutrophils Percent Auto 71.9 % (45-73); Platelet Count 361 X10*3/uL (160-400); Red Blood Count 4.72 X10*6/uL (4.20-5.50); Red Cell Distribution Width 15.4 % (11.0-16.0); White Blood Count 12.8 X10*3/uL (4.8-10.8)
--- OUTSIDE RECORDS SUMMARY | 2023-02-01 18:57 | XMS_ITS | Continuity of Care Document ---
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 Refills 0, Maintenance, 01/28/23 11:27:00 EDT, Route to Pharmacy Electronically, [facility]/pharmacy #[id number], Partial fill upon patientrequest if the prescription is for a schedule II op... Start Date: 01/28/23 Status: Ordered Prazosin By Mouth, 3 times a day, 0 Refills, Maintenance, 01/28/23 11:15:00 EDT, Partial fill upon patient request if the prescription is for a schedule II opioid drug. Start Date: 01/28/23 Status: Ordered Wellbutrin By Mouth, 0 Refills, Maintenance, 01/28/23 11:14:00 EDT, Partial fill upon patient request if the prescription is for a schedule II opioid drug. Start Date: 01/28/23 Status: Ordered Problem List Condition Confirmation Course Effective Dates Status Health St atus Informant Abnormal uterine bleeding Confirmed Active Infertility, female Confirmed Active PCOS (polycystic ovarian syndrome) Confirmed Active Severe obesity Confirmed Active Social History Social History Type Response Smoking Status Never (less than 100 in lifetime) entered on: 07/24/20 Sex Female Patient Care team information Care Team Personnel Name: Rama Cui MD Position: [facility] Physician (General Medicine) Member Role: PCP Address: Address: [address] [place] [address]- Care Team Related Persons Name: JESSI QUINONES Address: home [address] [place] [address] Name: GERALDO FRAGOSO Address: home [address] [place] [id number]
[2023-02-01 19:10] LABS: Alanine Aminotransferase 18 U/L (0-31); Albumin Level 4.2 g/dL (3.5-5.0); Alkaline Phosphatase 114 U/L (39-117); Anion Gap 14 (12-20); Aspartate Amino Transferase 16 U/L (5-31); Bilirubin Total 0.8 mg/dL (0.0-1.0); Blood Urea Nitrogen 11 mg/dL (9-16); Calcium 9.9 mg/dL (8.4-10.2); Carbon Dioxide 26 mmol/L (22-29); Chloride 102 mmol/L (96-108); Creatinine Clr Calc Pharmacy 114.2; Estimated Glomerular Filt Rate > 60; Glucose Random 157 mg/dL (60-115); Magnesium 1.9 mg/dL (1.6-2.6); Potassium 3.8 mmol/L (3.3-5.1); Sodium 138 mmol/L (135-145); Total Protein 7.9 g/dL (6.5-8.0)
[2023-02-01 19:12] LABS: HCG Quantitative < 2 mIU/mL
[2023-02-01] MEDS: iohexoL 350 MG/ML 100 ML INFUS..BTL IV (19:39)
[2023-02-01 20:04] VITALS: BP 140/79; PULSE 92; RESP 14; TEMP 37.1; O2SAT 97
[2023-02-01 20:20] LABS: Appearance Urine Clear; Color Urine Dark Yellow; Glucose Urine UA Negative (Negative); Leukocyte Esterase Urine Moderate (2+) (Negative); Nitrite Urine Negative (Negative); Specific Gravity - Urine 1.025 (1.005-1.025); UMIC TRIGGER UACC YES; Urine Blood Large (3+) (Negative); Urine Ketones Trace mg/dL (Negative); Urine Protein Trace mg/dL (Neg-Trace)
[2023-02-01 21:05] LABS: Bacteria Urine 1+ (None Seen); Calcium Oxalate Crystals Urine Present; Hyaline Casts Urine 0-2 /LPF (0-2); RBC Urine 0-2 /HPF (0-2); UACC Culture Trigger YES
[2023-02-01] MEDS: Morphine Sulfate 4 MG/ML CARTRIDGE IVPUSH (21:18)
[2023-02-01] MEDS: Ketorolac Tromethamine 15 MG/ML VIAL 30 MG IM (22:56)
== END 2023-02-01 23:04 | disposition home or self-care (01) ==
PROVIDERS: Physician Assistant Medical; Emergency Provider Internal Medicine; PCP Internal Medicine
DX: N93.8 Other specified abnormal uterine and vaginal bleeding (principal); N39.0 Urinary tract infection, site not specified; N93.9 Abnormal uterine and vaginal bleeding, unspecified; R10.31 Right lower quadrant pain; R10.2 Pelvic and perineal pain; R11.2 Nausea with vomiting, unspecified
CPT/HCPCS: 36415; 74177; 76830; 76856; 80053; 81001; 83735; 84702; 85025; 87086; 93975; 96372; 96374; 99284; J1885; J2270; Q9967

== ENCOUNTER 2023-02-17 13:44 | Outpatient (REF) | payer OTHER, SELFPAY | END 2023-02-17 13:45 | disposition home or self-care (01) | LOC: HO.HMGCLDS 13:44 | PROVIDERS: PCP Internal Medicine; Visit Provider Internal Medicine | DX: N39.0 Urinary tract infection, site not specified (principal) | CPT/HCPCS: 87086 ==

== ENCOUNTER → 2023-03-11 14:58 | Outpatient (BNVA) | payer OTHER, SELFPAY | PROVIDERS: PCP Internal Medicine; Visit Provider Physician Assistant ==

== ENCOUNTER 2023-04-26 14:38 | Emergency (ER) | payer OTHER, SELFPAY ==
--- NOTE | ~2023-04-26 | XR_ITS ---
EXAMINATION: XR CHEST CLINICAL INFORMATION: Cough. COMPARISON: 03/06/2022 chest radiographs. TECHNIQUE: 2 views of the chest were obtained. FINDINGS: No significant abnormality is noted involving the heart, lungs, mediastinum, bony thorax or soft tissues. XR/XR chest 2V IMPRESSION: No acute cardiopulmonary process.
[2023-04-26 15:06] VITALS: BP 144/71; PULSE 100; RESP 20; TEMP 37.8; O2SAT 98; BMI 41.6
--- NOTE | 2023-04-26 15:06 | ED_ITS ---
HPI - General Adult General Chief complaint: Fever Stated complaint: Nausea, body aches Time Seen by Provider: 04/26/23 16:26 Source: patient Mode of arrival: ambulatory Limitations: no limitations History of Present Illness HPI narrative: Patient with history of gastational diabetes polycystic oriented comes here for body nausea diarrhea started 2 days ago had low-grade fever no history of tick bite no recent travel no sore throat no other family member sick having sore throat body aches and headache main complaint Related Data Home Medications Medication Instructions Recorded Confirmed bupropion HCl 300 mg 24 hr tablet, 300 mg PO QAM 02/17/23 02/17/23 extended release (Wellbutrin XL) buspirone 5 mg tablet 5 mg PO BID 02/17/23 02/17/23 prazosin 2 mg capsule 2 mg PO BEDTIME 02/17/23 02/17/23 Previous Rx's Medication Instructions Recorded blood sugar diagnostic (OneTouch #100 ea 03/10/22 Ultra Test strips) blood-glucose meter (OneTouch #1 ea 03/10/22 Ultra2 Meter) doxycycline hyclate 100 mg tablet 100 mg PO BID #20 tabs 04/26/23 ibuprofen 600 mg tablet 600 mg PO Q6H PRN fever or pain 04/26/23 #30 tabs Allergies Allergy/AdvReac Type Severity Reaction Status Date / Time oxytocin [From Pitocin] Allergy Intermediate Palpitation Verified 03/11/23 15:07 s prednisone [PREDNISONE] Allergy Unknown HIVES Verified 03/11/23 15:07 Sulfa (Sulfonamide Allergy Unknown HIVES Verified 03/11/23 15:07 Antibiotics) [SULFA (SULFONAMIDE ANTIBIOTICS)] Review of Systems Review of Systems: Yes all other systems are reviewed and are negative [facility] Past Medical History Medical History Abdominal pain Anemia Annual physical exam Annual physical exam Anxiety Asthma Flank pain Gestational diabetes mellitus Hematuria Menorrhagia Palpitations Preeclampsia Protein in urine Vertigo Surgical History H/O tooth extraction History of Family History Family History Father HTN (hypertension) Mother Ovarian cancer Bipolar disorder Mental health disorder Maternal Grandfather Diabetes mellitus Maternal Grandmother Breast cancer HTN (hypertension) Paternal Grandfather No problems noted. Paternal Grandmother No problems noted. Family/Other Leukemia Colon cancer Maternal Aunt Colon cancer Social History Social History Household Members: Spouse and Children Housing: Apartment Are you a primary career portals teacher to a significant other at home: No Do you presently have visiting nurse or other home services: No Alcohol intake: never Patient Tobacco Use Status: Never used Tobacco Smoked in Last 30 Days: No e-Cigarette/Vaping Use: Never Used Use of substances other than those prescribed or required for medical reasons: No Advance Directives: No Advance Directives Information Provided: No service: No Current occupational status: unemployed Cognitive needs: No Hearing needs: No Vision needs: Yes Physical Exam ED Vital Signs: Vital Signs - 24 hr 04/26/23 15:06 04/26/23 15:48 04/26/23 18:42 Temperature 100.1 F Pulse Rate 100 103 H 97 Respiratory Rate 20 18 18 Blood Pressure 144/71 H 134/76 111/46 L Pulse Oximetry 98 98 98 Oxygen Delivery Method Room Air BMI result Body Mass Index 41.6 Appearance: Alert. Oriented X3. No acute distress. Eyes: PERRLA, No Nystagmus ENT: Pharynx normal. Oral Mucosa moist clear rhinorrhea Neck: Normal inspection. Neck supple. CVS: Normal heart rate and rhythm. Pulses normal. Respiratory: No respiratory distress. Equal air entry bilateral, no wheezing/rales/rhonchi Abdomen: Soft and nontender. Bowel sounds are present, no mass palpable, no CVA tenderness Skin: Skin warm and dry. Normal skin color. Normal skin turgor. Extremities: No lower extremity edema. No calf tenderness Neuro: Oriented X 3. No motor deficit. Course Course Course Narrative: RME performed by Coby Starks PA-C. Patient is a 42 year old assigned female at presenting to the emergency department with nausea and body aches. Labs and swabs ordered. Patient placed back in the waiting room pending room availability and results. Medications Administered Discontinued Medications Generic Name Dose Route Start Last Admin Trade Name Freq PRN Reason Stop Dose Admin Acetaminophen 650 mg 04/26/23 15:55 04/26/23 16:03 Acetaminophen 325 Mg Tablet PO 04/26/23 15:56 650 mg ONCE ONE Administration Doxycycline Monohydrate 100 mg 04/26/23 19:15 04/26/23 19:59 Doxycycline Monohydrate 100 Mg Capsule PO 04/26/23 19:16 100 mg ONCE ONE Administration Sodium Chloride 1,000 mls @ 999 mls/hr 04/26/23 16:45 04/26/23 18:41 Ns IV 04/26/23 17:45 Infused .Q1H1M ONE Infusion Ceftriaxone Sodium 1 gm/ 50 mls @ 100 mls/hr 04/26/23 16:45 04/26/23 18:10 Sodium Chloride IV 04/26/23 17:14 Infused ONCE ONE Infusion Sodium Chloride 1,000 mls @ 999 mls/hr 04/26/23 19:38 04/26/23 19:59 Ns IV 04/26/23 20:38 999 mls/hr .Q1H1M ONE Administration Ondansetron HCl 4 mg 04/26/23 15:55 04/26/23 16:04 Ondansetron Odt 4 Mg Tab.Rapdis TRANSLINGU 04/26/23 15:56 4 mg ONCE ONE Administration Medical Decision Making Medical Decision Making [facility] Narrative: Patient with leukocytosis lactic acidosis etiology of fever and not clear blood cultures pending patient feeling much better now was given a dose of Rocephin and doxycycline in the ER will discharge patient home on doxycycline assuming is a tick-borne disease Lab Data [facility] Lab Attestation statement: I reviewed the patient's lab results. 04/26/23 15:54 04/26/23 15:54 Labs: Lab Results 04/26/23 04/26/23 04/26/23 Range/Units 15:22 15:22 15:22 WBC (4.8-10.8) X10*3/uL RBC (4.20-5.50) X10*6/uL Hgb (12.0-16.0) g/dl Hct (37.0-47.0) % MCV (80.0-98.0) fL MCH (27.0-33.0) pg MCHC (31.0-35.0) g/dl RDW (11.0-16.0) % Plt Count (160-400) X10*3/uL MPV (9.4-12.3) fL Immature Gran % (Auto) (0.0-0.4) % Neut % (Auto) (45-73) % Lymph % (Auto) (20-40) % [place] % (Auto) (2-11) % Eos % (Auto) (0-4) % Baso % (Auto) (0-2) % Lymph # (Auto) (1.2-4.9) X10*3/uL [place] # (Auto) (0.1-1.2) X10*3/uL Eos # (Auto) (0.0-0.4) X10*3/uL Baso # (Auto) (0.0-0.2) X10*3/uL Abs Immat Gran (auto) (0.00-0.03) X10*3/uL Absolute Neuts (auto) (2.0-8.3) x10*3/uL Absolute Nucleated RBC (0.0-0.012) X10*3/uL Nucleated RBC % (auto) (0.0-0.2) /100WBC Sodium (135-145) mmol/L Potassium (3.3-5.1) mmol/L Chloride (96-108) mmol/L Carbon Dioxide (22-29) mmol/L Anion Gap (12-20) BUN (9-16) mg/dL Creatinine (0.5-1.4) mg/dL Estim Creat Clear Calc Estimated GFR Random Glucose (60-115) mg/dL Lactic Acid (0.5-2.0) mmol/L Lactic Acid F/U @ 2Hr (0.5-2.0) mmol/L Calcium (8.4-10.2) mg/dL Magnesium (1.6-2.6) mg/dL Total Bilirubin (0.0-1.0) mg/dL AST (5-31) U/L ALT (0-31) U/L Alkaline Phosphatase (39-117) U/L C-Reactive Protein (< or = 0.50) mg/dL Total Protein (6.5-8.0) g/dL Albumin (3.5-5.0) g/dL Urine Color Urine Appearance Urine pH (5.0-9.0) Ur Specific [place] (1.005-1.025) Urine Protein (Neg-Trace) mg/dL Urine Glucose (UA) (Negative) mg/dL Urine Ketones (Negative) mg/dL Urine Blood (Negative) Urine Nitrite (Negative) Ur Leukocyte Esterase (Negative) COVID-19 (LUIS) Negative (Negative) COVID-19 Clin Com See Note Influenza Type A (SRIRAM) Negative (Negative) Influenza Type B (SRIRAM) Negative (Negative) Influenza A & B Note See Note S. pyogenes GrpA SRIRAM Negative (Negative) 04/26/23 04/26/23 04/26/23 Range/Units 15:54 15:54 17:23 WBC 15.2 H (4.8-10.8) X10*3/uL RBC 4.38 (4.20-5.50) X10*6/uL Hgb 10.8 L (12.0-16.0) g/dl Hct 35.0 L (37.0-47.0) % MCV 79.9 L (80.0-98.0) fL MCH 24.7 L (27.0-33.0) pg MCHC 30.9 L (31.0-35.0) g/dl RDW 16.4 H (11.0-16.0) % Plt Count 319 (160-400) X10*3/uL MPV 10.8 (9.4-12.3) fL Immature Gran % (Auto) 0.7 H (0.0-0.4) % Neut % (Auto) 88.8 H (45-73) % Lymph % (Auto) 7.1 L (20-40) % [place] % (Auto) 2.1 (2-11) % Eos % (Auto) 0.9 (0-4) % Baso % (Auto) 0.4 (0-2) % Lymph # (Auto) 1.1 L (1.2-4.9) X10*3/uL [place] # (Auto) 0.3 (0.1-1.2) X10*3/uL Eos # (Auto) 0.1 (0.0-0.4) X10*3/uL Baso # (Auto) 0.1 (0.0-0.2) X10*3/uL Abs Immat Gran (auto) 0.10 H (0.00-0.03) X10*3/uL Absolute Neuts (auto) 13.5 H (2.0-8.3) x10*3/uL Absolute Nucleated RBC 0.000 (0.0-0.012) X10*3/uL Nucleated RBC % (auto) 0.0 (0.0-0.2) /100WBC Sodium 134 L (135-145) mmol/L Potassium 4.2 (3.3-5.1) mmol/L Chloride 102 (96-108) mmol/L Carbon Dioxide 16 L (22-29) mmol/L Anion Gap 20 (12-20) BUN 5 L (9-16) mg/dL Creatinine 0.77 (0.5-1.4) mg/dL Estim Creat Clear Calc 105.1 Estimated GFR > 60 Random Glucose 217 H (60-115) mg/dL Lactic Acid 2.7 H* (0.5-2.0) mmol/L Lactic Acid F/U @ 2Hr (0.5-2.0) mmol/L Calcium 9.0 D (8.4-10.2) mg/dL Magnesium 1.9 (1.6-2.6) mg/dL Total Bilirubin 0.7 (0.0-1.0) mg/dL AST 30 (5-31) U/L ALT 16 (0-31) U/L Alkaline Phosphatase 104 (39-117) U/L C-Reactive Protein 6.65 H (< or = 0.50) mg/dL Total Protein 7.5 (6.5-8.0) g/dL Albumin 3.6 (3.5-5.0) g/dL Urine Color Urine Appearance Urine pH (5.0-9.0) Ur Specific [place] (1.005-1.025) Urine Protein (Neg-Trace) mg/dL Urine Glucose (UA) (Negative) mg/dL Urine Ketones (Negative) mg/dL Urine Blood (Negative) Urine Nitrite (Negative) Ur Leukocyte Esterase (Negative) COVID-19 (LUIS) (Negative) COVID-19 Clin Com Influenza Type A (SRIRAM) (Negative) Influenza Type B (SRIRAM) (Negative) Influenza A & B Note S. pyogenes GrpA SRIRAM (Negative) 04/26/23 04/26/23 Range/Units 17:46 19:57 WBC (4.8-10.8) X10*3/uL RBC (4.20-5.50) X10*6/uL Hgb (12.0-16.0) g/dl Hct (37.0-47.0) % MCV (80.0-98.0) fL MCH (27.0-33.0) pg MCHC (31.0-35.0) g/dl RDW (11.0-16.0) % Plt Count (160-400) X10*3/uL MPV (9.4-12.3) fL Immature Gran % (Auto) (0.0-0.4) % Neut % (Auto) (45-73) % Lymph % (Auto) (20-40) % [place] % (Auto) (2-11) % Eos % (Auto) (0-4) % Baso % (Auto) (0-2) % Lymph # (Auto) (1.2-4.9) X10*3/uL [place] # (Auto) (0.1-1.2) X10*3/uL Eos # (Auto) (0.0-0.4) X10*3/uL Baso # (Auto) (0.0-0.2) X10*3/uL Abs Immat Gran (auto) (0.00-0.03) X10*3/uL Absolute Neuts (auto) (2.0-8.3) x10*3/uL Absolute Nucleated RBC (0.0-0.012) X10*3/uL Nucleated RBC % (auto) (0.0-0.2) /100WBC Sodium (135-145) mmol/L Potassium (3.3-5.1) mmol/L Chloride (96-108) mmol/L Carbon Dioxide (22-29) mmol/L Anion Gap (12-20) BUN (9-16) mg/dL Creatinine (0.5-1.4) mg/dL Estim Creat Clear Calc Estimated GFR Random Glucose (60-115) mg/dL Lactic Acid (0.5-2.0) mmol/L Lactic Acid F/U @ 2Hr 1.2 (0.5-2.0) mmol/L Calcium (8.4-10.2) mg/dL Magnesium (1.6-2.6) mg/dL Total Bilirubin (0.0-1.0) mg/dL AST (5-31) U/L ALT (0-31) U/L Alkaline Phosphatase (39-117) U/L C-Reactive Protein (< or = 0.50) mg/dL Total Protein (6.5-8.0) g/dL Albumin (3.5-5.0) g/dL Urine Color Yellow Urine Appearance Clear Urine pH 8.0 (5.0-9.0) Ur Specific [place] 1.010 (1.005-1.025) Urine Protein Trace (Neg-Trace) mg/dL Urine Glucose (UA) Negative (Negative) mg/dL Urine Ketones Negative (Negative) mg/dL Urine Blood Large (3+) H (Negative) Urine Nitrite Negative (Negative) Ur Leukocyte Esterase Negative (Negative) COVID-19 (LUIS) (Negative) COVID-19 Clin Com Influenza Type A (SRIRAM) (Negative) Influenza Type B (SRIRAM) (Negative) Influenza A & B Note S. pyogenes GrpA SRIRAM (Negative) Discharge Plan Discharge Clinical Impression: Fever Patient Disposition: Home, Self-Care Instructions: Fever in Adults (ED) Additional Instructions: Cause of fever is not very clear Take antibiotic as prescribed Follow the PCP for the final culture reports Drink plenty of fluids Prescriptions: New doxycycline hyclate 100 mg tablet 100 mg PO BID Qty: 20 0RF ibuprofen 600 mg tablet 600 mg PO Q6H PRN (Reason: fever or pain) Qty: 30 0RF No Action (DME) blood-glucose meter [OneTouch Ultra2 Meter] Misc See Rx Instructions .Route Qty: 1 0RF Rx Instructions: As directed (DME) OneTouch Ultra Test Strip See Rx Instructions .Route Qty: 100 3RF Rx Instructions: once a day prazosin 2 mg capsule 2 mg PO BEDTIME bupropion HCl [Wellbutrin XL] 300 mg tablet extended release 24 hr 300 mg PO QAM buspirone 5 mg tablet 5 mg PO BID
--- OUTSIDE RECORDS SUMMARY | 2023-04-26 15:23 | XMS_ITS | Continuity of Care Document ---
Author Name Unknown Organization [facility] Address [address] [place] [id number]- Care Team Providers Care Neurology Director Name Role Phone Rama Cui MD Primary Care Physician Encounter [facility] Date(s): 01/28/23 - 04/01/[address] [address]- Attending Physician: Not on Staff, Attending MD Allergies, Adverse Reactions, Alerts Substance Reaction Severity Status sulfADIAZINE hives Active predniSONE hives Active oxytocin Active sulfa drugs Unknown Active Medications BusPIRone By Mouth, 2 times a day, 0 Refills, Maintenance, 03/10/23 11:07:00 EDT, Partial fill upon patient request if the prescription is for a schedule II opioid drug. Start Date: 03/10/23 Status: Ordered ibuprofen 800 mg oral tablet 1, tablet, By Mouth, Every 8 hours, # 90 tablet, Refills 0, Maintenance, 03/02/23 4:48:00 EDT, Route to Pharmacy Electronically, [id number], 154, cm, 01/28/23 11:14:00 EDT, Height, 107, kg, 07/17/22 8:06:00 EDT, Dry Weight Start Date: 03/02/23 Status: Ordered NuLYTELY with Flavor Packs oral powder for reconstitution 240 mL, By Mouth, Every 10 minutes, prior to colonoscopy, # 1 each, 0 Refills, Maintenance, 03/10/23 11:24:00 EDT, REC Powder, [id number], [place] to substitute any PEG 3350 solution, 240 mL By Mouth Every 10 minutes,Instr:prior to colonoscopy, 155... Start Date: 03/10/23 Status: Ordered Prazosin By Mouth, 3 times [...] Team Personnel Name: Rama Cui MD Position: [facility] Physician - Primary Care Member Role: PCP Address: Address: [address] [place] [address]- Care Team Related Persons Name: JESSI QUINONES Address: home [address] [place] [address] Name: GERALDO FRAGOSO Address: home [address] [place] [address]
--- OUTSIDE RECORDS SUMMARY | 2023-04-26 15:23 | XMS_ITS | Continuity of Care Document ---
Author Name Unknown Organization [facility] Address [address] [place] [address]- Care Team Providers Care Allergist/Pediatric Pulmonologist Name Role Phone Rama Cui MD Primary Care Physician [phone] Encounter [facility] Date(s): 03/09/23 - 04/08/23 [facility] [address] [place] [address]- Allergies, Adverse Reactions, Alerts Substance Reaction Severity [...] 03/02/23 4:48:00 EDT, Route to Pharmacy Electronically, [facility] [id number], 154, cm, 01/28/23 11:14:00 EDT, Height, 107, kg, 07/17/22 8:06:00 EDT, Dry Weight Start Date: 03/02/23 Status: Ordered NuLYTELY with Flavor Packs oral powder for reconstitution 240 mL, By Mouth, Every 10 minutes, prior to colonoscopy, # 1 each, 0 Refills, Maintenance, 03/10/23 11:24:00 EDT, REC Powder, [facility]/pharmacy #[id number], [place] to substitute any PEG 3350 [...] Team Personnel Name: Rama Cui MD Position: [facility] Physician - Primary Care Member Role: PCP Address: Address: [address] [place] [address]- Care Team Related Persons Name: JESSI QUINONES Address: home [address] [place] [address] Name: GERALDO FRAGOSO Address: home [address] [place] [address]
--- OUTSIDE RECORDS SUMMARY | 2023-04-26 15:23 | XMS_ITS | Continuity of Care Document ---
Author Name Unknown Organization [facility] Address [address] [place] [address]- Care Team Providers Care Public Health Name Role Phone Rama Cui MD Primary Care Physician [phone] Encounter [facility] Date(s): 01/12/23 - 02/20/[address] [address]- Attending Physician: Not on Staff, Attending MD Allergies, Adverse Reactions, Alerts Substance Reaction Severity Status sulfADIAZINE hives Active predniSONE hives Active Medications ibuprofen 800 mg oral tablet 800 mg, 1, tablet, By Mouth, Every 8 hours, # 90 tablet, Refills 0, Tot. Refills 0, Maintenance, 01/28/23 11:27:00 EDT, Route to Pharmacy Electronically, [facility]/pharmacy #[id number], Partial fill upon patientrequest if the prescription [...] Team Personnel Name: Rama Cui MD Position: [facility] Physician - Primary Care Member Role: PCP Address: Address: [address] [place], [place] - Care Team Related Persons Name: JESSI QUINONES Address: home [address] [place] [address] Name: GERALDO FRAGOSO Address: home [address] [place] [address]
--- OUTSIDE RECORDS SUMMARY | 2023-04-26 15:23 | XMS_ITS | Continuity of Care Document ---
Author Name Unknown Organization [facility] Address [address] [place] [address]- Care Team Providers Care Fish Egg Packer Name Role Phone Rama Cui MD Primary Care Physician [place] [facility] [place] 03/08[place]23 - 03/08/23 [facility] [address] [place] [address]- Encounter Diagnosis Rectal bleeding(Final) - 03/08/23 Discharge Disposition: A-D/C Home Attending Physician: Nik Krishnan DO Admitting Physician: Nik Krishnan DO Referring Physician: Not on Staff, Referring MD Allergies, Adverse Reactions, Alerts Substance Reaction Severity Status sulfADIAZINE hives Active predniSONE hives Active Medications ibuprofen 800 mg oral tablet 1, tablet, By Mouth, Every 8 hours, # 90 tablet, Refills 0, Maintenance, 03/02/23 4:48:00 EDT, Route to Pharmacy Electronically, [id number], 154, cm, 01/28/23 11:14:00 EDT, Height, 107, kg, 07/17/22 8:06:00 EDT, Dry Weight Start Date: 03/02/23 Status: Ordered Prazosin By Mouth, 3 times [...] syndrome) Confirmed Active Severe obesity Confirmed Active Vital Signs Most recent to oldest [Reference Range]: 1 2 Height 155 cm (03/08/23 7:37 PM) 155 cm (03/08/23 7:34 PM) Weight 102 kg (03/08/23 7:37 PM) 102 kg (03/08/23 7:34 PM) Oxygen Saturation [94-100 %] 97 % (03/08/23 7:34 PM) Pulse Rate [55-90 bpm] 86 bpm (03/08/23 7:34 PM) Body Mass Index [18.5-24.99 kg/m2] 42.46 kg/m2 *>HHI* (03/08/23 7:34 PM) Blood Pressure [90-138/55-84 mm Hg] 151/ 78mm Hg *H* (03/08/23 7:34 PM) Respiratory Rate [16-30 br/min] 18 br/mi n (03/08/23 7:34 PM) Temperature [96.8-100.4 DegF] 98.8 DegF (03/08/23 7:34 PM) Mode of Delivery (Oxygen) Room air (03/08/23 7:34 PM) Blood pressure sites Arm, right (03/08/23 7:34 PM) Temperature Route Oral (03/08/23 7:34 PM) Dry Weight 102 kg (03/08/23 7:37 PM) 102 kg (03/08/23 7:34 PM) Weight Obtained Via Patient/family state d (03/08/23 7:34 PM) Dry Weight Obtained Via Patient/family s tated (03/08/23 7:34 PM) Social History Social History Type Response Smoking Status Never (less than 100 in lifetime) entered on: 07/24/20 Sex Female Patient Care team information Care Team Personnel Name: Rama Cui MD Position: [facility] Physician - Primary Care Member Role: PCP Address: Address: [address] [place] [address]- Name: Elvira Shah RN Position: [facility] ED RN W/OE and Tasks Name: Nik Krisnhan DO Position: [facility] Resident Member Role: Admitting Physician Address: Address: [address] [place] [address] Dept of Emergency Medicine [place], [place] [address] Care Team Related Persons Name: JESSI QUINONES Address: home [address] [place] [address] Name: GERALDO FRAGOSO Address: home [address] [place] [address]
--- OUTSIDE RECORDS SUMMARY | 2023-04-26 15:23 | XMS_ITS | Continuity of Care Document ---
Author Name Unknown Organization [facility] Address [address] [place] [address]- Care Team Providers Care Forms Builder Name Role Phone Rama Cui MD Primary Care Physician [phone] Encounter [facility] Date(s): 10/21/22 - 02/18/[address] [address]- Attending Physician: Not on Staff, Attending MD Allergies, Adverse Reactions, Alerts Substance Reaction Severity Status sulfADIAZINE hives Active predniSONE hives Active Medications ibuprofen 800 mg oral tablet 800 mg, 1, tablet, By Mouth, Every 8 hours, # 90 tablet, Refills 0, Tot. Refills 0, Maintenance, 01/28/23 11:27:00 EDT, Route to Pharmacy Electronically, [facility]/pharmacy #[id number], Partial fill upon patientrequest if the prescription [...] (less than 100 in lifetime) entered on: 11/3/20 Sex Female Patient Care team information Care Team Personnel Name: Rama Cui MD Position: S Physician - Primary Care Member Role: PCP Address: Address: [address] [place] [address]- Care Team Related Persons Name: JESSI QUINONES Address: home [address] [place] [address] Name: GERALDO FRAGOSO Address: home [address] [place] [id number]
--- OUTSIDE RECORDS SUMMARY | 2023-04-26 15:23 | XMS_ITS | Continuity of Care Document ---
Author Name Unknown Organization [facility] Address [address] [place] [address]- Care Team Providers Care It Auditor Name Role Phone Rama Cui MD Primary Care Physician En[place] [facility] [place] Date(s): 03/17/23 - 03/17/[address] [address]- Discharge Disposition: A-D/C Home Attending Physician: Angelique Wolfe MD Admitting Physician: Angelique Wolfe MD Referring Physician: Angelique Wolfe MD Allergies, Adverse Reactions, Alerts Substance Reaction Severity Status sulfADIAZINE hives Active predniSONE hives Active oxytocin Active Medications BusPIRone By Mouth, 2 times a day, 0 Refills, Maintenance, 03/10/23 11:07:00 EDT, Partial fill upon patient request if the prescription is for a schedule II opioid drug. Start Date: 03/10/23 Status: Ordered ibuprofen 800 mg oral tablet 1, tablet, By Mouth, Every 8 hours, # 90 tablet, Refills 0, Maintenance, 03/02/23 4:48:00 EDT, Route to Pharmacy Electronically, [facility] [id number], 154, cm, 01/28/23 11:14:00 EDT, Height, 107, [...] recent to oldest [Reference Range]: 1 2 3 Oxygen Saturation [94-100 %] 100 % (03/17/23 1:10 PM) 99 % (03/17/23 1:05 PM) 99 % (03/17/23 1:00 PM) Pulse Rate [55-90 bpm] 78 bpm (03/17/23 11:30 AM) Blood Pressure [90-138/55-84 mm Hg] 129/74mm Hg (03/17/23 1:10 PM) 130/71mm Hg (03/17/23 1:05 PM) 122/67mm Hg (03/17/23 1:00 PM) Respiratory Rate [16-30 br/min] 21 br/min (03/17/23 1:10 PM) 16 br/min (03/17/23 1:05 PM) 42 br/min *H* (03/17/23 1:00 PM) Temperature [96.8-100.4 DegF] 96.9 DegF (03/17/23 11:30 AM) Liters per Minute 6 L/min (03/17/23 1:00 PM) Mode of Delivery (Oxygen) Simple face ma sk (03/17/23 1:00 PM) Room air (03/17/23 11:30 AM) Blood pressure sites Arm, left (03/17/23 11:30 AM) Temperature Route Temporal (03/17/23 11:30 AM) Dry Weight 102.5 kg (03/17/23 11:30 AM) Dry Weight Obtained Via Standing scale (03/17/23 11:30 AM) Social History Social History Type Response Smoking Status Never (less than 100 in lifetime) entered on: 07/24/20 Sex Female Patient Care team information Care Team Personnel Name: Rama Cui MD Position: [facility] Physician - Primary Care Member Role: PCP Address: Address: [address] [place] [address]- Care Team Related Persons Name: JESSI QUINONES Address: home [address] [place] [address] Name: GERALDO FRAGOSO Address: home [address] [place] [address]
--- OUTSIDE RECORDS SUMMARY | 2023-04-26 15:23 | XMS_ITS | Continuity of Care Document ---
Author Name Unknown Organization [facility] Address [address] [place] [address]- Care Team Providers Care Landfill Attendant Name Role Phone Rama Cui MD Primary Care Physician [place] [facility] [place] 03/[place]23 - 04/09/23 [facility] [address] [place], [place] [address] Attending Physician: Mecca Monroy Admitting Physician: AdmtrMecca Referring Physician: Admtr, Ar8 Allergies, Adverse Reactions, Alerts Substance Reaction Severity [...] Pharmacy Electronically, [facility] [id number], 154, cm, 01/28/23 11:14:00 EDT, Height, 107, [...] Team Personnel Name: Rama Cui MD Position: [facility] Physician - Primary Care Member Role: PCP Address: Address: [address] [place] [address]- Care Team Related Persons Name: JESSI QUINONES Address: home [address] [place] [address] Name: GERALDO FRAGOSO Address: home [address] [place] [address]
[2023-04-26 15:47] LABS: IDNOW Serial# 08D9AD1C; IDNOW Serial# 9DB6401D; Influenza A Negative (Negative); Influenza B2 Negative (Negative); Strep A Nucleic Acid Negative (Negative)
[2023-04-26 15:48] VITALS: BP 134/76; PULSE 103; RESP 18; O2SAT 98
[2023-04-26 15:48] LABS: COVID-19 Test Negative (Negative); IDNOW Serial# BCCEAD1C
[2023-04-26 15:59] LABS: MANUAL DIFF FLAG NO
[2023-04-26] MEDS: Acetaminophen 325 MG TABLET 650 MG PO (16:03)
[2023-04-26] MEDS: Ondansetron ODT 4 MG TAB.RAPDIS TRANSLINGU (16:04)
[2023-04-26 16:05] LABS: Basophils Absolute Auto 0.1 X10*3/uL (0.0-0.2); Basophils Percent Auto 0.4 % (0-2); Eosinophils Absolute Auto 0.1 X10*3/uL (0.0-0.4); Eosinophils Percent Auto 0.9 % (0-4); Hemoglobin 10.8 g/dl (12.0-16.0); Imm Gran Pct Auto 0.7 % (0.0-0.4); Lymphocytes Absolute Auto 1.1 X10*3/uL (1.2-4.9); Lymphocytes Percent Auto 7.1 % (20-40); Mean Corpuscular HGB Conc 30.9 g/dl (31.0-35.0); Mean Corpuscular Hemoglobin 24.7 pg (27.0-33.0); Mean Corpuscular Volume 79.9 fL (80.0-98.0); Mean Platelet Volume 10.8 fL (9.4-12.3); Monocytes Absolute Auto 0.3 X10*3/uL (0.1-1.2); Monocytes Percent Auto 2.1 % (2-11); Neutrophils Absolute Auto 13.5 x10*3/uL (2.0-8.3); Neutrophils Percent Auto 88.8 % (45-73); Platelet Count 319 X10*3/uL (160-400); Red Blood Count 4.38 X10*6/uL (4.20-5.50); Red Cell Distribution Width 16.4 % (11.0-16.0); White Blood Count 15.2 X10*3/uL (4.8-10.8)
[2023-04-26 16:23] LABS: Alanine Aminotransferase 16 U/L (0-31); Albumin Level 3.6 g/dL (3.5-5.0); Alkaline Phosphatase 104 U/L (39-117); Anion Gap 20 (12-20); Aspartate Amino Transferase 30 U/L (5-31); Bilirubin Total 0.7 mg/dL (0.0-1.0); Blood Urea Nitrogen 5 mg/dL (9-16); Carbon Dioxide 16 mmol/L (22-29); Chloride 102 mmol/L (96-108); Creatinine Clr Calc Pharmacy 105.1; Estimated Glomerular Filt Rate > 60; Glucose Random 217 mg/dL (60-115); Magnesium 1.9 mg/dL (1.6-2.6); Potassium 4.2 mmol/L (3.3-5.1); Sodium 134 mmol/L (135-145); Total Protein 7.5 g/dL (6.5-8.0)
[2023-04-26] MEDS: 0.9 % Sodium Chloride 1,000 ML 999 ML IV ×2 (17:40→19:59)
[2023-04-26] MEDS: cefTRIAXone sodium 1 GM in 0.9 % Sodium Chloride 50 ML IV (17:40)
[2023-04-26 17:50] LABS: Lactic Acid 2.7 mmol/L (0.5-2.0)
[2023-04-26 18:42] VITALS: BP 111/46; PULSE 97; RESP 18; O2SAT 98
[2023-04-26 18:49] LABS: Appearance Urine Clear; Color Urine Yellow; Glucose Urine UA Negative (Negative); Leukocyte Esterase Urine Negative (Negative); Nitrite Urine Negative (Negative); UMIC TRIGGER UACC YES; Urine Blood Large (3+) (Negative); Urine Ketones Negative (Negative); Urine Protein Trace mg/dL (Neg-Trace)
[2023-04-26 19:25] LABS: C Reactive Protein 6.65 mg/dL (< or = 0.50)
[2023-04-26 19:27] LABS: Reflex Lactate? Lactic Acid Added
[2023-04-26] MEDS: Doxycycline Monohydrate 100 MG CAPSULE PO (19:59)
[2023-04-26 20:14] LABS: ~Lactic Acid-LAB USE ONLY 1.2 mmol/L (0.5-2.0)
[2023-04-26 21:26] LABS: Bacteria Urine None Seen (None Seen); Hyaline Casts Urine 0-2 /LPF (0-2); RBC Urine >20 /HPF (0-2); Squamous Epithelial Cell Urine 0-2 /HPF (0-2); WBC Urine 0-5 /HPF (0-5)
[2023-04-26 22:30] VITALS: BP 134/66; PULSE 94; RESP 16; O2SAT 97
[2023-04-28 10:23] LABS: Lyme Abs Screen <0.90 index
[2023-04-30 18:59] LABS: Babesia IgG <1:64 titer (<1:64); Babesia IgM <1:20 titer (<1:20)
[2023-05-11 14:59] LABS: A. Phagocytophilum Ab IgG <1:64 (<1:64); A. Phagocytophilum Ab IgM <1:20 (<1:20); E. Chaffeensis Ab IgG <1:64 (<1:64); E. Chaffeensis Ab IgM <1:20 (<1:20)
== END 2023-04-26 22:42 | disposition home or self-care (01) ==
PROVIDERS: Physician Assistant Medical; Emergency Provider Internal Medicine; PCP Internal Medicine
DX: R50.9 Fever, unspecified (principal); M79.10 Myalgia, unspecified site; R05.9 Cough, unspecified; Z20.822 Contact with and (suspected) exposure to COVID-19; Z20.828 Contact with and (suspected) exposure to other viral communicable diseases; Z79.899 Other long term (current) drug therapy
CPT/HCPCS: 36415; 71046; 80053; 81001; 83605; 83735; 85025; 86140; 86617; 86618; 86666; 86753; 87040; 87502; 87635; 87651; 96361; 96365; 99284; J0696

== ENCOUNTER 2023-05-01 08:48 | Emergency (ER) | payer OTHER, SELFPAY ==
--- NOTE | 2023-05-01 08:54 | ECG_ITS ---
Test Reason : dizziness Blood Pressure : / mmHG Vent. Rate : 075 BPM Atrial Rate : 075 BPM P-R Int : 134 ms QRS Dur : 076 ms QT Int : 428 ms P-R-T Axes : 032 046 028 degrees QTc Int : 477 ms Normal sinus rhythm Low voltage QRS Borderline ECG When compared with ECG of 06-MAR-2022 21:51, No significant change was found Referred By: Generic ED Physician Electronically Signed By:Trell Solomon
[2023-05-01 09:02] VITALS: BP 141/60; PULSE 78; RESP 16; TEMP 37.1; O2SAT 97; BMI 41.6
[2023-05-01 09:25] LABS: Hematocrit 31.5 % (37.0-47.0); Hemoglobin 9.9 g/dl (12.0-16.0); Mean Corpuscular HGB Conc 31.4 g/dl (31.0-35.0); Mean Corpuscular Hemoglobin 24.5 pg (27.0-33.0); Mean Platelet Volume 10.3 fL (9.4-12.3); NRBC Pct Auto 0.2 /100WBC (0.0-0.2); Platelet Count 332 X10*3/uL (160-400); Red Blood Count 4.04 X10*6/uL (4.20-5.50); Red Cell Distribution Width 16.8 % (11.0-16.0); White Blood Count 9.5 X10*3/uL (4.8-10.8)
[2023-05-01 09:42] LABS: Anion Gap 14 (12-20); Blood Urea Nitrogen 8 mg/dL (9-16); Calcium 9.3 mg/dL (8.4-10.2); Carbon Dioxide 26 mmol/L (22-29); Chloride 105 mmol/L (96-108); Creatinine Clr Calc Pharmacy 117.3; Estimated Glomerular Filt Rate > 60; Glucose Random 123 mg/dL (60-115); Potassium 3.8 mmol/L (3.3-5.1); Sodium 141 mmol/L (135-145)
[2023-05-01 09:51] LABS: Troponin-I High Sensitivity 6.3 ng/L (<3.5-17.0)
--- NOTE | 2023-05-01 10:05 | ED_ITS ---
HPI - Arrhythmia/Palpitations General Chief Complaint: Arrhythmia/Palpitations Stated Complaint: Heart Palpitations Weakness Time Seen by Provider: 05/01/23 09:39 Source: patient Mode of arrival: ambulatory Limitations: no limitations History of Present Illness HPI narrative: 42-year-old female who presents emergency department for evaluation of fatigue, weakness, dizziness, palpitations, body aches. Patient states she has not been feeling well since 04/24/2023 (approximately 8 days). Patient states that she has been having fatigue, weakness, body heaviness with body aches, and palpitations. The patient was seen in the emergency department on 04/26/2023 with similar symptoms and she was treated for suspected tick-borne illness with doxycycline 100 mg q.12 hours times 10 days. She states since taking the doxycycline she has felt slightly better but has continued to have symptoms, therefore she return to the emergency department for evaluation Patient does have a history of iron deficient anemia and she is taking iron supplements twice a day. She is followed by Dr. Bravo . The patient states that she has an appointment to see Dr. Bravo in 2 weeks. Related Data Home Medications Medication Instructions Recorded Confirmed bupropion HCl 300 mg 24 hr tablet, 300 mg PO QAM 02/17/23 02/17/23 extended release (Wellbutrin XL) buspirone 5 mg tablet 5 mg PO BID 02/17/23 02/17/23 prazosin 2 mg capsule 2 mg PO BEDTIME 02/17/23 02/17/23 Previous Rx's Medication Instructions Recorded blood sugar diagnostic (OneTouch #100 ea 03/10/22 Ultra Test strips) blood-glucose meter (OneTouch #1 ea 03/10/22 Ultra2 Meter) doxycycline hyclate 100 mg tablet 100 mg PO BID #20 tabs 04/26/23 ibuprofen 600 mg tablet 600 mg PO Q6H PRN fever or pain 04/26/23 #30 tabs Allergies Allergy/AdvReac Type Severity Reaction Status Date / Time oxytocin [From Pitocin] Allergy Intermediate Palpitation Verified 05/01/23 09:05 s prednisone [PREDNISONE] Allergy Unknown HIVES Verified 05/01/23 09:05 Sulfa (Sulfonamide Allergy Unknown HIVES Verified 05/01/23 09:05 Antibiotics) [SULFA (SULFONAMIDE ANTIBIOTICS)] Review of Systems Review of Systems: Yes all other systems are reviewed and are negative PMFSH Past Medical History Medical History Abdominal pain Anemia Annual physical exam Annual physical exam Anxiety Asthma Flank pain Gestational diabetes mellitus Hematuria Menorrhagia Palpitations Preeclampsia Protein in urine Vertigo Surgical History H/O tooth extraction History of Family History Family History Father HTN (hypertension) Mother Ovarian cancer Bipolar disorder Mental health disorder Maternal Grandfather Diabetes mellitus Maternal Grandmother Breast cancer HTN (hypertension) Paternal Grandfather No problems noted. Paternal Grandmother No problems noted. Family/Other Leukemia Colon cancer Maternal Aunt Colon cancer Social History Social History Household Members: Spouse and Children Housing: Apartment Are you a primary resident care supervisor to a significant other at home: No Do you presently have visiting nurse or other home services: No Alcohol intake: never Patient Tobacco Use Status: Never used Tobacco e-Cigarette/Vaping Use: Never Used service: No Current occupational status: unemployed Cognitive needs: No Hearing needs: No Vision needs: Yes Physical Exam Vital Signs: Vital Signs: Last Vital Signs Temp 98.8 F 05/01/23 09:02 Pulse 78 05/01/23 09:02 Resp 16 05/01/23 09:02 BP 141/60 H 05/01/23 09:02 Pulse Ox 97 05/01/23 09:02 O2 Del Method Room Air 05/01/23 09:02 BMI result Body Mass Index 41.6 Vital signs were normal. Exam: General: Awake, alert in no distress Head: Normocephalic, atraumatic EENT: PERRL, Lids normal, sclera normal, conjunctiva normal, nose normal , ears normal, throat without erythema or exudates Neck: Supple, no adenopathy, trachea midline and nontender Lung: breath sounds symmetric, no wheezing, rales or rhonchi Chest: symmetric movement, nontender Heart: regular rate and rhythm, normal S1, S2 no murmurs or rubs Abdomen: soft, non-tender, nondistended, normal bowel sounds Back: no vertebral tenderness, no CVAT Extremities: no deformities, moves all extremities symmetrically Skin: no rashes, no lesion, normal color and warmth Neuro: Awake, alert, oriented, normal speech, cranial nerves intact, moves all extremities symmetrically Psych: Pleasant, cooperative Medical Decision Making Medical Decision Making [facility] Narrative: 42-year-old female who presents emergency department for evaluation of flu like illness times 8 days with symptoms including fatigue, myalgias, arthralgias, chills with no fever, shortness of breath, dyspnea on exertion. Patient was seen in the emergency department on 04/26/2023 and diagnosed with suspected tick- borne illness and started on doxycycline 100 mg q.12 hours for 10 days-she has completed 5 days of this treatment. Patient states she is feeling slightly better but is still having symptoms so she return to the emergency department for evaluation. Patient's vital signs were normal. Physical examination was unremarkable. Following tests were ordered: CBC, BMP, troponin, iron profile, EKG. 1021: Patient's laboratory evaluation is consistent with a microcytic anemia, not low enough to require transfusion. Patient has EKG and troponin were unremarkable. Patient's symptoms are consistent with a flu-like illness which I suspect is most likely caused by a tick-borne illness (anaplasmosis or ehrlichiosis). Patient was advised to increase her iron supplement to 3 times a day and to follow-up with Dr. Bravo to discuss her microcytic anemia. Patient was advised to complete her course of doxycycline even if the tick-borne illness panel is negative She was advised to take Tylenol and ibuprofen for pain and fever, she was given printed and verbal instructions and discharged home Differential Diagnosis Differential Diagnoses: The differential diagnosis associated with the presentation includes Differential diagnosis includes was not limited to palpitations, anxiety, myocardial infarction, myocardial ischemia, viral syndrome, tick-borne illness, anemia, electrolyte abnormalities Admission/Observation Consideration of admission/observation: Escalation of care including admission/observation considered Lab Data [facility] Lab Attestation statement: I reviewed the patient's lab results. My independent interpretation patient's laboratory evaluation is as follows: Patient's WBC normal 9500. Anemia with an H&H of 9 and 31, Low MCV of 78-this is a microcytic anemia which is lower than previous value of 10 and 35 but I do not think that it is low enough to require transfusions. BMP was normal except for glucose of 123. High sensitive troponin I was detectable but not elevated at 6.3-patient has had similar elevations in the past. 05/01/23 09:19 05/01/23 09:19 Labs: Lab Results 05/01/23 05/01/23 05/01/23 Range/Units 09:19 09:19 09:19 WBC 9.5 (4.8-10.8) X10*3/uL RBC 4.04 L (4.20-5.50) X10*6/uL Hgb 9.9 L (12.0-16.0) g/dl Hct 31.5 L (37.0-47.0) % MCV 78.0 L (80.0-98.0) fL MCH 24.5 L (27.0-33.0) pg MCHC 31.4 (31.0-35.0) g/dl RDW 16.8 H (11.0-16.0) % Plt Count 332 (160-400) X10*3/uL MPV 10.3 (9.4-12.3) fL Absolute Nucleated RBC 0.020 H (0.0-0.012) X10*3/uL Nucleated RBC % (auto) 0.2 (0.0-0.2) /100WBC Sodium 141 (135-145) mmol/L Potassium 3.8 (3.3-5.1) mmol/L Chloride 105 (96-108) mmol/L Carbon Dioxide 26 (22-29) mmol/L Anion Gap 14 (12-20) BUN 8 L (9-16) mg/dL Creatinine 0.69 (0.5-1.4) mg/dL Estim Creat Clear Calc 117.3 Estimated GFR > 60 Random Glucose 123 H (60-115) mg/dL Calcium 9.3 (8.4-10.2) mg/dL Troponin I High Sens 6.3 (<3.5-17.0) ng/L Independent Interpretation I performed an independent interpretation of an: EKG Interpretation: My independent interpretation patient's 12 EKG done at 08:58 hours is as follows: Normal sinus rhythm with a rate of 75, normal AR and QRS duration slight elevation in her QTC of 477 milliseconds, no ST segment elevation, no ST segment depression, no significant T-wave abnormalities, no PACs, no PVCs this is a normal EKG. Chronic Conditions Patient?s care impacted by: Other (Anxiety, iron deficient anemia) Discharge Plan Discharge Clinical Impression: Heart palpitations, Fatigue, Whole body pain, Microcytic anemia Patient Disposition: Home, Self-Care Instructions: Heart Palpitations (ED) Additional Instructions: Your laboratory evaluation revealed anemia with a hemoglobin and hematocrit of 9 and 31 with a low MCV 78. This suggests that you may have iron deficient anemia. I did add an iron profile to your labs in you should review this with your promotional representative, Dr. Bravo. I want you to increase your iron supplement to 3 times a day. Your EKG was normal and your high sensitive troponin I was detectable but not elevated at 6.3 (less than 17 is normal in women). You had similar elevations in your troponin in the past. You had a tick-borne illness panel done at your last visit to the emergency department. Your Lyme test was negative but your anaplasmosis, ehrlichiosis and babeiosis tests are pending. Given your symptoms, I suspect that you do have a tick-borne illness and you should complete your 10 day course of doxycycline. If all of your tick-borne illness tests are negative it is still important to finish your 10 day course since these tests are not 100% sensitive and the risk for tick-borne illness in [place] is high. Follow-up with your doctor in 2 days. Please return to the emergency department if your symptoms get worse or if you d evelop any symptoms that are concerning to you. Prescriptions: No Action doxycycline hyclate 100 mg tablet 100 mg PO BID Qty: 20 0RF ibuprofen 600 mg tablet 600 mg PO Q6H PRN (Reason: fever or pain) Qty: 30 0RF (DME) blood-glucose meter [OneTouch Ultra2 Meter] Misc See Rx Instructions .Route Qty: 1 0RF Rx Instructions: As directed (DME) OneTouch Ultra Test Strip See Rx Instructions .Route Qty: 100 3RF Rx Instructions: once a day prazosin 2 mg capsule 2 mg PO BEDTIME bupropion HCl [Wellbutrin XL] 300 mg tablet extended release 24 hr 300 mg PO QAM buspirone 5 mg tablet 5 mg PO BID
[2023-05-01 10:09] VITALS: PULSE 72
[2023-05-01 10:23] VITALS: BP 114/50; PULSE 72; RESP 16; TEMP 36.8; O2SAT 98
[2023-05-01 10:25] LABS: Iron 38 mcg/dL (30-160); Percent Iron Saturation 13 % (15-50); Total Iron Binding Capacity 300 mcg/dL (228-428); Unsaturated Iron Binding 262 ug/dL
== END 2023-05-01 10:41 | disposition home or self-care (01) ==
PROVIDERS: Emergency Provider Emergency Medicine Emergency Medical Services; PCP Internal Medicine
DX: R00.2 Palpitations (principal); R53.83 Other fatigue; M79.10 Myalgia, unspecified site; D50.9 Iron deficiency anemia, unspecified; Z79.899 Other long term (current) drug therapy
CPT/HCPCS: 36415; 80048; 83540; 84484; 85027; 93005; 99283; 99285

== ENCOUNTER → 2023-05-01 08:54 | Outpatient (BNV) | payer OTHER, SELFPAY | PROVIDERS: Emergency Provider Emergency Medicine Emergency Medical Services; PCP Internal Medicine; Visit Provider Internal Medicine Cardiovascular Disease | DX: R42 Dizziness and giddiness (principal) | CPT/HCPCS: 93010 ==

== ENCOUNTER 2023-05-08 14:07 | Outpatient (AMB) | payer OTHER, SELFPAY ==
[2023-05-08 14:25] VITALS: BP 126/74; PULSE 87; O2SAT 97; BMI 40.4
--- NOTE | 2023-05-08 14:25 | A.OFFPC_ITS ---
Vital Signs 05/08/23 14:25 Height 5 ft 1 in Weight 214 lb BMI 40.4 BP 126/74 Blood Pressure Location Lt brachial Position Sitting Pulse 87 Pulse Source Pulse Oximeter Pulse Oximetry (%) 97 Oxygen Delivery Method Room Air Intake Visit Reasons: [facility] [place] infection Intake Note: Pt is here today for ER follow up visit. Allergies oxytocin [From Pitocin] Allergy (Intermediate, Verified 05/08/23 14:26) Palpitations prednisone [PREDNISONE] Allergy (Unknown, Verified 05/08/23 14:26) HIVES Sulfa (Sulfonamide Antibiotics) [SULFA (SULFONAMIDE ANTIBIOTICS)] Allergy (Unknown, Verified 05/08/23 14:26) HIVES sulfadiazine Allergy (Verified 05/08/23 14:26) Hives Medication List - Last Reconciled 05/08/23 by Rama Cui MD blood sugar diagnostic (OneTouch Ultra Test strips) once a day blood-glucose meter (AppTriggerTouch Ultra2 Meter) As directed bupropion HCl (Wellbutrin XL) 300 mg PO QAM buspirone 5 mg PO BID ibuprofen 600 mg PO Q6H PRN prazosin 2 mg PO BEDTIME Tobacco use date assessed: 05/08/23 Dental Screening Dental Screen Date: 05/08/23 Did you have a dental visit in the last 12 months?: Yes Did you have a dental problem in the last 6 months where you did not have access to dental care?: No Was dental information given to patient?: Patient has dentist HPI [facility] [place] infection HPI Details Pt presents for f/u ER visit for general fatigue. She was treated for possible tick-borne disease with doxycycline. Patient denies night sweats fever chills cough abdominal pain. She stopped taking her antidepressants 1 month ago and has not follow-up with her psychiatrist. Patient states Wellbutrin did not make her feel any different and she took it for 2 months. Patient is looking for a new counselor. She denies depression, suicidal ideation or the plan. Patient is getting . Patient follows up with hospice care sales consultant for chronic iron deficiency anemia secondary to menorrhagia. She is planning to have hysterectomy and has an appointment scheduled with remote sensing surveyor with the next month. Patient has not been monitoring her blood glucose because her insurance did not cover test strips. She has been following ADA diet and the A1c in January was 5.6. PFSH Medical History Abdominal pain Anemia Annual physical exam Annual physical exam Anxiety Asthma Flank pain Gestational diabetes mellitus Hematuria Menorrhagia Palpitations Preeclampsia Protein in urine Vertigo Surgical History H/O tooth extraction History of Family History Father HTN (hypertension) Mother Ovarian cancer Bipolar disorder Mental health disorder Maternal Grandfather Diabetes mellitus Maternal Grandmother Breast cancer HTN (hypertension) Paternal Grandfather No problems noted. Paternal Grandmother No problems noted. Family/Other Leukemia Colon cancer Maternal Aunt Colon cancer Social History Household Members: Spouse and Children Housing: Apartment Are you a primary health care marketing specialist to a significant other at home: No Do you presently have visiting nurse or other home services: No Alcohol intake: never Patient Tobacco Use Status: Never used Tobacco e-Cigarette/Vaping Use: Never Used service: No Current occupational status: unemployed Cognitive needs: No Hearing needs: No Vision needs: Yes Questionnaire PHQ-9 Over the last 2 weeks, how often have you been bothered by any of the following problems? 63939 - PHQ-9 Billing: Patient declined-do not bill Source: Developed by Drs. Harry Adams, Bren Hannon, Andrés Fink and colleagues, with an educational kurtis from [email or web address]. Thrive Questionnaire Date Thrive assessed: 05/08/23 What is your living situation today?: I choose not to answer this question Within the past 12 months, did the food you bought not last and you didn't have the money to get more?: I choose not to answer this question Within the past 12 months, did you worry whether your food would run out before you got money to buy more?: I choose not to answer this question Do you have trouble paying for medicines?: I choose not to answer this question Do you have trouble getting transportation to medical appointments?: I choose not to answer this question Do you have trouble paying your heating and electricity bill?: I choose not to answer this question Do you have trouble taking care of your child, family member or friend?: I choose not to answer this question Do you have trouble with day-to-day activities such as bathing, preparing meals, shopping, managing finances, etc.?: I choose not to answer this question Are you currently unemployed and looking for a job?: I choose not to answer this question Are you interested in more education?: I choose not to answer this question Currently or been in a relationship where the following occur: I choose not to answer this question NAYELI-7 AMB Questionnaire NAYELI-7 Date NAYELI - 7 assessed: 05/08/23 Source: Developed by Drs. Harry Adams, Bren Hannon, Andrés Fink and colleagues, with an educational kurtis from [email or web address]. NAYELI-7 Assessment Billing NAYELI-7 Assessment Tool: pt declined-do not bill Review of Systems Const All systems reviewed & are unremarkable except as noted in HPI and below Reports no additional complaints Eyes Reports no additional complaints ENT Reports no additional complaints Card Reports no additional complaints Resp Reports no additional complaints GI Reports no additional complaints Physical exam (Primary Care) Vital Signs: Last Vital Signs Pulse 87 05/08/23 14:25 BP 126/74 05/08/23 14:25 Pulse Ox 97 05/08/23 14:25 Oxygen Delivery Method Room Air 05/08/23 14:25 BMI result Body Mass Index 40.4 Tobacco/Smoking Status: Tobacco use Status Tobacco use date assessed 05/08/23 05/08/23 14:28 Patient Tobacco Use Status Never used Tobacco 05/08/23 14:28 e-Cigarette/Vaping Use Never Used 05/08/23 14:25 Thrive Assessment: Date of Thrive Assessment Date Thrive assessed 05/08/23 05/08/23 14:32 Currently or been in a relationship where the following occur: I choose not to answer this question Const General: comfortable HENMT Head: Yes normal to inspection General nose exam: Normal external nose present Throat: Yes posterior oropharynx normal Eyes General: appearance normal, both eyes and all related structures Neck Neck: Yes supple Resp Effort & Inspection: normal respiratory effort Auscultation: clear to auscultation bilaterally Cardio Rhythm: regular rhythm Heart sounds: S1 normal heart sound present and S2 normal heart sound present GI Inspection: Yes normal to inspection Palpation (GI): Soft to palpation Percussion: Yes normal to percussion Assessment and Plan Assessment & Plan (1) DM type 2 (diabetes mellitus, type 2): Comment: ADA diet controlled, Code(s): E11.9 - Type 2 diabetes mellitus without complications Plan: follow ADA diet, exercise, weight loss discussed, check A1C in Jul. (2) Anemia: Comment: f/u with hematology on Iron infusion, menorrhagia Code(s): D64.9 - Anemia, unspecified (3) Anxiety and depression: Code(s): F41.9 - Anxiety disorder, unspecified; F32.A - Depression, unspecified Plan: Patient will schedule appointment with a counselor. She declined taking medications. She is aware of crisis center number to reach for help. Medications: Refilled blood-glucose meter (OneTouch Ultra2 Meter) As directed 1 ea 0RF E11.9 - Type 2 diabetes mellitus without complications blood sugar diagnostic (OneTouch Ultra Test strips) once a day 100 ea 3RF Coding Level of Care Code Est Pt Level 4 (12249) Diagnoses DM type 2 (diabetes mellitus, type 2) E11.9 Anemia D64.9 Anxiety and depression F41.9; F32.A
== END 2023-05-08 15:11 | disposition home or self-care (01) ==
PROVIDERS: PCP Internal Medicine; Visit Provider Internal Medicine
DX: E11.9 Type 2 diabetes mellitus without complications (principal); D64.9 Anemia, unspecified; F41.9 Anxiety disorder, unspecified; F32.A Depression, unspecified
CPT/HCPCS: 99214

== ENCOUNTER 2023-05-26 14:43 | Outpatient (REF) | payer OTHER, SELFPAY | END 2023-05-26 14:44 | disposition home or self-care (01) | LOC: HO.MDS 14:43 | PROVIDERS: Visit Provider Internal Medicine Medical Oncology | DX: D50.8 Other iron deficiency anemias (principal) | CPT/HCPCS: 96365; J1756 ==

== ENCOUNTER 2023-06-03 07:03 | Outpatient (REF) | payer OTHER, SELFPAY | END 2023-06-03 07:04 | disposition home or self-care (01) | LOC: HO.MDS 07:03 | PROVIDERS: PCP Internal Medicine; Visit Provider Internal Medicine Medical Oncology | DX: D50.8 Other iron deficiency anemias (principal) | CPT/HCPCS: 96365; J1756 ==

== ENCOUNTER 2023-06-10 07:10 | Outpatient (REF) | payer OTHER, SELFPAY | END 2023-06-10 07:11 | disposition home or self-care (01) | LOC: HO.MDS 07:10 | PROVIDERS: Visit Provider Internal Medicine Medical Oncology | DX: D50.8 Other iron deficiency anemias (principal) | CPT/HCPCS: J1756 ==

== ENCOUNTER → 2023-06-30 08:03 | Outpatient (BNV) | payer OTHER, SELFPAY | PROVIDERS: PCP Internal Medicine; Visit Provider Radiology Vascular & Interventional Radiology | DX: D64.9 Anemia, unspecified (principal) | CPT/HCPCS: 36573 ==

== ENCOUNTER → 2023-06-30 08:16 | Day surgery (SDC) | payer OTHER, SELFPAY | LOC: HO.SSS 08:17 | PROVIDERS: PCP Internal Medicine | DX: D64.9 Anemia, unspecified (principal) | CPT/HCPCS: 36573; C1751 ==

== ENCOUNTER 2023-06-30 09:44 | Outpatient (REF) | payer OTHER, SELFPAY | END 2023-06-30 09:45 | disposition home or self-care (01) | LOC: HO.MDS 09:44 | PROVIDERS: Visit Provider Internal Medicine Medical Oncology | DX: D50.8 Other iron deficiency anemias (principal) | CPT/HCPCS: 96365; J1756 ==

== ENCOUNTER 2023-07-07 07:06 | Outpatient (REF) | payer OTHER, SELFPAY ==
[2023-07-07 07:59] LABS: MANUAL DIFF FLAG NO
[2023-07-07 08:04] LABS: Basophils Percent Auto 0.5 % (0-2); Eosinophils Absolute Auto 0.2 X10*3/uL (0.0-0.4); Eosinophils Percent Auto 2.2 % (0-4); Hematocrit 34.8 % (37.0-47.0); Imm Gran Abs Auto 0.01 X10*3/uL (0.00-0.03); Imm Gran Pct Auto 0.1 % (0.0-0.4); Lymphocytes Absolute Auto 2.5 X10*3/uL (1.2-4.9); Lymphocytes Percent Auto 31.2 % (20-40); Mean Corpuscular HGB Conc 31.6 g/dl (31.0-35.0); Mean Corpuscular Hemoglobin 25.6 pg (27.0-33.0); Mean Corpuscular Volume 80.9 fL (80.0-98.0); Mean Platelet Volume 11.2 fL (9.4-12.3); Monocytes Absolute Auto 0.3 X10*3/uL (0.1-1.2); Monocytes Percent Auto 3.6 % (2-11); Neutrophils Percent Auto 62.4 % (45-73); Platelet Count 285 X10*3/uL (160-400); Red Cell Distribution Width 19.3 % (11.0-16.0)
== END 2023-07-07 07:07 | disposition home or self-care (01) ==
LOC: HO.MDS 07:06
PROVIDERS: Visit Provider Internal Medicine Medical Oncology
DX: D50.8 Other iron deficiency anemias (principal)
CPT/HCPCS: 36415; 85025; 96365; J1756

== ENCOUNTER 2023-07-14 07:10 | Outpatient (REF) | payer OTHER, SELFPAY | END 2023-07-14 07:11 | disposition home or self-care (01) | LOC: HO.MDS 07:10 | PROVIDERS: Visit Provider Internal Medicine Medical Oncology | DX: D50.8 Other iron deficiency anemias (principal) | CPT/HCPCS: 96365; 96375; J1756; J2405 ==

== ENCOUNTER 2023-07-21 07:27 | Outpatient (REF) | payer OTHER, SELFPAY | END 2023-07-21 07:28 | disposition home or self-care (01) | LOC: HO.MDS 07:27 | PROVIDERS: Visit Provider Internal Medicine Medical Oncology | DX: D50.8 Other iron deficiency anemias (principal) | CPT/HCPCS: 96365; J1756 ==

== ENCOUNTER 2023-07-28 06:59 | Outpatient (REF) | payer OTHER, SELFPAY | END 2023-07-28 07:00 | disposition home or self-care (01) | LOC: HO.MDS 06:59 | PROVIDERS: Visit Provider Internal Medicine Medical Oncology | DX: D50.8 Other iron deficiency anemias (principal) | CPT/HCPCS: 96365; J1756 ==

== ENCOUNTER 2023-07-28 08:57 | Outpatient (REF) | payer OTHER, SELFPAY ==
--- NOTE | ~2023-07-28 | US_ITS ---
EXAMINATION: US VENOUS WITH DOPPLER UPPER EXTREMITY, LEFT CLINICAL INFORMATION: Pain PICC line in situ, insertion site at antecubital fossa COMPARISON: None available. TECHNIQUE: Ultrasound of the upper extremity is performed using compression sonography and color and pulse Doppler flow with assessment of augmentation of flow. There is also imaging and Doppler assessment of the jugular and subclavian veins. Spectral analysis with color-flow imaging is performed. FINDINGS: Respiratory variation, normal compression, and augmented flow are noted within including the axillary and brachial veins. There is normal flow in the internal jugular and subclavian veins. There is no visible deep thrombophlebitis. There is cephalic vein thrombus from the distal humerus to the cephalic origin. This is a superficial vein US/US venous duplex UE LT IMPRESSION: No DVT demonstrated in the left upper extremity. There is cephalic vein thrombus from the distal humerus to the cephalic origin. This is a superficial vein. Preliminary report was [place] Texted by the technologist to Dr. Tang.
== END 2023-07-28 08:58 | disposition home or self-care (01) ==
LOC: HO.US 08:57
PROVIDERS: Visit Provider Internal Medicine Medical Oncology
DX: M79.602 Pain in left arm (principal); I82.90 Acute embolism and thrombosis of unspecified vein
CPT/HCPCS: 93971

== ENCOUNTER 2023-07-30 18:53 | Emergency (ER) | payer OTHER, SELFPAY ==
--- NOTE | ~2023-07-30 | US_ITS ---
EXAMINATION: US VENOUS WITH DOPPLER UPPER EXTREMITY, LEFT CLINICAL INFORMATION: Increased swelling. COMPARISON: Left upper extremity ultrasound 07/28/2023. TECHNIQUE: Ultrasound of the upper extremity is performed using compression sonography and color and pulse Doppler flow with assessment of augmentation of flow. There is also imaging and Doppler assessment of the jugular and subclavian veins. Spectral analysis with color-flow imaging is performed. FINDINGS: Respiratory variation, normal compression, and augmented flow are noted throughout the upper extremity including the axillary, brachial, cubital, and radial and ulnar veins. There is normal flow in the internal jugular and subclavian veins. Redemonstration of partial superficial venous thrombosis involving the cephalic vein from the distal humerus to the cephalic origin, that is slightly decrease along the distal humerus compared to 07/28/2023. US/US venous duplex UE LT IMPRESSION: Redemonstration of superficial thrombophlebitis involving the cephalic vein from the distal humerus to the cephalic origin, that is slightly decrease in size along the distal humerus compared to 07/28/2023.
[2023-07-30 18:57] VITALS: BP 153/77; PULSE 85; RESP 18; TEMP 36.8; O2SAT 97; BMI 40.3
--- NOTE | 2023-07-30 19:04 | ED.GENADULT ---
HPI - General Adult General Chief complaint: General Medical Stated complaint: Blood clot - referred by PCP Time Seen by Provider: 07/30/23 21:12 Source: patient Mode of arrival: ambulatory Limitations: no limitations History of Present Illness HPI narrative: 42-year-old female came in for evaluation left arm swelling. S/p PICC line removal from the left upper extremity 2 days ago patient also found to have a superficial thrombophlebitis by ultrasound ordered by PCP patient was placed on Eliquis for superficial thrombophlebitis by her PCP, patient was instructed by PCP if any swelling in the left upper extremity to seek immediate medical attention came in today because patient felt left upper extremity swelling no trauma, no injury. Patient had ultrasound in the ED today which showed improvement of the superficial thrombophlebitis, patient also noticed decreased swelling of the left upper extremity. No CP, no SOB. Related Data Home Medications Medication Instructions Recorded Confirmed ferrous sulfate 325 mg (65 mg 325 mg PO TID anemia 05/12/23 05/12/23 iron) tablet Previous Rx's Medication Instructions Recorded ibuprofen 600 mg tablet 600 mg PO Q6H PRN fever or pain 04/26/23 #30 tabs blood sugar diagnostic (OneTouch #100 ea 05/08/23 Ultra Test strips) blood-glucose meter (OneTouch #1 ea 05/08/23 Ultra2 Meter) tramadol 5 mg/mL oral solution 50 mg (10 mL) PO BID PRN 07/23/23 Breakthrough Pain, Severe #30 mL apixaban 5 mg (74 tabs) tablets in 5 mg PO BID #74 ea 07/28/23 a dose pack (Eliquis DVT-PE Treat 30D Start) Allergies Allergy/AdvReac Type Severity Reaction Status Date / Time oxytocin [From Pitocin] Allergy Intermediate Palpitation Verified 07/30/23 18:57 s prednisone [PREDNISONE] Allergy Unknown HIVES Verified 05/12/23 15:48 Sulfa (Sulfonamide Allergy Unknown HIVES Verified 07/30/23 18:57 Antibiotics) [SULFA (SULFONAMIDE ANTIBIOTICS)] sulfadiazine Allergy Hives Verified 07/30/23 18:57 Review of Systems Review of Systems: All other systems are reviewed and are negative Constitutional: Reports as per HPI and Reports no additional constitutional complaints Eyes: Reports as per HPI and Reports no additional eye complaints Reports system reviewed and no additional complaints, except as documented Cardiovascular: Reports as per HPI and Reports no additional cardiovascular complaints Respiratory: Reports as per HPI and Reports no additional respiratory complaints Gastrointestinal: Reports as per HPI and Reports no additional gastrointestinal complaints Genitourinary: Reports no additional female genitourinary complaints Musculoskeletal: Reports no additional musculoskeletal complaints Skin/Breast: Reports system reviewed and no additional complaints, except as docu Psychiatric: Reports no additional psychiatric complaints Endocrine: Reports no additional endocrine complaints Hematologic/Lymphatic: Reports no additional hematologic/lymphatic complaints Allergic/Immunologic: Reports no additional allergic/immunologic complaints Reports system reviewed and no additional complaints, except as documented and Reports Abnormal speech present [facility] Past Medical History Medical History Annual physical exam Annual physical exam Flank pain Hematuria Protein in urine Abdominal pain Anxiety Menorrhagia Palpitations Vertigo Gestational diabetes mellitus Preeclampsia Asthma Anemia Surgical History H/O tooth extraction History of Family History Family History Father HTN (hypertension) Mother Ovarian cancer Bipolar disorder Mental health disorder Maternal Grandfather Diabetes mellitus Maternal Grandmother Breast cancer HTN (hypertension) Paternal Grandfather No problems noted. Paternal Grandmother No problems noted. Family/Other Leukemia Colon cancer Maternal Aunt Colon cancer Social History Social History Household Members: Spouse and Children Housing: Apartment Are you a primary resident care aid to a significant other at home: No Do you presently have visiting nurse or other home services: No Alcohol intake: never Patient Tobacco Use Status: Never used Tobacco e-Cigarette/Vaping Use: Never Used Advance Directives: No service: No Current occupational status: unemployed Cognitive needs: No Hearing needs: No Vision needs: Yes Physical Exam ED Vital Signs: Vital Signs - 24 hr 07/30/23 18:57 07/30/23 21:15 Temperature 98.3 F Pulse Rate 85 Respiratory Rate 18 16 Blood Pressure 153/77 H Pulse Oximetry 97 Oxygen Delivery Method Room Air BMI result Body Mass Index 40.3 Vital signs have been reviewed and appear to be correct. Blood pressure elevated. Heart rate normal. Respiratory rate normal. Temperature normal. Oxygen saturation normal. Appearance: Alert. Oriented X3. No acute distress. Head: Normal external exam. Normocephalic. Atraumatic. No Gonzalez signs noted. No raccoon eyes noted Eyes: PERRLA. EOMI. Conjunctiva and sclera normal. Eyelids normal. ENT: TM's Normal. Pharynx normal. Uvula midline. Moist mucous membranes. No trismus noted. No drooling noted. No muffled voice noted. Neck: Normal inspection. Neck supple. FROM. No adenopathy. Thyroid Normal. No meningeal signs. No neck mass noted. CVS: Normal heart rate and rhythm. Heart sound normal. No murmurs noted. Pulses normal throughout. Respiratory: No respiratory distress. Painless inspiration. Breath sounds normal. No wheezes/rales/rhonchi noted. Chest nontender. No accessory muscle usage noted or decreased air movement noted. Abdomen: Soft and nontender. Bowel sounds normal in all 4 quadrants. No distention noted. No organomegaly noted. No visible injury noted. Back: No CVA tenderness. Full range of motion noted. Skin: Skin warm and dry. Normal skin color. Normal skin turgor. No rashes/lesions/lacerations noted. Extremities: No lower extremity edema. Extremities exhibit normal range of motion. Extremities nontender. Neuro: Oriented X 3. Cranial nerve exam: II-XII are grossly intact No motor deficit. No sensory deficit. Reflexes normal. Course Reevaluation(s) Reevaluation #1: Improvement of her left upper extremity swelling, ultrasound demonstrated improvement of the superficial thrombophlebitis from 2 days ago. Time: 21:35 Medical Decision Making Differential Diagnosis Differential Diagnoses: The differential diagnosis associated with the presentation includes (Superficial thrombophlebitis, DVT, cellulitis.) Admission/Observation Consideration of admission/observation: Escalation of care including admission/observation considered Independent Interpretation I performed an independent interpretation of an: Ultrasound (Redemonstration of superficial thrombophlebitis involving the cephalic vein from the distal humerus to the cephalic origin, that is slightly decrease in size along the distal humerus compared to 07/28/2023. ) Radiology Impression Discussion of test interpretation with radiology: I have reviewed the radiologist's reading. Discharge Plan Discharge Clinical Impression: Superficial thrombophlebitis of left upper extremity Patient Disposition: Home, Self-Care Instructions: Superficial Thrombophlebitis (ED) Prescriptions: No Action ferrous sulfate [FerrouSul] 325 mg (65 mg iron) Tablet 325 mg PO TID tramadol 5 mg/mL Solution 50 mg PO BID PRN (Reason: Breakthrough Pain, Severe) Qty: 30 0RF Eliquis DVT-PE Treat 30D Start 5 mg (74 tabs) Tablets,Dose Pack 5 mg PO BID Qty: 74 0RF Rx Instructions: TAKE 10 MG P.O. B.I.D. FOR 7 DAYS THEN 5 MG P.O. DAILY ibuprofen 600 mg tablet 600 mg PO Q6H PRN (Reason: fever or pain) Qty: 30 0RF (DME) blood-glucose meter [OneTouch Ultra2 Meter] Misc See Rx Instructions .Route Qty: 1 0RF Rx Instructions: As directed (DME) OneTouch Ultra Test Strip See Rx Instructions .Route Qty: 100 3RF Rx Instructions: once a day Referrals: Rama Cui MD [Primary Care Provider] - Interventions: ED Discharge Assessment Last Done: 07/30/23 21:50 Discharge Date/Time: 07/30/23 21:51
[2023-07-30 21:15] VITALS: RESP 16
--- NOTE | 2023-07-30 21:15 | PC.NURSE ---
Patient brought back from waiting room, states she had a picc line in her left arm that was removed recently due to the development of a blood clot. Area is tender and warm to the touch, also appears edematous. Patient reports she noticed the area this am
== END 2023-07-30 21:51 | disposition home or self-care (01) ==
PROVIDERS: Emergency Provider Emergency Medicine; PCP Internal Medicine
DX: I80.8 Phlebitis and thrombophlebitis of other sites (principal); M79.89 Other specified soft tissue disorders; Z79.01 Long term (current) use of anticoagulants
CPT/HCPCS: 93971; 99284

== ENCOUNTER 2024-01-24 22:33 | Emergency (ER) | payer OTHER, SELFPAY ==
--- NOTE | ~2024-01-24 | CT_ITS ---
EXAMINATION: CT ABDOMEN AND PELVIS WITH CONTRAST CLINICAL INFORMATION: Right lower quadrant tenderness, rule out appendicitis COMPARISON: 02/01/2023 TECHNIQUE: Multidetector volumetric images were obtained from the superior aspect of the liver through the pubic symphysis following administration 85 mL of Omnipaque 350 intravenous contrast. Sagittal and coronal reformatted images were obtained on the technologist's workstation. Oral contrast: No This CT examination was performed using dose optimization techniques as appropriate, variously including the following: *Automated exposure control *Adjustment of mA and/or kV according to patient size (this includes techniques or standardized protocols for targeted exams where dose is matched to indication/reason for exam; i.e. extremities or head) *Use of iterative reconstruction technique DLP: 693 mGy-cm FINDINGS: LUNG BASES: The visualized lung bases are unremarkable. LIVER, GALLBLADDER, AND BILIARY TREE: The liver is enlarged, measuring approximately 22 cm in length. No focal hepatic lesion or biliary ductal dilatation is present. The gallbladder is unremarkable with no evidence of radiopaque gallstones, gallbladder wall thickening, or obvious pericholecystic inflammatory changes. PANCREAS: Unremarkable. SPLEEN: Enlarged, measuring approximately 16 cm in the axial plane. ADRENAL GLANDS: Unremarkable. KIDNEYS AND URETERS: The kidneys are normal in size, shape, and attenuation. No hydronephrosis, hydroureter, or calculi seen. No perinephric stranding. BLADDER: Unremarkable. GASTROINTESTINAL TRACT: No evidence of bowel obstruction. Colonic diverticulosis is noted without diverticulitis. The appendix is unremarkable. No free air is seen. ABDOMINAL WALL: No significant hernia is appreciated. LYMPH NODES: Normal. VASCULAR: Unremarkable. PELVIC VISCERA: Unremarkable. Trace pelvic free fluid. OSSEOUS STRUCTURES: Unremarkable. CT/CT abdomen pelvis w IV con IMPRESSION: 1. Normal appendix. 2. Trace pelvic free fluid, which may be physiologic. 3. Hepatosplenomegaly.
--- NOTE | ~2024-01-24 | XR_ITS ---
EXAMINATION: XR CHEST CLINICAL INFORMATION: Chest pain COMPARISON: 04/26/2023 TECHNIQUE: Frontal view of the chest was obtained. FINDINGS: No significant abnormality is noted involving the heart, lungs, mediastinum, bony thorax or soft tissues. XR/XR chest 1V IMPRESSION: Unremarkable examination.
--- NOTE | 2024-01-24 22:36 | ECG_ITS ---
Test Reason : CHEST PAIN Blood Pressure : / mmHG Vent. Rate : 104 BPM Atrial Rate : 104 BPM P-R Int : 148 ms QRS Dur : 080 ms QT Int : 348 ms P-R-T Axes : 034 079 042 degrees QTc Int : 457 ms Sinus tachycardia Otherwise normal ECG When compared with ECG of 01-MAY-2023 08:58, No significant change was found Referred By: Generic ED Physician Electronically Signed By:Trell Solomon
[2024-01-24 22:41] VITALS: BP 149/81; PULSE 113; RESP 18; TEMP 37.1; O2SAT 94; BMI 41.6
[2024-01-24 23:10] LABS: MANUAL DIFF FLAG NO
[2024-01-24 23:19] LABS: Basophils Absolute Auto 0.1 X10*3/uL (0.0-0.2); Basophils Percent Auto 0.4 % (0-2); Eosinophils Absolute Auto 0.2 X10*3/uL (0.0-0.4); Eosinophils Percent Auto 0.9 % (0-4); Hematocrit 40.9 % (37.0-47.0); Hemoglobin 13.9 g/dl (12.0-16.0); Imm Gran Abs Auto 0.11 X10*3/uL (0.00-0.03); Imm Gran Pct Auto 0.5 % (0.0-0.4); Lymphocytes Absolute Auto 1.9 X10*3/uL (1.2-4.9); Lymphocytes Percent Auto 8.5 % (20-40); Mean Corpuscular Hemoglobin 28.2 pg (27.0-33.0); Mean Platelet Volume 11.1 fL (9.4-12.3); Monocytes Absolute Auto 0.5 X10*3/uL (0.1-1.2); Monocytes Percent Auto 2.4 % (2-11); Neutrophils Absolute Auto 19.3 x10*3/uL (2.0-8.3); Neutrophils Percent Auto 87.3 % (45-73); Platelet Count 332 X10*3/uL (160-400); Red Blood Count 4.93 X10*6/uL (4.20-5.50); Red Cell Distribution Width 14.6 % (11.0-16.0); White Blood Count 22.1 X10*3/uL (4.8-10.8)
[2024-01-24 23:29] LABS: Alanine Aminotransferase 15 U/L (0-31); Albumin Level 4.1 g/dL (3.5-5.0); Alkaline Phosphatase 100 U/L (39-117); Anion Gap 20 (12-20); Aspartate Amino Transferase 12 U/L (5-31); Bilirubin Total 0.4 mg/dL (0.0-1.0); Blood Urea Nitrogen 9 mg/dL (9-16); Calcium 9.9 mg/dL (8.4-10.2); Carbon Dioxide 20 mmol/L (22-29); Chloride 102 mmol/L (96-108); Creatinine Clr Calc Pharmacy 114.5; Estimated Glomerular Filt Rate > 60; Glucose Random 193 mg/dL (60-115); Potassium 3.8 mmol/L (3.3-5.1); Sodium 138 mmol/L (135-145); Total Protein 7.8 g/dL (6.5-8.0)
[2024-01-24 23:35] LABS: Troponin-I High Sensitivity 7.3 ng/L (<3.5-17.0)
[2024-01-24 23:38] LABS: COVID-19 Test Negative (Negative); IDNOW Serial# 08D9AD1C; IDNOW Serial# 152EDE1D; Influenza A Negative (Negative); Influenza B2 Negative (Negative)
[2024-01-24 23:51] VITALS: BP 134/69; PULSE 98; RESP 14; TEMP 37.1; O2SAT 98
--- NOTE | 2024-01-25 00:10 | ED_ITS ---
HPI - Chest Pain General Chief Complaint: Chest Pain Stated Complaint: abd/chest pain-nauseous Time Seen by Provider: 01/25/24 00:09 Source: patient and family Mode of arrival: ambulatory Limitations: no limitations History of Present Illness HPI narrative: 43-year-old female with a history of asthma, PCOS, depression, anxiety who presents emergency department for evaluation of 2 days of abdominal pain. She states that the pain started yesterday. She states initially the pain was located throughout her entire abdomen today the pain has migrated to her right lower quadrant area. She describes the pain is a constant, stabbing pain which is 9/10. She had no fever but did have chills. She had nausea with no vomiting or diarrhea. She denied frequency urgency or dysuria. She states that she has had similar pain in the past secondary to her PCOS but this pain is more severe. Patient states she did have a 25 years ago with no other surgeries. Related Data Home Medications ?Medication ?Instructions ?Recorded ?Confirmed ferrous sulfate 325 mg (65 mg 325 mg PO TID anemia 05/12/23 05/12/23 iron) tablet Previous Rx's ?Medication ?Instructions ?Recorded ibuprofen 600 mg tablet 600 mg PO Q6H PRN fever or pain 04/26/23 #30 tabs blood sugar diagnostic (OneTouch #100 ea 05/08/23 Ultra Test strips) blood-glucose meter (OneTouch #1 ea 05/08/23 Ultra2 Meter) tramadol 5 mg/mL oral solution 50 mg (10 mL) PO BID PRN 07/23/23 Breakthrough Pain, Severe #30 mL apixaban 5 mg (74 tabs) tablets in 5 mg PO BID #74 ea 07/28/23 a dose pack (Eliquis DVT-PE Treat 30D Start) Allergies Allergy/AdvReac Type Severity Reaction Status Date / Time oxytocin [From Pitocin] Allergy Intermediate Palpitation Verified 01/24/24 22:44 s prednisone [PREDNISONE] Allergy Unknown HIVES Verified 01/24/24 22:44 Sulfa (Sulfonamide Allergy Unknown HIVES Verified 01/24/24 22:44 Antibiotics) [SULFA (SULFONAMIDE ANTIBIOTICS)] sulfadiazine Allergy Hives Verified 01/24/24 22:44 Review of Systems 2 Review of Systems: Yes all other systems are reviewed and are negative [facility] Past Medical History [facility] Narrative: Social history: She denies tobacco use. She occasionally drinks alcohol. She denies drug use. Medical History Annual physical exam Annual physical exam Flank pain Hematuria Protein in urine Abdominal pain Anxiety Menorrhagia Palpitations Vertigo Gestational diabetes mellitus Preeclampsia Asthma Anemia Surgical History H/O tooth extraction History of Family History Family History Father HTN (hypertension) Mother Ovarian cancer Bipolar disorder Mental health disorder Maternal Grandfather Diabetes mellitus Maternal Grandmother Breast cancer HTN (hypertension) Paternal Grandfather No problems noted. Paternal Grandmother No problems noted. Family/Other Leukemia Colon cancer Maternal Aunt Colon cancer Social History Social History Household Members: Spouse and Children Housing: Apartment Are you a primary special needs caregiver to a significant other at home: No Do you presently have visiting nurse or other home services: No Alcohol intake: never Patient Tobacco Use Status: Never used Tobacco Smoked in Last 30 Days: No e-Cigarette/Vaping Use: Never Used Use of substances other than those prescribed or required for medical reasons: No Advance Directives: No Advance Directives Information Provided: No Do you have a plan to hurt others: No Plan Patient : No service: No Current occupational status: unemployed Cognitive needs: No Hearing needs: No Vision needs: Yes Physical Exam 2 Vital Signs: Vital Signs: Last Vital Signs Temp 98.7 F 01/24/24 23:51 Pulse 90 01/25/24 02:21 Resp 13 01/25/24 02:21 BP 111/50 L 01/25/24 02:21 Pulse Ox 96 01/25/24 02:21 O2 Del Method Room Air 01/25/24 02:21 BMI result Body Mass Index 41.6 Vital signs were normal Exam: General: Awake, alert in no distress, weight 99 0.79 kg, elevated BMI 41.6 kg per m2 Head: Normocephalic, atraumatic EENT: PERRL, Lids normal, sclera normal, conjunctiva normal, nose normal , ears normal, throat without erythema or exudates Neck: Supple, no adenopathy Lung: breath sounds symmetric, no wheezing, rales or rhonchi Chest: symmetric movement, nontender Heart: regular rate and rhythm, normal S1, S2 no murmurs or rubs Abdomen: soft, mild to moderate diffuse tenderness, moderate to severe right lower quadrant tenderness, no rebound, no voluntary or involuntary guarding, normoactive bowel sounds Back: no vertebral tenderness, no CVAT Extremities: no deformities, moves all extremities symmetrically Neuro: Awake, alert, oriented, normal speech, moves all extremities symmetrically Psych: Pleasant, cooperative Medications Administered Discontinued Medications Generic Name Dose Route Start Last Admin Trade Name Freq PRN Reason Stop Dose Admin Sodium Chloride 1,000 mls @ 999 mls/hr 01/25/24 00:26 01/25/24 00:43 Ns IV 01/25/24 01:26 999 mls/hr .Q1H1M STA Administration Iohexol 85 ml 01/25/24 01:24 01/25/24 01:25 Iohexol 350 Mg/Ml 100 Ml Infus..Btl IV 01/25/24 01:25 85 ml ONCE ONE Administration Ketorolac Tromethamine 15 mg 01/25/24 00:31 01/25/24 00:43 Ketorolac Tromethamine 15 Mg/Ml Vial IVPUSH 01/25/24 00:32 15 mg ONCE STA Administration Morphine Sulfate 4 mg 01/25/24 00:26 01/25/24 00:44 Morphine Sulfate 4 Mg/Ml Cartridge IVPUSH 01/25/24 00:27 4 mg ONCE STA Administration Protocol Medical Decision Making Medical Decision Making [facility] Narrative: 43-year-old female with a history of asthma, PCOS, depression, anxiety who presents emergency department for evaluation of 2 days of abdominal pain. Pain was initially diffuse his now migrated to the right lower quadrant area, she has associated chills, nausea with no vomiting or diarrhea. Patient's pain is 9/10. Vital signs were normal. Physical examination did reveal mild to moderate diffuse tenderness with moderate to severe right lower quadrant tenderness with no rebound. Differential diagnosis: ?Includes but is not limited to appendicitis, pancreatitis, ruptured ovarian cyst, topic Following evaluation was ordered: CBC, CMP, troponin, lipase, urinalysis, urine test, influenza, COVID-19 Patient was initially treated with the following: Toradol 15 mg IV,morphine 4 mg IV, normal saline x1 L,, Zofran 4 mg IV, Course: 02:33 My independent interpretation patient's laboratory evaluation as follows: Elevated WBC 22,100, low CO2 20, elevated glucose 193. COVID-19, influenza, RSV were negative. Quantitative beta-hCG was below detectable limits. Patient did get some relief with the above medications however pain returned and she was given Dilaudid 1 mg IV. At the end of my shift, patient's CT scan of the abdomen pelvis IV contrast is pending. Patient's care was turned over to my colleague, Dr. Suzanne Luna. Admission/Observation Consideration of admission/observation: Escalation of care including admission/observation considered Lab Data MDM Lab Attestation statement: I reviewed the patient's lab results. 01/24/24 23:05 01/24/24 23:05 Labs: Lab Results 01/24/24 Range/Units 23:05 WBC 22.1 H (4.8-10.8) X10*3/uL RBC 4.93 (4.20-5.50) X10*6/uL Hgb 13.9 (12.0-16.0) g/dl Hct 40.9 (37.0-47.0) % MCV 83.0 (80.0-98.0) fL MCH 28.2 (27.0-33.0) pg MCHC 34.0 (31.0-35.0) g/dl RDW 14.6 (11.0-16.0) % Plt Count 332 (160-400) X10*3/uL MPV 11.1 (9.4-12.3) fL Immature Gran % (Auto) 0.5 H (0.0-0.4) % Neut % (Auto) 87.3 H (45-73) % Lymph % (Auto) 8.5 L (20-40) % Johnston % (Auto) 2.4 (2-11) % Eos % (Auto) 0.9 (0-4) % Baso % (Auto) 0.4 (0-2) % Lymph # (Auto) 1.9 (1.2-4.9) X10*3/uL Johnston # (Auto) 0.5 (0.1-1.2) X10*3/uL Eos # (Auto) 0.2 (0.0-0.4) X10*3/uL Baso # (Auto) 0.1 (0.0-0.2) X10*3/uL Abs Immat Gran (auto) 0.11 H (0.00-0.03) X10*3/uL Absolute Neuts (auto) 19.3 H (2.0-8.3) x10*3/uL Absolute Nucleated RBC 0.000 (0.0-0.012) X10*3/uL Nucleated RBC % (auto) 0.0 (0.0-0.2) /100WBC Sodium 138 (135-145) mmol/L Potassium 3.8 (3.3-5.1) mmol/L Chloride 102 (96-108) mmol/L Carbon Dioxide 20 L (22-29) mmol/L Anion Gap 20 (12-20) BUN 9 (9-16) mg/dL Creatinine 0.70 (0.5-1.4) mg/dL Estim Creat Clear Calc 114.5 Estimated GFR > 60 Random Glucose 193 H (60-115) mg/dL Calcium 9.9 (8.4-10.2) mg/dL Total Bilirubin 0.4 (0.0-1.0) mg/dL AST 12 (5-31) U/L ALT 15 (0-31) U/L Alkaline Phosphatase 100 (39-117) U/L Troponin I High Sens 7.3 (<3.5-17.0) ng/L Total Protein 7.8 (6.5-8.0) g/dL Albumin 4.1 (3.5-5.0) g/dL Lipase 17 (8-78) U/L Beta HCG, Quant < 2 mIU/mL COVID-19 (LUIS) Negative (Negative) COVID-19 Clin Com See Note Influenza Type A (SRIRAM) Negative (Negative) Influenza Type B (SRIRAM) Negative (Negative) Influenza A & B Note See Note Radiology Impression Discussion of test interpretation with radiology: I have reviewed the radiologist's reading. Radiologist Impression: XR chest 1V IMPRESSION: Unremarkable examination. Dictated By: Bubba Quick MD Independent Historian Clinical information obtained from an independent historian. History obtained from or confirmed by: Spouse Chronic Conditions Patient?s care impacted by: Other (PCOS) Discharge Plan Discharge Clinical Impression: Abdominal pain Patient Disposition: Still a Patient Prescriptions: No Action ferrous sulfate [FerrouSul] 325 mg (65 mg iron) Tablet 325 mg PO TID tramadol 5 mg/mL Solution 50 mg PO BID PRN (Reason: Breakthrough Pain, Severe) Qty: 30 0RF Eliquis DVT-PE Treat 30D Start 5 mg (74 tabs) Tablets,Dose Pack 5 mg PO BID Qty: 74 0RF Rx Instructions: TAKE 10 MG P.O. B.I.D. FOR 7 DAYS THEN 5 MG P.O. DAILY ibuprofen 600 mg tablet 600 mg PO Q6H PRN (Reason: fever or pain) Qty: 30 0RF (DME) blood-glucose meter [OneTouch Ultra2 Meter] Misc See Rx Instructions .Route Qty: 1 0RF Rx Instructions: As directed (DME) OneTouch Ultra Test Strip See Rx Instructions .Route Qty: 100 3RF Rx Instructions: once a day Print Language: Divehi
--- OUTSIDE RECORDS SUMMARY | 2024-01-25 00:19 | XMS_ITS | Continuity of Care Document ---
Author Organization [facility] Address [address] [place] [id number]- Care Team Providers Care Manager Performance Improvement Name Role Phone See POOL, Rama Primary Care Physician [place] [facility] [place] 09/02/23 - 10/02/[address] [address]- Attending Physician: Mecca Monroy Admitting Physician: Mecca Monroy Referring Physician: AdmtrMecca Allergies, Adverse Reactions, Alerts Substance Reaction Severity [...] hours, # 90 tablet, Refills 0, Maintenance, 05/25/23 4:25:00 EDT, Route to Pharmacy Electronically, [facility] [id number], 155, cm, 03/25/23 13:24:00 EDT, Height, 102.5, kg, 03/17/23 11:30:00 EDT, Dry Weight Start Date: 05/25/23 Status: Ordered NuLYTELY with Flavor Packs oral powder for reconstitution 240 mL, By Mouth, Every 10 minutes, prior to colonoscopy, # 1 each, 0 Refills, Maintenance, 03/10/23 11:24:00 EDT, REC Powder, [facility]/pharmacy #[id number], OK to substitute any PEG 3350 [...] Team Personnel Name: Rama Cui MD Position: [facility] Physician - Primary Care Member Role: PCP Address: Address: [address] [place] [address]- Care Team Related Persons Name: JESSI QUINONES Address: home [address] [place] [address] Name: GERALDO FRAGOSO Address: home [address] [place] [id number]
--- OUTSIDE RECORDS SUMMARY | 2024-01-25 00:20 | XMS_ITS | Continuity of Care Document ---
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 Name Role Phone Rama Cui MD Primary Care Physician Encounter [facility] [place] Date(s): 06/04/23 - 10/02/[address] [address]- Attending Physician: Not on Staff, Attending MD [...] 05/25/23 4:25:00 EDT, Route to Pharmacy Electronically, [id number], 155, cm, 03/25/23 13:24:00 EDT, Height, 102.5, [...] Team Personnel Name: Rama Cui MD Position: [facility] Physician - Primary Care Member Role: PCP Address: Address: [address] [place] [address]- Care Team Related Persons Name: JESSI QUINONES Address: home [address] [place] [address] Name: GERALDO FRAGOSO Address: home [address] [place] [address]
[2024-01-25] MEDS: Ketorolac Tromethamine 15 MG/ML VIAL IVPUSH (00:43)
[2024-01-25] MEDS: 0.9 % Sodium Chloride 1,000 ML 999 ML IV (00:43)
[2024-01-25] MEDS: Morphine Sulfate 4 MG/ML CARTRIDGE IVPUSH (00:44)
[2024-01-25 00:48] VITALS: PULSE 95
[2024-01-25 00:51] LABS: Lipase 17 U/L (8-78)
[2024-01-25 01:02] LABS: HCG Quantitative < 2 mIU/mL
[2024-01-25] MEDS: iohexoL 350 MG/ML 100 ML INFUS..BTL 85 ML IV (01:25)
[2024-01-25 02:21] VITALS: BP 111/50; PULSE 90; RESP 13; O2SAT 96
[2024-01-25] MEDS: HYDROmorphone HCl 1 MG/ML SYRINGE IVPUSH (02:32)
[2024-01-25 04:14] LABS: MANUAL DIFF FLAG NO
[2024-01-25 04:15] LABS: Basophils Absolute Auto 0.1 X10*3/uL (0.0-0.2); Basophils Percent Auto 0.3 % (0-2); Eosinophils Absolute Auto 0.2 X10*3/uL (0.0-0.4); Eosinophils Percent Auto 0.9 % (0-4); Hematocrit 38.5 % (37.0-47.0); Hemoglobin 12.8 g/dl (12.0-16.0); Imm Gran Abs Auto 0.06 X10*3/uL (0.00-0.03); Imm Gran Pct Auto 0.4 % (0.0-0.4); Lymphocytes Absolute Auto 2.3 X10*3/uL (1.2-4.9); Lymphocytes Percent Auto 13.8 % (20-40); Mean Corpuscular HGB Conc 33.2 g/dl (31.0-35.0); Mean Corpuscular Hemoglobin 28.1 pg (27.0-33.0); Mean Corpuscular Volume 84.6 fL (80.0-98.0); Mean Platelet Volume 11.1 fL (9.4-12.3); Monocytes Absolute Auto 0.4 X10*3/uL (0.1-1.2); Monocytes Percent Auto 2.6 % (2-11); Neutrophils Absolute Auto 13.6 x10*3/uL (2.0-8.3); Platelet Count 293 X10*3/uL (160-400); Red Blood Count 4.55 X10*6/uL (4.20-5.50); Red Cell Distribution Width 14.6 % (11.0-16.0); White Blood Count 16.6 X10*3/uL (4.8-10.8)
[2024-01-25 04:28] LABS: Lactic Acid 1.4 mmol/L (0.5-2.0)
[2024-01-25 04:55] VITALS: BP 114/62; PULSE 80; RESP 11; TEMP 36.7; O2SAT 95
[2024-01-25] MEDS: oxyCODONE HCl Immed Release 5 MG TABLET PO (05:10)
[2024-01-25 05:14] VITALS: BP 114/62; PULSE 80; RESP 11; TEMP 36.7; O2SAT 95
== END 2024-01-25 05:15 | disposition home or self-care (01) ==
PROVIDERS: Internal Medicine; Emergency Provider Emergency Medicine Emergency Medical Services; PCP Internal Medicine
DX: R07.9 Chest pain, unspecified (principal); R10.31 Right lower quadrant pain; E28.2 Polycystic ovarian syndrome
CPT/HCPCS: 36415; 71045; 74177; 80053; 83605; 83690; 84484; 84702; 85025; 87040; 87502; 87635; 93005; 96361; 96374; 96375; 99285; J1170; J1885; J2270; Q9967

== ENCOUNTER → 2024-01-24 22:36 | Outpatient (BNV) | payer OTHER, SELFPAY | PROVIDERS: Emergency Provider Emergency Medicine Emergency Medical Services; PCP Internal Medicine; Visit Provider Internal Medicine Cardiovascular Disease | DX: R07.9 Chest pain, unspecified (principal) | CPT/HCPCS: 93010 ==

== ENCOUNTER 2024-03-02 19:36 | Emergency (ER) | payer OTHER, SELFPAY | END 2024-03-02 21:21 | disposition left against medical advice (07) | PROVIDERS: Emergency Provider Emergency Medicine; PCP Internal Medicine | DX: Z53.21 Procedure and treatment not carried out due to patient leaving prior to being seen by health care provider (principal); N93.9 Abnormal uterine and vaginal bleeding, unspecified; R53.83 Other fatigue; R42 Dizziness and giddiness; R00.2 Palpitations ==

== ENCOUNTER 2024-03-15 10:07 | Emergency (ER) | payer OTHER, SELFPAY ==
--- NOTE | 2024-03-15 | ECG_ITS ---
Test Reason : N/V Blood Pressure : / mmHG Vent. Rate : 075 BPM Atrial Rate : 075 BPM P-R Int : 144 ms QRS Dur : 080 ms QT Int : 418 ms P-R-T Axes : 022 053 049 degrees QTc Int : 466 ms Normal sinus rhythm Nonspecific T wave abnormality Prolonged QT Abnormal ECG When compared with ECG of 24-JAN-2024 22:37, Nonspecific T wave abnormality now evident in Anterolateral leads Referred By: Generic ED Physician Electronically Signed By:ALAN SMITH MD
[2024-03-15 10:19] VITALS: BP 130/66; PULSE 75; RESP 16; TEMP 36.6; O2SAT 99; BMI 36.9
[2024-03-15 10:40] LABS: MANUAL DIFF FLAG NO
[2024-03-15 10:42] LABS: Basophils Percent Auto 0.4 % (0-2); Eosinophils Absolute Auto 0.2 X10*3/uL (0.0-0.4); Eosinophils Percent Auto 2.7 % (0-4); Hematocrit 36.7 % (37.0-47.0); Hemoglobin 12.5 g/dl (12.0-16.0); Imm Gran Abs Auto 0.05 X10*3/uL (0.00-0.03); Imm Gran Pct Auto 0.6 % (0.0-0.4); Lymphocytes Absolute Auto 2.5 X10*3/uL (1.2-4.9); Lymphocytes Percent Auto 31.1 % (20-40); Mean Corpuscular HGB Conc 34.1 g/dl (31.0-35.0); Mean Corpuscular Hemoglobin 27.7 pg (27.0-33.0); Mean Corpuscular Volume 81.2 fL (80.0-98.0); Mean Platelet Volume 10.7 fL (9.4-12.3); Monocytes Absolute Auto 0.4 X10*3/uL (0.1-1.2); Monocytes Percent Auto 4.7 % (2-11); Neutrophils Absolute Auto 4.9 x10*3/uL (2.0-8.3); Neutrophils Percent Auto 60.5 % (45-73); Platelet Count 321 X10*3/uL (160-400); Red Blood Count 4.52 X10*6/uL (4.20-5.50); Red Cell Distribution Width 15.3 % (11.0-16.0); White Blood Count 8.1 X10*3/uL (4.8-10.8)
[2024-03-15 11:01] LABS: Alanine Aminotransferase 25 U/L (0-31); Albumin Level 3.8 g/dL (3.5-5.0); Alkaline Phosphatase 110 U/L (39-117); Anion Gap 13 (12-20); Aspartate Amino Transferase 19 U/L (5-31); Bilirubin Total 0.4 mg/dL (0.0-1.0); Blood Urea Nitrogen 9 mg/dL (9-16); Calcium 8.7 mg/dL (8.4-10.2); Carbon Dioxide 25 mmol/L (22-29); Chloride 108 mmol/L (96-108); Creatinine Clr Calc Pharmacy 139.8; Estimated Glomerular Filt Rate > 60; Glucose Random 135 mg/dL (60-115); Potassium 3.7 mmol/L (3.3-5.1); Sodium 142 mmol/L (135-145)
[2024-03-15] MEDS: ondansetron HCL 4 MG/2 ML VIAL IVPUSH (11:06)
[2024-03-15] MEDS: 0.9 % Sodium Chloride 1,000 ML 999 ML IV ×2 (11:06→13:10)
[2024-03-15 11:20] LABS: Influenza A PCR NEGATIVE (Negative); Influenza B PCR NEGATIVE (Negative); Resp Syncy Virus RNA Qual PCR NEGATIVE (Negative); SARS COV2 PCR INHOUSE NEGATIVE (Negative)
--- NOTE | 2024-03-15 12:24 | ED.NAVMDI ---
HPI - Nausea/Vomiting/Diarrhea General Chief complaint: Nausea/Vomiting/Diarrhea Stated complaint: Vomiting, diarrhea 4 days Time Seen by Provider: 03/15/24 10:36 Source: patient and RN notes reviewed Mode of arrival: ambulatory Limitations: no limitations History of Present Illness ED Provider: Noris Baker PA-C HPI Narrative: This is a 43-year-old female who presents emergency department with complaints of nausea, vomiting, and diarrhea x 4 days. Patient states that since Thursday she has had nausea, vomiting and diarrhea, and states that she has not been able to keep any food or liquid down due to the nausea and vomiting. Patient denies any abdominal pain, urinary symptoms. She denies any fevers, chills, chest pain, shortness of breath, urinary symptoms, bloody or black stool, or hematemesis. Denies any uncooked or raw food consumption. No sick contacts. No recent travel. No other complaints or concerns at this time. MD elicited complaint: nausea, vomiting and diarrhea Onset (ago): day(s) Description of vomiting: food contents Associated nausea: Yes Associated abdominal pain: No Location of pain: none Exacerbating factors: eating Relieving factors: none Associated symptoms: nausea/vomiting Related Data Home Medications ?Medication ?Instructions ?Recorded ?Confirmed ferrous sulfate 325 mg (65 mg 325 mg PO TID anemia 05/12/23 05/12/23 iron) tablet Previous Rx's ?Medication ?Instructions ?Recorded ibuprofen 600 mg tablet 600 mg PO Q6H PRN fever or pain 04/26/23 #30 tabs blood sugar diagnostic (OneTouch #100 ea 05/08/23 Ultra Test strips) blood-glucose meter (OneTouch #1 ea 05/08/23 Ultra2 Meter) tramadol 5 mg/mL oral solution 50 mg (10 mL) PO BID PRN 07/23/23 Breakthrough Pain, Severe #30 mL apixaban 5 mg (74 tabs) tablets in 5 mg PO BID #74 ea 07/28/23 a dose pack (Eliquis DVT-PE Treat 30D Start) tramadol 50 mg tablet 50 mg PO Q6H PRN pain #20 tabs 01/25/24 bismuth subsalicylate 262 mg/15 mL 524 mg (30 mL) PO QID #500 mL 03/15/24 oral suspension loperamide 2 mg capsule 2 mg PO DAILY #7 caps 03/15/24 Allergies Allergy/AdvReac Type Severity Reaction Status Date / Time oxytocin [From Pitocin] Allergy Intermediate Palpitation Verified 03/15/24 10:20 s prednisone [PREDNISONE] Allergy Unknown HIVES Verified 03/15/24 10:20 Sulfa (Sulfonamide Allergy Unknown HIVES Verified 03/15/24 10:20 Antibiotics) [SULFA (SULFONAMIDE ANTIBIOTICS)] sulfadiazine Allergy Hives Verified 03/15/24 10:20 Review of Systems Review of Systems: Yes all other systems are reviewed and are negative Constitutional: Constitutional: Reports as per HPI Gastrointestinal: Gastrointestinal: Reports nausea PMFSH Past Medical History Medical History Annual physical exam Annual physical exam Flank pain Hematuria Protein in urine Abdominal pain Anxiety Menorrhagia Palpitations Vertigo Gestational diabetes mellitus Preeclampsia Asthma Anemia Surgical History H/O tooth extraction History of Family History Family History Father HTN (hypertension) Mother Ovarian cancer Bipolar disorder Mental health disorder Maternal Grandfather Diabetes mellitus Maternal Grandmother Breast cancer HTN (hypertension) Paternal Grandfather No problems noted. Paternal Grandmother No problems noted. Family/Other Leukemia Colon cancer Maternal Aunt Colon cancer Social History Social History Household Members: Spouse and Children Housing: Apartment Are you a primary home health aide caregiver to a significant other at home: No Do you presently have visiting nurse or other home services: No Alcohol intake: never Patient Tobacco Use Status: Never used Tobacco Smoked in Last 30 Days: No e-Cigarette/Vaping Use: Never Used Use of substances other than those prescribed or required for medical reasons: No Advance Directives: No Advance Directives Information Provided: Yes Do you have a plan to hurt others: No Plan service: No Current occupational status: unemployed Cognitive needs: No Hearing needs: No Vision needs: Yes Physical Exam Vital Signs: Vital Signs: Last Vital Signs Temp 97.9 F 03/15/24 10:19 Pulse 70 03/15/24 13:07 Resp 18 03/15/24 12:43 BP 120/57 L 03/15/24 13:07 Pulse Ox 98 03/15/24 12:43 O2 Del Method Room Air 03/15/24 12:43 BMI result Body Mass Index 36.9 Const: General: cooperative, comfortable and no acute distress Orientation/consciousness: patient oriented x3 Limitations: no limitations HEENT: Head: Yes normal to inspection, Yes normocephalic and Yes atraumatic Ears: hearing grossly normal bilaterally General nose exam: Normal external nose present Face and sinus: Yes normal facial exam Mouth: Normal oral and palatal mucosa present, oropharynx normal and moist mucous membranes Throat: Yes posterior oropharynx normal Eyes: General: appearance normal, both eyes and all related structures Eyelids: Yes eyelids normal Conjunctivae: conjunctivae normal Sclerae: sclerae normal Pupils: Equal, round and reactive pupils present EOM: EOMs intact bilaterally Neck: Neck: Yes normal visual inspection, Yes full ROM and Yes no lymphadenopathy Lymphatic: no lymphadenopathy noted Chest: Chest palpation & inspection: normal inspection of the chest Resp: Effort & Inspection: normal respiratory effort and able to speak in complete sentences Auscultation: clear to auscultation bilaterally, no crackles, no rales, no rhonchi and no wheezes Cardio: Rate: regular rate Rhythm: regular rhythm Heart sounds: S1 normal heart sound present and S2 normal heart sound present GI: Other: Abdomen is soft, nontender, nondistended Inspection: Yes normal to inspection Skin: General skin exam: no rashes or lesions noted Trauma: no lacerations or abrasions Wounds: no wounds Neuro: General: patient oriented x3 and moves all extremities Cranial nerves: Yes Equal, round and reactive pupils present Extrem: General: Yes normal to inspection Right upper extremity: normal to inspection Left upper extremity: normal to inspection Right lower extremity: normal to inspection Left lower extremity: normal to inspection Course Reevaluation(s) Reevaluation #1: Patient re-evaluated, states that her nausea has improved however states that her dizziness has worsened. Will obtain orthostatic vital signs for evaluation. Second bag of IV fluids also ordered Time: 12:58 Reevaluation #2: Patient re-evaluated, nausea has improved, she was able to eat without return of nausea or vomiting. She still endorses some dizziness. Given dizziness, will order Antivert 12.5 mg. Time: 14:59 Reevaluation #3: Patient feeling better, given return precautions. QTC is prolonged therefore not discharged on Zofran, advised to take Pepto-Bismol as well as several doses of loperamide to help with diarrhea. Patient given return precautions. She understands agrees with plan patient stable for discharge. Time: 16:43 Medications Administered Discontinued Medications Generic Name Dose Route Start Last Admin Trade Name Lindsay PRN Reason Stop Dose Admin Sodium Chloride 1,000 mls @ 999 mls/hr 03/15/24 10:50 03/15/24 12:44 Ns IV 03/15/24 11:50 Infused .Q1H1M ONE Infusion Sodium Chloride 1,000 mls @ 999 mls/hr 03/15/24 12:59 03/15/24 14:30 Ns IV 03/15/24 13:59 Infused .Q1H1M ONE Infusion Meclizine HCl 12.5 mg 03/15/24 15:04 03/15/24 15:50 Meclizine Hcl 12.5 Mg Tablet PO 03/15/24 15:05 12.5 mg ONCE ONE Administration Ondansetron HCl 4 mg 03/15/24 10:49 03/15/24 11:06 Ondansetron Hcl 4 Mg/2 Ml Vial IVPUSH 03/15/24 10:50 4 mg ONCE ONE Administration Medical Decision Making Medical Decision Making [facility] Narrative: This is a 43-year-old female who presents emergency department with complaints of nausea, vomiting, and diarrhea x 4 days. On arrival, vital signs within normal limits. Abdomen is soft and nontender. Differential diagnoses include gastritis, gastroenteritis, electrolyte derangement. Less likely cholecystitis, cholelithiasis, UTI as patient has no abdominal pain, or urinary symptoms to suggest. Less likely obstructive uropathy secondary to no urinary symptoms or abdominal pain. Given presentation, will obtain labs, and medicate with IV antiemetics and fluids. Plan: Labs, EKG, viral swabs, stool cultures Differential Diagnosis Differential Diagnoses: The differential diagnosis associated with the presentation includes See above Admission/Observation Consideration of admission/observation: Escalation of care including admission/observation considered Lab Data [facility] Lab Attestation statement: I reviewed the patient's lab results. No leukocytosis, stable H&H, no evidence of ZOIE, slight hyperglycemia at 1:35 a.m., liver transaminases within normal limits. Patient is not . 03/15/24 10:37 03/15/24 10:37 Labs: Lab Results 03/15/24 03/15/24 03/15/24 Range/Units 10:32 10:37 11:22 WBC 8.1 (4.8-10.8) X10*3/uL RBC 4.52 (4.20-5.50) X10*6/uL Hgb 12.5 (12.0-16.0) g/dl Hct 36.7 L (37.0-47.0) % MCV 81.2 (80.0-98.0) fL MCH 27.7 (27.0-33.0) pg MCHC 34.1 (31.0-35.0) g/dl RDW 15.3 (11.0-16.0) % Plt Count 321 (160-400) X10*3/uL MPV 10.7 (9.4-12.3) fL Immature Gran % (Auto) 0.6 H (0.0-0.4) % Neut % (Auto) 60.5 (45-73) % Lymph % (Auto) 31.1 (20-40) % Bowman % (Auto) 4.7 (2-11) % Eos % (Auto) 2.7 (0-4) % Baso % (Auto) 0.4 (0-2) % Lymph # (Auto) 2.5 (1.2-4.9) X10*3/uL Bowman # (Auto) 0.4 (0.1-1.2) X10*3/uL Eos # (Auto) 0.2 (0.0-0.4) X10*3/uL Baso # (Auto) 0.0 (0.0-0.2) X10*3/uL Abs Immat Gran (auto) 0.05 H (0.00-0.03) X10*3/uL Absolute Neuts (auto) 4.9 (2.0-8.3) x10*3/uL Absolute Nucleated RBC 0.000 (0.0-0.012) X10*3/uL Nucleated RBC % (auto) 0.0 (0.0-0.2) /100WBC Sodium 142 (135-145) mmol/L Potassium 3.7 (3.3-5.1) mmol/L Chloride 108 (96-108) mmol/L Carbon Dioxide 25 (22-29) mmol/L Anion Gap 13 (12-20) BUN 9 (9-16) mg/dL Creatinine 0.60 (0.5-1.4) mg/dL Estim Creat Clear Calc 139.8 Estimated GFR > 60 Random Glucose 135 H (60-115) mg/dL Calcium 8.7 D (8.4-10.2) mg/dL Magnesium 2.0 (1.6-2.6) mg/dL Total Bilirubin 0.4 (0.0-1.0) mg/dL AST 19 (5-31) U/L ALT 25 (0-31) U/L Alkaline Phosphatase 110 (39-117) U/L Total Protein 7.0 (6.5-8.0) g/dL Albumin 3.8 (3.5-5.0) g/dL Beta HCG, Quant < 2 mIU/mL Stl C. cayetanensis PCR Not Detected (Not Detect.) Stool Rotavirus A PCR Not Detected (Not Detect.) Stl Adenov F 40/41 PCR Not Detected (Not Detect.) Stool Astrovirus (PCR) Not Detected (Not Detect.) Stool Campylobacter PCR Not Detected (Not Detect.) Stool Cryptosporidium PCR Not Detected (Not Detect.) Stl Sh Tox Pr E STEC PCR Not Detected (Not Detect.) Stool E coli O157 PCR Not Detected (Not Detect.) Stl Enterotoxigenic E PCR Not Detected (Not Detect.) Stool EPEC (PCR) Not Detected (Not Detect.) Stool EAEC (PCR) Not Detected (Not Detect.) Stl E. histolytica PCR Not Detected (Not Detect.) Stool Giardia Lamblia PCR Not Detected (Not Detect.) Stl P. shigelloides PCR Not Detected (Not Detect.) Stool Salmonella PCR Not Detected (Not Detect.) Stool Sapovirus (PCR) Detected A (Not Detect.) Stl Shigella/EIEC PCR Not Detected (Not Detect.) St Y.enterocolitica PCR Not Detected (Not Detect.) Stool Vibrio (PCR) Not Detected (Not Detect.) Stl Vibrio cholerae PCR Not Detected (Not Detect.) Stl Norovirus GI/GII PCR Not Detected (Not Detect.) C. difficile Tox B Gene NEGATIVE (Negative) Influenza Type A (PCR) NEGATIVE (Negative) Influenza Type B (PCR) NEGATIVE (Negative) RSV RNA Qual (PCR) NEGATIVE (Negative) SARS-CoV-2 RNA (RT-PCR) NEGATIVE (Negative) Radiology Impression Discussion of test interpretation with radiology: I have reviewed the radiologist's reading. External Record Review External record reviewed: Inpatient record, Office record, Outpatient record, Prior outpatient labs, Prior outpatient radiology, Primary care record and Outside ED record Discharge Plan Discharge Clinical Impression: Gastroenteritis due to sapovirus Patient Disposition: Home, Self-Care Instructions: Acute Diarrhea (ED), Enteritis (ED) Additional Instructions: You were seen in the emergency department due to nausea, vomiting, and diarrhea. Your stool tested positive for a virus called sapovirus, this is a type of norovirus (GI bug). Is very important for you to continue staying well hydrated, drinking plenty of electrolytes. Follow-up with your primary care physician regarding this visit. Have repeat EKG in several weeks to ensure that your QT/QTC has improved. Stick to the brat diet (bananas, rice, applesauce, toast), avoid spicy, fried, or dairy containing products. If any new or worsening symptoms occur including but not limited to chest pain, shortness of breath, abdominal pain, unable to tolerate oral PO, please return for re-evaluation Prescriptions: New loperamide 2 mg capsule 2 mg PO DAILY Qty: 7 0RF bismuth subsalicylate 262 mg/15 mL suspension 524 mg PO QID Qty: 500 0RF No Action ferrous sulfate [FerrouSul] 325 mg (65 mg iron) Tablet 325 mg PO TID tramadol 5 mg/mL Solution 50 mg PO BID PRN (Reason: Breakthrough Pain, Severe) Qty: 30 0RF Eliquis DVT-PE Treat 30D Start 5 mg (74 tabs) Tablets,Dose Pack 5 mg PO BID Qty: 74 0RF Rx Instructions: TAKE 10 MG P.O. B.I.D. FOR 7 DAYS THEN 5 MG P.O. DAILY ibuprofen 600 mg tablet 600 mg PO Q6H PRN (Reason: fever or pain) Qty: 30 0RF tramadol 50 mg tablet 50 mg PO Q6H PRN (Reason: pain) Qty: 20 0RF (DME) blood-glucose meter [vushaperTouch Ultra2 Meter] Misc See Rx Instructions .Route Qty: 1 0RF Rx Instructions: As directed (DME) OneTouch Ultra Test Strip See Rx Instructions .Route Qty: 100 3RF Rx Instructions: once a day Print Language: Greek
[2024-03-15 12:43] VITALS: BP 124/66; PULSE 66; RESP 18; O2SAT 98
[2024-03-15 12:50] LABS: HCG Quantitative < 2 mIU/mL
[2024-03-15 13:04] VITALS: BP 120/60; PULSE 75
[2024-03-15 13:06] VITALS: BP 118/59; PULSE 68
[2024-03-15 13:07] VITALS: BP 120/57; PULSE 70
[2024-03-15 14:27] LABS: Adenovirus F 40/41 Not Detected (Not Detect.); Astrovirus Not Detected (Not Detect.); Campylobacter Not Detected (Not Detect.); Cryptosporidium Not Detected (Not Detect.); Cyclospora cayetanensis Not Detected (Not Detect.); E. coli EAEC Not Detected (Not Detect.); E. coli EPEC Not Detected (Not Detect.); E. coli ETEC Not Detected (Not Detect.); E. coli STEC Not Detected (Not Detect.); Entamoeba histolytica Not Detected (Not Detect.); Giardia lamblia Not Detected (Not Detect.); Norovirus GI/GII Not Detected (Not Detect.); Plesiomonas shigelloides Not Detected (Not Detect.); Rotavirus A Not Detected (Not Detect.); Salmonella Not Detected (Not Detect.); Sapovirus Detected (Not Detect.); Shigella sp./EIEC Not Detected (Not Detect.); Vibrio Not Detected (Not Detect.); Vibrio Cholerae Not Detected (Not Detect.); Yersinia enterocolitica Not Detected (Not Detect.)
[2024-03-15 14:36] LABS: CDiff Gene PCR NEGATIVE (Negative)
[2024-03-15 14:40] LABS: E. coli O157 Not Detected (Not Detect.)
--- NOTE | 2024-03-15 15:24 | PC.NURSE ---
Meclezine PO not stocked in [facility], pharmacy called to deliver dose.
[2024-03-15] MEDS: Meclizine HCl 12.5 MG TABLET PO (15:50)
[2024-03-15 17:01] VITALS: BP 133/63; PULSE 66; RESP 16; TEMP 36.7; O2SAT 98
== END 2024-03-15 17:03 | disposition home or self-care (01) ==
PROVIDERS: Physician Assistant Medical; Emergency Provider Emergency Medicine; PCP Internal Medicine
DX: A08.4 Viral intestinal infection, unspecified (principal); R11.2 Nausea with vomiting, unspecified; Z03.818 Encounter for observation for suspected exposure to other biological agents ruled out; Z79.899 Other long term (current) drug therapy
CPT/HCPCS: 0241U; 80053; 83735; 84702; 85025; 87493; 87507; 93005; 96361; 96374; 99284; 99285; J2405

== ENCOUNTER → 2024-03-15 10:29 | Outpatient (BNV) | payer OTHER, SELFPAY | PROVIDERS: Emergency Provider Emergency Medicine; PCP Internal Medicine; Visit Provider Internal Medicine Cardiovascular Disease | DX: R94.31 Abnormal electrocardiogram [ECG] [EKG] (principal) | CPT/HCPCS: 93010 ==

== ENCOUNTER 2024-04-20 13:55 | Outpatient (AMB) | payer OTHER, SELFPAY ==
--- NOTE | 2024-04-20 14:09 | A.OFFPC_ITS ---
Vital Signs 04/20/24 14:10 Height 5 ft 4 in Weight 217 lb BMI 37.2 BP 120/76 Blood Pressure Location Lt brachial Position Sitting Pulse 90 Pulse Source Pulse Oximeter Pulse Oximetry (%) 97 Oxygen Delivery Method Room Air Intake Visit Reasons: ER follow up Intake Note: Pt is here today for ER follow up visit. Allergies oxytocin [From Pitocin] Allergy (Intermediate, Verified 04/20/24 14:10) Palpitations prednisone [PREDNISONE] Allergy (Unknown, Verified 04/20/24 14:10) HIVES Sulfa (Sulfonamide Antibiotics) [SULFA (SULFONAMIDE ANTIBIOTICS)] Allergy (Unknown, Verified 04/20/24 14:10) HIVES sulfadiazine Allergy (Verified 04/20/24 14:10) Hives Sulfonamide -class of antibiotic- (substance) Allergy (Uncoded 04/20/24 14:10) Unknown Medication List - Last Reconciled 04/20/24 by Rama Cui MD blood-glucose meter (OneTouch Ultra2 Meter) As directed Tobacco use date assessed: 04/20/24 Dental Screening Dental Screen Date: 04/20/24 Did you have a dental visit in the last 12 months?: No Did you have a dental problem in the last 6 months where you did not have access to dental care?: No Was dental information given to patient?: Patient declined HPI ER follow up HPI Details Patient presents for the follow-up of ER visit for viral gastroenteritis. The symptoms resolved. Patient has been eating well-balanced diet and denies any GI complaints. 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 [facility] Medical History Annual physical exam Annual physical exam Flank pain Hematuria Protein in urine Abdominal pain Anxiety Menorrhagia Palpitations Vertigo Gestational diabetes mellitus Preeclampsia Asthma Anemia Surgical History H/O tooth extraction History of Family History Father HTN (hypertension) Mother Ovarian cancer Bipolar disorder Mental health disorder Maternal Grandfather Diabetes mellitus Maternal Grandmother Breast cancer HTN (hypertension) Paternal Grandfather No problems noted. Paternal Grandmother No problems noted. Family/Other Leukemia Colon cancer Maternal Aunt Colon cancer Social History Household Members: Spouse and Children Housing: Apartment Are you a primary healthcare corporate account director to a significant other at home: No Do you presently have visiting nurse or other home services: No Alcohol intake: never Patient Tobacco Use Status: Never used Tobacco e-Cigarette/Vaping Use: Never Used service: No Current occupational status: unemployed Cognitive needs: No Hearing needs: No Vision needs: Yes Questionnaire PHQ-9 Over the last 2 weeks, how often have you been bothered by any of the following problems? 1. Little interest or pleasure in doing things: not at all 2. Feeling down, depressed, or hopeless: not at all 3. Trouble falling or staying asleep, or sleeping too much: not at all 4. Feeling tired or having little energy: not at all 5. Poor appetite or overeating: not at all 6. Feeling bad about yourself - or that you are a failure or have let yourself or your family down: not at all 7. Trouble concentrating on things, such as reading the newspaper or watching television: not at all 8. Moving or speaking so slowly that other people could have noticed. Or the opposite - being so fidgety or restless that you have been moving around a lot more than usual: not at all 9. Thoughts that you would be better off or of hurting yourself in some way: not at all Total score: 0 Depression Screening Interpretation: Negative Depression Screening Done: Yes Source: Developed by Drs. Harry Adams, Bren Hannon, Andrés Fink and colleagues, with an educational kurtis from [employer]. Thrive Questionnaire Date Thrive assessed: 04/20/24 I am a: Patient What is your living situation today?: I have a steady place to live Within the past 12 months, did the food you bought not last and you didn't have the money to get more?: Never true Within the past 12 months, did you worry whether your food would run out before you got money to buy more?: Never true Do you have trouble paying for medicines?: No Do you have trouble getting transportation to medical appointments?: No Do you have trouble paying your heating and electricity bill?: No Do you have trouble taking care of your child, family member or friend?: No Do you have trouble with day-to-day activities such as bathing, preparing meals, shopping, managing finances, etc.?: No Are you currently unemployed and looking for a job?: No Are you interested in more education?: No Please select the resources that you would like help with: None THRIVE Score: 0 AUDIT C Alcohol Use Questionnaire (AUDIT-C) 1. How often do you have a drink containing alcohol?: Monthly or less 2. How many drinks containing alcohol do you have on a typical day when you are drinking?: 1 or 2 3. How often do you have six or more drinks on one occasion?: Never Total Score: 1 NAYELI-7 AMB Questionnaire NAYELI-7 Date NAYELI - 7 assessed: 04/20/24 Feeling nervous, anxious, or on edge: 0 = Not at all Not being able to stop or control worryin = Not at all Worrying too much about different things: 0 = Not at all Trouble relaxin = Not at all Being so restless that it is hard to sit still: 0 = Not at all Becoming easily annoyed or irritable: 0 = Not at all Feeling afraid as if something awful might happen: 0 = Not at all Total NAYELI-7 score (0-4 normal; 5-9 mild; 10-14 moderate; 15-21 severe): 0 Source: Developed by Drs. Harry Adams, Bren Hannon, Andrés Fink and colleagues, with an educational kurtis from [employer]. Review of Systems Const All systems reviewed & are unremarkable except as noted in HPI and below Eyes Reports no additional complaints ENT Reports no additional complaints Card Reports no additional complaints Resp Reports no additional complaints GI Reports no additional complaints Reports no additional complaints Physical exam (Primary Care) Vital Signs: Last Vital Signs Pulse 90 04/20/24 14:10 BP 120/76 04/20/24 14:10 Pulse Ox 97 04/20/24 14:10 Oxygen Delivery Method Room Air 04/20/24 14:10 BMI result Body Mass Index 37.2 Tobacco/Smoking Status: Tobacco use Status Tobacco use date assessed 04/20/24 04/20/24 14:11 Patient Tobacco Use Status Never used Tobacco 04/20/24 14:11 e-Cigarette/Vaping Use Never Used 04/20/24 14:11 PHQ-9: PHQ-9 Score PHQ-9: Total score 0 04/20/24 14:27 Depression Screening Interpretation: Negative Thrive Assessment: Date of Thrive Assessment Date Thrive assessed 04/20/24 04/20/24 14:27 Const General: no acute distress Neck Neck: Yes supple Resp Effort & Inspection: normal respiratory effort Auscultation: clear to auscultation bilaterally Cardio Rhythm: regular rhythm Heart sounds: S1 normal heart sound present and S2 normal heart sound present GI Inspection: Yes normal to inspection Palpation (GI): Soft to palpation Percussion: Yes normal to percussion Assessment and Plan Assessment & Plan (1) Gestational diabetes mellitus: Code(s): O24.419 - Gestational diabetes mellitus in , unspecified control Plan: ADA diet regular physical activity discussed with the patient she will return for fasting blood work including A1c. (2) Anemia: Comment: f/u with hematology on Iron infusion, menorrhagia Code(s): D64.9 - Anemia, unspecified Plan: Check iron studies for the history of iron deficiency anemia. Patient is established with broke beater operator (3) Annual physical exam: Code(s): Z00.00 - Encounter for general adult medical examination without abnormal findings Plan: Patient will schedule a physical Orders: Orders Hemoglobin A1c Today D64.9 - Anemia, unspecified, O24.419 - Gestational diabetes mellitus in , unspecified control, Z00.00 - Encounter for general adult medical examination without abnormal findings Lipid Panel Today D64.9 - Anemia, unspecified, O24.419 - Gestational diabetes mellitus in , unspecified control, Z00.00 - Encounter for general adult medical examination without abnormal findings Comprehensive [place]. Panel Fast Today D64.9 - Anemia, unspecified, O24.419 - Gestational diabetes mellitus in , unspecified control, Z00.00 - Encounter for general adult medical examination without abnormal findings IRON PROFILE Today D64.9 - Anemia, unspecified, O24.419 - Gestational diabetes mellitus in , unspecified control, Z00.00 - Encounter for general adult medical examination without abnormal findings Coding Level of Care Code Est Pt Level 3 (11146) Diagnoses Gestational diabetes mellitus O24.419 Anemia D64.9 Annual physical exam Z00.00
[2024-04-20 14:10] VITALS: BP 120/76; PULSE 90; O2SAT 97; BMI 37.2
== END 2024-04-20 14:56 | disposition home or self-care (01) ==
PROVIDERS: PCP Internal Medicine; Visit Provider Internal Medicine
DX: D64.9 Anemia, unspecified (principal); O24.419 Gestational diabetes mellitus in pregnancy, unspecified control
CPT/HCPCS: 99213

== ENCOUNTER 2024-06-14 16:07 | Outpatient (AMB) | payer OTHER, SELFPAY ==
--- NOTE | 2024-06-14 16:09 | AM.OFFWIN_ITS ---
Intake Vital Signs 06/14/24 16:14 Height 5 ft 4 in Weight 217 lb BMI 37.2 BP 126/82 Blood Pressure Location Rt brachial Position Sitting Pulse 72 Pulse Source Pulse Oximeter Temp 98.0 F Temp Source Oral Pulse Oximetry (%) 98 Oxygen Delivery Method Room Air Intake Visit Reasons: EP-rt ear infection, cough, chest pain, sore thro Intake Note: pt c/o RT ear infection, cough, chest pain and sore throat. Started last Thursday Patient Tobacco Use Status: Never used Tobacco Allergies oxytocin [From Pitocin] Allergy (Intermediate, Verified 06/14/24 16:30) Palpitations prednisone [PREDNISONE] Allergy (Unknown, Verified 06/14/24 16:30) HIVES Sulfa (Sulfonamide Antibiotics) [SULFA (SULFONAMIDE ANTIBIOTICS)] Allergy (Unknown, Verified 06/14/24 16:30) HIVES sulfadiazine Allergy (Verified 06/14/24 16:30) Hives Sulfonamide -class of antibiotic- (substance) Allergy (Uncoded 06/14/24 16:30) Unknown Do you need a note to return to daycare/school/sports/work: No HPI EP-rt ear infection, cough, chest pain, sore thro HPI Details Patient presents for a sick visit. Reporting symptoms of sinus congestion, sore throat and difficulty swallowing. Low-grade fever. No family member is sick. No recent travel. Patient reports symptoms of malaise and fatigue. FORMERLY [facility], [facility] Medical History Annual physical exam Annual physical exam Flank pain Hematuria Protein in urine Abdominal pain Anxiety Menorrhagia Palpitations Vertigo Gestational diabetes mellitus Preeclampsia Asthma Anemia Surgical History H/O tooth extraction History of Family History Father HTN (hypertension) Mother Ovarian cancer Bipolar disorder Mental health disorder Maternal Grandfather Diabetes mellitus Maternal Grandmother Breast cancer HTN (hypertension) Paternal Grandfather No problems noted. Paternal Grandmother No problems noted. Family/Other Leukemia Colon cancer Maternal Aunt Colon cancer Social History Household Members: Spouse and Children Housing: Apartment Are you a primary care tech to a significant other at home: No Do you presently have visiting nurse or other home services: No Alcohol intake: never Patient Tobacco Use Status: Never used Tobacco e-Cigarette/Vaping Use: Never Used service: No Current occupational status: unemployed Cognitive needs: No Hearing needs: No Vision needs: Yes Physical Exam Vital Signs: Last Vital Signs Temp 98.0 F 06/14/24 16:14 Pulse 72 06/14/24 16:14 BP 126/82 06/14/24 16:14 Pulse Ox 98 06/14/24 16:14 Oxygen Delivery Method Room Air 06/14/24 16:14 BMI result Body Mass Index 37.2 Const General: cooperative and healthy appearing Nutritional Appearance: well nourished Orientation/consciousness: patient oriented x3 Limitations: no limitations HEENT Head: Yes normal to inspection Eyes General: appearance normal, both eyes and all related structures Neck Neck: Yes normal visual inspection Chest Chest palpation & inspection: normal palpation of entire chest wall Resp Effort & Inspection: normal respiratory effort Neuro General: patient oriented x3 Results AMB Rapid Strep AMB Rapid Strep Negative Last Edit by Marco A Matos CMA on 06/14/24 16:26 Results Reviewed Results Reviewed: Laboratory Last Values Strep Scn Rapid Clinic Negative 06/14/24 16:22 Assessment & Plan Assessment & Plan (1) Upper respiratory tract infection: Code(s): J06.9 - Acute upper respiratory infection, unspecified Plan: Antibiotics ordered. Increase fluid intake. Tylenol for aches and pains. If symptoms worsen, follow-up here for a recheck. Orders: Orders SARS-CoV2/FLU/RSV Today J06.9 - Acute upper respiratory infection, unspecified AMB Rapid Strep Screen Today Z13.9 - Encounter for screening, unspecified Coding Level of Care Code Est Pt Level 3 (12088) Diagnoses Upper respiratory tract infection J06.9
[2024-06-14 16:14] VITALS: BP 126/82; PULSE 72; TEMP 36.7; O2SAT 98; BMI 37.2
== END 2024-06-14 16:57 | disposition home or self-care (01) ==
LOC: HO.HMCWIC 16:07
PROVIDERS: PCP Internal Medicine
DX: Z13.9 Encounter for screening, unspecified (principal); J06.9 Acute upper respiratory infection, unspecified

== ENCOUNTER 2024-06-14 16:07 | Outpatient (REF) | payer OTHER, SELFPAY ==
[2024-06-15 11:41] LABS: Influenza A PCR NEGATIVE (Negative); Influenza B PCR NEGATIVE (Negative); Resp Syncy Virus RNA Qual PCR NEGATIVE (Negative); SARS COV2 PCR INHOUSE NEGATIVE (Negative)
== END 2024-06-14 16:08 | disposition home or self-care (01) ==
LOC: HO.LAB 16:07
PROVIDERS: PCP Internal Medicine; Visit Provider Internal Medicine
DX: J06.9 Acute upper respiratory infection, unspecified (principal)
CPT/HCPCS: 0241U; 87880; 99212

== ENCOUNTER 2025-01-05 10:08 | Emergency (ER) | payer SELFPAY ==
[2025-01-05 10:21] VITALS: BP 149/74; PULSE 101; RESP 18; TEMP 36.8; O2SAT 97; BMI 42.4
[2025-01-05 10:44] LABS: MANUAL DIFF FLAG NO
[2025-01-05 10:47] LABS: Appearance Urine Cloudy; Basophils Absolute Auto 0.1 X10*3/uL (0.0-0.2); Basophils Percent Auto 0.5 % (0-2); Color Urine Yellow; Eosinophils Absolute Auto 0.3 X10*3/uL (0.0-0.4); Glucose Urine UA Negative (Negative); Hematocrit 39.7 % (37.0-47.0); Hemoglobin 13.1 g/dl (12.0-16.0); Imm Gran Abs Auto 0.06 X10*3/uL (0.00-0.03); Imm Gran Pct Auto 0.4 % (0.0-0.4); Leukocyte Esterase Urine Negative (Negative); Lymphocytes Absolute Auto 2.1 X10*3/uL (1.2-4.9); Lymphocytes Percent Auto 15.4 % (20-40); Mean Corpuscular Hemoglobin 25.8 pg (27.0-33.0); Mean Corpuscular Volume 78.3 fL (80.0-98.0); Mean Platelet Volume 10.8 fL (9.4-12.3); Monocytes Absolute Auto 0.4 X10*3/uL (0.1-1.2); Monocytes Percent Auto 3.1 % (2-11); Neutrophils Absolute Auto 10.9 x10*3/uL (2.0-8.3); Neutrophils Percent Auto 78.6 % (45-73); Nitrite Urine Negative (Negative); Platelet Count 353 X10*3/uL (160-400); Red Blood Count 5.07 X10*6/uL (4.20-5.50); Red Cell Distribution Width 16.2 % (11.0-16.0); Urine Blood Negative (Negative); Urine Ketones Trace mg/dL (Negative); Urine Protein Trace mg/dL (Neg-Trace); White Blood Count 13.9 X10*3/uL (4.8-10.8)
[2025-01-05 10:50] LABS: UPreg QC Valid YES; Urine Pregnancy NEGATIVE (NEGATIVE)
[2025-01-05 11:09] LABS: Alanine Aminotransferase 42 U/L (0-31); Albumin Level 3.9 g/dL (3.5-5.0); Alkaline Phosphatase 112 U/L (39-117); Anion Gap 14 (12-20); Aspartate Amino Transferase 29 U/L (5-31); Bilirubin Total 0.5 mg/dL (0.0-1.0); Blood Urea Nitrogen 8 mg/dL (9-16); Calcium 9.7 mg/dL (8.4-10.2); Carbon Dioxide 26 mmol/L (22-29); Chloride 101 mmol/L (96-108); Estimated Glomerular Filt Rate > 60; Glucose Random 266 mg/dL (60-115); Lipase 21 U/L (8-78); Potassium 4.2 mmol/L (3.3-5.1); Sodium 137 mmol/L (135-145); Total Protein 7.7 g/dL (6.5-8.0)
--- NOTE | 2025-01-05 11:34 | ED_ITS ---
HPI - Nausea/Vomiting/Diarrhea General Chief complaint: Nausea/Vomiting/Diarrhea Stated complaint: vomiting headache Time Seen by Provider: 01/05/25 11:10 Source: patient and old records reviewed Mode of arrival: ambulatory Limitations: no limitations History of Present Illness ED Provider: ROSALBA CARD Narrative: 44 year old female with PMHx of PCOS, iron deficiency anemia, anxiety, presents to the ED due to 1 week of nausea and vomiting. Patient explains the nausea and vomiting is worse in the morning, but does have bouts of nausea throughout the day. She denies any recent travel, antibiotic use, drinking from natural sources or sick contacts. She denies bloody/bilious vomiting, diarrhea, black or bloody stools, fever, cough, headache, chest pain, or SOB. MD elicited complaint: nausea and vomiting Onset (ago): week(s) (1) Description of vomiting: food contents Associated nausea: Yes Associated abdominal pain: No Location of pain: none Exacerbating factors: none Relieving factors: none Related Data Previous Rx's ?Medication ?Instructions ?Recorded blood-glucose meter (OneTouch #1 ea 05/08/23 Ultra2 Meter) albuterol sulfate 90 mcg/actuation 1 inh inhalation QID PRN shortness 06/14/24 aerosol inhaler (Ventolin HFA) of breath or wheezing #8.5 grams azithromycin 250 mg tablet See Rx Instructions PO .COMPLEX #6 06/14/24 tabs famotidine 20 mg tablet (Pepcid) 20 mg PO DAILY PRN abdominal 01/05/25 discomfort #30 tabs ondansetron 4 mg disintegrating 4 mg PO Q8H PRN nausea and 01/05/25 tablet vomiting #20 tabs Allergies Allergy/AdvReac Type Severity Reaction Status Date / Time oxytocin [From Pitocin] Allergy Intermediate Palpitation Verified 01/05/25 10:21 s prednisone [PREDNISONE] Allergy Unknown HIVES Verified 01/05/25 10:21 Sulfa (Sulfonamide Allergy Unknown HIVES Verified 01/05/25 10:21 Antibiotics) [SULFA (SULFONAMIDE ANTIBIOTICS)] sulfadiazine Allergy Hives Verified 01/05/25 10:21 Sulfonamide -class of Allergy Unknown Uncoded 01/05/25 10:21 antibiotic- (substance) Review of Systems 2 Review of Systems: Constitutional : No Weight loss, No Fever, No Chills ENT/Mouth : No sore throat, No Rhinorrhea Eyes: No Swelling, No Redness Cardiovascular : No Chest Pain, No SOB, NoEdema Respiratory : No Cough, No Sputum, No Wheezing Gastrointestinal : Positive Nausea, Positive Vomiting, No Diarrhea, No abdominal Pain, No Hematochezia, No Melena Genitourinary : No Dysuria, No Urinary Frequency, No Hematuria, No Urgency Musculoskeletal : No joint pain, No Myalgias, No Joint Swelling Skin : No Skin Lesions, No rash Neuro : No Weakness, No Numbness, No Dizziness, No Headache Psych : No Anxiety/Panic, No Depression Heme/Lymph: No Bruising, No Lymphadenopathy Endocrine : No Polyuria, No Polydipsia All other systems reviewed and are negative. Yes all other systems are reviewed and are negative Gastrointestinal: Gastrointestinal: Reports nausea PMFSH Past Medical History Attestation statement: The following information was validated with the patient. Medical History Annual physical exam Annual physical exam Flank pain Hematuria Protein in urine Abdominal pain Anxiety Menorrhagia Palpitations Vertigo Gestational diabetes mellitus Preeclampsia Asthma Anemia Surgical History H/O tooth extraction History of Family History Family History Father HTN (hypertension) Mother Ovarian cancer Bipolar disorder Mental health disorder Maternal Grandfather Diabetes mellitus Maternal Grandmother Breast cancer HTN (hypertension) Paternal Grandfather No problems noted. Paternal Grandmother No problems noted. Family/Other Leukemia Colon cancer Maternal Aunt Colon cancer Social History Social History Household Members: Spouse and Children Housing: Apartment Are you a primary director day care center to a significant other at home: No Do you presently have visiting nurse or other home services: No Alcohol intake: never Patient Tobacco Use Status: Never used Tobacco e-Cigarette/Vaping Use: Never Used Advance Directives: No Advance Directives Information Provided: Yes service: No Current occupational status: unemployed Cognitive needs: No Hearing needs: No Vision needs: Yes Physical Exam 2 Vital Signs: Vital Signs: Last Vital Signs Temp 98.2 F 01/05/25 10:21 Pulse 101 H 01/05/25 10:21 Resp 18 01/05/25 10:21 BP 149/74 H 01/05/25 10:21 Pulse Ox 97 01/05/25 10:21 O2 Del Method Room Air 01/05/25 10:21 BMI result Body Mass Index 42.4 Appearance: Alert. Oriented X3. No acute distress. Eyes: Pupils equal, round and reactive to light. ENT: Pharynx normal. Mucus membranes moist Neck: Normal inspection. Neck supple. CVS: tachycardic heart rate and normal rhythm. Pulses normal. Respiratory: No respiratory distress. Breath sounds normal. Abdomen: Soft and nontender. Skin: Skin warm and dry. Normal skin color. Normal skin turgor. Extremities: No lower extremity edema. No calf ttp Neuro: Oriented X 3. No motor deficit. No sensory deficit. CN2-12 intact Medical Decision Making Medical Decision Making [facility] Narrative: 44 year old female with PMHx of PCOS, iron deficiency anemia, anxiety, presents to the ED due to 1 week of nausea and vomiting. Patient explains the nausea and vomiting is worse in the morning, but does have bouts of nausea throughout the day. She denies any recent travel, antibiotic use, drinking from natural sources or sick contacts. She denies bloody/bilious vomiting, diarrhea, black or bloody stools, fever, cough, headache, chest pain, or SOB. Patient vital signs show elevated BP at 149/74 and tacycardic rate at 101 BPM otherwise unreamarkable. Patient is in no acute distress and is non-toxic appearing. Patients labs are unremarkable. Urine test is negative however, HCG level might not be elevated enough to be detected in the urine so serum HCG ordered to observe for possible . Patient is started on IV fluids to address elevated BP and tachycardic rate. Ondansetron given for nausea. Differential Diagnosis Differential Diagnoses: The differential diagnosis associated with the presentation includes , lyte abnormality, pancreatitis, gastritis Admission/Observation Consideration of admission/observation: Escalation of care including admission/observation considered tolerating PO stable for DC labs reassuring Lab Data [facility] Lab Attestation statement: I reviewed the patient's lab results. 01/05/25 10:33 01/05/25 10:33 Labs: Lab Results 01/05/25 Range/Units 10:33 WBC 13.9 H (4.8-10.8) X10*3/uL RBC 5.07 (4.20-5.50) X10*6/uL Hgb 13.1 (12.0-16.0) g/dl Hct 39.7 (37.0-47.0) % MCV 78.3 L (80.0-98.0) fL MCH 25.8 L (27.0-33.0) pg MCHC 33.0 (31.0-35.0) g/dl RDW 16.2 H (11.0-16.0) % Plt Count 353 (160-400) X10*3/uL MPV 10.8 (9.4-12.3) fL Immature Gran % (Auto) 0.4 (0.0-0.4) % Neut % (Auto) 78.6 H (45-73) % Lymph % (Auto) 15.4 L (20-40) % [place] % (Auto) 3.1 (2-11) % Eos % (Auto) 2.0 (0-4) % Baso % (Auto) 0.5 (0-2) % Lymph # (Auto) 2.1 (1.2-4.9) X10*3/uL [place] # (Auto) 0.4 (0.1-1.2) X10*3/uL Eos # (Auto) 0.3 (0.0-0.4) X10*3/uL Baso # (Auto) 0.1 (0.0-0.2) X10*3/uL Abs Immat Gran (auto) 0.06 H (0.00-0.03) X10*3/uL Absolute Neuts (auto) 10.9 H (2.0-8.3) x10*3/uL Absolute Nucleated RBC 0.000 (0.0-0.012) X10*3/uL Nucleated RBC % (auto) 0.0 (0.0-0.2) /100WBC Sodium 137 (135-145) mmol/L Potassium 4.2 (3.3-5.1) mmol/L Chloride 101 (96-108) mmol/L Carbon Dioxide 26 (22-29) mmol/L Anion Gap 14 (12-20) BUN 8 L (9-16) mg/dL Creatinine 0.73 (0.5-1.4) mg/dL Estim Creat Clear Calc 110.0 Estimated GFR > 60 Random Glucose 266 H (60-115) mg/dL Calcium 9.7 D (8.4-10.2) mg/dL Total Bilirubin 0.5 (0.0-1.0) mg/dL AST 29 (5-31) U/L ALT 42 H (0-31) U/L Alkaline Phosphatase 112 (39-117) U/L Total Protein 7.7 (6.5-8.0) g/dL Albumin 3.9 (3.5-5.0) g/dL Lipase 21 (8-78) U/L Urine Color Yellow Urine Appearance Cloudy Urine pH 7.0 (5.0-9.0) Ur Specific Dexter 1.020 (1.005-1.025) Urine Protein Trace (Neg-Trace) mg/dL Urine Glucose (UA) Negative (Negative) mg/dL Urine Ketones Trace (Negative) mg/dL Urine Blood Negative (Negative) Urine Nitrite Negative (Negative) Ur Leukocyte Esterase Negative (Negative) Urine Test NEGATIVE (NEGATIVE) Independent Historian Clinical information obtained from an independent historian. History obtained from or confirmed by: Spouse External Record Review External record reviewed: Inpatient record Prescription Management I considered prescription management with: Other (ondansetron) Discharge Plan Discharge Clinical Impression: Acute nausea with nonbilious vomiting Patient Disposition: Home, Self-Care Instructions: Acute Nausea and Vomiting (ED) Additional Instructions: labs reassuring though your blood sugar was in 200s you are not based off urine and blood tests rest and stay hydrated eat a bland well balanced diet return for any worsening symptoms or concerns. please follow up with your doctor for further blood sugar work up Prescriptions: New famotidine [Pepcid] 20 mg tablet 20 mg PO DAILY PRN (Reason: abdominal discomfort) Qty: 30 0RF ondansetron 4 mg tablet,disintegrating 4 mg PO Q8H PRN (Reason: nausea and vomiting) Qty: 20 0RF No Action (DME) blood-glucose meter [OneTouch Ultra2 Meter] [facility] [place] See Rx Instructions .Route Qty: 1 0RF Rx Instructions: As directed azithromycin 250 mg tablet See Rx Instructions PO .COMPLEX Qty: 6 0RF Rx Instructions: take 500 mg today (day 1), then 250 mg for 4 days (days 2-5) PO albuterol sulfate [Ventolin HFA] 90 mcg/actuation HFA aerosol inhaler 1 inh inhalation QID PRN (Reason: shortness of breath or wheezing) Qty: 8.5 1RF Stand Alone Forms: Work/School Release Print Language: German
[2025-01-05 12:18] LABS: HCG Quantitative < 2 mIU/mL
[2025-01-05] MEDS: ondansetron HCL 4 MG/2 ML VIAL IVPUSH (12:29)
[2025-01-05] MEDS: Lactated Ringers 1,000 ML 999 ML IV (12:30)
[2025-01-05 12:32] VITALS: BP 117/68; PULSE 92; RESP 16; O2SAT 95
--- OUTSIDE RECORDS SUMMARY | 2025-01-05 13:31 | XMS_ITS | Clinical Summary ---
Author Organization [employer] Address [address] [place] [address] [address] [place] [address] Care Team Providers Care Res Habilitation Assistant Name Role Phone Unavailable Primary Care Provider Unavailabl e Social History Tobacco Use Types Packs/Day Years Used Date Smoking Tobacco: Never Assessed Comments Unknown Sex and Gender Information Value Date Recorded Sex Assigned at Female 07/21/2022 10:21 AM EDT Legal Sex Female 10:21 AM EDT Gender Identity Not on file Sexual Orientation Not on file Plan of Treatment Health Maintenance Due Date Last Done Comments Depression Screening 1982 Alcohol/Substance Use Screening 1994 Tobacco Screening 1994 Family Planning (PISQ) 1997 DTaP/Tdap/Td Vaccines (1 - Tdap) 2001 Hepatitis B Vaccines (1 of 3 - 19+ 3-dose series) 2001 Pap Smear 12/15/2003 Mammogram 2022 Cervical Cancer Screening 04/07/2024 HPV/Cotest 04/07/2024 04/07/2019 COVID-19 Vaccine (1 - 2023-2 5 season) 2024 Influenza Vaccine (#1) 2024 06/18/2012 Zoster Vaccines (1 of 2) 2032 RSV Patients and Pa tients Aged 60 years or older (1 - 1-dose 75+ series) 2057 HIB Vaccines Aged Out No longer eligi ble based on patient's age to complete this topic HPV Vaccines Aged Out No longer eligi ble based on patient's age to complete this topic Hepatitis A Vaccines Aged Out No long er eligible based on patient's age to complete this topic IPV Vaccines Aged Out No longer eligi ble based on patient's age to complete this topic Meningococcal Vaccine Aged Out No oscar dereck eligible based on patient's age to complete this topic Pneumococcal Vaccine: Pediat rics (0 to 5 Years) and At-Risk Patients (6 to 49) Years) Aged Out No longer elig ible based on patient's age to complete this topic RSV under 20 months Aged Out No longe r eligible based on patient's age to complete this topic Rotavirus Vaccines Aged Out No longer eligible based on patient's age to complete this topic Procedures Procedure Name Priority Date/Time Associated Diagnosis Comments ZZZ HISTORICAL HPV E6/E7 RFLX BENI 16 18/45 Routine 04/07/2019 11:59 AM EDT from Last 3 Months or Most Recently Relevant to Health Maintenance Results * HPV E6/E7 RFLX BENI 16 18/45 (04/07/2019 11:59 AM EDT) HPV 18/45 RNA Test not performed [facility] HPV 16 RNA Test not performed [facility] HPV mRNA E6/E7 Not Detected NOT DETECTED [facility] Comment: This test was performed using the APTIMA(R) HPV Assay ([employer] This assay detects E6/E7 viral messenger RNA (mRNA) from 14 high-risk HPV types (16,18,31,33,35,39,45,51, 52,56,58,59,66,68). For additional information please refer to: http://education.[employer]/faq/OAH564y7 (This link is being provided for informational/ educational purposes only.) The analytical performance characteristics of this assay have been determined by [employer] [place], [place]. The modifications have not been cleared or approved by the FDA. This assay has been validated pursuant to the CLIA regulations and is used for clinical purposes. Please note: ??Effective 06/02/2016, HPV testing will be performed using [employer]'s APTIMA test which targets mRNA. Detecting mRNA instead of DNA, as in older methods, offers significant improvements in specificity. ADDITIONAL TESTING Not indicated () [facility] Comment: Test Performed by [employer], [email or web address] [facility], [address] [place] [address] Jairo De Jesus M.D., Ph.D., Director of Laboratories , [place] [id number] 04/07/2019 11:5 9 AM EDT us Historical Provider HISTORICAL/NON ORDERABLE LABS Final Result [facility] Formerly [facility] [address]where [address] from Last 3 Months or Most Recently Relevant to Health Maintenance
[2025-01-05 14:05] VITALS: BP 117/68; PULSE 92; RESP 16; TEMP -17.7; TEMP 0; O2SAT 95
== END 2025-01-05 14:11 | disposition home or self-care (01) ==
PROVIDERS: Emergency Provider Emergency Medicine; PCP Internal Medicine
DX: R11.2 Nausea with vomiting, unspecified (principal); J45.909 Unspecified asthma, uncomplicated; Z79.899 Other long term (current) drug therapy
CPT/HCPCS: 36415; 80053; 81003; 81025; 83690; 84702; 85025; 96361; 96374; 99284; J2405; J7120

== ENCOUNTER 2025-01-17 08:50 | Emergency (ER) | payer SELFPAY ==
--- NOTE | ~2025-01-17 | XR_ITS ---
EXAMINATION: XR CHEST CLINICAL INFORMATION: cough, SOB COMPARISON: 01/24/2024. TECHNIQUE: 2 views of the chest were obtained. FINDINGS: The cardiac, hilar, and mediastinal contours are normal. The lungs are clear bilaterally. There is no pneumothorax or pleural effusion. There is no focal osseous or soft tissue abnormality. XR/XR chest 2V IMPRESSION: No active pulmonary disease. Electronically signed by: Cecilio Wolfe MD 01/17/2025 09:54 AM EDT
[2025-01-17 09:03] VITALS: BP 143/75; PULSE 87; RESP 20; TEMP 36.6; O2SAT 97; BMI 42.3
--- NOTE | 2025-01-17 09:07 | ECG_ITS ---
Test Reason : SOB Blood Pressure : */* mmHG Vent. Rate : 88 BPM Atrial Rate : 88 BPM P-R Int : 128 ms QRS Dur : 74 ms QT Int : 384 ms P-R-T Axes : 14 56 37 degrees QTcB Int : 464 ms Normal sinus rhythm Normal ECG When compared with ECG of 15-Mar-2024 10:29, Nonspecific T wave abnormality, improved in Anterior leads Referred By: Generic ED Physician Electronically Signed By: Trell Solomon
--- NOTE | 2025-01-17 09:19 | ED.SOB ---
HPI - SOB/Dyspnea General Chief Complaint: Dyspnea Stated Complaint: Difficulty breathing Time Seen by Provider: 01/17/25 09:16 Source: patient Mode of arrival: ambulatory Limitations: no limitations History of Present Illness ED Provider: Noris Kimble PA-C HPI Narrative: This is a 44-year-old female, with a history of PCOS, iron deficiency anemia, anxiety, who presents emergency department with complaints of chest pain and shortness for breath for the last 2 weeks. 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 She denies any fevers or chills. She does endorse headache, dizziness, constant chest pain which is exacerbated with coughing, shortness for breath. She states that she has a history of childhood asthma, and she feels as though she would benefit from an inhaler. She states that her cough is productive with green colored sputum. She denies any abdominal pain, nausea, vomiting or diarrhea. No urinary or bowel retention or incontinence. No chance of . She has been taking NyQuil for her symptoms which has provided her without any relief. No other complaints or concerns at this time. MD elicited complaint: shortness of breath, cough and chest pain Pertinent past history: asthma (childhood) Onset (ago): week(s) Timing: constant Severity: moderate Exacerbating factors: nothing Relieving factors: nothing Known history of: asthma Associated symptoms: chest pain Treatment prior to arrival: none Related Data Home oxygen amount: none Previous Rx's ?Medication ?Instructions ?Recorded blood-glucose meter (OneTouch #1 ea 05/08/23 Ultra2 Meter) albuterol sulfate 90 mcg/actuation 1 inh inhalation QID PRN shortness 06/14/24 aerosol inhaler (Ventolin HFA) of breath or wheezing #8.5 grams azithromycin 250 mg tablet See Rx Instructions PO .COMPLEX #6 06/14/24 tabs famotidine 20 mg tablet (Pepcid) 20 mg PO DAILY PRN abdominal 01/05/25 discomfort #30 tabs ondansetron 4 mg disintegrating 4 mg PO Q8H PRN nausea and 01/05/25 tablet vomiting #20 tabs albuterol sulfate 90 mcg/actuation 2 puff inhalation Q6-8H PRN 01/17/25 aerosol inhaler shortness of breath or wheezing #6.7 grams azithromycin 250 mg tablet 250 mg PO DAILY 4 days #4 tabs 01/17/25 benzonatate 100 mg capsule 100 mg PO TID #14 caps 01/17/25 Allergies Allergy/AdvReac Type Severity Reaction Status Date / Time oxytocin [From Pitocin] Allergy Intermediate Palpitation Verified 01/17/25 09:05 s prednisone [PREDNISONE] Allergy Unknown HIVES Verified 01/17/25 09:05 Sulfa (Sulfonamide Allergy Unknown HIVES Verified 01/17/25 09:05 Antibiotics) [SULFA (SULFONAMIDE ANTIBIOTICS)] sulfadiazine Allergy Hives Verified 01/17/25 09:05 Sulfonamide -class of Allergy Unknown Uncoded 01/17/25 09:05 antibiotic- (substance) Review of Systems Review of Systems: Constitutional: No Weight loss, No Fever, No Chills, No Night Sweats, No Fatigue, No Malaise ENT/Mouth: No Hearing loss, No Ear Pain, No Nasal Congestion, No Sinus Pain, No Hoarseness, No sore throat, No Rhinorrhea, No Swallowing Difficulty Eyes: No Eye Pain, No Swelling, No Redness, No Foreign Body, No Discharge, No Vision Changes Cardiovascular: +Chest Pain,+ SOB, No Dyspnea on Exertion, No Orthopnea, No Edema, No Palpitations Respiratory: +Cough, + Sputum, No Wheezing, No Smoke Exposure, +Dyspnea Gastrointestinal: No Nausea, No Vomiting, No Diarrhea, No Constipation, No Abdominal pain, No Hematochezia, No Melena Genitourinary: No irregular bleeding, No Dysuria, No Urinary Frequency, No Hematuria, No Urinary Incontinence/retention, No Urgency, No Flank Pain, No Urinary Flow Changes, No Hesitancy Musculoskeletal: No joint pain, No Myalgias, No Joint Swelling Skin: No Skin Lesions, No rash Neuro: No Weakness, No Numbness, No Paresthesias, No Loss of Consciousness, No Dizziness, No Headache Psych: No Anxiety/Panic, No Depression, No SI/HI/AH/VH, No Social Issues, Heme/Lymph: No Bruising, No Bleeding,No Lymphadenopathy Endocrine: No Polyuria, No Polydipsia, No Temperature Intolerance Yes all other systems are reviewed and are negative Constitutional: Constitutional: Reports as per [facility] Past Medical History Medical History Annual physical exam Annual physical exam Flank pain Hematuria Protein in urine Abdominal pain Anxiety Menorrhagia Palpitations Vertigo Gestational diabetes mellitus Preeclampsia Asthma Anemia Surgical History H/O tooth extraction History of Family History Family History Father HTN (hypertension) Mother Ovarian cancer Bipolar disorder Mental health disorder Maternal Grandfather Diabetes mellitus Maternal Grandmother Breast cancer HTN (hypertension) Paternal Grandfather No problems noted. Paternal Grandmother No problems noted. Family/Other Leukemia Colon cancer Maternal Aunt Colon cancer Social History Social History Household Members: Spouse and Children Housing: Apartment Are you a primary health care facility administrator to a significant other at home: No Do you presently have visiting nurse or other home services: No Alcohol intake: never Patient Tobacco Use Status: Never used Tobacco e-Cigarette/Vaping Use: Never Used Advance Directives: No Advance Directives Information Provided: Yes Do you have a plan to hurt others: No Plan service: No Current occupational status: unemployed Cognitive needs: No Hearing needs: No Vision needs: Yes Physical Exam Vital Signs: Vital Signs: Last Vital Signs Temp 98.4 F 01/17/25 11:24 Pulse 83 01/17/25 11:24 Resp 15 01/17/25 11:24 BP 116/55 L 01/17/25 11:24 Pulse Ox 95 01/17/25 11:24 O2 Del Method Room Air 01/17/25 11:09 BMI result Body Mass Index 42.3 Const: General: cooperative, comfortable and no acute distress Orientation/consciousness: patient oriented x3 Limitations: no limitations HEENT: Head: Yes normal to inspection, Yes normocephalic and Yes atraumatic Ears: hearing grossly normal bilaterally and TM's normal bilaterally General nose exam: Normal external nose present Face and sinus: Yes normal facial exam Mouth: Normal oral and palatal mucosa present, oropharynx normal and moist mucous membranes Throat: Yes posterior oropharynx normal, Yes tonsils normal and Yes uvula midline Eyes: General: appearance normal, both eyes and all related structures Eyelids: Yes eyelids normal Conjunctivae: conjunctivae normal Sclerae: sclerae normal Pupils: Equal, round and reactive pupils present EOM: EOMs intact bilaterally Neck: Neck: Yes normal visual inspection, Yes full ROM and Yes no lymphadenopathy Lymphatic: no lymphadenopathy noted Chest: Chest palpation & inspection: normal inspection of the chest Resp: Other: Frequent loose cough heard during examination. Effort & Inspection: normal respiratory effort and able to speak in complete sentences Auscultation: clear to auscultation bilaterally, no crackles, no rales, no rhonchi and no wheezes Cardio: Rate: regular rate Rhythm: regular rhythm Heart sounds: S1 normal heart sound present and S2 normal heart sound present GI: Inspection: Yes normal to inspection Skin: General skin exam: no rashes or lesions noted Trauma: no lacerations or abrasions Wounds: no wounds Neuro: General: patient oriented x3 and moves all extremities Cranial nerves: Yes Equal, round and reactive pupils present Extrem: Other: Lower extremity edema, no calf tenderness General: Yes normal to inspection Right upper extremity: normal to inspection Left upper extremity: normal to inspection Right lower extremity: normal to inspection Left lower extremity: normal to inspection Course Reevaluation(s) Reevaluation #1: Labs returned, she has slight leukocytosis at 11.8, sodium low at 133 however glucose is 241, sodium corrected due to hyperglycemia is 136. Potassium elevated at 5.2, hyperglycemic at 241., AST elevated at 47, troponin 2.9, no need for repeat. Chest x-ray unremarkable. EKG nondiagnostic. Given patient has been sick for the last 2 weeks, will treat with inhaler, Tessalon Perles, and antibiotics. Advised to follow-up with her primary care physician. We will also give 1 time dose of Kayexalate. Given strict return precautions. She understands and agrees with plan. Patient stable for discharge. Time: 10:47 Medications Administered Discontinued Medications Generic Name Dose Route Start Last Admin Trade Name Freq PRN Reason Stop Dose Admin Albuterol/Ipratropium 3 ml 01/17/25 09:56 01/17/25 09:58 Albuterol/Iprat 2.5/0.5mg 3 Ml Ampul.Neb INHALE 01/17/25 09:57 3 ml ONCE ONE Administration Azithromycin 500 mg 01/17/25 10:58 01/17/25 11:24 Azithromycin 500 Mg Tablet PO 01/17/25 10:59 500 mg ONCE ONE Administration Benzonatate 100 mg 01/17/25 10:58 01/17/25 11:24 Benzonatate 100 Mg Capsule PO 01/17/25 10:59 100 mg ONCE ONE Administration Sodium Chloride 1,000 mls @ 999 mls/hr 01/17/25 09:45 01/17/25 11:05 Ns IV 01/17/25 10:45 Infused .Q1H1M ONE Infusion Sodium Polystyrene Sulfonate 15 gm 01/17/25 10:57 01/17/25 11:24 Sodium Polystyrene Sulfon/Sorb 15 Gm/60 Ml Oral.Susp PO 01/17/25 10:58 15 gm ONCE ONE Administration Medical Decision Making Medical Decision Making [facility] Narrative: This is a 44-year-old female, with a past medical history of childhood asthma, who presents emergency department with concerns for cough, congestion, chest pain, and shortness for breath for the last 2 weeks. On arrival, patient mildly hypertensive at 143/75, she has a normal oxygen saturation, she was not tachycardic. She was afebrile. She is speaking full sentences under no acute distress. Lungs are clear to auscultation bilaterally. Known sick contacts at work. Differential diagnoses include URI, COVID, flu, pneumonia, ACS-unlikely. She has no pleuritic chest pain, and she is PERC negative therefore PE is unlikely. Plan: Labs, EKG, CXR, viral swabs, will hydrate with 1l IV fluids d/t slight dizziness, negative orthos Differential Diagnosis Differential Diagnoses: The differential diagnosis associated with the presentation includes See above Lab Data [facility] Lab Attestation statement: I reviewed the patient's lab results. See course comment 01/17/25 09:20 01/17/25 09:20 Labs: Lab Results 01/17/25 Range/Units 09:20 WBC 11.8 H (4.8-10.8) X10*3/uL RBC 5.15 (4.20-5.50) X10*6/uL Hgb 13.4 (12.0-16.0) g/dl Hct 43.6 (37.0-47.0) % MCV 84.7 (80.0-98.0) fL MCH 26.0 L (27.0-33.0) pg MCHC 30.7 L (31.0-35.0) g/dl RDW 17.7 H (11.0-16.0) % Plt Count 285 (160-400) X10*3/uL MPV 10.6 (9.4-12.3) fL Immature Gran % (Auto) Cancelled Neut % (Auto) Cancelled Lymph % (Auto) Cancelled Sunflower % (Auto) Cancelled Eos % (Auto) Cancelled Baso % (Auto) Cancelled Lymph # (Auto) Cancelled Sunflower # (Auto) Cancelled Eos # (Auto) Cancelled Baso # (Auto) Cancelled Abs Immat Gran (auto) Cancelled Absolute Neuts (auto) Cancelled Absolute Nucleated RBC 0.000 (0.0-0.012) X10*3/uL Nucleated RBC % (auto) 0.0 (0.0-0.2) /100WBC Neutrophils % (Manual) 71 (45-73) % Band Neutrophils % 0 L (3-5) % Lymphocytes % (Manual) 20 (20-40) % Atypical Lymphs % (Man) 2 (0-6) % Monocytes % (Manual) 3 (2-11) % Eosinophils % (Manual) 3 (0-4) % Basophils % (Manual) 1 (0-2) % Abs Neuts (Manual) 8.4 H (2.0-8.3) X10*3/uL Lymphocytes # (Manual) 2.4 (1.2-4.9) X10*3/uL Atyp Lymphs # (Manual) 0.2 x10*3/uL Monocytes # (Manual) 0.4 (0.1-1.2) X10*3/uL Eosinophils # (Manual) 0.4 (0.0-0.4) X10*3/uL Basophils # (Manual) 0.1 (0.0-0.2) X10*3/uL Platelet Estimate NORMAL (NORMAL) Plt Morphology Comment NORMAL RBC Morphology NORMAL Sodium 133 L (135-145) mmol/L Potassium 5.2 H D (3.3-5.1) mmol/L Chloride 102 (96-108) mmol/L Carbon Dioxide 16 L (22-29) mmol/L Anion Gap 20 (12-20) BUN 8 L (9-16) mg/dL Creatinine 0.60 (0.5-1.4) mg/dL Estim Creat Clear Calc 133.6 Estimated GFR > 60 Random Glucose 241 H (60-115) mg/dL Calcium 8.9 D (8.4-10.2) mg/dL Total Bilirubin 0.3 (0.0-1.0) mg/dL AST 47 H (5-31) U/L ALT 15 (0-31) U/L Alkaline Phosphatase 86 (39-117) U/L Troponin I High Sens 2.9 D (<3.5-17.0) ng/L Total Protein 7.6 (6.5-8.0) g/dL Albumin 3.5 (3.5-5.0) g/dL Influenza Type A (PCR) NEGATIVE (Negative) Influenza Type B (PCR) NEGATIVE (Negative) RSV RNA Qual (PCR) NEGATIVE (Negative) SARS-CoV-2 RNA (RT-PCR) NEGATIVE (Negative) Independent Interpretation I performed an independent interpretation of an: EKG Interpretation: Normal sinus rhythm at a ventricular rate of 88 beats per minute, QT QTC 384/464, no STEMI. QRS 74 Radiology Impression Discussion of test interpretation with radiology: I have reviewed the radiologist's reading. Radiologist Impression: EXAMINATION: XR CHEST CLINICAL INFORMATION: cough, SOB COMPARISON: 01/24/2024. TECHNIQUE: 2 views of the chest were obtained. FINDINGS: The cardiac, hilar, and mediastinal contours are normal. The lungs are clear bilaterally. There is no pneumothorax or pleural effusion. There is no focal osseous or soft tissue abnormality. XR/XR chest 2V IMPRESSION: No active pulmonary disease. Electronically signed by: Cecilio Wolfe MD 01/17/2025 09:54 AM EDT RP Dictated By: Cecilio Wolfe MD Signed By: <Electronically signed by Discharge Plan Discharge Clinical Impression: Acute upper respiratory infection Patient Disposition: Home, Self-Care Instructions: Upper Respiratory Infection (ED) Additional Instructions: You were seen in the emergency department today. Your chest x-ray does not show a pneumonia. You likely have a virus that is causing you to have the symptoms however given that you have been sick for 2 weeks, we are starting you on an antibiotic. You already received your 1st dose in the department today. Please start azithromycin tomorrow (01/18) Your EKG was reassuring. Your blood work did show slightly elevated potassium at 5.2, we gave you a 1 time dose of Kayexalate which will lower your potassium. Your glucose is elevated at 241 - you need to follow-up with a primary care physician as this is a sign of diabetes. Drink plenty of fluids get plenty of rest. Alternate between ibuprofen and or Tylenol as needed for fevers and pain. Your AST is elevated at 47 - this is a liver enzyme, this is likely due to a virus however please repeat in several weeks. Take prescribed antibiotic as directed, finish the entire course even if your symptoms improve. Take prednisone as prescribed, this will help decrease inflammation in your lungs. Use albuterol inhaler as needed or shortness for breath. If any new or worsening symptoms occur including but not limited to worsening chest pain, shortness of breath, please seek emergent care. Prescriptions: New azithromycin 250 mg tablet 250 mg PO DAILY 4 Days Qty: 4 0RF Rx Instructions: start on day 2 of therapy benzonatate 100 mg capsule 100 mg PO TID Qty: 14 0RF albuterol sulfate 90 mcg/actuation HFA aerosol inhaler 2 puff inhalation Q6-8H PRN (Reason: shortness of breath or wheezing) Qty: 6.7 0RF No Action famotidine [Pepcid] 20 mg tablet 20 mg PO DAILY PRN (Reason: abdominal discomfort) Qty: 30 0RF ondansetron 4 mg tablet,disintegrating 4 mg PO Q8H PRN (Reason: nausea and vomiting) Qty: 20 0RF (DME) blood-glucose meter [OneTouch Ultra2 Meter] [facility] See Rx Instructions .Route Qty: 1 0RF Rx Instructions: As directed azithromycin 250 mg tablet See Rx Instructions PO .COMPLEX Qty: 6 0RF Rx Instructions: take 500 mg today (day 1), then 250 mg for 4 days (days 2-5) PO albuterol sulfate [Ventolin HFA] 90 mcg/actuation HFA aerosol inhaler 1 inh inhalation QID PRN (Reason: shortness of breath or wheezing) Qty: 8.5 1RF Stand Alone Forms: Work/School Release Interventions: ED Discharge Assessment Last Done: 01/17/25 11:24 Discharge Date/Time: 01/17/25 11:25 Print Language: Mohawk
[2025-01-17 09:34] LABS: Hematocrit 43.6 % (37.0-47.0); Hemoglobin 13.4 g/dl (12.0-16.0); Mean Corpuscular HGB Conc 30.7 g/dl (31.0-35.0); Mean Corpuscular Volume 84.7 fL (80.0-98.0); Mean Platelet Volume 10.6 fL (9.4-12.3); Platelet Count 285 X10*3/uL (160-400); Red Blood Count 5.15 X10*6/uL (4.20-5.50); Red Cell Distribution Width 17.7 % (11.0-16.0)
[2025-01-17 09:35] LABS: WBC ABN SCTR FOR CBC 1
[2025-01-17 09:36] VITALS: BP 146/69; PULSE 83
[2025-01-17 09:37] VITALS: BP 143/66; BP 152/75; PULSE 92; PULSE 94
[2025-01-17 09:49] LABS: Troponin-I High Sensitivity 2.9 ng/L (<3.5-17.0)
[2025-01-17 09:56] LABS: Alanine Aminotransferase 15 U/L (0-31); Albumin Level 3.5 g/dL (3.5-5.0); Alkaline Phosphatase 86 U/L (39-117); Anion Gap 20 (12-20); Aspartate Amino Transferase 47 U/L (5-31); Bilirubin Total 0.3 mg/dL (0.0-1.0); Blood Urea Nitrogen 8 mg/dL (9-16); Calcium 8.9 mg/dL (8.4-10.2); Carbon Dioxide 16 mmol/L (22-29); Chloride 102 mmol/L (96-108); Creatinine Clr Calc Pharmacy 133.6; Estimated Glomerular Filt Rate > 60; Glucose Random 241 mg/dL (60-115); Potassium 5.2 mmol/L (3.3-5.1); Sodium 133 mmol/L (135-145); Total Protein 7.6 g/dL (6.5-8.0)
[2025-01-17] MEDS: Albuterol/Iprat 2.5/0.5MG 3 ML AMPUL.NEB INHALE (09:58)
[2025-01-17 10:00] VITALS: PULSE 86; RESP 18; O2SAT 98
[2025-01-17 10:07] LABS: Influenza A PCR NEGATIVE (Negative); Influenza B PCR NEGATIVE (Negative); Resp Syncy Virus RNA Qual PCR NEGATIVE (Negative); SARS COV2 PCR INHOUSE NEGATIVE (Negative)
[2025-01-17 10:09] LABS: White Blood Count 11.8 X10*3/uL (4.8-10.8)
[2025-01-17] MEDS: 0.9 % Sodium Chloride 1,000 ML 999 ML IV (10:19)
[2025-01-17 10:43] LABS: Atypical Lymph Absolute Manual 0.2 x10*3/uL; Atypical Lymphs Percent Manual 2 % (0-6); Basophils Abs Manual 0.1 X10*3/uL (0.0-0.2); Basophils Percent Manual 1 % (0-2); Eosinophils Absolute Manual 0.4 X10*3/uL (0.0-0.4); Eosinophils Percent Manual 3 % (0-4); Lymphocytes Absolute Manual 2.4 X10*3/uL (1.2-4.9); Lymphocytes Percent Manual 20 % (20-40); Monocytes Absolute Manual 0.4 X10*3/uL (0.1-1.2); Monocytes Percent Manual 3 % (2-11); Neutrophils Percent Manual 71 % (45-73)
[2025-01-17 10:46] LABS: Platelet Estimate NORMAL (NORMAL); Platelet Morphology Comment NORMAL; RBC Morphology NORMAL
[2025-01-17 10:47] LABS: Band Neutrophils Percent 0 % (3-5); Neutrophils Absolute Manual 8.4 X10*3/uL (2.0-8.3)
--- OUTSIDE RECORDS SUMMARY | 2025-01-17 11:03 | XMS_ITS | Clinical Summary ---
Author Organization [employer] Address [address] [place] [address] [address] [place] [address] Care Team Providers Care Nuclear Medicine Physician Name Role Phone Unavailable Primary Care Provider [...] EDT) HPV 18/45 RNA Test not performed [facility] HPV 16 RNA Test not performed [facility] HPV mRNA E6/E7 Not Detected NOT DETECTED [facility] Comment: This test was performed using the APTIMA(R) HPV Assay ([employer] This assay detects E6/E7 viral messenger RNA (mRNA) from 14 high-risk HPV types (16,18,31,33,35,39,45,51, 52,56,58,59,66,68). For additional information please refer to: http://education.Volt/faq/YUN323q9 (This link is being provided for informational/ educational purposes only.) The analytical performance characteristics of this assay have been determined by [facility] [place], [place]. The modifications have not been cleared or approved by the FDA. This assay has been validated pursuant to the CLIA regulations and is used for clinical purposes. Please note: ??Effective 06/02/2016, HPV testing will be performed using [employer]'s APTIMA test which targets mRNA. Detecting mRNA instead of DNA, as in older methods, offers significant improvements in specificity. ADDITIONAL TESTING Not indicated () [facility] Comment: Test Performed by [employer] [facility], [facility], [address] [place] [address] Jairo De Jesus M.D., Ph.D., Director of Laboratories , [place] [id number] 04/07/2019 11:5 9 AM EDT us Historical Provider HISTORICAL/NON ORDERABLE LABS Final Result [facility] Critical access hospital Anywhere [address] from Last 3 Months or Most Recently Relevant to Health Maintenance
[2025-01-17 11:09] VITALS: BP 116/55; PULSE 83; RESP 15; TEMP 36.9; O2SAT 95
[2025-01-17 11:24] VITALS: BP 116/55; PULSE 83; RESP 15; TEMP 36.9; O2SAT 95
[2025-01-17] MEDS: Sodium Polystyrene Sulfon/Sorb 15 GM/60 ML ORAL.SUSP PO (11:24)
[2025-01-17] MEDS: Benzonatate 100 MG CAPSULE PO (11:24)
[2025-01-17] MEDS: Azithromycin 500 MG TABLET PO (11:24)
== END 2025-01-17 11:25 | disposition home or self-care (01) ==
PROVIDERS: Emergency Provider Emergency Medicine; PCP Internal Medicine
DX: J06.9 Acute upper respiratory infection, unspecified (principal); R06.02 Shortness of breath; R07.9 Chest pain, unspecified; Z03.818 Encounter for observation for suspected exposure to other biological agents ruled out
CPT/HCPCS: 0241U; 71046; 80053; 84484; 85007; 85027; 93005; 94640; 96360; 99284

== ENCOUNTER → 2025-01-17 09:07 | Outpatient (BNV) | payer SELFPAY | PROVIDERS: Emergency Provider Emergency Medicine; PCP Internal Medicine; Visit Provider Internal Medicine Cardiovascular Disease | DX: R06.02 Shortness of breath (principal) | CPT/HCPCS: 93010 ==

== ENCOUNTER → 2025-01-17 09:40 | Outpatient (BNV) | payer SELFPAY | PROVIDERS: Emergency Provider Emergency Medicine; PCP Internal Medicine; Visit Provider Radiology Diagnostic Radiology | DX: R05.9 Cough, unspecified (principal); R06.02 Shortness of breath | CPT/HCPCS: 71046 ==

== ENCOUNTER 2025-05-25 17:16 | Emergency (ER) | payer OTHER, SELFPAY ==
[2025-05-25 17:56] VITALS: BP 176/92; PULSE 102; RESP 18; TEMP 37; O2SAT 96; BMI 38.7
--- NOTE | 2025-05-25 17:56 | ED_ITS ---
HPI - General Adult General Chief complaint: Eye Problems Stated complaint: left eye red/swollen Source: patient, RN notes reviewed and old records reviewed Mode of arrival: ambulatory Limitations: no limitations History of Present Illness ED Provider: Hiram CARD narrative: Patient is a 44-year-old female presenting to the emergency department with complaint of left upper eyelid redness and swelling as well as pain since waking this morning. States that it was crusted shut this morning. Reports distant history of styes. Does not wear contact lenses. Denies any changes in vision. MD complaint: eyelid swelling Onset (ago): hour(s) Related Data Previous Rx's ?Medication ?Instructions ?Recorded blood-glucose meter (OneTouch #1 ea 05/08/23 Ultra2 Meter) albuterol sulfate 90 mcg/actuation 1 inh inhalation QI D PRN shortness 06/14/24 aerosol inhaler (Ventolin HFA) of breath or wheezing # 8.5 grams azithromycin 250 mg tablet See Rx Instructions PO .COM PLEX #6 06/14/24 tabs famotidine 20 mg tablet (Pepcid) 20 mg PO DAILY PRN ab dominal 01/05/25 discomfort #30 tabs ondansetron 4 mg disintegrating 4 mg PO Q8H PRN nausea and 01/05/25 tablet vomiting #20 tabs albuterol sulfate 90 mcg/actuation 2 puff inhalation Q 6-8H PRN 01/17/25 aerosol inhaler shortness of breath or wheez ing #6.7 grams azithromycin 250 mg tablet 250 mg PO DAILY 4 days #4 t abs 01/17/25 benzonatate 100 mg capsule 100 mg PO TID #14 caps 12/21 06/15 erythromycin 5 mg/gram (0.5 %) eye 0.5 inch ophthalmic (eye) BID 5 05/25/25 ointment days #3.5 grams Allergies Allergy/AdvReac Type Severity Reaction Status Date / Time oxytocin (From Pitocin) Allergy Intermediate Palpitation Verified 05/25/25 17:56 s prednisone (PREDNISONE) Allergy Unknown HIVES Verified 05/25/25 17:56 Sulfa (Sulfonamide Allergy Unknown HIVES Verified 05/25/25 17:56 Antibiotics) (SULFA (SULFONAMIDE ANTIBIOTICS)) sulfadiazine Allergy Hives Verified 05/25/25 17:56 Sulfonamide -class of Allergy Unknown Uncoded 05/25/25 17:56 antibiotic- (substance) Review of Systems Review of Systems: As per HPI Yes all other systems are reviewed and are negative Constitutional: Constitutional: Reports as per HPI [facility] Past Medical History Medical History Annual physical exam Annual physical exam Flank pain Hematuria Protein in urine Abdominal pain Anxiety Menorrhagia Palpitations Vertigo Gestational diabetes mellitus Preeclampsia Asthma Anemia Surgical History H/O tooth extraction History of Family History Family History Father HTN (hypertension) Mother Ovarian cancer Bipolar disorder Mental health disorder Maternal Grandfather Diabetes mellitus Maternal Grandmother Breast cancer HTN (hypertension) Paternal Grandfather No problems noted. Paternal Grandmother No problems noted. Family/Other Leukemia Colon cancer Maternal Aunt Colon cancer Social History Social History Household Members: Spouse and Children Housing: Apartment Are you a primary rn coronary care unit to a significant other at home: No Do you presently have visiting nurse or other home services: No Alcohol intake: never Patient Tobacco Use Status: Never used Tobacco e-Cigarette/Vaping Use: Never Used service: No Current occupational status: unemployed Cognitive needs: No Hearing needs: No Vision needs: Yes Physical Exam ED Vital Signs: Vital signs have been reviewed and appear to be correct. Blood pressure normal. Heart rate normal. Respiratory rate normal. Temperature normal. Oxygen saturation normal. Const General: cooperative, healthy appearing and no acute distress Orientation/consciousness: oriented to person, oriented to place, oriented to time and patient oriented x3 Limitations: no limitations [facility] Head: Yes normocephalic and Yes atraumatic Ears: external ears normal General nose exam: Normal external nose present Face and sinus: Yes face symmetric Mouth: oropharynx normal and moist mucous membranes Throat: Yes uvula midline Eyes Visual Santillan: normal visual santillan by confrontation Alignment and Position: alignment normal and position normal Eyelids: Yes eyelid abnormality (right upper eyelid erythema and swelling laterally) Conjunctivae: conjunctivae normal Sclerae: sclerae normal Corneas: corneas normal Pupils: Equal, round and reactive pupils present EOM: EOMs intact bilaterally (no pain with ROM) Neck Neck: Yes normal visual inspection and Yes supple Resp Effort & Inspection: normal respiratory effort and able to speak in complete sentences Auscultation: clear to auscultation bilaterally Cardio Rate: regular rate Rhythm: regular rhythm Heart sounds: S1 normal heart sound present and S2 normal heart sound present GI Palpation (GI): Soft to palpation and nontender Auscultation: normoactive bowel sounds General: Yes no CVA tenderness Back/Spine/Pelvis Back: no CVA tenderness Skin General skin exam: elasticity normal and turgor normal Neuro General: oriented to person, oriented to place, oriented to time, patient oriented x3, moves all extremities, no focal motor deficits and CN's II-XI intact bilaterally Cranial nerves: Yes Equal, round and reactive pupils present Cognition (Neuro): normal cognition Extrem General: Yes full ROM, Yes no pedal edema and Yes no calf tenderness Psych Mental Status: mental status grossly normal Affect: normal affect Thought process: Normal thought process present Medical Decision Making Medical Decision Making [facility] Narrative: Patient is a 44-year-old female presenting to the emergency department with complaint of left upper eyelid redness and swelling as well as pain since waking this morning. On exam patient is awake, A+Ox3, VS WNL, afebrile, normal neurological exam without focal deficits, physical exam findings as above. Given reported symptoms and physical exam findings, initial differential includes but is not limited to hordeolum, conjunctivitis. Less likely preseptal cellulitis. No concern for orbital cellulitis. Physical exam findings consistent with a hordeolum. Will treat with erythromycin ointment, advised warm compresses. Return precautions discussed. Patient verbalized understanding of and agreement with plan. Differential Diagnosis Differential Diagnoses: The differential diagnosis associated with the presentation includes As per MDM Admission/Observation Consideration of admission/observation: Escalation of care including admission/observation considered Patient would have been admitted to the hospital had their clinical presentation warranted hospital admission. External Record Review External record reviewed: Inpatient record, Office record and Outpatient record Prescription Management I considered prescription management with: Antibiotic Discharge Plan Discharge Clinical Impression: Hordeolum externum left upper eyelid Patient Disposition: Home, Self-Care Instructions: Allyn (ED) Additional Instructions: You were evaluated in the emergency department today for left upper eyelid pain and swelling which is due to a stye. You are being treated with an antibiotic ointment, use this as prescribed. We recommend that you apply a warm compress to the area for 10-15 minutes several times daily. Otherwise avoid touching or rubbing your eye. Perform good hand hygiene prior to and after touching your eye. Return to the emergency department if you develop increased redness, swelling, changes in vision, worsening pain or any other new or concerning symptoms. Prescriptions: New erythromycin 5 mg/gram (0.5 %) ointment 0.5 inch ophthalmic (eye) BID 5 Days Qty: 3.5 0RF No Action azithromycin 250 mg tablet 250 mg PO DAILY 4 Days Qty: 4 0RF Rx Instructions: start on day 2 of therapy benzonatate 100 mg capsule 100 mg PO TID Qty: 14 0RF albuterol sulfate 90 mcg/actuation HFA aerosol inhaler 2 puff inhalation Q6-8H PRN (Reason: shortness of breath or wheezing) Qty: 6.7 0RF famotidine [Pepcid] 20 mg tablet 20 mg PO DAILY PRN (Reason: abdominal discomfort) Qty: 30 0RF ondansetron 4 mg tablet,disintegrating 4 mg PO Q8H PRN (Reason: nausea and vomiting) Qty: 20 0RF (DME) blood-glucose meter [OneTouch Ultra2 Meter] Misc See Rx Instructions .Route Qty: 1 0RF Rx Instructions: As directed azithromycin 250 mg tablet See Rx Instructions PO .COMPLEX Qty: 6 0RF Rx Instructions: take 500 mg today (day 1), then 250 mg for 4 days (days 2-5) PO albuterol sulfate [Ventolin HFA] 90 mcg/actuation HFA aerosol inhaler 1 inh inhalation QID PRN (Reason: shortness of breath or wheezing) Qty: 8.5 1RF Print Language: [place]
[2025-05-25 18:10] VITALS: BP 176/92; PULSE 102; RESP 18; TEMP 37; O2SAT 96
--- OUTSIDE RECORDS SUMMARY | 2025-05-25 18:11 | XMS_ITS | Clinical Summary ---
Author Organization [facility] Address [address] [place] [phone] Phone Care Team Providers Care Clinical Laboratory Science Professor Name Role Phone Mariangel Don MD Primary Care Provider [phone] Allergies Active Allergy Reactions Criticality Noted Date Comments Prednisone Hives 01/06/2019 Sulfa (Sulfonamide Antibiotics) 12/20 Medications No known medications Social History Tobacco Use Types Packs/Day Years Used Date Smoking Tobacco: Never Smokeless Tobacco: Never Alcohol Use Standard Drinks/Week Comments Yes 0 (1 standard drink = 0.6 oz pur e alcohol) Education Answer Date Recorded Are you interested in more education? Not on gretel e 01/16/2023 Are you concerned about learning? Not on file 01/16/2023 No 01/16/2023 No 01/16/2023 Digital Access Answer Date Recorded No 02/16/2023 No 02/16/2023 No 02/16/2023 Reliable internet access at home? Not on file 02/16/2023 Device with a working camera? Not on file Comments No Sex and Gender Information Value Date Recorded Sex Assigned at Female 01/06/2019 8:21 PM EDT Legal Sex Female 9:18 PM EDT Gender Identity Female 01/06/2019 8:21 PM EDT Sexual Orientation Straight 01/06/2019 8: 21 PM EDT Last Filed Vital Signs Vital Sign Reading Time Taken Comments Blood Pressure 147/84 02/16/2019 6:22 PM EDT Pulse 97 02/16/2019 6:22 PM EDT Temperature 36 C (96.8 F) 02/16/2019 6:22 PM EDT Respiratory Rate 20 02/16/2019 6:22 PM EDT Oxygen Saturation 97% 02/16/2019 6:22 PM EDT Inhaled Oxygen Concentration - - Weight 99.8 kg (220 lb) 02/16/2019 6:22 PM EDT Height 154.9 cm (5' 1 ) 02/16/2019 6:22 PM EDT Body Mass Index 41.57 02/16/2019 6:22 PM EDT Plan of Treatment Not on file Medical Devices Not on file Insurance WELLSENSE NON NSPG PCP [employer] WELLSENSE NON NSPG PCP [employer] WELLSENSE NON NSPG PCP SILVER [employer]ITY [employer]CTORCARE WELLSENSE NON NSPG PCP SILVER CLARITY CONNECTORCARE WELLSENSE NON NSPG PCP SILVER CLARITY CONNECTORCARE WELLSENSE NON NSPG PCP SILVER CLARITY CONNECTORCARE WELLSENSE NON NSPG PCP SIL[employer]ITY [employer] WELLSENSE NON NSPG PCP [employer] Care Teams Clinical Laboratory Science Professor Relationship Specialty Start Date End Date Mariangel Don MD [address] [place] [address] PCP - General Family Medicine 02/16/19 Additional Source Comments The information contained in this document represents components of the legal health record. It is not the complete legal health record.[facility]
--- OUTSIDE RECORDS SUMMARY | 2025-05-25 18:11 | XMS_ITS | Clinical Summary ---
Author Organization [employer] Address [address] [facility] [address] [facility] [address] [place] [address] Care Team Providers Care Care Transition Manager Name Role Phone Unavailable Primary Care Provider [...] Date Last Done Comments Depression Screening 1982 Disability Screening 1982 Alcohol/Substance Use Screening 1994 Tobacco Screening 1994 Family Planning (PISQ) 1997 HPV Vaccines (1 - 3-dose series) 1997 DTaP/Tdap/Td Vaccines (1 - Tdap) 2001 Hepatitis B Vaccines (1 of 3 - 19+ 3-dose series) 2001 Pap Smear 12/15/2003 Mammogram 2022 Cervical Cancer Screening 04/07/2024 HPV/Cotest 04/07/2024 04/07/2019 COVID-19 Vaccine (1 - 2023-2 5 season) 2024 Influenza Vaccine (#1) 2025 06/18/2012 Zoster Vaccines (1 of 2) 2032 [...] patient's age to complete this topic Meningococcal B Vaccine Aged Out No l onger eligible based on patient's age to complete this topic Meningococcal Vaccine Aged Out No oscar dereck eligible based on patient's age to complete this topic Pneumococcal Vaccine: Pediat rics (0 to 5 Years) and At-Risk Patients (6 to 49) Years Aged Out No longer eligi ble based [...] was performed using the APTIMA(R) HPV Assay ([employer] This assay detects E6/E7 viral messenger RNA (mRNA) from 14 high-risk HPV types (16,18,31,33,35,39,45,51, 52,56,58,59,66,68). For additional information please refer to: http://education.Smartaxi/faq/ENR048q2 (This link is being provided for informational/ educational purposes only.) The analytical performance characteristics of this assay have been determined by [employer] [place], [place]. The modifications have not been cleared or approved by the FDA. This assay has been validated pursuant to the CLIA regulations and is used for clinical purposes. Please note: Effective 06/02/2016, HPV testing will be performed using [employer]'s APTIMA test which targets mRNA. Detecting mRNA instead of DNA, as in older methods, offers significant improvements in specificity. ADDITIONAL TESTING Not indicated () [facility] Comment: Test Performed by [facility], [facility], [address] [place] [address] Jairo De Jesus M.D., Ph.D., Director of Laboratories , [facility] [id number] 04/07/2019 11:5 9 AM EDT us Historical Provider HISTORICAL/NON ORDERABLE LABS Final Result [facility] Anywhere [address] from Last 3 Months or Most Recently Relevant to Health Maintenance
== END 2025-05-25 18:10 | disposition home or self-care (01) ==
PROVIDERS: Emergency Provider Emergency Medicine; PCP Internal Medicine
DX: H00.014 Hordeolum externum left upper eyelid (principal)
CPT/HCPCS: 99282; 99283

== ENCOUNTER 2025-09-17 07:21 | Emergency (ER) | payer OTHER, SELFPAY ==
--- NOTE | ~2025-09-17 | XR_ITS ---
CLINICAL HISTORY: cough 1 view chest x-ray Comparison: 01/17/2025 Findings: The lungs are clear. Normal size heart. No acute fracture. IMPRESSION: 1. No acute findings. This document has been electronically signed by: Chace Gallardo MD on 09/17/2025 08:02:27
[2025-09-17 07:24] VITALS: BP 159/82; PULSE 90; RESP 20; TEMP 36.6; O2SAT 93; BMI 40.9
--- OUTSIDE RECORDS SUMMARY | 2025-09-17 07:48 | XMS_ITS | Clinical Summary ---
Author Organization [facility] Address [address] [place] [phone] Phone Care Team Providers Care Supervisor Major Appliance Assembly Name Role Phone Mariangel Don MD Primary Care Provider Allergies Active Allergy Reactions Criticality Noted Date [...] NSPG PCP [employer] Care Teams Supervisor Major Appliance Assembly Relationship Specialty Start Date End Date Mariangel Don MD [address] [place] [address] PCP - General Family Medicine 02/16/19 Additional Source Comments The information contained in this document represents components of the legal health record. It is not the complete legal health record.[facility]
--- OUTSIDE RECORDS SUMMARY | 2025-09-17 07:48 | XMS_ITS | Clinical Summary ---
Author Organization [employer] Address [address] [address] [facility] [address] [place] [address] Care Team Providers Care Digital Marketing Associate Name Role Phone Unavailable Primary Care Provider [...] HPV/Cotest 04/07/2024 04/07/2019 COVID-19 Vaccine (1 - 2024-2 6 season) 2025 Influenza Vaccine (#1) 2025 06/18/2012 Zoster Vaccines [...] EDT) HPV 18/45 RNA Test not performed [facility] HPV 16 RNA Test not performed [facility] HPV mRNA E6/E7 Not Detected NOT DETECTED [facility] Comment: This test was performed using the APTIMA(R) HPV Assay ([employer] This assay detects E6/E7 viral messenger RNA (mRNA) from 14 high-risk HPV types (16,18,31,33,35,39,45,51, 52,56,58,59,66,68). For additional information please refer to: http://education.[employer]/faq/VTI767v7 (This link is being provided for informational/ educational purposes only.) The analytical performance characteristics of this assay have been determined by [employer], [place]. The modifications have not been cleared or approved by the FDA. This assay has been validated pursuant to the CLIA regulations and is used for clinical purposes. Please note: Effective 06/02/2016, HPV testing will be performed using [employer]'s APTIMA test which targets mRNA. Detecting mRNA instead of DNA, as in older methods, offers significant improvements in specificity. ADDITIONAL TESTING Not indicated () [facility] Comment: Test Performed by [facility], [facility], [address] [place] [address] Jairo De Jesus M.D., Ph.D., Director of Laboratories , [facility] [id number] 04/07/2019 11:5 9 AM EDT us Historical Provider HISTORICAL/NON ORDERABLE LABS Final Result [facility] Anywhere [address] from Last 3 Months or Most Recently Relevant to Health Maintenance
[2025-09-17 08:34] LABS: Resp Syncy Virus RNA Qual PCR NEGATIVE (Negative); SARS COV2 PCR INHOUSE NEGATIVE (Negative)
[2025-09-17 09:36] VITALS: PULSE 81; RESP 18; O2SAT 98
[2025-09-17] MEDS: Albuterol Sulfate 90 MCG 8 GM INHALER 8 PUFF INHALE (09:36)
--- NOTE | 2025-09-17 09:43 | ED_ITS ---
HPI - General Adult General Chief complaint: Upper Respiratory Symptoms Stated complaint: Difficulty Breathing Time Seen by Provider: 09/17/25 09:01 Source: patient, family (Significant other at bedside), RN notes reviewed and old records reviewed Mode of arrival: ambulatory Limitations: no limitations History of Present Illness ED Provider: EUGENIA Sanches HPI narrative: 44-year-old female with medical history of asthma, PCOS, iron-deficiency anemia, anxiety, presents to the ED due to 1 week of general malaise, sore throat, productive cough, diarrhea. Patient works in a [place] [facility] [place] and has had many sick contacts over the past few weeks. Patient reports her cough is persistent, with multiple coughing fits per day. Patient states over this time she has been experiencing chest discomfort of bilateral ribs due to the force of her cough. Patient reports she has a history of asthma but has not been using any inhalers as she is out of this medication. Patient denies fevers, chills, abdominal pain, nausea, headaches, visual changes, difficulty breathing, black/tarry stool, urinary symptoms MD complaint: general malaise, sore throat, productive cough, diarrhea Related Data Previous Rx's ?Medication ?Instructions ?Recorded blood-glucose meter (OneTouch #1 ea 05/08/23 Ultra2 Meter) albuterol sulfate 90 mcg/actuation 1 inh inhalation QI D PRN shortness 06/14/24 aerosol inhaler (Ventolin HFA) of breath or wheezing # 8.5 grams azithromycin 250 mg tablet See Rx Instructions PO .COM PLEX #6 06/14/24 tabs famotidine 20 mg tablet (Pepcid) 20 mg PO DAILY PRN ab dominal 01/05/25 discomfort #30 tabs ondansetron 4 mg disintegrating 4 mg PO Q8H PRN nausea and 01/05/25 tablet vomiting #20 tabs albuterol sulfate 90 mcg/actuation 2 puff inhalation Q 6-8H PRN 01/17/25 aerosol inhaler shortness of breath or wheez ing #6.7 grams azithromycin 250 mg tablet 250 mg PO DAILY 4 days #4 t abs 01/17/25 benzonatate 100 mg capsule 100 mg PO TID #14 caps 12/21 06/15 erythromycin 5 mg/gram (0.5 %) eye 0.5 inch ophthalmic (eye) BID 5 05/25/25 ointment days #3.5 grams albuterol sulfate 90 mcg/actuation 4 inh inhalation Q4 -6H PRN 09/17/25 aerosol inhaler (Ventolin HFA) shortness of breath or wheezing #6.7 grams amoxicillin 875 mg-potassium 1 tab PO BID #14 tabs clavulanate 125 mg tablet Allergies Allergy/AdvReac Type Severity Reaction Status Date / Time oxytocin (From Pitocin) Allergy Intermediate Palpitation Verified 09/17/25 07:31 s prednisone (PREDNISONE) Allergy Unknown HIVES Verified 09/17/25 07:31 Sulfa (Sulfonamide Allergy Unknown HIVES Verified 09/17/25 07:31 Antibiotics) (SULFA (SULFONAMIDE ANTIBIOTICS)) sulfadiazine Allergy Hives Verified 09/17/25 07:31 Sulfonamide -class of Allergy Unknown Uncoded 05/25/25 17:56 antibiotic- (substance) Review of Systems Review of Systems: Yes all other systems are reviewed and are negative PMFSH Past Medical History Attestation statement: The following information was validated with the patient. Source: old records reviewed, obtained from family (Significant other at bedside) and nursing notes reviewed Medical History Annual physical exam Annual physical exam Flank pain Hematuria Protein in urine Abdominal pain Anxiety Menorrhagia Palpitations Vertigo Gestational diabetes mellitus Preeclampsia Asthma Anemia Surgical History H/O tooth extraction History of Family History Family History Father HTN (hypertension) Mother Ovarian cancer Bipolar disorder Mental health disorder Maternal Grandfather Diabetes mellitus Maternal Grandmother Breast cancer HTN (hypertension) Paternal Grandfather No problems noted. Paternal Grandmother No problems noted. Family/Other Leukemia Colon cancer Maternal Aunt Colon cancer Social History Social History Household Members: Spouse and Children Housing: Apartment Are you a primary care associate to a significant other at home: No Do you presently have visiting nurse or other home services: No Alcohol intake: never Patient Tobacco Use Status: Never used Tobacco e-Cigarette/Vaping Use: Never Used Advance Directives: No Advance Directives Information Provided: Yes Do you have a plan to hurt others: No Plan service: No Current occupational status: unemployed Cognitive needs: No Hearing needs: No Vision needs: Yes Physical Exam ED Vital Signs: Vital Signs - 24 hr 09/17/25 07:24 09/17/25 09:36 09/17/25 10:19 Temperature 97.8 F 97.7 F Pulse Rate 90 81 89 Respiratory Rate 20 18 20 Blood Pressure 159/82 H 137/78 Pulse Oximetry 93 95 Oxygen Delivery Method Room Air BMI result Body Mass Index 40.9 GENERAL APPEARANCE: ?AxOx4, generally well-appearing, non toxic appearing, no acute distress. HEENT: ?NC, AT. MMM. EOMI, clear conjunctiva, oropharynx mildly erythematous, no tonsilar edema, no tonsillar exudates noted, uvula midline without uvular edema, patient able to tolerate oral secretions without difficulty. R ear with erythema of the tympanic membrane and air fluid levels noted without bulging, perforation, otorrhea NECK: ?Supple without lymphadenopathy.? No stiffness or restricted ROM. HEART:? Normal rate and regular rhythm, normal S1/S2, no m/r/g LUNGS:? CTAB, moving air well. No expiratory wheeze, rhonchi noted, no increased work of breathing, no accessory muscle use, no pursed lip breathing noted ABDOMEN: ?Soft, nontender, nondistended BACK: No CVAT, no obvious deformity. EXTREMITIES: ?Without cyanosis, clubbing or edema. NEUROLOGICAL: ?Grossly nonfocal. Alert and oriented, moving all 4 extremities. Observed to ambulate with normal gait. Skin: ?Warm and dry without any rash. Medications Administered Discontinued Medications Generic Name Dose Route Start Last Admin Trade Name Freq PRN Reason Stop Dose Admin Acetaminophen 975 mg 09/17/25 09:24 09/17/25 09:38 Acetaminophen 325 Mg Tablet PO 09/17/25 09:25 975 mg ONCE ONE Administration Albuterol Sulfate 8 puff 09/17/25 09:35 09/17/25 09:36 Albuterol Sulfate 90 Mcg 8 Gm Inhaler INHALE 09/17/25 09:36 8 puff ONCE ONE Administration Medical Decision Making Medical Decision Making MDM Narrative: 44-year-old female with medical history of asthma, PCOS, iron-deficiency anemia, anxiety, presents to the ED due to 1 week of general malaise, sore throat, productive cough, diarrhea. Patient works in a [place] [facility] [place] and has had many sick contacts over the past few weeks. Patient reports her cough is persistent, with multiple coughing fits per day. Patient states over this time she has been experiencing chest discomfort of bilateral ribs due to the force of her cough. Patient reports she has a history of asthma but has not been using any inhalers as she is out of this medication. VS on initial observation-BP 159/82, pulse rate of 81, respiratory rate of 18, afebrile with oral temp of 97.8?, O2 saturation 93% on room air. On physical exam patient is nontoxic appearing, in no acute distress, posterior oropharynx is mildly erythematous without edema, no tonsilar edema or exudates noted, uvula is midline without uvular edema, patient is tolerating oral secretions without difficulty, speaking in full clear sentences, lungs are clear to auscultation bilaterally without expiratory wheeze or rhonchi noted, no increased work of breathing, no accessory muscle use, no pursed lip breathing noted, abdomen is soft, nondistended, nontender, extremities without pitting CXR without infiltrates, consolidations, no acute cardiopulmonary disease, WNL Viral serology positive for influenza A 44-year-old female with 1 week of general malaise, sore throat, productive cou gh, diarrhea, with chest discomfort of B/L ribs due to persistent productive cough. On physical exam there is no expiratory wheeze or rhonchi noted. Patient is afebrile, without tachycardia, tachypnea, hypoxia. Chest x-ray without acute cardiopulmonary disease. Viral serologies positive for influenza A and is most likely contributing to her symptoms. Patient is being medicated with 975 p.o. Tylenol for her symptoms as she has not taken any OTC medication prior to arrival. Patient also medicated with 8 puffs albuterol sulfate as she is out of albuterol inhaler at home. Patient is being discharged with albuterol inhaler to use at home, and 7 day course of Augmentin due to signs of otitis media of the right ear. I did consider 5 day course of prednisone however patient states she is allergic and can not take this medication due to hives. I asked patient what her doctors do when she has infection/asthma exacerbation and need steroids. Patient states she has not had an issue with her asthmain many years and has not needed steroids and/or inhaler. Patient will be discharged with albuterol inhaler, I gave her strict instructions to follow up with her primary care doctor to ensure resolution of her symptoms as she is not being prescribed steroids due to allergy. I counseled patient on supportive care measures such as adequate fluid, nutrition, rest, use of humidifiers, and lozenges for sore throat. Patient is appropriate to go home for self-care today and is in agreement with the plan. VS on [id number] 137/78, pulse rate of 89, respiratory rate of 20, afebrile with oral temp of 97.7?, O2 saturation 95% on room air Differential Diagnosis Differential Diagnoses: The differential diagnosis associated with the presentation includes Flu COVID RSV Strep pharyngitis Viral illness Pneumonia Asthma exacerbation Admission/Observation Consideration of admission/observation: Escalation of care including admission/observation considered I considered admission however patient is afebrile, without tachycardia, tachypnea, hypoxia, no indication for admission at this time. Lab Data MDM Lab Attestation statement: I reviewed the patient's lab results. Labs: Lab Results 09/17/25 Range/Units 07:43 Influenza Type A (PCR) POSITIVE A (Negative) Influenza Type B (PCR) NEGATIVE (Negative) RSV RNA Qual (PCR) NEGATIVE (Negative) SARS-CoV-2 RNA (RT-PCR) NEGATIVE (Negative) Independent Interpretation I performed an independent interpretation of an: Plain X-Ray Interpretation: I personally interpreted the CXR which was negative for infiltrates, consolidations, pneumothorax, pleural effusion, pulmonary edema, I agree with the radiologist's interpretation Radiology Impression Discussion of test interpretation with radiology: I have reviewed the radiologist's reading. Radiologist Impression: CXR Findings: The lungs are clear. Normal size heart. No acute fracture. IMPRESSION: 1. No acute findings. This document has been electronically signed by: Chace Gallardo MD on 09/17/2025 08:02:27 Dictated By: Chace Gallardo MD Signed By: <Electronically signed by Chace Gallardo MD in OV> 09/17/25 0803 External Record Review External record reviewed: Inpatient record, Office record, Outpatient record and Prior outpatient labs Prescription Management I considered prescription management with: Antibiotic I contemplated antibiotics however chest x-ray is WNL, patient is positive for influenza A, no indication for antibiotics at this time. Patient with 1 week of symptoms, no indication for Tamiflu. Chronic Conditions Patient?s care impacted by: Other (Asthma, anxiety, PCOS, iron-deficiency anemia) Discharge Plan Discharge Clinical Impression: Influenza A, Otitis media Patient Disposition: Home, Self-Care Instructions: Droplet Precautions (ED), Ear Infection (ED) Additional Instructions: You tested positive for Influenza A (Flu A) today. Your chest X-ray is normal, which is reassuring and shows no signs of pneumonia at this time. Most people recover with rest and supportive care. For fever, body aches, headache, or sore throat, you may take acetaminophen (Tylenol) 500 mg and ibuprofen (Motrin/Advil) 400 mg every 6?8 hours as needed (take ibuprofen with food). Do not exceed 3,000 mg of Tylenol in 24 hours, and avoid ibuprofen if you have a history of stomach ulcers/bleeding, kidney disease, are on blood thinners, or have been advised not to take NSAIDs. Drink plenty of fluids (water, electrolyte drinks, broth), rest, and eat small meals as tolerated. The tympanic membrane of the right ear is red with decreased light reflex consistent with inner ear infection. You are being prescribed a 7 day course of Augmentin for this infection. Please take the entire course of antibiotics even if your ear pain improves before finishing. Follow up with your primary care provider to ensure resolution of your symptoms. Return to the emergency department immediately for worsening or new shortness of breath, chest pain, persistent high fevers, confusion, severe weakness, inability to keep fluids down, signs of dehydration (dizziness, very dark urine, minimal urination), oxygen saturation <=92% if you have a pulse oximeter, or any other concerning or worsening symptoms. Prescriptions: New albuterol sulfate [Ventolin HFA] 90 mcg/actuation HFA aerosol inhaler 4 inh inhalation Q4-6H PRN (Reason: shortness of breath or wheezing) Qty: 6.7 0RF Rx Instructions: do not exceed 16 puffs per 24 hrs amoxicillin-pot clavulanate 875-125 mg tablet 1 tab PO BID Qty: 14 0RF No Action azithromycin 250 mg tablet 250 mg PO DAILY 4 Days Qty: 4 0RF Rx Instructions: start on day 2 of therapy benzonatate 100 mg capsule 100 mg PO TID Qty: 14 0RF albuterol sulfate 90 mcg/actuation HFA aerosol inhaler 2 puff inhalation Q6-8H PRN (Reason: shortness of breath or wheezing) Qty: 6.7 0RF famotidine [Pepcid] 20 mg tablet 20 mg PO DAILY PRN (Reason: abdominal discomfort) Qty: 30 0RF ondansetron 4 mg tablet,disintegrating 4 mg PO Q8H PRN (Reason: nausea and vomiting) Qty: 20 0RF erythromycin 5 mg/gram (0.5 %) ointment 0.5 inch ophthalmic (eye) BID 5 Days Qty: 3.5 0RF (DME) blood-glucose meter [8 [employer]uch Ultra2 Meter] [facility] [place] See Rx Instructions .Route Qty: 1 0RF Rx Instructions: As directed azithromycin 250 mg tablet See Rx Instructions PO .COMPLEX Qty: 6 0RF Rx Instructions: take 500 mg today (day 1), then 250 mg for 4 days (days 2-5) PO albuterol sulfate [Ventolin HFA] 90 mcg/actuation HFA aerosol inhaler 1 inh inhalation QID PRN (Reason: shortness of breath or wheezing) Qty: 8.5 1RF Print Language: Mozambican
[2025-09-17 10:19] VITALS: BP 137/78; PULSE 89; RESP 20; TEMP 36.5; O2SAT 95
[2025-09-17 10:33] LABS: Strep A Nucleic Acid Negative (Negative)
[2025-09-17 10:50] VITALS: BP 137/78; PULSE 89; RESP 20; TEMP 36.5; O2SAT 95
== END 2025-09-17 10:50 | disposition home or self-care (01) ==
PROVIDERS: Emergency Provider Emergency Medicine; PCP Internal Medicine
DX: J10.1 Influenza due to other identified influenza virus with other respiratory manifestations (principal); H66.91 Otitis media, unspecified, right ear; R05.9 Cough, unspecified; R19.7 Diarrhea, unspecified; M79.10 Myalgia, unspecified site; J45.909 Unspecified asthma, uncomplicated
CPT/HCPCS: 71045; 87637; 87651; 94640; 99284

== ENCOUNTER → 2025-09-17 07:39 | Outpatient (BNV) | payer OTHER, SELFPAY | PROVIDERS: Emergency Provider Emergency Medicine; PCP Internal Medicine; Visit Provider Specialist | DX: R05.9 Cough, unspecified (principal) | CPT/HCPCS: 71045 ==